=== PATIENT | female | born 1965 | race Caucasian/White ===

== ENCOUNTER 2018-05-03 16:49 | Outpatient (CLI) | payer MEDICAID, SELFPAY ==
--- NOTE | 2018-05-01 09:09 | DI.RAD_ITS ---
SYMPTOMS/DIAGNOSIS: RT 1ST AND 2ND TOE DEFORMITY, PREV SURGERY, LT FOOT PAIN/ DEFORMITY LEFT FOOT: Two views. Comparison is 02/14/18. There is again seen a valgus deformity of the third toe at the metatarsal phalangeal joint. It overlaps the left fourth toe. There is also hammer toe deformity of the third toe. There is a small erosion seen at the lateral aspect of the head of the second metatarsal. This may reflect an inflammatory arthritis. Small cysts are seen in the head of the third metatarsal. Small calcification is seen at the insertion site of the Achilles onto the calcaneus. There is a well corticated osseous density seen on the lateral view at the tarsal metatarsal joint. No radiopaque foreign bodies are seen in the soft tissues. IMPRESSION: Stable chronic changes involving the foot particularly the third toe. RIGHT FOOT: Two views. No priors. There are findings of a prior bunionectomy and resection of the head of the proximal phalanx of the right second toe. There does appear to be mild lateral subluxation of the PIP joint of the second toe. Mild periarticular spurring is seen at the first metatarsal phalangeal joint consistent with osteoarthritis. No acute fracture or dislocation is seen. There does appear to be a hammer toe deformity of the second toe. There are small calcifications seen at the insertion site of the Achilles onto the posterior calcaneus. IMPRESSION: Post surgical and degenerative changes of the right foot.
== END 2018-05-03 17:09 ==
PROVIDERS: PCP Nurse Practitioner Family; Visit Provider Physician Assistant
DX: M20.12 Hallux valgus (acquired), left foot (principal); M20.42 Other hammer toe(s) (acquired), left foot; M20.41 Other hammer toe(s) (acquired), right foot; Z98.890 Other specified postprocedural states; M19.071 Primary osteoarthritis, right ankle and foot; M19.072 Primary osteoarthritis, left ankle and foot
CPT/HCPCS: 73620

== ENCOUNTER 2018-05-22 12:09 | Outpatient (CLI) | payer MEDICAID, SELFPAY ==
--- NOTE | 2018-05-22 10:17 | DI.RAD_ITS ---
SYMPTOM/DIAGNOSIS: RT WRIST PAIN, S/P HYPEREXTENSION, M25.531 RIGHT WRIST: Three views. No definite acute fracture or dislocation is seen. If symptoms persist and there is continued concern, a follow up examination may be obtained. IMPRESSION: No acute abnormality.
== END 2018-05-22 12:29 ==
PROVIDERS: PCP Nurse Practitioner Family; Visit Provider Nurse Practitioner Family
DX: M25.531 Pain in right wrist (principal)
CPT/HCPCS: 73110

== ENCOUNTER 2018-06-01 11:53 | Outpatient (REF) | payer MEDICAID, SELFPAY ==
[2018-06-05 02:17] LABS: 6-monoacetylmorphine Not Detected ng/mL (Cutoff: 25); Amphetamines Negative ng/mL (Cutoff: 500); Barbiturates Negative ng/mL (Cutoff: 200); Benzodiazepines Negative ng/mL (Cutoff: 100); Buprenorphine Not Detected ng/mL (Cutoff: 5); Cocaine Negative ng/mL (Cutoff: 150); Codeine Not Detected ng/mL (Cutoff: 25); Comment Normal; Creatinine, U 154.1 mg/dL; Dihydrocodeine Not Detected ng/mL (Cutoff: 25); EDDP Not Detected ng/mL (Cutoff: 25); Fentanyl Not Detected ng/mL (Cutoff: 2); Hydrocodone Not Detected ng/mL (Cutoff: 25); Hydromorphone Not Detected ng/mL (Cutoff: 25); Hydromorphone-3-beta-glucuroni Not Detected ng/mL (Cutoff: 100); Meperidine Not Detected ng/mL (Cutoff: 25); Methadone Not Detected ng/mL (Cutoff: 25); Morphine Not Detected ng/mL (Cutoff: 25); N-desmethyltapentadol Not Detected ng/mL (Cutoff: 50); Naloxone Not Detected ng/mL (Cutoff: 25); Norbuprenorphine Not Detected ng/mL (Cutoff: 5); Norfentanyl Not Detected ng/mL (Cutoff: 2); Norhydrocodone Not Detected ng/mL (Cutoff: 25); Normeperidine Not Detected ng/mL (Cutoff: 25); Noroxycodone Not Detected ng/mL (Cutoff: 25); Noroxymorphone Not Detected ng/mL (Cutoff: 25); O-desmethyltramadol Not Detected ng/mL (Cutoff: 25); Phencyclidine Negative ng/mL (Cutoff: 25); Propoxyphene Not Detected ng/mL (Cutoff: 25); Tapentadol Not Detected ng/mL (Cutoff: 25); Tetrahydrocannabinol Presumptive Positive ng/mL (Cutoff: 50); Tramadol Not Detected ng/mL (Cutoff: 25); pH 5.9
== END 2018-06-01 12:13 ==
LOC: LBN 11:53
PROVIDERS: PCP Nurse Practitioner Family; Visit Provider Nurse Practitioner Family
DX: Z79.891 Long term (current) use of opiate analgesic (principal); G89.29 Other chronic pain
CPT/HCPCS: 80307; 80364

== ENCOUNTER 2018-06-13 07:08 | Day surgery (SDC) | payer MEDICAID, SELFPAY ==
[2018-06-13 07:15] VITALS: BP 111/72; PULSE 72; RESP 16; TEMP 36.3; O2SAT 97
[2018-06-13] MEDS: Lactated Ringers 1,000 ML 80 ML IV ×2 (07:57→12:50)
--- NOTE | 2018-06-13 10:14 | PDOC.DSDIS_ITS ---
Discharge Plan Disposition Patient Disposition: HOME Condition: Good Discharge Details Reason For Visit: Left Forefoot Deformity Attending Provider: Jairo Carpenter Primary Care Provider: Monika Ayers Home Meds and New Rx's Prescriptions: New ibuprofen 600 mg tablet 600 mg PO TID PRNQty: 90 RF: 3 acetaminophen 500 mg capsule 1,000 mg PO Q8H PRN (Reason: pain) Qty: 90 RF: 0 oxycodone 5 mg tablet 5 mg PO Q6H PRN PRNQty: 12 RF: 0 Continue lidocaine 5 % ointment 1 applic TP .qhs PRN (Reason: foot pain) 30 Days Qty: 30 RF: 11 omega-3 fatty acids [Fish Oil] 300 MG capsule 300 mg PO BID RF: 0 medical marijuana RF: 0 multivitamin [Daily Multi-Vitamin] 1 EACH tablet 1 ea PO DAILY RF: 0 cholecalciferol (vitamin D3) [Vitamin D3] 2,000 UNIT capsule 5,000 unit PO DAILY RF: 0 gabapentin 300 mg capsule 300 - 600 mg PO TID MDD 6 Qty: 360 RF: 2 tizanidine 2 mg capsule 2 mg PO HS RF: 0 omeprazole 20 mg Tablet,Disintegrat, Delay Rel 1 tab PO DAILY PRN PRNRF: 0 Discharge Instructions Additional Instructions: ACTIVITY: You should keep your foot/leg elevated as much as possible for the first days after your surgery. You may bear weight on your heel. You should use the post-op shoe for any mobilization. You may wiggle your toes but no formal exercise until your first follow-up visit. DRESSINGS: You should leave your initial dressings in place until your folllowup appointment. If they become saturated or feel too tight, please call Dr. Carpenter's office prior to changing. MEDICATIONS: You should take Tylenol and Ibuprofen around the clock for baseline pain control. You have been prescribed Oxycodone for breakthroughy pain. If you are not having good pain control or are running low, please contact Dr. Carpenter through the office or hospital. FOLLOW-UP: You will have a follow-up in 7-10 days. At that time your dressings will be changed and further instructions will be given for the post- operative rehabilitation. Equipment/Supplies: Partial Weight Bearing Crutches Activity:: Elevate Remove Dressings/Wound Care:: Do Not Remove Shower/Bathe:: Cover Diet:: As Tolerated Discharge Orders Discharge Orders: Discharge Order (Routine); Ordered 06/13/18 Ordered By: Jairo Carpenter DS: Diagnosis Discharge Diagnosis (1) Crossover toe deformity of left foot: Status: Acute (2) Acquired hammer toe deformity of lesser toe of left foot: Status: Acute
--- NOTE | 2018-06-13 10:30 | DI.RAD_ITS ---
SYMPTOMS/DIAGNOSIS: LT FOOT HAMMER TOES LEFT FOOT IN THE OR: Fluoroscopy Time: 10 sec, .0637mGy Fluoroscopy was utilized by Dr. Carpenter during the performance of a left hammer toe repair. Please refer to the procedure report for complete details.
[2018-06-13] MEDS: Bupivacaine LIPOSOME/PF 133 MG/10 ML VIAL IJ (10:45)
[2018-06-13 14:03] VITALS: BP 123/76; PULSE 54; RESP 17; TEMP 36.2; O2SAT 99
[2018-06-13] MEDS: oxyCODONE 5 MG TAB PO (14:29)
--- NOTE | 2018-06-14 09:50 | ROE_ITS ---
REPORT OF OPERATIVE PROCEDURE DATE OF SURGERY June 13, 2018 PREOPERATIVE DIAGNOSES Left forefoot deformity with second hammertoe and third crossover toe. POSTOPERATIVE DIAGNOSES Hammertoe of the second toe, collateral ligament and plantar plate tear of the medial aspect of the t hird MTP joint. SURGERY 1. DuVries osteotomy, arthroplasty of the second PIP joint, left foot. 2. Plantar plate repair with augmentation using Arthrex InternalBrace for third MTP joint, along wit h Clotilde osteotomy. SURGEON Jairo Carpenter M.D. [employer] Don Anderson PA-C ANESTHESIA MAC with ankle block ESTIMATED BLOOD LOSS 20 cc COMPLICATIONS None. DISPOSITION The patient awakened from anesthesia and taken back to the PACU in a stable condition. INDICATION FOR PROCEDURE Cee is a 53-year-old who has longstanding foot deformity of the left foot. She also has had issues with the right foot. She has had multiple surgeries to the right side. The large complaint is the ham mering of the second toe, as well as the crossing over of the third over the fourth toe. This has wor sened over time. This has worsened over time. She has tried multiple conservative options including d ifferent braces and devices to help hold the toe into position. These have all failed and she desires to pursue something more definitive. I reviewed treatment options with her. I discussed possible hilary gical options. I reviewed the risks of the procedures to include bleeding, infection, pain, stiffness , weakness, recurrence of deformity, devascularization of the toe, damage to nerves and vessels, toe shortening. Despite these risks, she elected to proceed. PROCEDURE DESCRIPTION Cee was greeted in the preoperative holding area. Her identify was confirmed and the correct side was identified and marked. The consent was reviewed with the patient and signed. The history and phys ical was updated. She was taken back to the Operating Room and placed in the supine position. An ankl e block was administered. Sedation was supplied. The left foot was prepped with ChloraPrep and draped in a standard fashion. Prophylactic antibiotics in the form of cefazolin were given. A time-out was performed for safe surg ganga. The Esmarch Tourniquet was then placed up onto the left foot and around the ankle where it stayed for approximately 90 minutes. I then started with the Third MTP joint. A longitudinal incision was made overlying the third toe and MTP joint and extending along the third metatarsal. This was taken down through the skin. Blunt diss ection was used to identify the extensor tendon. The EDL tendon was identified and Z-lengthening was performed. The tendon was removed out of the way with great exposure of the MTP joint. Capsule of th e MTP joint was incised. Circumferential dissection was taken out and around the base of the proximal phalanx. Limited dissection was carried around the metatarsal head. With this exposure now in place, I then performed a Clotilde osteotomy. This was done by using the oscillating saw through the dorsal mar gin of the articular surface in plane with the plantar aspect of the foot to create an oblique osteot mckay. Once this was performed, an osteotome was used to finish the osteotomy and a curved osteotome wa s used to dissect the plantar plate tissues off the plantar aspect of the metatarsal. Using the toe a s a pusher, the head of the metatarsal was then pushed proximally approximately 1 cm and then held in place with a K-wire. A second K-wire was then placed in the proximal phalanx. This allowed the joint distractor to be applied. With the joint distractor applied, the plantar plate was able to be evalua alvin. There was a notable complex tear over the medial border of the plantar plate. There appeared to be some scaring and some attenuation of the medial aspect of the plantar plate and the medial collate ral ligament of the MTP joint was hard to identify. Continuing with the releasing off the proximal ph alanx I released the plantar plate hole. This was released until the flexor tendon was identified at the base and the plantar plate was fully mobile. The tissue was quite good laterally and we did find some good tissue medially as well. I therefore proceeded with placing two horizontal mattress sutures in the most medial and lateral aspects of the plantar plate. These were done using a curved lasso de vice. Once these were placed, I then proceeded with an augmentation procedure using the Arthrex Inter nalBrace system. A proximal K-wire was placed proximal to the Clotilde osteotomy site and angled toward t he joint. This was then over-drilled with a 2.5-mm drill hole. A suture passer was then placed throug h the bone and through the plantar plate and a suture passer was retrieved below the plantar plate, b ut above the flexor tendon. Labral tape was then passed through. This was then held up by the metatar dalia and brought underneath the plantar plate. A 2.5-mm drill hole was then made across the proximal p halanx in a very plantar position from medial to lateral and bicortically. Once this was passed, the sutures from the plantar plate and the augmentation device were passed from medial to lateral and la teral to medial for each side respectively. Before tightening this up, the plantar surface of the pro ximal -proximal phalanx was then rasped. The sutures were tightened and the plantar plate was nicely reapproximated. Before fixating this completely, the Clotilde osteotomy was fixed with about 2 mm of shor tening. This was held with two snap screws from the Arthrex system. Once this was secured, the toe wa s reduced and the plantar plate repair and augmentation was tightened. A 3 x 8-mm interference screw was placed in the metatarsal bone to secure the labral tape. With tension being held more medial than lateral as well, the 3 x 8-mm interference screw was placed within the proximal phalanx. This had ex cellent purchase. The toe was now stable and well reduced. It did seem to have a valgus orientation, however parallel to the fourth and fifth toes. It no longer overlapped the fourth toe, but did diverg e slightly from the second toe more than I was expecting. However, there was no laxity with mean varu s and valgus stress of the MTP joint. Using a #0-Vicryl, I then imbricated some of the capsular tissu es over the medial aspect of the capsule. I closed the capsule primarily with a #2-0 Vicryl. The exte nsor tendon was elongated approximately 5 to 6 millimeters, and then secured with a #0-Vicryl. I then turned my attention to the second toe. A longitudinal incision was made overlying the PIP join t of the second toe and extending down towards the metatarsal head. The extensor tendon was identifie d and it was transected, exposing the PIP joint. The capsule was dissected off and the head of the pr oximal phalanx was identified. Using the oscillating saw, the head was removed, resecting approximate ly 4 millimeters of bone. With this resected, the toe now easily became fully straight and no longer hammered. The MTP joint still had some slight elevation so a Z-lengthening was performed more proxima lly of the extensor tendon. The extensor tendon was then reapproximated with a #0-Vicryl. A 0.0625 K- wire was then placed through the PIP joint in a retrograde fashion. This kept the PIP joint in about 20 degrees of flexion. This was covered with a Jurgan ball and cut short. The wound was then thorough ly irrigated. The skin was closed with a #4-0 Nylon. The skin of the other site was also closed with the same. The tourniquet was released. I had to use some bupivacaine with epinephrine prior to the case and there was some sluggish blood flow back to the second toe, however this started to pink up b y the applications of dressings. The wounds were dressed with Xeroform, 4x4s, Kerlix and an Ministerio wrap. She was placed in a postop shoe. She may heel weight bear. I will see her back in two weeks.
== END 2018-06-13 14:55 | disposition home or self-care (01) ==
PROVIDERS: PCP Nurse Practitioner Family; Visit Provider Student in an Organized Health Care Education/Training Program
PROC: (CPT 28285; principal; 2018-06-13 09:30)
DX: M20.42 Other hammer toe(s) (acquired), left foot (principal); M20.5X2 Other deformities of toe(s) (acquired), left foot
CPT/HCPCS: 28308; 28313; 76942; 73630; J0131; J0690; J1100; J1885; J2250; J2405; J3010

== ENCOUNTER 2018-07-05 08:55 | Outpatient (CLI) | payer MEDICAID, SELFPAY ==
--- NOTE | 2018-07-05 08:51 | DI.RAD_ITS ---
SYMPTOMS/DIAGNOSIS: LEFT FOOT FOLLOWUP S/P ERICH OSTEOTOMY AND PLANTAR LEFT FOOT: Three views were obtained. There are two fixation screws transfixing the head of the 3rd metatarsal fracture fragments. Alignment appears essentially unchanged in comparison with C-arm films of June 13.
== END 2018-07-05 09:15 ==
PROVIDERS: PCP Nurse Practitioner Family; Visit Provider Student in an Organized Health Care Education/Training Program
DX: M20.5X2 Other deformities of toe(s) (acquired), left foot (principal); M20.42 Other hammer toe(s) (acquired), left foot; Z98.890 Other specified postprocedural states; Z47.89 Encounter for other orthopedic aftercare
CPT/HCPCS: 73630

== ENCOUNTER 2018-08-02 08:54 | Outpatient (CLI) | payer MEDICAID, SELFPAY ==
--- NOTE | 2018-08-02 08:51 | DI.RAD_ITS ---
SYMPTOMS/DIAGNOSIS: RT/LT ULNAR HAND PAIN RIGHT WRIST: Three projections were provided. No bone or joint abnormality is seen save for very minimal degenerative changes at the navicular multangular and multangular and first metacarpal joints. LEFT WRIST: Three projections were provided. There is no evidence of a fracture or dislocation. Note is made of a cystic region in the distal pole of the navicular with a very faint thin sclerotic border. There is no evidence of bony expansion, destruction or calcifications within this region and the finding are presumably benign. Minimal degenerative changes are evident.
== END 2018-08-02 09:14 ==
PROVIDERS: PCP Nurse Practitioner Family; Visit Provider Student in an Organized Health Care Education/Training Program
DX: M25.531 Pain in right wrist (principal); M25.532 Pain in left wrist; M19.031 Primary osteoarthritis, right wrist; M19.032 Primary osteoarthritis, left wrist
CPT/HCPCS: 73100; 73110; 73130

== ENCOUNTER 2018-08-09 20:03 | Emergency (ER) | payer MEDICAID, SELFPAY ==
[2018-08-09 20:12] VITALS: BP 117/83; PULSE 94; RESP 20; TEMP 36.6; O2SAT 96
--- NOTE | 2018-08-09 20:23 | W.ED.GENAD ---
Discharge Plan Disposition Patient Disposition: HOME Condition: Fair Discharge Details Chief Complaint: RespSymp Clinical Impression: URI (upper respiratory infection) Primary Care Provider: Monika Ayers ED Provider: Chary Mills Home Meds and New Rx's Prescriptions: New benzonatate [Tessalon Perles] 100 mg capsule 100 mg PO QID PRN (Reason: cough) Qty: 10 RF: 0 oseltamivir [Tamiflu] 75 mg capsule 75 mg PO BID 5 Days Qty: 8 RF: 0 ondansetron 4 mg tablet,disintegrating 4 mg PO QID PRN (Reason: nausea and vomiting) Qty: 10 RF: 0 Continued lidocaine 5 % ointment 1 applic TP .qhs PRN (Reason: foot pain) 30 Days Qty: 30 RF: 11 Fish Oil 300 MG capsule 300 mg PO BID RF: 0 medical marijuana RF: 0 multivitamin [Daily Multi-Vitamin] 1 EACH tablet 1 ea PO DAILY RF: 0 cholecalciferol (vitamin D3) [Vitamin D3] 2,000 UNIT capsule 5,000 unit PO DAILY RF: 0 gabapentin 300 mg capsule 300 - 600 mg PO TID MDD 6 Qty: 360 RF: 2 cyclobenzaprine 10 mg tablet 10 mg PO TID PRN (Reason: muscle spasm) Qty: 90 RF: 4 omeprazole 20 mg capsule,delayed release(DR/EC) 20 mg PO DAILY Qty: 90 RF: 4 ibuprofen 600 mg tablet 600 mg PO TID PRNQty: 90 RF: 3 acetaminophen 500 mg capsule 1,000 mg PO Q8H PRN (Reason: pain) Qty: 90 RF: 0 Discharge Instructions Instructions: Influenza (ED), Upper Respiratory Infection (ED) Additional Instructions: Rapid influenza testing negative here. However, your symptoms are very concerning for influenza, further confirmation has been sent to the state lab. Given your job and young children, we will treat for influenza. Encourage hydration. Tylenol and/or Motrin as needed for discomfort. Zofran as prescribed for nausea. Tessalon perles as prescribed for cough. Take Tamiflu as prescribed. Follow up with primary care if not improving next week. If you develop chest pain, shortness of breath, develop worsening cough or other new/worsening symptoms please seek care urgently once again. Referrals: Monika Ayers, ELISA [Primary Care Provider] - Discharge Data Discharge Date/Time-TO BE ENTERED AT DEPARTURE: 08/09/18 21:33 Medical Decision Making Patient 53-year-old female, accompanied by mother, with chief complaint of URI and GI upset. She reports that symptoms began within the last 48 hours. Is endorsing a fever which is responded well to Tylenol or ibuprofen. She is currently afebrile. Is endorsing sore throat, cough, nausea and vomiting. Denies any diarrhea. Is not noted any blood in her emesis or bowel movements. No change in urinary habits. No vaginal discharge. Denies any abdominal pain. Denies any chest pain. Endorses some slight shortness of breath but associates this with coughing fits. None when not actively coughing. Reports she did receive her flu shot this year. Is endorsing body aches. On exam, patient appears acutely unwell. She does not appear toxic. She is coughing frequently. Afebrile. Noted to be slightly tachycardic at 94. She has been hydrating well and appears well-hydrated on exam. Primarily concern for influenza. Lungs are clear on exam. 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 Also reports that she has 2 infants at home. Given the possible exposures into a geriatric facility, and the high clinical suspicion for influenza, I would prefer to treat the patient at this time with Tamiflu. I requested state testing for the swab that has been sent had initially been noted to be negative. I encouraged hydration. She has been able to tolerate this well. Will prescribe Tessalon Perles as well as Zofran to help with symptomatic management. She reports she has had Tamiflu historically and has had difficulty tolerating this secondary to GI upset. I am hoping that with the Zofran she may find this more tolerable. She was given strict return precautions. Advise follow-up with primary care if not completely resolved next week. All of her questions and concerns were addressed and she is in agreement this plan. Given the time of the evening, pharmacies are closed and she will be discharged with medications as needed. HPI General Mode of arrival: ambulatory. Date/Time Provider Initiated Documentation: 08/09/18 20:22. Limitations to Documentation: no limitations. Information obtained by: patient and family. History of Present Illness 53 year old F presents to the emergency department with the chief complaint of URI and GI upset, described as moderate, with intensity rated at 6 (sore throat). Quality is described as aching, and is localized to the mouth. Patient reports no radiation. Patient started experiencing this day(s) (2) Related Data Home Medications Medication Instructions Recorded Confirmed Fish Oil 300 mg PO BID 11/09/16 08/09/18 Medical Marijuana 04/26/17 08/02/18 cholecalciferol (vitamin D3) 5,000 unit PO DAILY 07/08/17 08/09/18 [Vitamin D3] multivitamin [Daily Multi-Vitamin] 1 ea PO DAILY 07/08/17 08/09/18 gabapentin 300 mg capsule 300 - 600 mg PO TID #360 cap MDD 6 04/30/18 08/09/18 lidocaine 5 % topical ointment 1 applic TP .qhs PRN 30 Days #30 gm 06/01/18 08/09/18 acetaminophen 1,000 mg PO Q8H PRN #90 cap 06/13/18 08/09/18 ibuprofen 600 mg PO TID PRN #90 tab 06/13/18 08/09/18 cyclobenzaprine 10 mg tablet 10 mg PO TID PRN #90 tab 07/13/18 08/09/18 omeprazole 20 mg capsule,delayed 20 mg PO DAILY #90 cap 07/13/18 08/09/18 release benzonatate [Tessalon Perles] 100 mg PO QID PRN #10 cap 08/09/18 ondansetron 4 mg PO QID PRN #10 tab 08/09/18 oseltamivir [Tamiflu] 75 mg PO BID 5 Days #8 cap 08/09/18 Previous Rx's Medication Instructions Recorded gabapentin 300 mg capsule 300 - 600 mg PO TID #360 cap MDD 6 04/30/18 lidocaine 5 % topical ointment 1 applic TP .qhs PRN 30 Days #30 gm 06/01/18 acetaminophen 1,000 mg PO Q8H PRN #90 cap 06/13/18 ibuprofen 600 mg PO TID PRN #90 tab 06/13/18 cyclobenzaprine 10 mg tablet 10 mg PO TID PRN #90 tab 07/13/18 omeprazole 20 mg capsule,delayed 20 mg PO DAILY #90 cap 07/13/18 release benzonatate [Tessalon Perles] 100 mg PO QID PRN #10 cap 08/09/18 ondansetron 4 mg PO QID PRN #10 tab 08/09/18 oseltamivir [Tamiflu] 75 mg PO BID 5 Days #8 cap 08/09/18 Allergies Allergy/AdvReac Type Severity Reaction Status Date / Time No Known Allergies Allergy Unverified 07/28/18 07:52 General Stated Complaint: RespSymp [place]: 3 Review of Systems Constitutional Reports as per HPI and Denies headache(s) Eyes Reports as per HPI, Denies eye discharge and Denies irritation ENT Reports as per HPI, Denies change in voice, Denies ear discharge, Denies otalgia, Denies headache(s), Reports nasal congestion, Reports nasal discharge, Denies sinus pain, Reports sinus pressure, Reports sore throat, Denies throat swelling and Denies tongue swelling Cardiovascular Reports as per HPI, Denies chest pain and Denies dyspnea Respiratory Reports as per HPI, Reports cough, Denies pain on inspiration, Denies pain with cough and Denies dyspnea Gastrointestinal Reports as per HPI, Denies abdominal pain, Denies melena, Denies change in bowel habits, Reports nausea, Reports vomiting and Denies hematemesis Genitourinary Reports system reviewed and no additional complaints, except as docu (denies change in urinary habits) Musculoskeletal Reports as per HPI (body aches) Integumentary/Breasts Reports as per HPI and Denies rash Neurologic Denies headache(s) Allergic/Immunologic Denies throat swelling and Denies tongue swelling PFSH Medical History Tubular adenoma of colon (Inactive ~2016) Chronic pain (Chronic) Surgical History H/O laparoscopy (Chronic) Hx of appendectomy (Chronic ~1981) section (Inactive ~2012) Colonoscopy - MAC (Inactive 06/10/17) S/P LASIK surgery of both eyes (Inactive ~2009) S/P bunionectomy (Inactive ~04/18/15) S/P excision of Guadalupe's neuroma (Inactive ~04/18/15) Status post hammertoe correction (Inactive ~04/18/15) Status post left foot surgery (Inactive 06/13/18) Social History lives independently: Yes number of children: 2 current occupational status: employed 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 frequency: does not exercise Smoking/Tobacco Use Status: Former Tobacco Use quit date: 06/15/12 alcohol intake: current alcohol intake frequency: a few times a month Alcohol type: beer substance use type: marijuana jake/gnosticist: No preference special jake needs: No Exam Const General: cooperative, comfortable, no acute distress, well developed and well groomed Nutritional Appearance: average body habitus and well nourished Orientation: alert and awake [facility] Head: normal to inspection, normocephalic and atraumatic Ears: hearing grossly normal bilaterally, external ears normal and TM's normal bilaterally General nose exam: external nose normal and nares normal Face and sinus: normal facial exam, sinuses nontender and face symmetric Mouth: oral mucosae normal, lip normal, tongue normal, oropharynx normal and moist mucous membranes Teeth and gingiva: dentition normal Throat: posterior oropharynx abnormal (erythema), tonsils normal and uvula midline Eyes General: appearance normal, both eyes and all related structures Neck Neck: normal visual inspection, full ROM, no lymphadenopathy and no meningeal signs Resp Effort & Inspection: normal respiratory effort, able to speak in complete sentences, cough Quality of cough: actively coughing and no respiratory distress Auscultation: clear to auscultation bilaterally, no rales, no rhonchi and no wheezes Cardio Rate: regular rate Rhythm: regular rhythm Heart Sounds: S1 normal and S2 normal GI Inspection: normal to inspection Palpation: soft, no hepatosplenomegaly, not rigid and nontender Auscultation: normal bowel sounds Skin General skin exam: no rashes or lesions noted Neuro General: alert and awake Cognition: normal cognition Speech: speech normal Gait: normal gait Psych Appearance: grossly normal and well kempt Mental Status: mental status grossly normal Speech and Movement: speech and movement normal Course Vital Signs Temperature 36.6 C 08/09/18 20:12 Pulse 94 H 08/09/18 20:12 Respiratory Rate 20 08/09/18 20:12 Blood Pressure 117/83 08/09/18 20:12 Pulse Oximetry 96 08/09/18 20:12 Temperature 36.6 C 08/09/18 20:12 Temperature Source Skin 08/09/18 20:12 Pulse 94 H 08/09/18 20:12 Respiratory Rate 20 08/09/18 20:12 Respiratory Effort 08/09/18 20:15 Blood Pressure 117/83 08/09/18 20:12 Blood Pressure Position Sitting 08/09/18 20:12 Pulse Oximetry 96 08/09/18 20:12 Oxygen Delivery Method Room Air 08/09/18 20:12 Oxygen Flow Rate 0 08/09/18 20:12 Pain Level 6 08/09/18 20:12
[2018-08-09] MEDS: Benzonatate 100 MG CAP PO (20:44)
[2018-08-09] MEDS: Ondansetron O.D.T. 4 MG TABEF 12 MG PO (21:26)
[2018-08-09] MEDS: Oseltamivir 75 MG CAP 150 MG PO (21:26)
[2018-08-09] MEDS: Benzonatate 100 MG CAP 200 MG PO (21:27)
[2018-08-17 13:47] LABS: Flu PCR, State Lab See Comments
== END 2018-08-09 21:33 | disposition home or self-care (01) ==
PROVIDERS: Emergency Provider Physician Assistant; PCP Nurse Practitioner Family
DX: J11.1 Influenza due to unidentified influenza virus with other respiratory manifestations (principal)
CPT/HCPCS: 87449; 99283

== ENCOUNTER 2018-08-17 08:43 | Outpatient (CLI) | payer MEDICAID, SELFPAY ==
[2018-08-17 12:47] LABS: Anion Gap 10.3 mmol/L (3-11); BUN 14 mg/dL (7-18); CO2 27.7 mmol/L (21.0-32.0); CREATININE 0.92 mg/dL (0.55-1.02); Calcium 9.3 mg/dL (8.5-10.1); Chloride 104 mmol/L (98-107); Cholesterol 199 mg/dL (50-200); Glucose 95 mg/dL (70-100); HDL Cholesterol 55 mg/dL (40-60); LDL CHOLESTEROL 122 mg/dL (<100); Magnesium 2.1 mg/dL (1.8-2.4); Potassium 4.8 mmol/L (3.5-5.1); Sodium 142 mmol/L (136-145); Triglyceride 112 mg/dL (30-150)
[2018-08-17 13:22] LABS: FREE T4 1.17 ng/dL (0.76-1.46)
== END 2018-08-17 09:03 ==
PROVIDERS: PCP Nurse Practitioner Family; Visit Provider Nurse Practitioner Family
DX: Z13.220 Encounter for screening for lipoid disorders (principal); R25.2 Cramp and spasm; Z13.29 Encounter for screening for other suspected endocrine disorder
CPT/HCPCS: 36415; 80048; 80061; 83721; 83735; 84439; 84443

== ENCOUNTER 2018-09-06 07:35 | Day surgery (SDC) | payer MEDICAID, SELFPAY ==
--- NOTE | 2018-09-06 06:55 | ENDO_ITS ---
Date of service: 09/06/18 Time of Service: 08:41 Endoscopy Report DATE OF PROCEDURE: 09/06/18 PRE-OP DIAGNOSIS: Dysphagia POST-OP DIAGNOSIS: same (mild gastritis and mild esophagitis) PROCEDURE: EGD with biopsies SURGEON: Sadie Mejia ANESTHESIA: MAC (Jalen Mitchell, ARMATURE BALANCER/ ASA 2) ESTIMATED BLOOD LOSS: 2 PATHOLOGY: other (Antral bx and esophageal bx) COMPLICATIONS: None DISPOSITION: same day INDICATIONS: Mrs. Orozco is a pleasant 53 year old female who was seen in the office with a complaint of dysphagia. Risks, benefits and complications have been reviewed. Complications include but are not limited to bleeding, pain, perforation, sore throat, aspiration, and adverse reaction to the medications. Questions were entertained and answered to their satisfaction and they wished to proceed. No guarantees were given or implied. FINDINGS: Mild inflammation of the stomach and esophagus PROCEDURE DESCRIPTION: After informed consent was obtained the patient was take to the procedure room and placed in a supine position. Monitors were applied and a time out was done. The patients name, date of , procedure type, al lergies to medications and metal in their body was reviewed. A bite block was placed and the patient was sedated. Once sedated and comfortable the gastroscope was advanced through the oropharynx which was grossly normal into the esophagus. The proximal and mid-esophagus were normal. In the distal esophagus there was mild inflammation noted. The scope was advanced into the stomach and through the pylorus into the 3rd portion of the duodenum. The duodenum was noted to be normal. The scope was retracted back into the stomach and biopsies were done to rule out H. pylori. There was mild to moderate inflammation. There were no ulcers. The scope was retroflexed. The cardia and fundus were noted to be normal. There was no hiatal hernia noted. The scope was retracted back into the esophagus and biopsies were done of the GE junction to rule out Luna's. The Z line was irregular. The GE junction was at 40 cm. The scope was removed and the patient was woken up and taken back to [facility] in stable condition. Follow up: 2 weeks in the office
--- NOTE | 2018-09-06 06:55 | W.PM.DSUDISC ---
Discharge Plan Disposition Patient Disposition: HOME Condition: Good Discharge Details Reason For Visit: Dysphagia Attending Provider: Sadie Mejia Primary Care Provider: Monika Ayers Home Meds and New Rx's Prescriptions: Continued lidocaine 5 % ointment 1 applic TP .qhs PRN (Reason: foot pain) 30 Days Qty: 30 RF: 11 Fish Oil 300 MG capsule 300 mg PO BID RF: 0 medical marijuana RF: 0 multivitamin [Daily Multi-Vitamin] 1 EACH tablet 1 ea PO DAILY RF: 0 cholecalciferol (vitamin D3) [Vitamin D3] 2,000 UNIT capsule 5,000 unit PO DAILY RF: 0 gabapentin 300 mg capsule 300 - 600 mg PO TID MDD 6 Qty: 360 RF: 2 cyclobenzaprine 10 mg tablet 10 mg PO TID PRN (Reason: muscle spasm) Qty: 90 RF: 4 acetaminophen 500 mg capsule 1,000 mg PO Q8H PRN (Reason: pain) Qty: 90 RF: 0 ondansetron 4 mg tablet,disintegrating 4 mg PO QID PRN (Reason: nausea and vomiting) Qty: 10 RF: 0 Changed omeprazole 20 mg capsule,delayed release(DR/EC) 40 mg PO DAILY Qty: 90 RF: 4 Discontinued ibuprofen 600 mg tablet 600 mg PO TID PRNQty: 90 RF: 3 Discharge Instructions Instructions: Upper Endoscopy (DC), Gastritis (DC), Esophagitis (DC) Additional Instructions: Findings: mild inflammation in the stomach and esophagus Follow up:2 weeks medication: Increase Omeprazole to 40 mg daily Please call if you develop: fevers >101.5 Nausea or Vomiting Abdominal pain that is not transient DAY SURGERY UNIT POST COLONOSCOPY INSTRUCTIONS 1. Because there will be medication in your system for the next 24 hours, you may feel a little sleepy. Your coordination will be affected. Therefore: a. Do not drive or operate dangerous equipment for 24 hours. b. Do not drink alcohol beverages for 24 hours (not even beer). c. Plan to go home and rest for the day. 2. Generally there are no restrictions on your activity after a day or so has gone by, but you may feel a bit fatigued for a few days. 3 After you arrive home you may have a light meal and return to a normal diet as you can tolerate it without feeling sick to your stomach. 4. After surgery, you may feel pain or discomfort. This should be only transient, but if it persists please contact your doctor. 5. If there are any questions regarding the findings of your procedure, please feel free to contact your doctor. 6. If you are unable to contact your doctor with a problem, contact the hospital at [phone]. 7. Continue all your regular medications unless directed otherwise. I understand the above instructions and have no questions. Signature of Patient or Responsible Adult Escort Date/Time Name of Responsible Adult Escort Signature of Nurse Date/Time Activity:: Activity as Tolerated Diet:: As Tolerated Discharge Orders Discharge Orders: Discharge Order (Routine); Ordered 09/06/18 Ordered By: Sadie Mejia DS: Diagnosis Discharge Diagnosis (1) GERD (gastroesophageal reflux disease): Status: Chronic (2) Dysphagia: Status: Acute (3) H/O esophagogastroduodenoscopy: Status: Chronic
--- NOTE | 2018-09-06 06:56 | W.PM.HP.N ---
Date of service: 09/06/18 Assessment and Plan (1) Dysphagia: Current visit: No Status: Acute P\\ EGD under sedation Risks, benefits, complications were reviewed with the patient. Complications include but are not limited to bleeding, sore throat, injury to the uvula, perforation and adverse reaction to the medications. Questions were entertained and answered to their satisfaction and they wish to proceed. No guarantees were given or implied. Qualifiers: Dysphagia type: unspecified Qualified Code(s): R13.10 - Dysphagia, unspecified History of Present Illness Narrative: Cee is here today to discuss an EGD. The patient is having dysphagia and globus sensation. She has had intermittent refulx that she has treated intermittently with PPI. She was recently given a Rx for omerpazole 20 mg to take daily. She tells me that as a [age] something she had a lot more reflux. As she quit drinking and smoking things got better. She had a colonoscopy last year and was found to have a tubular adenoma. The patient denies any hematemesis, unintentional weight loss or changes in bowel habits. The patient denies any chest pain or shortness of breath with exertion. No changes in her health since she was last seen in the office. [facility] Medical History Hyperlipidemia (Chronic) Tubular adenoma of colon (Inactive ~2016) Chronic pain (Chronic) Surgical History H/O esophagogastroduodenoscopy (Chronic ~09/06/18) H/O laparoscopy (Chronic) Hx of appendectomy (Chronic ~1981) section (Inactive ~2012) Colonoscopy - MAC (Inactive 06/10/17) S/P LASIK surgery of both eyes (Inactive ~2009) S/P bunionectomy (Inactive ~04/18/15) S/P excision of Guadalupe's neuroma (Inactive ~04/18/15) Status post hammertoe correction (Inactive ~04/18/15) Status post left foot surgery (Inactive 06/13/18) Family History Mother No problems noted. Father Dementia Brother No problems noted. Daughter No problems noted. Daughter No problems noted. Maternal Grandfather COPD (chronic obstructive pulmonary disease) with emphysema Maternal Grandmother No problems noted. 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 frequency: does not exercise Smoking/Tobacco Use Status: Former Tobacco Use quit date: 06/15/12 alcohol intake: current alcohol intake frequency: a few times a month Alcohol type: beer substance use type: marijuana jake/methodist: No preference special jake needs: No Meds Home Medications Medication Instructions Recorded Confirmed Type Fish Oil 300 mg PO BID 11/09/16 09/06/18 History Medical Marijuana 04/26/17 08/24/18 History cholecalciferol (vitamin D3) 5,000 unit PO DAILY 07/08/17 09/06/18 History [Vitamin D3] multivitamin [Daily Multi-Vitamin] 1 ea PO DAILY 07/08/17 09/06/18 History gabapentin 300 mg capsule 300 - 600 mg PO TID #360 cap MDD 6 04/30/18 09/06/18 Rx lidocaine 5 % topical ointment 1 applic TP .qhs PRN 30 Days #30 gm 06/01/18 09/06/18 Rx acetaminophen 1,000 mg PO Q8H PRN #90 cap 06/13/18 09/04/18 Rx cyclobenzaprine 10 mg tablet 10 mg PO TID PRN #90 tab 07/13/18 09/06/18 Rx ondansetron 4 mg PO QID PRN #10 tab 08/09/18 09/04/18 Rx omeprazole 40 mg PO DAILY #90 cap 09/06/18 09/06/18 Rx Allergies Allergy/AdvReac Type Severity Reaction Status Date / Time No Known Allergies Allergy Unverified 09/06/18 07:52 Exam Resp Effort & Inspection: normal respiratory effort Auscultation: clear to auscultation bilaterally Cardio Rate: regular rate Rhythm: regular rhythm Heart Sounds: no gallops, no murmurs and no rubs
[2018-09-06 08:00] VITALS: BP 121/55; PULSE 83; RESP 16; TEMP 36.3; O2SAT 98
[2018-09-06] MEDS: Lactated Ringers 1,000 ML 80 ML IV (08:22)
[2018-09-06] MEDS: Lidocaine 2% Viscous 15 ML CUP (08:35)
--- NOTE | 2018-09-06 08:44 | STOM_PTH ---
PATIENT: Cee Orozco LOC: [facility] U#:[id number] AGE/SX: 53/F ROOM: RE09/06/[address]: Sadie Mejia MD : [id number] BED: DIS: 09/06/2018 SPEC #: [id number] RECD: 09/06/18 12:42 STATUS: DAVE REJosh #: [id number] ROSARIO: 09/06/18 08:[address]: Sadie Mejia DEPT: Surgical Specimen RECD BY: Kayli Stratton ENTERED: 09/06/18 12:43 SP TYPE: STOMACH OTHR DR: ROSA Machuca Tissues: 1 - STOMACH BIOPSY 2 - ESOPHAGUS BIOPSY Procedures: GROSS AND MICRO LEVEL 4 Comments: [id number]
[2018-09-06 09:30] VITALS: BP 93/45; PULSE 71; RESP 16; TEMP 36.6; O2SAT 99
== END 2018-09-06 10:00 | disposition home or self-care (01) ==
LOC: SUR 07:35
PROVIDERS: PCP Nurse Practitioner Family; Visit Provider Surgery
PROC: 0DJ68ZZ Inspection of Stomach, Via Natural or Artificial Opening Endoscopic (ICD-10-PCS; CPT 43235; principal; 2018-09-06 08:45)
DX: R13.10 Dysphagia, unspecified (principal); K22.10 Ulcer of esophagus without bleeding; K31.89 Other diseases of stomach and duodenum; K21.9 Gastro-esophageal reflux disease without esophagitis
CPT/HCPCS: 43239; 88305; NC

== ENCOUNTER 2018-09-15 08:35 | Outpatient (CLI) | payer MEDICAID, SELFPAY ==
--- NOTE | 2018-09-15 08:31 | DI.RAD_ITS ---
SYMPTOM/DIAGNOSIS: LEFT FOOT SURGERY LEFT FOOT: 09/15/18 Four views were obtained. Note is again made of deformity of the head of the 3rd metatarsal with fixation screws in place. Alignment appears essentially unchanged in comparison with the examination of Jul 05, 2018
== END 2018-09-15 08:55 ==
PROVIDERS: PCP Nurse Practitioner Family; Visit Provider Physician Assistant
DX: M20.42 Other hammer toe(s) (acquired), left foot (principal); M20.5X2 Other deformities of toe(s) (acquired), left foot; Z98.890 Other specified postprocedural states
CPT/HCPCS: 73630

== ENCOUNTER 2018-09-21 00:52 | Outpatient (CLI) | payer MEDICAID, SELFPAY ==
--- NOTE | 2018-09-21 08:45 | DI.CT_ITS ---
SYMPTOMS/DIAGNOSIS: EVALUATE PAIN AND SNAPPING AT 3RD MTP JOINT, M20.5X2, CROSSOVER TOE DEFORMITY, LEFT FOOT LEFT FOOT CT: CT examination of the foot was performed utilizing multislice acquisition and multiplanar reconstruction. Hindfoot structures appear intact. There is an apparent suture defect and two fixation screws in the head of the 3rd. Otherwise, the bone appears intact and the articular surface appears intact. The adjacent proximal articular surface of the 3rd toe is unremarkable. There is increased soft tissue radiodensity around the head of the 3rd metatarsal, particularly on its plantar aspect, and there is increased intermetatarsal head distance between 3rd and 4th metatarsals. No other specific bony abnormality seen.
== END 2018-09-21 01:12 ==
PROVIDERS: PCP Nurse Practitioner Family; Visit Provider Student in an Organized Health Care Education/Training Program
DX: M79.672 Pain in left foot (principal); M20.5X2 Other deformities of toe(s) (acquired), left foot; M24.875 Other specific joint derangements left foot, not elsewhere classified
CPT/HCPCS: 73700

== ENCOUNTER 2018-11-14 08:54 | Day surgery (SDC) | payer MEDICAID, SELFPAY ==
[2018-11-14] VITALS (7 sets, daily range): BP systolic 104–115; BP diastolic 56–76; PULSE 75–100; RESP 13–17; TEMP 36–36.6; O2SAT 95–99
[2018-11-14] MEDS: Lactated Ringers 1,000 ML 80 ML IV (09:37)
[2018-11-14] MEDS: ceFAZolin 2 GM/50 ML BAG IVPB (09:58)
--- NOTE | 2018-11-14 10:07 | PDOC.DSDIS_ITS ---
Discharge Plan Disposition Patient Disposition: HOME Condition: Good Discharge Details Reason For Visit: R CTS, Cubital Tunnel, Left Hammer Toe Attending Provider: Jairo Carpenter Primary Care Provider: Monika Ayers Home Meds and New Rx's Prescriptions: New hydrocodone-acetaminophen 5-325 mg tablet 1 tab PO Q4H PRN (Reason: pain) Qty: 14 RF: 0 ibuprofen 600 mg tablet 600 mg PO TID PRNQty: 90 RF: 3 Continued lidocaine 5 % ointment 1 applic TP .qhs PRN (Reason: foot pain) 30 Days Qty: 30 RF: 11 omeprazole 40 mg capsule,delayed release(DR/EC) 40 mg PO DAILY Qty: 30 RF: 2 medical marijuana RF: 0 multivitamin [Daily Multi-Vitamin] 1 EACH tablet 1 ea PO DAILY RF: 0 cholecalciferol (vitamin D3) [Vitamin D3] 2,000 UNIT capsule 5,000 unit PO DAILY RF: 0 gabapentin 300 mg capsule 300 - 600 mg PO TID MDD 6 Qty: 360 RF: 2 cyclobenzaprine 10 mg tablet 10 mg PO TID PRN (Reason: muscle spasm) Qty: 90 RF: 4 acetaminophen 500 mg capsule 1,000 mg PO Q8H PRN (Reason: pain) Qty: 90 RF: 0 Discharge Instructions Additional Instructions: Activity: You should stay in the sling for the first 10-14 days. You may come out of the sling for gentle motion and hygiene but should largely remain in the sling to allow the incision site to heal. Gentle motion of the elbow, hand, wrist, and fingers is okay and encouraged after the first few days, but no repetitive activites nor heavy lifting. You may apply ice. For the foot, you should walk in the post-op shoe. You may use crutches for support but not necessary. Be careful of the pin out of the 3rd toe. Medications: - You should take Tylenol and Ibuprofen around the clock. - You have been prescribed Hydrocodone for breakthrough pain. Dressings: - The initial surgical dressing should stay in place for 3 days. It may then be removed and kept clean and dry. You should cover with a light gauze dressing. - You may shower after 3 days and get the wound wet. 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
[2018-11-14] MEDS: fentaNYL 100 MCG/2 ML VIAL IVP (12:20)
[2018-11-14] MEDS: HYDROcodone 5/Acetaminophen 325 TAB PO (13:07)
--- NOTE | 2018-11-15 18:42 | ROE_ITS ---
DATE OF SURGERY: November 14, 2018 PREOPERATIVE DIAGNOSIS: Right carpal tunnel syndrome, right cubital tunnel syndrome, left third toe hammertoe with painful hardware. POSTOPERATIVE DIAGNOSIS: Same. SURGERY: #1. Right endoscopic carpal tunnel release. #2. Right ulnar nerve decompression with anterior subcutaneous transposition. #3. Removal of hardware from left third metatarsal with hammertoe correction using a DuVries osteotomy. SURGEON: Jairo Carpenter M.D. LEAD MASSAGE THERAPIST: Keya Villalpando PA-C ANESTHESIA: General. ESTIMATED BLOOD LOSS: 20 cc COMPLICATIONS: None. DISPOSITION: The patient was awakened from anesthesia and taken to the PACU in a stable condition. INDICATION FOR PROCEDURE: Cee is a 53-year-old who has had known bilateral carpal tunnel and cubital tunnel syndromes. Her right side is much worse is much worse than the left side. Given the failure of conservative treatment options, I did offer decompression. Furthermore, she is status post a tarsal plantar plate repair of the left third MTP joint, with hammertoe correction of the second toe. She continues to have issues with the hammering of the third toe. She also has pain over the extensor tendon at the level of the hardware. Therefore, I recommended hardware removal, scar tissue debridement, extensor tendon modification, and hammertoe correction using a DuVries arthroplasty. I reviewed the risks of the procedures to include bleeding, infection, pain, stiffness, damage to nerves and vessels, continued numbness, nerve instability, continued pain and extensor tendon issues with the foot, toe deformity, and need for repeat procedures. Despite these risks, she elected to proceed. PROCEDURE DESCRIPTION: Cee was greeted in the preoperative holding area. Her identity was confirmed and the correct side was identified and marked. The consent was reviewed with the patient and signed. The History and Physical was updated. She was taken back to the Operating Room and placed in a supine position. A general anesthetic was administered. A nonsterile tourniquet was placed high up on the right arm. The right arm was prepped with ChloraPrep and draped in a standard fashion. At the same time, I also prepped the left foot with ChloraPrep and then draped this in a standard fashion as well. Prophylactic antibiotics in the form of cefazolin were given. A time-out was performed for safe surgery. Starting with the right arm, I anesthetized the proposed surgical sites both at the level of the wrist and at the level of the medial elbow with 0.5% bupivacaine with epinephrine. The tourniquet was then inflated to 250 mmHg where it stayed for a total of 34 minutes. A standard 1-cm incision was made in the volar wrist creases and dissection was carried down bluntly through the skin and into the subcutaneous tissue to expose the volar fascia. This was incised bluntly and then elevated. Hamate finders were used to identify the carpal tunnel. This area was dilated. A synovial elevator was used to remove any synovial attachments to the undersurface of the transverse carpal ligament. The endoscope was then able to be inserted into the carpal tunnel. We had excellent visualization of the transverse running fibers of the transverse carpal ligament. The edge of the transverse carpal ligament was marked by my finger and by direct visualization. The blade was then elevated all the way and the ligament was able to be released. The fibers we were able to separate completely with excellent space. The camera was then removed. The volar forearm fascia was then released sharply, making sure to dissect it from the median nerve and also to stay ulnar to avoid any injury to the palmar cutaneous branch. Irrigation was performed with easy flow of the irrigant. The incision site was then closed with a #4-0 nylon. Attention was then turned to the ulnar nerve decompression. A curvilinear incision was made just posterior to the medial condyle. This was taken down sharply through the skin. Blunt dissection was used to carry this down to the medial fascia of the forearm. The ulnar nerve was identified by palpation. It was then carefully exposed. There were two small branches of the medial antebrachial cutaneous nerve which were protected during this time. Once the nerve was exposed, a freer was also used to protect the nerve from any harm. Scissors were used to release the points of compression along the nerve. This was noted to be particularly tight in the very distal aspect of the cubital tunnel and going into the fascia of the flexor carpi ulnaris. The nerve was released down into the fascia of the flexor carpi ulnaris and to the first branch of the ulnar nerve. It was also released well up into the arm. There was no significant medial intramuscular septum placing pressure on the ulnar nerve. Once this was released fully, the elbow was taken through range of motion. It was then noted that the ulnar seemed to want to sublux and, therefore, it was transposed. A small amount of fascia was elevated off of the medial flexor pronator mass. This was then sutured to the subcutaneous tissue at the level of medial epicondyle. The ulnar nerve was kept anterior to this. There was no tension on the ulnar nerve. The ulnar nerve was able to move freely within this space. The tourniquet was then deflated after 34 minutes. There was no significant bleeding. The deep tissue was closed with a #2-0 Vicryl. The skin was closed with a #4-0 nylon. This was also dressed with Xeroform, followed by 4x4s, Kerlix and an Ministerio wrap. I then moved on to the foot portion of the case. The previous incision of the third metatarsophalangeal joint area was then identified. This was marked on the skin and anesthetized with 0.5% bupivacaine with epinephrine. An Esmarch tourniquet was made for the left foot, tying just above the ankle. This stayed in place for approximately 40 minutes. An incision was made sharply through the skin. The extensor tendon was identified and there was noted to be some scarring at the point of the extensor tendon elongation. The lengthening seemed to have adhered to the medial aspect of the MTP joint. There was some disruption of the distal fibers and the extensor digitorum brevis was applying a laterally directed force to the distal aspect of the toe. The extensor tendon was fully debrided so that it was freely mobile. There was a significant amount of scar tissue seen and adherence seen of the extensor tendon to the underlying metatarsal and proximal phalanx. The bursal tissue that was developed on top of the metatarsal bone was then removed with a rongeur. This exposed the two screw heads for the Clotilde osteotomy. Using a needle jinrikisha driver, the two screws were removed. This was done without difficulty and there was no significant loosening of the metatarsal head. With the screws removed, I then focused on the extensor tendon. The extensor tendon insertions over the PIP joint were released and the joint was opened up. This exposed the distal aspect of the proximal phalanx. Using an oscillating saw, I then removed the proximal phalanx condyles. A rongeur and rasp were used to smooth the edges. This removed the hammertoe deformity. There still was significant pull from the extensor digitorum brevis on the distal aspect of the toe. Therefore, this was released. The stump of the extensor digitorum brevis, along with the stump of the remnant of the extensor digitorum longus was then reapproximated and sutured to the extensor digitorum longus tendon. This had a more direct pull of the toe. A K-wire was driven across the PIP joint to hold the toe in a fixed straight position. This will stay for three weeks before it is removed to allow for toe motion. The wound was then irrigated. The tourniquet was removed. There was no significant bleeding. The wound was closed with a #2-0 Vicryl, followed by a #4-0 nylon. At the end of the case all counts were correct. She was placed into a sling for the right arm and a postop shoe for the left foot. She was then taken back to the PACU. She was in a stable condition and suffered no complications.
== END 2018-11-14 13:58 | disposition home or self-care (01) ==
PROVIDERS: PCP Nurse Practitioner Family; Visit Provider Student in an Organized Health Care Education/Training Program
PROC: (CPT 28285; principal; 2018-11-14 13:30)
PROC: 01N54ZZ Release Median Nerve, Percutaneous Endoscopic Approach (ICD-10-PCS; CPT 29848; 2018-11-14 13:30)
PROC: (CPT 28285; 2018-11-14 13:30)
PROC: (CPT 28285; 2018-11-14 13:30)
DX: G56.21 Lesion of ulnar nerve, right upper limb (principal); G56.01 Carpal tunnel syndrome, right upper limb; M20.42 Other hammer toe(s) (acquired), left foot
CPT/HCPCS: 28285; 29848; 64719; 20680; J0690; J3010; L3650

== ENCOUNTER 2018-11-18 13:38 | Emergency (ER) | payer MEDICAID, SELFPAY ==
[2018-11-18 13:41] VITALS: BP 115/72; PULSE 84; RESP 18; TEMP 36.8; O2SAT 99
--- NOTE | 2018-11-18 13:52 | W.ED.GENAD ---
Discharge Plan Disposition Patient Disposition: HOME Condition: Stable Discharge Details Chief Complaint: Laceration Clinical Impression: Visit for wound check, S/P hammer toe correction Primary Care Provider: Monika Ayers ED Provider: Fabiana Zelaya Home Meds and New Rx's Prescriptions: Continued lidocaine 5 % ointment 1 applic TP .qhs PRN (Reason: foot pain) 30 Days Qty: 30 RF: 11 omeprazole 40 mg capsule,delayed release(DR/EC) 40 mg PO DAILY Qty: 30 RF: 2 medical marijuana RF: 0 multivitamin [Daily Multi-Vitamin] 1 EACH tablet 1 ea PO DAILY RF: 0 cholecalciferol (vitamin D3) [Vitamin D3] 2,000 UNIT capsule 5,000 unit PO DAILY RF: 0 gabapentin 300 mg capsule 300 - 600 mg PO TID MDD 6 Qty: 360 RF: 2 cyclobenzaprine 10 mg tablet 10 mg PO TID PRN (Reason: muscle spasm) Qty: 90 RF: 4 hydrocodone-acetaminophen 5-325 mg tablet 1 tab PO Q4H PRN (Reason: pain) Qty: 14 RF: 0 ibuprofen 600 mg tablet 600 mg PO TID PRNQty: 90 RF: 3 acetaminophen 500 mg capsule 1,000 mg PO Q8H PRN (Reason: pain) Qty: 90 RF: 0 Discharge Instructions Instructions: Acute Wound Care (ED) Additional Instructions: Apply topical antibiotic ointment to the area 1-[address] Carpenter's office on Tuesday morning to schedule a follow-up appointment for reevaluation. Return immediately to the emergency department with any worsening or new concerning symptoms. Discharge Data Discharge Date/Time-TO BE ENTERED AT DEPARTURE: 11/18/18 14:52 Discharge Physician: Fabiana Zelaya Medical Decision Making 53-year-old female who is 4 days status post a hammertoe correction of her left third toe who presents with concern for possible missing stitch and for infection in her toe. The left third toe appears to be healing well. There are 4 interrupted sutures, and one possible running continuous suture. It appears that she likely does not have a suture missing, but the skin had tented and is now healing. There is very minimal erythema noted on the medial aspect of the open area but otherwise the remainder of the wound appears to be healing well. There is no drainage or bleeding noted. Discussed with Dr. Carpenter and he recommends topical antibiotic ointment and will follow up with patient on Tuesday. Patient also had right carpal tunnel release and right ulnar nerve decompression and she has a sling on her right arm which she states is too small. It appears that the sling extends to her mid forearm. A large sling was placed and patient states this feels more comfortable. She is instructed to apply topical antibiotic ointment to the toe 1-2 times daily, and to call Dr. Carpenter's office on Tuesday morning to schedule a follow-up appointment for reevaluation. She is instructed to return here at any time with any concerns. HPI General Mode of arrival: ambulatory. Date/Time Provider Initiated Documentation: 11/18/18 13:47. Limitations to Documentation: no limitations. Information obtained by: patient. HPI Narrative: Patient is a 53-year-old female who presents for evaluation of her left third toe 4 days s/p hammertoe correction with Dr. Carpenter. She states today she was told that she could shower, and when she removed her dressing after the shower, she thought that a suture had possibly come out. She denies any worsening pain or fever. She states she did note some white drainage on her dressing. She states she came here due to concern for missing a suture as well as a possible infection. Related Data Home Medications Medication Instructions Recorded Confirmed Medical Marijuana 04/26/17 10/23/18 cholecalciferol (vitamin D3) 5,000 unit PO DAILY 07/08/17 11/18/18 [Vitamin D3] multivitamin [Daily Multi-Vitamin] 1 ea PO DAILY 07/08/17 11/18/18 gabapentin 300 mg capsule 300 - 600 mg PO TID #360 cap MDD 6 04/30/18 11/18/18 lidocaine 5 % topical ointment 1 applic TP .qhs PRN 30 Days #30 gm 06/01/18 11/18/18 cyclobenzaprine 10 mg tablet 10 mg PO TID PRN #90 tab 07/13/18 11/18/18 omeprazole 40 mg capsule,delayed 40 mg PO DAILY #30 cap 09/29/18 11/18/18 release acetaminophen 1,000 mg PO Q8H PRN #90 cap 11/14/18 11/18/18 hydrocodone-acetaminophen 1 tab PO Q4H PRN #14 tab 11/14/18 11/18/18 ibuprofen 600 mg PO TID PRN #90 tab 11/14/18 11/18/18 Previous Rx's Medication Instructions Recorded gabapentin 300 mg capsule 300 - 600 mg PO TID #360 cap MDD 6 04/30/18 lidocaine 5 % topical ointment 1 applic TP .qhs PRN 30 Days #30 gm 06/01/18 cyclobenzaprine 10 mg tablet 10 mg PO TID PRN #90 tab 07/13/18 omeprazole 40 mg capsule,delayed 40 mg PO DAILY #30 cap 09/29/18 release acetaminophen 1,000 mg PO Q8H PRN #90 cap 11/14/18 hydrocodone-acetaminophen 1 tab PO Q4H PRN #14 tab 11/14/18 ibuprofen 600 mg PO TID PRN #90 tab 11/14/18 Allergies Allergy/AdvReac Type Severity Reaction Status Date / Time No Known Allergies Allergy Unverified 11/18/18 13:46 General Stated Complaint: Laceration [place]: 4 Review of Systems Review of Systems All systems reviewed & are unremarkable except as noted in HPI and below PFSH Medical History Erosive esophagitis (Acute) Hyperlipidemia (Chronic) Tubular adenoma of colon (Inactive ~2016) Chronic pain (Chronic) Surgical History H/O esophagogastroduodenoscopy (Chronic ~09/06/18) H/O laparoscopy (Chronic) Hx of appendectomy (Chronic ~1981) section (Inactive ~2012) Colonoscopy - MAC (Inactive 06/10/17) S/P LASIK surgery of both eyes (Inactive ~2009) S/P bunionectomy (Inactive ~04/18/15) S/P excision of Guadalupe's neuroma (Inactive ~04/18/15) Status post hammertoe correction (Inactive ~04/18/15) Status post left foot surgery (Inactive 06/13/18) Family History Mother No problems noted. Father Dementia Brother No problems noted. Daughter No problems noted. Daughter No problems noted. Maternal Grandfather COPD (chronic obstructive pulmonary disease) with emphysema Maternal Grandmother No problems noted. 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 What is your relationship status?: Panel score (0-1 are the most socially isolated patients): 0 What type of physical activity do you participate in: additional Details: very active Frequency: does not exercise Julee/Orthodoxy: No preference Special julee needs: No Do you feel safe in your relationship?: Yes Exam Const General: cooperative, healthy appearing and no acute distress HENMT Head: normal to inspection Mouth: oral mucosae normal Eyes General: appearance normal, both eyes and all related structures Neck Neck: normal visual inspection Resp Effort & Inspection: normal respiratory effort and able to speak in complete sentences Cardio Rate: regular rate Skin General skin exam: no rashes or lesions noted Neuro General: alert, awake and oriented x3 Motor: muscle tone normal throughout Extrem Other: Left third toe noted to have [address]. There is an approximate 4-5 mm opening in the skin between the 2 most distal sutures and the skin appears to be healing. There is a mild erythema on the medial aspect of the distal toe. There is no drainage, bleeding and the remainder of the wound appears to be healing well. Psych Appearance: grossly normal Affect: normal affect Course Vital Signs Temperature 98.2 F 11/18/18 13:41 Pulse 84 11/18/18 13:41 Respiratory Rate 18 11/18/18 13:41 Blood Pressure 115/72 11/18/18 13:41 Pulse Oximetry 99 11/18/18 13:41 Temperature 98.2 F 11/18/18 13:41 Temperature Source Temporal Artery Scan 11/18/18 13:41 Pulse 84 11/18/18 13:41 Respiratory Rate 18 11/18/18 13:41 Respiratory Effort Non-Labored 11/18/18 13:46 Blood Pressure 115/72 11/18/18 13:41 Blood Pressure Position Sitting 11/18/18 13:41 Pulse Oximetry 99 11/18/18 13:41 Oxygen Delivery Method Room Air 11/18/18 13:41 Oxygen Flow Rate 0 11/18/18 13:41 Pain Level 7 11/18/18 13:47
== END 2018-11-18 14:52 | disposition home or self-care (01) ==
PROVIDERS: Emergency Provider Physician Assistant; PCP Nurse Practitioner Family
DX: M79.601 Pain in right arm (principal); Z98.890 Other specified postprocedural states
CPT/HCPCS: 99282; L3650

== ENCOUNTER 2018-11-28 16:33 | Outpatient (CLI) | payer MEDICAID, SELFPAY ==
--- NOTE | 2018-11-28 09:00 | DI.RAD_ITS ---
SYMPTOM/DIAGNOSIS: PAIN POST SURGERY TO 3RD TOE M20.5X2 LEFT FOOT: A pin is noted transfixing the phalanges of the left 3rd toe ending in the distal metaphysis of the 3rd metatarsal in connection with repair of a hammertoe. There is nothing to suggest a superimposed fracture or dislocation.
== END 2018-11-28 16:53 ==
PROVIDERS: PCP Nurse Practitioner Family; Visit Provider Family Medicine
DX: M79.675 Pain in left toe(s) (principal); M79.672 Pain in left foot; Z98.890 Other specified postprocedural states; M20.5X2 Other deformities of toe(s) (acquired), left foot
CPT/HCPCS: 73620

== ENCOUNTER 2019-04-29 11:14 | Emergency (ER) | payer MEDICAID, SELFPAY ==
[2019-04-29 11:25] VITALS: BP 121/84; PULSE 97; RESP 18; TEMP 36.7; O2SAT 97
--- NOTE | 2019-04-29 11:39 | ED.GENADUL_ITS ---
Discharge Plan Disposition Patient Disposition: HOME Condition: Improving Discharge Details Chief Complaint: FlankPain Clinical Impression: Lumbar strain, Sciatica Primary Care Provider: Monika Ayers ED Provider: Fabiana Zelaya Home Meds and New Rx's Prescriptions: New lidocaine [Lidoderm] 5 % adhesive patch,medicated 1 patch TP DAILY Qty: 15 RF: 0 prednisone 20 mg tablet See Rx Instructions .ROUTE .COMPLEX Qty: 12 RF: 0 methocarbamol [Robaxin-750] 750 mg tablet 750 mg PO TID Qty: 10 RF: 0 Continued cephalexin [Keflex] 500 mg capsule 500 mg PO QID Qty: 40 RF: 0 medical marijuana RF: 0 multivitamin [Daily Multi-Vitamin] 1 EACH tablet 1 ea PO DAILY RF: 0 cholecalciferol (vitamin D3) [Vitamin D3] 2,000 UNIT capsule 5,000 unit PO DAILY RF: 0 omeprazole 40 mg capsule,delayed release(DR/EC) 40 mg PO DAILY Qty: 90 RF: 4 ibuprofen 600 mg tablet 600 mg PO TID PRNQty: 90 RF: 3 acetaminophen 500 mg capsule 1,000 mg PO Q8H PRN (Reason: pain) Qty: 90 RF: 0 Discontinued cyclobenzaprine 10 mg tablet 10 mg PO TID PRN (Reason: muscle spasm) Qty: 90 RF: 4 Discharge Instructions Instructions: Sciatica (ED), Low Back Strain (ED) Additional Instructions: Alternate ice and heat to the affected area several times daily for 20 minutes at a time. Alternate Tylenol and Motrin as needed and directed for pain. Take the prednisone as directed until finished. Take the muscle relaxer as needed and directed. Use the Lidoderm patch as needed and directed. Follow-up with your primary care doctor this week for reevaluation. Return immediately to the emergency department if you develop any worsening or new concerning symptoms of difficulty with urination, bowel movements, leg weakness or numbness. Discharge Data Discharge Physician: Fabiana Zelaya Medical Decision Making 53yo F with a history of GERD, hyperlipidemia and appendectomy who presents with right lower back pain with radiation to her right lower abdomen since yesterday. Pain worse with movement. Denies any other symptoms. Patient has been laughing with her friend in room and appears in no acute distress. She has localized tenderness to palpation of her right thoracic and lumbar paraspinal region and right buttock. No focal deficits. Neurovascularly inta ct. She also has tenderness to palpation of her right lower quadrant and suprapubic region. Patient had screening labs done on arrival in addition to IV fluids. She took Motrin Tylenol just prior to arrival. Differential diagnosis includes muscle strain due to frequent activity, sciatica, kidney stone, UTI, or acute abdominal abnormality. We will add a dose of prednisone, Valium, and CT renal colic. 1330 --labs and imaging reviewed and unremarkable. Normal white blood cell count, electrolytes, urinalysis appears contaminated. CT negative for any acute findings. Patient is laughing and appears comfortable. She denies any significant change in her symptoms but appears more comfortable with movement. Lidoderm patch placed. Patient is requesting to go home. Will give a prescription for Lidoderm patch, prednisone, Robaxin. She is advised to limit heavy lifting. She is advised to follow-up with her primary care doctor for evaluation and to return here anytime if worse. Medical Records Medical records reviewed: Yes I reviewed the patient's medical records. Imaging Data Radiologic Study: Radiologist's impression: CT Abdomen and Pelvis Without Contrast EXAM DATE/TIME: 04/29/2019 12:27 PM CLINICAL HISTORY: 53 years old, female; Other: R flank pain; Prior surgery; Surgery type: C section TECHNIQUE: Imaging protocol: Computed tomography of the abdomen and pelvis without contrast. COMPARISON: No relevant prior studies available. FINDINGS: Incomplete visualization of the entire liver and spleen. No renal or ureteral stones. No other evidence of obstructive uropathy. No focal inflammatory process. No significant free fluid. Diverticulosis without evidence of diverticulitis. No evidence of bowel obstruction. No free fluid. IMPRESSION: No specific etiology identified for the patient's symptoms. Lab Data Lab results reviewed: Yes I reviewed the patient's lab results. HPI General Mode of arrival: ambulatory . Date/Time Provider Initiated Documentation: 04/29/19 11:30 . Limitations to Documentation: no limitations . Information obtained by: patient . HPI Narrative: Patient is a 53-year-old female with a history of GERD, hyperlipidemia who presents with right lower back pain since last night. Patient states she does a lot of heavy lifting at work but denies any known injury. She states the pain is worse with movement and radiates around to her right lower quadrant. She has a history of an appendectomy. She describes the pain as constant ache with intermittent sharp p ain that is worse with movement. She has taken Tylenol and Motrin for pain 2 hours ago without relief. She states the pain is currently 6/10. She denies any fever, chest pain, shortness of breath, urinary symptoms, urinary or fecal incontinence, leg pain, weakness or numbness, saddle anesthesia, vomiting, diarrhea. Related Data Home Medications Medication Instructions Recorded Confirmed Medical Marijuana 04/26/17 04/19/19 cholecalciferol (vitamin D3) 5,000 unit PO DAILY 07/08/17 04/29/19 [Vitamin D3] multivitamin [Daily Multi-Vitamin] 1 ea PO DAILY 07/08/17 04/29/19 acetaminophen 1,000 mg PO Q8H PRN #90 cap 11/14/18 04/29/19 ibuprofen 600 mg PO TID PRN #90 tab 11/14/18 04/29/19 omeprazole 40 mg capsule,delayed 40 mg PO DAILY #90 cap 11/27/18 04/29/19 release cephalexin 500 mg capsule 500 mg PO QID #40 cap 04/19/19 04/29/19 lidocaine [Lidoderm] 1 patch TP DAILY #15 each 04/29/19 methocarbamol [Robaxin-750] 750 mg PO TID #10 tab 04/29/19 prednisone See Rx Instructions .ROUTE 04/29/19 .COMPLEX #12 tab Previous Rx's Medication Instructions Recorded acetaminophen 1,000 mg PO Q8H PRN #90 cap 11/14/18 ibuprofen 600 mg PO TID PRN #90 tab 11/14/18 omeprazole 40 mg capsule,delayed 40 mg PO DAILY #90 cap 11/27/18 release cephalexin 500 mg capsule 500 mg PO QID #40 cap 04/19/19 lidocaine [Lidoderm] 1 patch TP DAILY #15 each 04/29/19 methocarbamol [Robaxin-750] 750 mg PO TID #10 tab 04/29/19 prednisone See Rx Instructions .ROUTE 04/29/19 .COMPLEX #12 tab Allergies Allergy/AdvReac Type Severity Reaction Status Date / Time No Known Allergies Allergy Unverified 04/19/19 16:28 General Stated Complaint: FlankPain [place]: 3 Review of Systems Review of Systems ROS Unobtainable: All systems reviewed & are unremarkable except as noted in HPI and below Constitutional Constitutional: Reports as per HPI, Denies chills and Denies fever(s) Eyes Eyes: Denies blurry vision ENT Ears, Nose, Mouth, and Throat: Denies dizziness, Denies sore throat and Denies throat swelling Cardiovascular Cardiovascular: Denies chest pain and Denies dyspnea Respiratory Respiratory: Denies cough and Denies dyspnea Gastrointestinal Gastrointestinal: Reports abdominal pain, Denies diarrhea and Denies vomiting Genitourinary Genitourinary: Denies hematuria and Denies dysuria Musculoskeletal Musculoskeletal: Reports back pain and Denies numbness Integumentary/Breasts Skin/Breast: Denies lesions and Denies rash Neurologic Neurologic: Denies dizziness, Denies focal weakness and Denies numbness Allergic/Immunologic Allergic/Immunologic: Denies throat swelling [facility] Medical History (Updated 04/12/19 @ 09:23 by Monika Ayers NP) GERD with esophagitis (Chronic) EGD 09/06/18 with erosive reflux esophagitis Hyperlipidemia (Chronic) Tubular adenoma of colon (Inactive ~2016) Surgical History (Updated 04/12/19 @ 09:23 by Monika Ayers NP) H/O section (Chronic ~02/2013) 02/2013 and 11/2014 H/O laparoscopy (Chronic) Ovarian cyst drainage at 17 or 18yrs old History of esophagogastroduodenoscopy (EGD) (Chronic 09/06/18) Hx of appendectomy (Chronic ~1981) S/P bunionectomy (Inactive 04/18/15) Right hallux S/P colonoscopy (Acute 06/10/17) S/P cubital tunnel release (Acute 11/14/18) Ulnar nerve decompression with anterior subcutaneous transposition S/P endoscopic carpal tunnel release (Acute 11/14/18) Right wrist S/P excision of Guadalupe's neuroma (Inactive 04/18/15) Right 3rd intermetatarsal space. Repeated on 12/12/2015 S/P LASIK surgery of both eyes (Inactive ~2009) Right in 2009 Left in 2010 Status post hammertoe correction (Inactive 04/18/15) 04/18/15--Of right 2nd toe 06/13/18--DuVries osteotomy, arthroplasty of the second PIP joint, left foot. 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 What is your relationship status?: Panel score (0-1 are the most socially isolated patients): 0 What type of physical activity do you participate in: additional Details: very active Frequency: does not exercise Julee/Sabianism: No preference Special julee needs: No Do you feel safe at home: Yes Do you feel safe in your relationship?: Yes Exam Const General: cooperative, healthy appearing and no acute distress HENMT Head: normal to inspection Face and sinus: normal facial exam Eyes General: appearance normal, both eyes and all related structures EOM: EOM intact bilaterally Neck Neck: normal visual inspection and No submandibular swelling Lymphatic: no lymphadenopathy noted Chest Chest: normal inspection of the chest and no tenderness Resp Effort & Inspection: normal respiratory effort and able to speak in complete sentences Auscultation: clear to auscultation bilaterally Cardio Rate: regular rate Rhythm: regular rhythm GI Inspection: normal to inspection Palpation: soft, not firm, not rigid and nontender Auscultation: normal bowel sounds Back/Spine/Pelvis Back: no CVA tenderness Thoracic/Lumbar Spine: thoracic and lumbar spine normal to inspection and paraspinal tenderness (R lower thoracic/lumbar/buttock) Pelvis: buttock tenderness on the right (upper) Skin General skin exam: no rashes or lesions noted Neuro General: alert, awake and oriented x3 Cognition: normal cognition Speech: speech normal Motor: muscle tone normal throughout and strength 5/5 throughout Sensory Exam: no sensory deficits noted Extrem General: normal to inspection, full ROM, normal capillary refill, no calf te nderness bilaterally and no edema Psych Appearance: grossly normal Mental Status: mental status grossly normal Speech and Movement: speech and movement normal Affect: normal affect Course Vital Signs Vital signs: Vital Signs Temperature 98.1 F 04/29/19 11:25 Pulse 97 H 04/29/19 11:25 Respiratory Rate 18 04/29/19 11:25 Blood Pressure 121/84 04/29/19 11:25 Pulse Oximetry 97 04/29/19 11:25 Temperature 98.1 F 04/29/19 11:25 Temperature Source Skin 04/29/19 11:25 Pulse 97 H 04/29/19 11:25 Respiratory Rate 18 04/29/19 11:25 Blood Pressure 121/84 04/29/19 11:25 Blood Pressure Position Sitting 04/29/19 11:25 Pulse Oximetry 97 04/29/19 11:25 Oxygen Delivery Method Room Air 04/29/19 11:25 Oxygen Flow Rate 0 04/29/19 11:25 Pain Level 7 04/29/19 11:25
[2019-04-29] MEDS: Normal Saline 1,000 ML 1000 ML IV (11:45)
[2019-04-29 12:01] LABS: Abs Immature Grans 0.01 k/cumm (0.0-0.09); Absolute Basophil Count 0.04 k/cumm (0.0-0.2); Absolute Lymphocyte Count 1.36 k/cumm (1.2-3.4); Absolute Monocyte Count 0.69 k/cumm (0.11-0.7); Absolute Neutrophil Count 4.82 k/cumm (1.2-6.7); Basophils % 0.6; Eosinophils % 1.4; HCT 39.1 % (36.0-46.0); HGB 13.1 g/dL (12.0-15.5); Immature Grans % 0.1; Lymphocytes % 19.4; Mean Corp. HGB Concentration 33.5 g/dL (32.0-36.0); Mean Corpuscular Hemoglobin 30.1 pg (27.0-33.0); Mean Corpuscular Volume 89.9 fL (80-95); Mean Platelet Volume 10.2 fL (8.0-11.0); Monocytes % 9.8; Neutrophils % 68.7; Platelet Count 371 x1000/uL (130-400); RBC 4.35 m/cumm (4.00-5.20); RBC Distribution Width 13.5 % (11.7-14.6); White Blood Cell Count 7.02 k/cumm (4.4-10.8)
[2019-04-29 12:09] LABS: ALT 20 U/L (14-59); AST 17 U/L (15-37); Alkaline Phosphatase 121 U/L (46-116); Anion Gap 12.3 mmol/L (3-11); BUN 16 mg/dL (7-18); Bilirubin, Total 0.7 mg/dL (0.2-1.0); CO2 23.7 mmol/L (21.0-32.0); CREATININE 0.88 mg/dL (0.55-1.02); Calcium 8.8 mg/dL (8.5-10.1); Chloride 104 mmol/L (98-107); Glucose 122 mg/dL (70-100); Potassium 4.3 mmol/L (3.5-5.1); Sodium 140 mmol/L (136-145); Total Protein 7.6 g/dL (6.4-8.2)
[2019-04-29 12:22] LABS: Bilirubin Negative (Negative); Blood Negative (Negative); Clarity Sl Cloudy (Clear); Glucose Negative (Negative); Ketones Negative (Negative); Leukocyte Esterase Small (Negative); Nitrite Negative (Negative); Specific Gravity 1.025 (1.005-1.025); Urobilinogen 0.2 EU/dL (Up TO 0.2); pH 5.5 (5-8)
--- NOTE | 2019-04-29 12:25 | DI.CT_ITS ---
SYMPTOM/DIAGNOSIS: RT LOW BACK AND RLQ ABD PAIN RENAL COLIC CT: The study was carried out according to the usual protocol without contrast enhancement. There is incomplete visualization of the entire liver and spleen. There is no evidence of ureterolithiasis. There is no evidence of obstruction. No focal inflammatory process is identified. There is no evidence of free fluid. There is note made of diverticulosis without evidence of diverticulitis. There is no evidence of bowel obstruction. There is no evidence of free fluid. SUMMARY: No acute abnormality is demonstrated in the abdomen or pelvis, specifically no tract pathology is apparent.
[2019-04-29 12:34] LABS: Epithelial Cells Many HPF (Negative)
[2019-04-29 12:35] LABS: C & S Indicated? No/Sq. Contamination
[2019-04-29] MEDS: predniSONE 20 MG TAB 60 MG PO (12:37)
[2019-04-29] MEDS: diazePAM 5 MG TAB PO (12:50)
--- NOTE | 2019-04-29 12:58 | DI.VRAD_ITS ---
EXAM: CT Abdomen and Pelvis Without Contrast EXAM DATE/TIME: 04/29/2019 12:27 PM CLINICAL HISTORY: 53 years old, female; Other: R flank pain; Prior surgery; Surgery type: C section TECHNIQUE: Imaging protocol: Computed tomography of the abdomen and pelvis without contrast. COMPARISON: No relevant prior studies available. FINDINGS: Incomplete visualization of the entire liver and spleen. No renal or ureteral stones. No other evidence of obstructive uropathy. No focal inflammatory process. No significant free fluid. Diverticulosis without evidence of diverticulitis. No evidence of bowel obstruction. No free fluid. IMPRESSION: No specific etiology identified for the patient's symptoms. Dictated and Authenticated by: Stanton Nance MD. Ordering:DAIN Jung MD
[2019-04-29] MEDS: Lidocaine 5% Patch 1 PATCH TP (13:45)
[2019-04-29] MEDS: Normal Saline Flush 10 ML SYR IVP (13:46)
[2019-04-29 13:50] VITALS: BP 121/84; PULSE 97; RESP 18; TEMP 36.7; O2SAT 97
== END 2019-04-29 13:49 | disposition home or self-care (01) ==
PROVIDERS: Emergency Provider Physician Assistant; PCP Nurse Practitioner Family
DX: S39.012A Strain of muscle, fascia and tendon of lower back, initial encounter (principal); M54.41 Lumbago with sciatica, right side; X50.3XXA Overexertion from repetitive movements, initial encounter
CPT/HCPCS: 36415; 80053; 81025; 96360; 96361; 99284; 74176; 81003; 81015; 85025; J7512

== ENCOUNTER 2019-05-30 08:58 | Day surgery (SDC) | payer MEDICAID, SELFPAY ==
[2019-05-30 09:14] VITALS: BP 117/81; PULSE 90; RESP 18; TEMP 36; O2SAT 100
[2019-05-30] MEDS: Lactated Ringers 1,000 ML 80 ML IV ×2 (10:11→12:15)
--- NOTE | 2019-05-30 10:20 | PDOC.DSDIS_ITS ---
Discharge Plan Disposition Patient Disposition: HOME Condition: Good Discharge Details Reason For Visit: Right 3rd toe hammertoe Attending Provider: Jairo Carpenter Primary Care Provider: Monika Ayers Home Meds and New Rx's Prescriptions: New hydrocodone-acetaminophen 5-325 mg tablet 1 tab PO Q6H PRN (Reason: severe pain) Qty: 12 RF: 0 acetaminophen 500 mg tablet 500 mg PO Q6H PRN (Reason: pain) Qty: 60 RF: 2 ibuprofen 600 mg tablet 600 mg PO TID PRN (Reason: pain) Qty: 60 RF: 2 Continued cephalexin [Keflex] 500 mg capsule 500 mg PO QID Qty: 40 RF: 0 medical marijuana RF: 0 multivitamin [Daily Multi-Vitamin] 1 EACH tablet 1 ea PO DAILY RF: 0 cholecalciferol (vitamin D3) [Vitamin D3] 2,000 UNIT capsule 5,000 unit PO DAILY RF: 0 omeprazole 40 mg capsule,delayed release(DR/EC) 40 mg PO DAILY Qty: 90 RF: 4 ibuprofen 600 mg tablet 600 mg PO TID PRNQty: 90 RF: 3 acetaminophen 500 mg capsule 1,000 mg PO Q8H PRN (Reason: pain) Qty: 90 RF: 0 lidocaine [Lidoderm] 5 % adhesive patch,medicated 1 patch TP DAILY Qty: 15 RF: 0 prednisone 20 mg tablet See Rx Instructions .ROUTE .COMPLEX Qty: 12 RF: 0 methocarbamol [Robaxin-750] 750 mg tablet 750 mg PO TID Qty: 10 RF: 0 Discharge Instructions Additional Instructions: Foot Instructions you should walk in the post-op shoe. You may use crutches for support but not necessary. You may change the dressing after 3 days but please keep a light dressing in place. Keep dressing clean and dry. Referrals: Jairo Carpenter MD [ [facility] STAFF PHYSICIAN] - Equipment/Supplies: Partial Weight Bearing Crutches Activity:: Elevate Remove Dressings/Wound Care:: 72 hours Shower/Bathe:: 72 hours Diet:: As Tolerated Discharge Orders Discharge Orders: Discharge Order (Routine); Ordered 05/30/19 Ordered By: Keya Villalpando DS: Diagnosis Discharge Diagnosis (1) Acquired hammertoe of right foot: Status: Acute
[2019-05-30] MEDS: ceFAZolin 2 GM/50 ML BAG IVPB (11:17)
[2019-05-30 12:58] VITALS: BP 124/78; PULSE 69; RESP 17; TEMP 36.7; O2SAT 100
[2019-05-30] MEDS: HYDROcodone 5/Acetaminophen 325 TAB PO (13:21)
--- NOTE | 2019-05-31 10:11 | ROE_ITS ---
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 SURGERY PIP arthrodesis of the second and third toes. SURGEON Jairo Carpenter M.D. ESL TUTOR Keya Villalpando PA-C ANESTHESIA General with digital blocks. IMPLANTS HammerLock 2 Nitinol metal implants, #2. ESTIMATED BLOOD LOSS Minimal. COMPLICATIONS None. DISPOSITION The patient was awakened from Anesthesia and taken to the PACU in stable condition. INDICATION FOR PROCEDURE Cee is a 54 year old, who I have seen for multiple foot ailments. She has had previous surgery on h er right foot. However, she had notable deformity of the second and third toes. The second toe had a chronically dislocated PIP joint and the third toe had a fixed hammertoe deformity. Given these defo rmities, and the ailments that they cause her, I offered surgical fixation. I discussed the surgical options. She has had previous pins placed for correction of the hammertoe on the left side, and had m ultiple issues with managing the pins given her busy lifestyle with young kids and half-way. There fore, I offered a PIP arthrodesis. I discussed the risks of this procedure to include bleeding, infec tion, pain, stiffness, failure to unite, malunion, need for repeat procedures. Despite these risks, s he elected to proceed. PROCEDURE DESCRIPTION Cee was greeted in the preoperative holding area. Her identity was confirmed and the correct side w as identified and marked. The consent was reviewed with the patient and signed. The history and physi rasheed was updated. The patient was taken back to the Operating Room. She was placed in the supine position where all bon y prominences were well padded. Prophylactic antibiotics in the form of cefazolin were given. The rig ht foot and leg was then prepped with ChloraPrep. A timeout was performed for safe surgery. A digital block was then administered using 1% lidocaine with epinephrine. A lower extremity tourniqu et was made with an Esmarch. A longitudinal incision was made overlying the second and third PIP join ts. The second toe already had a previous incision, which was used. This incision was taken down deep ly through the skin and then longitudinally onto the extensor tendon. The extensor tendon was split a nd the capsule of the second PIP joint was incised. Release of the collateral ligament surrounding th e PIP joint was performed so we were able to hyperflex the toe and deliver the proximal phalanx. Ther e was already notable deformity of the proximal phalanx given previous surgery. Using an oscillating saw, I then smoothed the surface down taking a very small amount of bone given that the toe was alrea dy shortened. The bone was quite friable in this area and easily it was cut through. Our attention wa s then turned to the third toe. This longitudinal incision was again made through the skin and in thr ough the extensor tendon. Collateral release was made around the PIP joint. The proximal phalanx was then resected just underneath the flare of the head of the proximal phalanx. This was done with an os cillating saw. The cartilage surfaces of the base of the middle phalanx were then resected with a tereza geur. Attention was then turned to doing the HammerLock device. The third toe was done first. The preparati on was performed in a standard technique and a size medium HammerLock 2 device was selected. This was inserted and the toes were able to be reduced without any difficulty. This showed adequate fixation of the PIP joint and a good alignment, and a good position. The second toe was performed next. The proximal preparation was without concern. However, the distal preparation was very challenging. Given the previous position of the toe, the lateral aspect of the m iddle phalanx was quite sporadic and the medial aspect was very soft. Unfortunately, this directed th e HammerLock device to be more medial than I desired. However, the bone was quite soft and I was conc erned about repositioning this too many times, so therefore, it was accepted in a slightly more media l position. The alignment was still much improved and it was not subluxed and appeared digitally to b e in line. The HammerLock 2 device was then implanted, and the toes were positioned against each othe r and compressed. The second toe seemed to have slightly more extension at the MP joint than I had ap preciated. However, with pressure placed on the plantar aspect of the foot, the toe reduced to a plan tigrade position and therefore it was not further released. The extensor mechanisms were then closed with a #2-0 Vicryl on both toes. The skin was closed with #4-0 Nylon. The Esmarch tourniquet was rel eased. All toes had good blood flow. The wounds were dressed with Xeroform, 4x4s, Kerlix. She was miguelito jude into a postop shoe. At the end of the case, all counts were correct. She was transferred back to the [facility] Day Surgery in stable condition.
== END 2019-05-30 13:30 | disposition home or self-care (01) ==
PROVIDERS: PCP Nurse Practitioner Family; Visit Provider Student in an Organized Health Care Education/Training Program
PROC: (CPT 28285; principal; 2019-05-30 10:45)
DX: M20.41 Other hammer toe(s) (acquired), right foot (principal); M24.477 Recurrent dislocation, right toe(s)
CPT/HCPCS: 28285; J0690; J1885; J2405

== ENCOUNTER 2019-06-11 14:58 | Outpatient (CLI) | payer MEDICAID, SELFPAY ==
--- NOTE | 2019-06-11 14:47 | DI.RAD_ITS ---
EXAM: XR FOOT RT COMPLETE INDICATION: f/u R hammertoe correction. COMPARISON: XR foot RT limited from 05/01/2018 TECHNIQUE: 2D digital imaging was performed. FINDINGS: There are postsurgical changes of a hammertoe correction and bunionectomy. Callus formation appears to have developed around the distal orthopedic hardware at the 2nd proximal interphalangeal joint. N o acute fracture or dislocation is present. The soft tissues are unremarkable. There are mild degen erative changes seen at the 1st metatarsal phalangeal joint. IMPRESSION: Stable postsurgical changes of the right foot.
== END 2019-06-11 15:18 ==
PROVIDERS: PCP Nurse Practitioner Family; Visit Provider Student in an Organized Health Care Education/Training Program
DX: M20.41 Other hammer toe(s) (acquired), right foot (principal); Z98.890 Other specified postprocedural states; M19.072 Primary osteoarthritis, left ankle and foot
CPT/HCPCS: 73630

== ENCOUNTER 2019-12-03 15:03 | Outpatient (CLI) | payer MEDICAID, SELFPAY ==
--- NOTE | 2019-12-03 14:30 | DI.RAD_ITS ---
EXAM: XR FOOT LT COMPLETE CLINICAL HISTORY: pain in 3rd toe TECHNIQUE: 2D digital imaging was performed. COMPARISON: XR foot LT complete from 09/15/2018 XR foot LT limited from 11/28/2018 FINDINGS: Previously noted pin through the 3rd toe has been removed. There is some lateral deviation of the proximal phalanx of the 3rd toe which appears new when compared with the previous exam. The head of the proximal phalanx of the 3rd toe has been surgically resected. There is mild deformity of the 3rd metatarsal head. A mild chronic deformity is also seen at the distal aspect of the proximal phalanx of the 2nd toe. IMPRESSION: Postsurgical changes andsubluxation at the proximal interphalangeal joint of the 3rd toe.
== END 2019-12-03 15:23 ==
PROVIDERS: PCP Nurse Practitioner Family; Visit Provider Student in an Organized Health Care Education/Training Program
DX: M79.675 Pain in left toe(s) (principal); S93.134A Subluxation of interphalangeal joint of right lesser toe(s), initial encounter
CPT/HCPCS: 73630

== ENCOUNTER 2020-01-25 08:38 | Outpatient (CLI) | payer MEDICAID, SELFPAY ==
[2020-01-26 00:44] LABS: COVID-19 RT-PCR UVMMC Result Negative (Negative)
== END 2020-01-25 08:58 ==
PROVIDERS: PCP Nurse Practitioner Family; Visit Provider Student in an Organized Health Care Education/Training Program
DX: Z11.59 Encounter for screening for other viral diseases (principal); Z01.818 Encounter for other preprocedural examination
CPT/HCPCS: U0003

== ENCOUNTER 2020-01-29 08:05 | Day surgery (SDC) | payer MEDICAID, SELFPAY ==
[2020-01-29 08:10] VITALS: BP 129/77; PULSE 72; RESP 16; TEMP 35.8; O2SAT 98
[2020-01-29] MEDS: Lactated Ringers 1,000 ML 80 ML IV (09:10)
--- NOTE | 2020-01-29 09:20 | W.PM.DSUDISC ---
Discharge Plan Disposition Patient Disposition: HOME Condition: Good Discharge Details Reason For Visit: L carpal tunnel syndrome, L 3rd toe deformity Attending Provider: Jairo Carpenter Primary Care Provider: Monika Ayers Home Meds and New Rx's Prescriptions: New hydrocodone-acetaminophen 5-325 mg tablet 1 tab PO Q4H PRN (Reason: pain) Qty: 10 RF: 0 cyclobenzaprine 5 mg tablet 5 mg PO TID PRNQty: 10 RF: 0 ibuprofen 600 mg tablet 600 mg PO TID PRNQty: 90 RF: 3 Continued multivitamin [Daily Multi-Vitamin] 1 EACH tablet 1 ea PO DAILY RF: 0 cholecalciferol (vitamin D3) [Vitamin D3] 2,000 UNIT capsule 5,000 unit PO DAILY RF: 0 methocarbamol [Robaxin-750] 750 mg tablet 750 mg PO TID PRN (Reason: muscle spasm) Qty: 90 RF: 2 omeprazole 40 mg capsule,delayed release(DR/EC) 40 mg PO DAILY Qty: 90 RF: 4 Discharge Instructions Additional Instructions: Activity: You may weight bear as tolerated. You should wear the post-op shoe for all mobilzation. You should keep the foot elevated as much as possible. Dressings: You should keep the initial dressing on for at least 3 days. After 3 days, you may remove it and get it wet in the shower. You should keep it covered with a light gauze dressing until follow-up. Fold a gauze to put in the space of the 3rd toe and then tape or wrap. Medications: - You should take Tylenol and Ibuprofen around the clock for baseline pain. - You have been prescribed a stronger narcotic, Hydrocodone, for breakthrough pain. - You also have Cyclobenzaprine for muscle spasms. Follow-up: 2 weeks Stand Alone Forms: Pauline Castañeda. Tunnel Release Referrals: Jairo Carpenter MD [ [facility] STAFF PHYSICIAN] - Activity:: Elevate Remove Dressings/Wound Care:: 72 hours Diet:: As Tolerated Discharge Orders Discharge Orders: Discharge Order (Routine); Ordered 01/29/20 Ordered By: Jairo Carpenter DS: Diagnosis Discharge Diagnosis (1) Carpal tunnel syndrome of left wrist: Status: Acute (2) Acquired deformity of left toe: Status: Acute
[2020-01-29] MEDS: ceFAZolin 2 GM/50 ML BAG IVPB (09:22)
[2020-01-29] MEDS: Lidocaine 1% Multi-Dose 50 ML VIAL (09:58)
[2020-01-29] MEDS: Bupivacaine 0.5% Pres-Free 30 ML VIAL (09:58)
--- NOTE | 2020-01-29 10:41 | W.PM.OP ---
Date of service: 01/29/20 Time of Service: 10:41 Operative Note Operative Note DATE OF PROCEDURE: 01/29/20 PRE-OP DIAGNOSIS: Left Carpal Tunnel Syndrome, Left 3rd Toe Deformity POST-OP DIAGNOSIS: same PROCEDURE: Left Endoscopic Carpal Tunnel Release, Left 3rd Toe MCP Disarticulation SURGEON: Jairo Carpenter WELL REACTIVATOR OPERATOR: Marjorie Manriquez ANESTHESIA: GETA ESTIMATED BLOOD LOSS: 0 PATHOLOGY: none sent TOURNIQUET TIME: 6 COMPLICATIONS: None Patient was transported to: same day Patient's condition: stable Indications: I have seen Cee in clinic for symptoms of carpal tunnel syndrome. The numbness, tingling, and pain limited function. Clinical exam findings with nerve conduction tests confirmed the diagnosis of carpal tunnel syndrome. Nonoperative measures such as bracing, time, activity modifications had been tried but disability and pain persisted. I discussed carpal tunnel release with the patient. She had good results with the carpal tunnel release on the right side. Additionally, she has recurrent deformity and pain of the 3rd toe. This toe has had chronic issues and multiple surgeries, most recently a plantar plate reconstruction. Given the failure of all of these treatments, I offered an amputation. I reviewed the risks of the procedure to include, but not limited to, bleeding, infection, pain, stiffness, incomplete release, damage to nerves or vessels, persistent numbness, recurrence, delayed toe deformity. Despite these risks, the patient elected to proceed. Findings: There was tightened carpal tunnel. This was dilated and released successfully with the endoscopic with increased space within the tunnel. The antebrachial fascia was released proximally freeing the median nerve at the wrist. The third toe was amputated through the MCP joint without issue. The nerves were cut proximally. Procedure Description: Cee was greeted in the preoperative holding area where the correct side was identified and marked. The consent was reviewed with the patient and signed. The history and physical was updated. All questions were answered. She was taken back to the operating room. The patient was placed into the supine position on the operating room table with the left arm on an arm board. A nonsterile tourniquet was placed high onto the arm. All bony prominences were well padded. Prophylactic antibiotics in the form of Cefazolin were administered. The left arm was then prepped with Chloraprep and draped in a standard fashion with stockinette and extremity drape. The left foot was likewise prepped with ChloraPrep and draped in a standard fashion. A timeout to confirm correct identity, side and site, procedure, allergies, anesthesia, and medical concerns was performed. The surgical site was marked in the volar wrist creases in line with the radial border of the fourth ray. This area was anesthetized with approximately 6cc of 1% Lidocaine. Prior to proceeding with the carpal tunnel I also performed a digital block of the third toe with 1% lidocaine with epinephrine buffered with sodium bicarbonate. The left arm was then exsanguinated with an Esmarch. The skin was incised with a 15 blade, approximately 1cm. The skin only was cut and the deeper tissue was dissected bluntly with a tenotomy scissor, avoiding passing nerve and venous structures. The fascia was penetrated and opened bluntly. A two-prong skin hook was placed under this proximal fascial edge. A series of hamate finders were used to identify and dilate the carpal tunnel. Synovial elevator was used to free synovial attachments to the underside of the transverse carpal ligament. My thumb was kept in the palm to ta the distal extent of the carpal tunnel and correctly position the hand. The [employer] endoscope was inserted without difficulty and without resistance. Excellent visualization showed horizontally running fibers of the transverse carpal ligament (TCL). The distal extent of the TCL was visualized and the end of the scope palpated with the thumb. The blade was elevated and withdrawn from distal to proximal. The TCL was split into two flaps. The endoscope was reinserted to confirm complete release and any remnant ligament was incised. The scope was withdrawn and the proximal aspect of the carpal tunnel was grossly inspected and appeared release with the median nerve visible. The antebrachial fascia at the level of the wrist was then freed from the overlying skin and then the underlying median nerve with blunt dissection. This was transected longitudinally for about 3cm proximal to the wrist incision. The wound was then irrigated with easy flow of irrigant distally and proximally. The incision was closed with a single 4-0 Nylon suture. The wound was dressed with Xeroform, Gauze, Kerlix. The tourniquet was deflated with the initial dressing and held with some pressure. Blood flow returned easily to all digits with capillary refill less than 2 seconds. Attention was then turned to the third toe. A racquet style incision was then made on the third toe and extending in line with the third ray and wrapping around the base of the toe. This dissection was carried sharply through the soft tissue. The extensor tendon was transected and plantarly the flexor tendon was transected. The artery was cauterized. The nerves were then placed on traction and cut sharply with a knife. Dissection was continued around the base of the proximal phalanx to free up attachments. Remnant suture from the plantar plate repair was also removed. The third MCP joint was then disarticulated. There is no significant difficulties in doing this step. No tourniquet was used and any remnant bleeding was cauterized. The deep tissue was then reapproximated with a 3-0 Vicryl. There was some overlap of the skin edges so the skin incision was modified to allow a simple suture line between the second and fourth toes. The skin was closed with a 4-0 nylon. The wound site was further anesthetized with 0.5% bupivacaine. The wound was dressed with Xeroform followed by 4 x 4's, Kerlix and an Ministerio wrap. She was placed in a postop shoe. An Ministerio wrap was applied on the left hand wound as well. The patient tolerated the procedure well and was returned to the Same Day Surgery area in a stable condition suffering no known complication.
[2020-01-29 10:50] VITALS: BP 131/76; PULSE 71; RESP 18; TEMP 36; O2SAT 100
== END 2020-01-29 11:35 | disposition home or self-care (01) ==
PROVIDERS: PCP Nurse Practitioner Family; Visit Provider Student in an Organized Health Care Education/Training Program
PROC: 01N54ZZ Release Median Nerve, Percutaneous Endoscopic Approach (ICD-10-PCS; CPT 29848; principal; 2020-01-29 10:15)
PROC: (CPT 28820; 2020-01-29 10:15)
DX: G56.02 Carpal tunnel syndrome, left upper limb (principal); M20.62 Acquired deformities of toe(s), unspecified, left foot
CPT/HCPCS: 28820; 29848; J0690; J1885; J2704; L3650

== ENCOUNTER 2020-02-11 01:39 | Outpatient (CLI) | payer MEDICAID, SELFPAY ==
--- NOTE | 2020-02-11 08:15 | DI.MAMMO_ITS ---
EXAM: MG MAMMO SCREENING CLINICAL HISTORY: screening, Z12.39 TECHNIQUE: Bilateral full field digital CC and MLO mammographic images were obtained with 3D tomosyn thesis and utilizing computer aided detection (CAD). COMPARISON: Available for comparison. FINDINGS: Masses/Architectural Distortion: None seen. Microcalcifications: No suspicious pleomorphic-type are seen. Skin Thickening/Nipple Retraction: None. IMPRESSION: 1. No significant interval change with no specific features of malignancy noted. 2. Unless there is more urgent need, screening mammography is recommended, as per [employer] guidelines. BI-RADS Category 1 - Negative Breast Density - Category B - Scattered areas of fibroglandular density A negative radiographic report should not delay biopsy if a dominant or clinically suspicious mass is present. Up to ten percent of cancers are not identified on mammography. A negative report may reinforce clinical impression. Adenosis and dense breasts may obscure an underlying neoplasm. False positive reports average 6 to 10%. Patient will receive a letter notifying them of these results.
== END 2020-02-11 01:59 ==
PROVIDERS: PCP Nurse Practitioner Family; Visit Provider Nurse Practitioner
DX: Z12.31 Encounter for screening mammogram for malignant neoplasm of breast (principal)
CPT/HCPCS: 77063; 77067

== ENCOUNTER 2020-03-03 15:40 | Outpatient (CLI) | payer MEDICAID, SELFPAY ==
--- NOTE | 2020-03-03 15:00 | DI.RAD_ITS ---
EXAM: XR FOOT RT COMPLETE CLINICAL HISTORY: pain. TECHNIQUE: 2D digital imaging was performed. COMPARISON: No exams were available for comparison FINDINGS: BONES: There is a nondisplaced fracture involving the distal diaphysis of the 2nd metatarsal. No bon y destructive lesion is seen. JOINTS: The patient is status post bunionectomy. There is an arthrodesis of the PIP joints of the 2n d and 3rd toes. SOFT TISSUE: Soft tissue swelling of the foot is noted. IMPRESSION: Nondisplaced fracture the distal diaphysis of the 2nd metatarsal. DATA REPOSITORY: RADIATION DOSE DELIVERED:
== END 2020-03-03 16:00 ==
PROVIDERS: PCP Nurse Practitioner Family; Visit Provider Student in an Organized Health Care Education/Training Program
DX: S92.324A Nondisplaced fracture of second metatarsal bone, right foot, initial encounter for closed fracture (principal); X58.XXXA Exposure to other specified factors, initial encounter; Z98.1 Arthrodesis status
CPT/HCPCS: 73630

== ENCOUNTER 2020-03-24 13:08 | Outpatient (CLI) | payer MEDICAID, SELFPAY ==
--- NOTE | 2020-03-24 12:45 | DI.RAD_ITS ---
EXAM: XR FOOT RT COMPLETE CLINICAL HISTORY: f/u fracture. TECHNIQUE: 2D digital imaging was performed. COMPARISON: CR XR FOOT RT COMPLETE from 03/03/2020 FINDINGS: BONES: There is again seen a fracture the right 2nd metatarsal. Since the prior examination there is slight lateral angulation of the fracture. Callus formation has developed about the fracture. No n ew fractures identified. Postsurgical changes are stable. JOINTS: No dislocation present. SOFT TISSUE: Mild soft tissue swelling of the forefoot. IMPRESSION: Healing 2nd metatarsal fracture. DATA REPOSITORY: RADIATION DOSE DELIVERED:
== END 2020-03-24 13:28 ==
PROVIDERS: PCP Nurse Practitioner Family; Referring Provider Nurse Practitioner Family; Visit Provider Student in an Organized Health Care Education/Training Program
DX: S92.321A Displaced fracture of second metatarsal bone, right foot, initial encounter for closed fracture (principal)
CPT/HCPCS: 73630

== ENCOUNTER 2020-05-14 04:42 | Outpatient (CLI) | payer MEDICAID, SELFPAY ==
[2020-05-14 13:39] LABS: HCT 34.5 % (36.0-46.0); HGB 11.5 g/dL (11.2-15.7); MCH 31.9 pg (27.0-33.0); MCHC 33.3 % (32.0-36.0); MCV 95.8 fL (80-95); MPV 9.9 fL (8.0-11.0); Platelet Count 349 10^3/uL (130-400); RDW 12.5 % (11.7-14.6); RDW-SD 44.4 fL
== END 2020-05-14 05:02 ==
PROVIDERS: PCP Nurse Practitioner Family; Visit Provider Nurse Practitioner
DX: D64.9 Anemia, unspecified (principal)
CPT/HCPCS: 36415; 85027

== ENCOUNTER 2020-06-28 10:29 | Emergency (ER) | payer MEDICAID, SELFPAY ==
[2020-06-28 10:48] VITALS: BP 134/84; PULSE 94; RESP 16; TEMP 36.4; O2SAT 99
--- NOTE | 2020-06-28 11:00 | DI.CT_ITS ---
EXAM: CT ABDOMEN PELVIS W INDICATION: ruq pain and epigastric pain, 1 week. COMPARISON: CT CT renal colic wo from 04/29/2019 TECHNIQUE: FINDINGS: CT examination of the abdomen and pelvis was performed with a bolus infusion of 100 cc of Omnipaque 3 50. Images obtained through the lung bases are unremarkable. The liver is unremarkable in appearance except for a posterior right lobe hepatic calcification.. Gallbladder and bile ducts are CT normal. Pancreas appears normal. Spleen is unremarkable in appearance except for a small calcification.. Adrenals appear normal. The kidneys are unremarkable with no evidence of hydronephrosis, nephrolithiasis, or renal mass excep t for tiny incidental bilateral renal cysts... Urinary bladder unremarkable. Abdominal aorta is of normal diameter and no major vascular abnormality is seen. No abdominal wall hernia. No abdominal or pelvic adenopathy. VENEER LAYER structures appear intact. The appendix is not identified with certainty. There is question inflammatory fat edema in the right lower quadrant, possibility of inflammation involving appendix or terminal ileum would have to be ra ised. If clinically appropriate, repeat CT with IV and oral contrast material suggested for further elucida tion of the anatomy in this region. No evidence of diverticulitis or bowel obstruction. IMPRESSION: Findings raising the possibility of inflammatory process in right lower quadrant, appendix not identi fied with certainty, appendiceal or terminal ileal inflammation could be present.. Repeat CT with or al and IV contrast suggested. RADIATION DOSE DELIVERED: 929.3mGy.cm Total DLP 929.3mGy.cm Total DLP
[2020-06-28] MEDS: Normal Saline 1,000 ML 1000 ML IV (11:47)
[2020-06-28] MEDS: Ketorolac 30 MG/ML VIAL IVP (11:48)
[2020-06-28 12:03] LABS: Abs Immature Grans 0.02 10^3/uL (0.0-0.06); Absolute Basophil Count 0.05 10^3/uL (0.0-0.2); Absolute Eosinophil Count 0.21 10^3/uL (0.0-0.7); Absolute Lymphocyte Count 1.65 10^3/uL (1.2-3.4); Absolute Monocyte Count 0.43 10^3/uL (0.1-0.8); Absolute Neutrophil Count 3.42 10^3/uL (1.2-6.7); Basophils % 0.9; Eosinophils % 3.6; HCT 30.4 % (36.0-46.0); HGB 10.2 g/dL (11.2-15.7); Immature Grans % 0.3; Lymphocytes % 28.5; MCH 31.6 pg (27.0-33.0); MCHC 33.6 % (32.0-36.0); MCV 94.1 fL (80-95); Monocytes % 7.4; Neutrophils % 59.3; Nucleated RBC 0 %; Platelet Count 275 10^3/uL (130-400); RBC 3.23 10^6/uL (3.93-5.22); RDW 12.6 % (11.7-14.6); RDW-SD 43.5 fL; WBC 5.78 10^3/uL (4.4-10.8)
[2020-06-28 12:20] LABS: ALT 22 U/L (14-59); AST 25 U/L (15-37); Albumin 3.8 g/dL (3.4-5.0); Alkaline Phosphatase 64 U/L (46-116); Anion Gap 9.8 mmol/L (3-11); BUN 16 mg/dL (7-18); Bilirubin, Total 0.9 mg/dL (0.2-1.0); CO2 24.2 mmol/L (21.0-32.0); CREATININE 0.79 mg/dL (0.55-1.02); Calcium 8.7 mg/dL (8.5-10.1); Chloride 107 mmol/L (98-107); Glucose 92 mg/dL (74-106); Lipase 58 U/L (73-393); Potassium 3.9 mmol/L (3.5-5.1); Sodium 141 mmol/L (136-145); Total Protein 6.6 g/dL (6.4-8.2)
--- NOTE | 2020-06-28 12:24 | ED.GENADUL_ITS ---
Discharge Plan Disposition Patient Disposition: HOME Condition: Good Discharge Details Clinical Impression: Colicky right upper quadrant pain Primary Care Provider: Mavis Malik ED Provider: Jose Dawson Home Meds and New Rx's Prescriptions: New sucralfate [Carafate] 1 gram tablet 1 g PO BID Qty: 60 RF: 0 Continued Estroven Cmplt Menopause Rlf 4 mg tablet 4 mg PO DAILY RF: 0 ibuprofen 600 mg tablet 600 mg PO TID PRN (Reason: pain) Qty: 90 RF: 3 multivitamin [Daily Multi-Vitamin] 1 EACH tablet 1 ea PO DAILY RF: 0 cholecalciferol (vitamin D3) [Vitamin D3] 2,000 UNIT capsule 5,000 unit PO DAILY RF: 0 omeprazole 40 mg capsule,delayed release(DR/EC) 40 mg PO DAILY Qty: 90 RF: 4 methocarbamol [Robaxin-750] 750 mg tablet 750 mg PO TID PRN (Reason: muscle spasm) Qty: 90 RF: 2 Medical Marijuana RF: 0 Discharge Instructions Instructions: Abdominal Pain (ED) Additional Instructions: At this time your imaging and laboratory work-up are notably reassuring. I suspect a component of your symptoms is from what is called biliary colic which is irritation in your gallbladder. Please avoid any salty greasy or fatty foods. Please avoid any dairy. Additionally I suspect that you have a component of gastritis which is irritation of your stomach. Please avoid any spicy foods, continue to take your omeprazole daily and avoid any ibuprofen or Tylenol. Please also take the Carafate as directed to help settle your stomach. We will be moving your ultrasound to an earlier time, hopefully this week. Please follow-up closely with your primary care provider and also Dr. Nur of surgery. If you notice any worsening of your symptoms, or any new symptoms such as vomiting, diarrhea, fever, chills, shortness of breath, chest pain, numbness, weakness, or fainting , please return immediately to the emergency department for reevaluation. Please follow up with your primary care provider as soon as possible for reassessment and reevaluation. As always, it was a pleasure participating in your medical care today. Referrals: Mavis Malik, ELISA [Primary Care Provider] - Keya Nur DO [OSTEOPATHIC DOCTOR] - Discharge Data Discharge Date/Time-TO BE ENTERED AT DEPARTURE: 06/28/20 14:48 Medical Decision Making 55-year-old female with a past medical history of appendectomy, GERD, hyperlipidemia, dyshidrotic eczema, presents today for evaluation of right upper quadrant and epigastric pain. Patient states that for the last month that she has had this pain. It seems to come and go, does not seem to be aggravated by anything in particular aside from moving certain direction. There does not seem to be a food related component. Last night it got particularly worse the family encouraged her to come in and get checked out today. She denies any vomiting or diarrhea, in fact she has not eaten anything in particular over the last day and a half. She admits to the pain traveling down to her right flank, but she denies any urinary complaint. She denies any vaginal discharge. She denies any chest pain or shortness of breath. She denies any improvement of symptoms with medications. She has not taken any NSAIDs today though. She was scheduled for an outpatient ultrasound but has not yet gotten that. No other complaints at this time. No other modifying factors. Past surgical history is positive for appendectomy, . Physical exam demonstrates mild right upper and epigastric tenderness, no signs of an acute surgical abdomen though. No pain at McBurney's point, and a negative Solano sign. Differential is broad but does include biliary colic, pancreatic cyst or mass, chronic pancreatitis. We will get labs, CT scan, gently rehydrate and treat her pain. Symptoms at this time appearing consistent with cardiac or pulmonary etiology. Denies PE risk factors such as recent long car rides, immobilization, recent surgery, prior history of DVT or PE, family history of PE or DVT, morbid obesity, exogenous estrogen and smoking, hemoptysis, history of cancer. CT results have returned, per read there is evidence of inflammatory changes in the right lower quadrant, however the patient has had an appendectomy. May represent ileitis. Laboratory work-up is notably unremarkable though, with no white count bandemia or left shift. Hemoglobin is 10.2 which is slightly lower compared to normal for the patient. She does have a history of chronic gastritis. I did contact Dr. Nur and the case with her, she reviewed the images herself, is concerned that the patient may have chronic gastritis which may be the causative etiology of the low hemoglobin. She certainly does recommend outpatient follow-up as well as more prompt ultrasound of the right upper extremity to further evaluate the gallbladder. With the patient's pain being in the right upper quadrant, and with a normal lipase I do feel that gallbladder etiology is the most likely cause of her symptomatology. At this time with a notably nonsurgical abdomen, CT scan showing no signs of an acute surgical process, do feel that the patient is stable for discharge but does require close surgical follow-up and outpatient ultrasound. We will attempt to prioritize the ultrasound and move it to this coming Tuesday, with surgical follow-up on an outpatient basis. Discussed appropriate dietary decisions going forward, avoiding fatty or greasy foods. Discussed red flags which return. I have extensively reviewed the treatment plan and discharge instructions with the patient. I have addressed all patient concerns at this time. The patient was made aware of what symptoms to monitor for that would warrant a return to the emergency department. Discussed the plan with the patient, they demonstrate verbal understanding and agreement with our assessment and plan at this time. FINDINGS: Lungs: Bibasilar atelectasis Liver: Normal. No mass. Gallbladder and bile ducts: Normal. No calcified stones. No ductal dilation. Pancreas: Normal. No ductal dilation. Spleen: Normal. No splenomegaly. Adrenal glands: Normal. No mass. Kidneys and ureters: 10 mm nodule lateral left kidney . 28 Hounsfield units Stomach and bowel: No obstruction Appendix: Inflammatory changes in the right lower quadrant. But it is difficult to isolate the appendix. This may represent ileitis versus acute appendicitis. Recommend repeat CT pelvis with oral contrast after oral contrast reaches the rectum. Intraperitoneal space: Unremarkable. No free air. No significant fluid collection. Vasculature: Portal vein is patent. Splenic vein is patent No dissection or aneurysm of the aorta Lymph nodes: Unremarkable. No enlarged lymph nodes. Urinary bladder: Unremarkable as visualized. Reproductive: Unremarkable as visualized. Bones/joints: Unremarkable. No acute fracture. Soft tissues: Unremarkable. IMPRESSION: Inflammatory changes in the right lower quadrant. But it is difficult to isolate the appendix. This may represent ileitis versus acute appendicitis. Recommend repeat CT pelvis with oral contrast after oral contrast reaches the rectum. Thank you for allowing us to participate in the care of your patient. Dictated and Authenticated by: Leonidas Cardona MD 06/28/2020 12:57 PM Eastern Time ([place] & [place]) HPI General Date/Time Provider Initiated Documentation: 06/28/20 10:37 . HPI Narrative: 55-year-old female with a past medical history of GERD, hyperlipidemia, dyshidrotic eczema, presents today for evaluation of right upper quadrant and epigastric pain. Patient states that for the last month that she has had this pain. It seems to come and go, does not seem to be aggravated by anything in particular aside from moving certain direction. There does not seem to be a food related component. Last night it got particularly worse the family encouraged her to come in and get checked out today. She denies any vomiting or diarrhea, in fact she has not eaten anything in particular over the last day and a half. She admits to the pain traveling down to her right flank, but she denies any urinary complaint. She denies any vaginal discharge. She denies any chest pain or shortness of breath. She denies any improvement of symptoms with medications. She has not taken any NSAIDs today though. She was scheduled for an outpatient ultrasound but has not yet gotten that. No other complaints at this time. No other modifying factors. Past surgical history is positive for appendectomy, . Related Data Home Medications Medication Instructions Recorded Confirmed cholecalciferol (vitamin D3) 5,000 unit PO DAILY 07/08/17 06/28/20 [Vitamin D3] multivitamin [Daily Multi-Vitamin] 1 ea PO DAILY 07/08/17 06/28/20 omeprazole 40 mg capsule,delayed 40 mg PO DAILY #90 cap 12/27/19 06/28/20 release ibuprofen 600 mg tablet 600 mg PO TID PRN #90 tab 03/03/20 06/28/20 methocarbamol 750 mg tablet 750 mg PO TID PRN #90 tab 05/06/20 06/28/20 rhubarb root extract 4 mg tablet 4 mg PO DAILY tab 06/24/20 06/28/20 Medical Marijuana 06/28/20 sucralfate [Carafate] 1 g PO BID #60 tab 06/28/20 Previous Rx's Medication Instructions Recorded omeprazole 40 mg capsule,delayed 40 mg PO DAILY #90 cap 12/27/19 release ibuprofen 600 mg tablet 600 mg PO TID PRN #90 tab 03/03/20 methocarbamol 750 mg tablet 750 mg PO TID PRN #90 tab 05/06/20 sucralfate [Carafate] 1 g PO BID #60 tab 06/28/20 Allergies Allergy/AdvReac Type Severity Reaction Status Date / Time No Known Allergies Allergy Unverified 06/28/20 14:10 General Stated Complaint: Abd Prob [place]: 3 Review of Systems All systems reviewed & are unremarkable except as noted in HPI and below PFSH Medical History (Updated 06/28/20 @ 14:31 by Jose Dawson DO) Acquired deformity of left toe s/p left third toe amputation 01/29/20 Lateral deviation of the third toe PIP joint 06/13/18 - Plantar plate repair with augmentation using Arthrex InternalBrace for third MTP joint, along with Clotilde osteotomy 11/14/18--Removal of hardware from left third metatarsal with hammertoe correction using a DuVries osteotomy Amputation of toe of left foot (01/29/20) Left third toe Carpal tunnel syndrome of left wrist s/p ECTR Dyshidrotic eczema GERD with esophagitis EGD 09/06/18 with erosive reflux esophagitis Hyperlipidemia Metatarsal fracture (~03/01/20) Right second metatarsal Tubular adenoma of colon (~2016) Surgical History H/O section (~02/2013) 02/2013 and 11/2014 H/O laparoscopy Ovarian cyst drainage at 17 or 18yrs old H/O toe surgery History of carpal tunnel release (01/29/20) Left History of esophagogastroduodenoscopy (EGD) (09/06/18) Hx of appendectomy (~1981) S/P bunionectomy (04/18/15) Right hallux S/P colonoscopy (06/10/17) S/P cubital tunnel release (11/14/18) Ulnar nerve decompression with anterior subcutaneous transposition S/P endoscopic carpal tunnel release (01/29/20) Right wrist 11/14/18 Left Wrist 01/29/20 S/P excision of Guadalupe's neuroma (04/18/15) Right 3rd intermetatarsal space. Repeated on 12/12/2015 S/P hammer toe correction 04/18/15--Of right 2nd toe 06/13/18--DuVries osteotomy, arthroplasty of the second PIP joint, left foot. Plantar plate repair with augmentation using Arthrex InternalBrace for third MTP joint, along with Clotilde osteotomy 11/14/18--Removal of hardware from left third metatarsal with hammertoe correction using a DuVries osteotomy 11/14/2018 S/P hammertoe fixation - right second and third toes - 05/30/19 S/P LASIK surgery of both eyes (~2009) Right in 2009 Left in 2010 Family History Mother No problems noted. Father Dementia Brother No problems noted. Daughter No problems noted. Daughter No problems noted. Maternal Grandfather , at 74 of emphysema COPD (chronic obstructive pulmonary disease) with emphysema Maternal Grandmother , at 96 No problems noted. 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 3.ENT: Atraumatic external nose and ears. Moist MM. Neck: Symmetric, trachea midline, No thyromegaly. 4.CVS: +S1/S2, No murmurs or gallops. Peripheral pulses 2+ and equal in all extremities. Brisk capillary refill in all extremities. 5.RESP: Unlabored respiratory effort. Clear to auscultation bilaterally. No wheezes rales or rhonchi 6.GI: Soft, nondistended, no guarding or rebound. Mild tenderness in the right upper and mid epigastric region. No pain at McBurney's point, negative Solano sign. Mild right CVA tenderness. 7.MSK: Normocephalic/Atraumatic, Extremities w/o deformity or ttp No cyanosis or clubbing, Normal movement of all extremities 8.Skin: Warm, Dry. No rashes or lesions. 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 Sensation grossly intact, no focal neurologic deficits. 10.Psych: (AAO) x3. Appropriate mood and affect Course Vital Signs Vital signs: Vital Signs Temperature 36.4 C L 06/28/20 10:48 Pulse 94 H 06/28/20 10:48 Respiratory Rate 16 06/28/20 10:48 Blood Pressure 134/84 06/28/20 10:48 Pulse Oximetry 99 06/28/20 10:48 Temperature 36.4 C L 06/28/20 10:48 Temperature Source Skin 06/28/20 10:48 Pulse 94 H 06/28/20 10:48 Respiratory Rate 16 06/28/20 10:48 Respiratory Effort 06/28/20 12:16 Blood Pressure 134/84 06/28/20 10:48 Blood Pressure Position Sitting 06/28/20 10:48 Pulse Oximetry 99 06/28/20 10:48 Oxygen Delivery Method Room Air 06/28/20 10:48 Oxygen Flow Rate 0 06/28/20 10:48 Pain Level 4 06/28/20 10:48 Lab/Test Results Lab/Test Results: Laboratory Tests Range/Units 06/28/20 06/28/20 11:56 11:56 WBC (4.4-10.8) 10^3/uL 5.78 RBC (3.93-5.22) 10^6/uL 3.23 L Hgb (11.2-15.7) g/dL 10.2 L Hct (36.0-46.0) % 30.4 L MCV (80-95) fL 94.1 MCH (27.0-33.0) pg 31.6 MCHC (32.0-36.0) % 33.6 RDW (11.7-14.6) % 12.6 Plt Count (130-400) 10^3/uL 275 MPV (8.0-11.0) fL 10.0 Immature Gran % 0.3 Neutrophils % 59.3 Lymphocytes % 28.5 Monocytes % 7.4 Eosinophils % 3.6 Basophils % 0.9 Nucleated RBC % % 0 Absolute Neutrophils (1.2-6.7) 10^3/uL 3.42 Absolute Lymphocytes (1.2-3.4) 10^3/uL 1.65 Absolute Monocytes (0.1-0.8) 10^3/uL 0.43 Absolute Eosinophils (0.0-0.7) 10^3/uL 0.21 Absolute Basophils (0.0-0.2) 10^3/uL 0.05 Sodium (136-145) mmol/L 141 Potassium (3.5-5.1) mmol/L 3.9 Chloride (98-107) mmol/L 107 Carbon Dioxide (21.0-32.0) mmol/L 24.2 Anion Gap (3-11) mmol/L 9.8 BUN (7-18) mg/dL 16 Creatinine (0.55-1.02) mg/dL 0.79 Estimated GFR/1.73 m2 (mL/min/1.73m2) >= 60.00 Glucose (74-106) mg/dL 92 Calcium (8.5-10.1) mg/dL 8.7 Total Bilirubin (0.2-1.0) mg/dL 0.9 AST (15-37) U/L 25 ALT (14-59) U/L 22 Alkaline Phosphatase (46-116) U/L 64 Total Protein (6.4-8.2) g/dL 6.6 Albumin (3.4-5.0) g/dL 3.8 Lipase (73-393) U/L 58 POC- Test(urine) Negative
[2020-06-28] MEDS: Omnipaque 350 MG/ML 100 ML BTL IJ (12:34)
[2020-06-28] MEDS: Normal Saline Flush 10 ML SYR IVP (12:34)
[2020-06-28] MEDS: Normal Saline - Diluent 50 ML VIAL IV (12:35)
--- NOTE | 2020-06-28 12:57 | DI.VRAD_ITS ---
PROCEDURE INFORMATION: Exam: CT Abdomen And Pelvis With Contrast Exam date and time: 06/28/2020 11:10 AM Age: 55 years old Clinical indication: Abdominal pain; Epigastric TECHNIQUE: Imaging protocol: Computed tomography of the abdomen and pelvis with intravenous contrast. Contrast material: OMNIPAQUE 350; Contrast volume: 100 ml; Contrast route: IV; COMPARISON: CT renal colic wo 04/29/2019 12:45 PM FINDINGS: Lungs: Bibasilar atelectasis Liver: Normal. No mass. Gallbladder and bile ducts: Normal. No calcified stones. No ductal dilation. Pancreas: Normal. No ductal dilation. Spleen: Normal. No splenomegaly. Adrenal glands: Normal. No mass. Kidneys and ureters: 10 mm nodule lateral left kidney . 28 Hounsfield units Stomach and bowel: No obstruction Appendix: Inflammatory changes in the right lower quadrant. But it is difficult to isolate the appendix. This may represent ileitis versus acute appendicitis. Recommend repeat CT pelvis with oral contrast after oral contrast reaches the rectum. Intraperitoneal space: Unremarkable. No free air. No significant fluid collection. Vasculature: Portal vein is patent. Splenic vein is patent No dissection or aneurysm of the aorta Lymph nodes: Unremarkable. No enlarged lymph nodes. Urinary bladder: Unremarkable as visualized. Reproductive: Unremarkable as visualized. Bones/joints: Unremarkable. No acute fracture. Soft tissues: Unremarkable. IMPRESSION: Inflammatory changes in the right lower quadrant. But it is difficult to isolate the appendix. This may represent ileitis versus acute appendicitis. Recommend repeat CT pelvis with oral contrast after oral contrast reaches the rectum. Dictated and Authenticated by: Leonidas Cardona MD. Ordering:EDWIGE Garcia MD
[2020-06-28 13:03] VITALS: BP 111/74; PULSE 74; RESP 16; TEMP 36.3; O2SAT 98
[2020-06-28 13:30] LABS: Bilirubin Negative (Negative); Blood Negative (Negative); Clarity Clear (Clear); Glucose Negative (Negative); Ketones 15 mg/dL (Negative); Leukocyte Esterase Negative (Negative); Nitrite Negative (Negative); Urobilinogen 0.2 EU/dL (Up TO 0.2); pH 5.5 (5-8)
--- NOTE | 2020-06-28 14:39 | NUR.NOTE ---
Nursing Note: Outpatient order to [facility] faxed to move the US ordered by PCP to Jun 30. Referral [facility] to [facility] for followup. Consulted with Dr. Nur. Cee Blood Referral faxed to PCP to notify them of the US change for follow up. Cee Blood
[2020-06-28 14:53] VITALS: BP 111/74; PULSE 74; RESP 16; TEMP 36.3; O2SAT 98
== END 2020-06-28 14:48 | disposition home or self-care (01) ==
PROVIDERS: Emergency Provider Student in an Organized Health Care Education/Training Program; PCP Nurse Practitioner
DX: R10.11 Right upper quadrant pain (principal); R10.13 Epigastric pain; K29.50 Unspecified chronic gastritis without bleeding
CPT/HCPCS: 36415; 80053; 81025; 83690; 96361; 96374; 99285; 74177; 81003; 85025; 99284; J1885; J3490

== ENCOUNTER 2020-06-30 17:05 | Outpatient (CLI) | payer MEDICAID, SELFPAY ==
--- NOTE | 2020-06-30 | DI.US_ITS ---
EXAM: US ABDOMEN CLINICAL HISTORY: RUQ ABD PAIN,R10.22 TECHNIQUE: Ultrasound abdomen performed using standard protocol. COMPARISON: CT CT ABDOMEN PELVIS W from 06/28/2020 FINDINGS: ABDOMINAL AORTA AND IVC: Visualized portions normal caliber. PANCREAS: Normal where visualized. LIVER: Normal. Hepatopedal flow in the Portal Vein. The liver measures 15 cm in length. GALLBLADDER: No evidence of cholelithiasis. No evidence of wall thickening. No pericholecystic fluid identified. BILIARY SYSTEM: Common bile duct measures < 7 mm. No intrahepatic biliary ductal dilation. MEEKS'S SIGN: Negative. KIDNEYS: Kidneys are symmetric in size. There is a 5 mm echogenic focus in the left kidney which may represent a nonobstructing stone. No evidence of hydronephrosis. No renal mass or cyst identified. SPLEEN: Not enlarged. ASCITES: None seen. IMPRESSION: No evidence of cholelithiasis or biliary ductal dilatation. DATA REPOSITORY:
== END 2020-06-30 17:25 ==
PROVIDERS: PCP Nurse Practitioner; Visit Provider Student in an Organized Health Care Education/Training Program
DX: R10.11 Right upper quadrant pain (principal)
CPT/HCPCS: 76700

== ENCOUNTER 2020-07-04 13:07 | Outpatient (CLI) | payer MEDICAID, SELFPAY ==
[2020-07-06 21:06] LABS: SARS-CoV-2 RNA Source Nasal/Nares
[2020-07-07 12:15] LABS: SARS-CoV-2 RNA Not Detected (NotDetected)
== END 2020-07-04 13:27 ==
PROVIDERS: PCP Nurse Practitioner; Visit Provider Surgery
DX: Z01.818 Encounter for other preprocedural examination (principal)
CPT/HCPCS: U0003

== ENCOUNTER 2020-07-07 07:37 | Day surgery (SDC) | payer MEDICAID, SELFPAY ==
[2020-07-07 07:55] VITALS: BP 129/71; PULSE 85; RESP 18; TEMP 36.8; O2SAT 99
[2020-07-07] MEDS: Lactated Ringers 1,000 ML 80 ML IV (08:37)
--- NOTE | 2020-07-07 10:00 | BOWEL_PTH ---
PATIENT: Cee Orozco LOC: [facility] U#:[id number] AGE/SX: 55/F ROOM: RE07/07/[address]: Keya Nur : 1965 BED: DIS: 07/07/2020 SPEC #: [id number] RECD: 07/07/20 12:52 STATUS: DAVE REJosh #: [id number] ROSARIO: 07/07/20 10:[address]: Keya Nur DEPT: Surgical Specimen RECD BY: Kayli Stratton ENTERED: 07/07/20 12:53 SP TYPE: Bowel OTHR DR: Mavis Malik, PhD SOFTWARE TOOLS ENGINEER Tissues: 1 - BIOPSY BOWEL 2 - STOMACH BIOPSY 3 - STOMACH BIOPSY 4 - ESOPHAGUS BIOPSY 5 - ESOPHAGUS BIOPSY Procedures: GROSS AND MICRO LEVEL 4 Comments: [id number]
--- NOTE | 2020-07-07 10:16 | PDOC.DSDIS_ITS ---
Discharge Plan Disposition Patient Disposition: HOME Condition: Good Discharge Details Reason For Visit: GERD Attending Provider: Keya Nur Primary Care Provider: Mavis Malik Home Meds and New Rx's Prescriptions: New pantoprazole [Protonix] 40 mg tablet,delayed release (DR/EC) 40 mg PO DAILY Qty: 30 RF: 12 sucralfate [Carafate] 1 gram tablet 1 g PO QACHS Qty: 120 RF: 12 Continued Estroven Cmplt Menopause Rlf 4 mg tablet 4 mg PO DAILY RF: 0 ferrous sulfate [FeroSul] 325 mg (65 mg iron) tablet 325 mg PO DAILY RF: 0 multivitamin [Daily Multi-Vitamin] 1 EACH tablet 1 ea PO DAILY RF: 0 cholecalciferol (vitamin D3) [Vitamin D3] 2,000 UNIT capsule 5,000 unit PO DAILY RF: 0 methocarbamol [Robaxin-750] 750 mg tablet 750 mg PO TID PRN (Reason: muscle spasm) Qty: 90 RF: 2 Medical Marijuana RF: 0 sucralfate [Carafate] 1 gram tablet 1 g PO BID Qty: 60 RF: 0 Discontinued ibuprofen 600 mg tablet 600 mg PO TID PRN (Reason: pain) Qty: 90 RF: 3 omeprazole 40 mg capsule,delayed release(DR/EC) 40 mg PO DAILY Qty: 90 RF: 4 Discharge Instructions Additional Instructions: Findings:moderate gastritis Follow up:2 wks For 2wks- avoid alcohol/soda/ibuprofen. try to limit caffeine use. Do no drink coffee on an empty stomach. after 2 wks: Take a carafate at bedtime and q6hrs as needed for reflux s/s. Continue with lifestyle modifications: no alcohol, tobacco products, Aspirin or NSAID's (ibuprofen, Motrin, Naprosyn, aleve, etc). Try to limit soda pop/any carbonated beverages, caffeine (including tea & chocolate), and acidic foods, (t omatoes, citrus, onions, peppermints) spicy foods. Do not lie down for 30 minutes after eating, and do not eat 2 hours prior to bedtime. Avoid wearing tight fitting clothing/ belts. Please call if you develop: fevers >101.5 Nausea or Vomiting Abdominal pain that is not transient DAY SURGERY UNIT POST COLONOSCOPY INSTRUCTIONS 1. Because there will be medication in your system for the next 24 hours, you may feel a little sleepy. Your coordination will be affected. Therefore: a. Do not drive or operate dangerous equipment for 24 hours. b. Do not drink alcohol beverages for 24 hours (not even beer). c. Plan to go home and rest for the day. 2. Generally there are no restrictions on your activity after a day or so has gone by, but you may feel a bit fatigued for a few days. 3 After you arrive home you may have a light meal and return to a normal diet as you can tolerate it without feeling sick to your stomach. 4. After surgery, you may feel pain or discomfort. This should be only transient, but if it persists please contact your doctor. 5. If there are any questions regarding the findings of your procedure, please feel free to contact your doctor. 6. If you are unable to contact your doctor with a problem, contact the hospital at [phone]. 7. Continue all your regular medications unless directed otherwise. I understand the above instructions and have no questions. Signature of Patient or Responsible Adult Escort Date/Time Name of Responsible Adult Escort Signature of Nurse Date/Time Activity:: no lifting over 20#'s or strenuous activity Diet:: small light meals x 24 hrs Discharge Orders Discharge Orders: Discharge Order (Routine); Ordered 07/07/20 Ordered By: Keya Nur DS: Diagnosis Discharge Diagnosis (1) History of in vitro fertilization: Status: Acute (2) Pelvic pain: Status: Acute (3) Colicky right upper quadrant pain: Status: Acute (4) Anemia: Status: Chronic (5) RUQ abdominal pain: Status: Acute (6) Amputation of toe of left foot: Status: Acute (7) Acute gastritis: Status: Acute
--- NOTE | 2020-07-07 10:24 | ENDO_ITS ---
Date of service: 07/07/20 Time of Service: 10:24 Endoscopy Report DATE OF PROCEDURE: 07/07/20 PRE-OP DIAGNOSIS: epiastric abdominal pain. HX of egrd POST-OP DIAGNOSIS: other (acute gastritis ) PROCEDURE: EGD w/ bx SURGEON: Keya Nur ANESTHESIA: GETA ESTIMATED BLOOD LOSS: 1 PATHOLOGY: other COMPLICATIONS: None DISPOSITION: same day PROCEDURE DESCRIPTION: After informed consent was obtained the patient was take to the procedure room and placed in a supine position. Monitors were applied and a time out was done. The patients name, date of , procedure type, allergies to medications and metal in their body was reviewed. A bite block was placed and the patient was sedated. Once sedated and comfortable the gastroscope was advanced through the oropharynx which was grossly normal into the esophagus. The proximal and mid-esophagus were nl. In the distal esophagus there was noted: no esophageal/erosions/varicies/diverticula/strictures. The scope was advanced into the stomach and through the pylorus into the 3rd portion of the duodenum. The duodenum was noted to be nl. Biopsies were done. all specimen retrieved adn no bleeding noted. The scope was retracted back into the stomach and biopsies were done to rule out H. pylori. There were no ulcers or bleeding. There was moderate gastritis. The scope was retroflexed. The cardia and fundus were noted to be normal. There no hiatal hernia noted. The scope was retracted back into the esophagus and biopsies were done of the GE junction to rule out Luna's. The Z line was regular. The GE junction was at 38 cm. The scope was removed and the patient was woken up and taken back to [facility] in stable condition. Follow up: 2 wks
[2020-07-07 10:56] VITALS: BP 124/79; PULSE 68; RESP 18; TEMP 36.7; O2SAT 98
== END 2020-07-07 11:30 | disposition home or self-care (01) ==
PROVIDERS: PCP Nurse Practitioner; Visit Provider Surgery
PROC: 0DJ68ZZ Inspection of Stomach, Via Natural or Artificial Opening Endoscopic (ICD-10-PCS; CPT 43235; principal; 2020-07-07 09:15)
DX: K29.00 Acute gastritis without bleeding (principal); D64.9 Anemia, unspecified
CPT/HCPCS: 43239; 88305; J2001; J2704

== ENCOUNTER 2020-07-14 03:28 | Outpatient (CLI) | payer MEDICAID, SELFPAY ==
[2020-07-14 12:24] LABS: HCT 35.9 % (36.0-46.0); HGB 11.8 g/dL (11.2-15.7); MCH 31.7 pg (27.0-33.0); MCHC 32.9 % (32.0-36.0); MCV 96.5 fL (80-95); MPV 10.1 fL (8.0-11.0); Platelet Count 356 10^3/uL (130-400); RBC 3.72 10^6/uL (3.93-5.22); RDW 12.6 % (11.7-14.6); RDW-SD 44.8 fL; WBC 5.13 10^3/uL (4.4-10.8)
[2020-07-14 13:47] LABS: ALT 19 U/L (14-59); AST 18 U/L (15-37); Albumin 4.1 g/dL (3.4-5.0); Alkaline Phosphatase 87 U/L (46-116); Anion Gap 6.1 mmol/L (3-11); BUN 15 mg/dL (7-18); Bilirubin, Total 0.5 mg/dL (0.2-1.0); CO2 28.9 mmol/L (21.0-32.0); CREATININE 0.89 mg/dL (0.55-1.02); Calcium 8.8 mg/dL (8.5-10.1); Chloride 105 mmol/L (98-107); Glucose 90 mg/dL (74-106); Potassium 4.7 mmol/L (3.5-5.1); Sodium 140 mmol/L (136-145)
== END 2020-07-14 03:48 ==
PROVIDERS: PCP Nurse Practitioner; Visit Provider Nurse Practitioner
DX: R10.11 Right upper quadrant pain (principal); D64.9 Anemia, unspecified
CPT/HCPCS: 36415; 80053; 85027

== ENCOUNTER 2020-08-04 01:22 | Outpatient (CLI) | payer MEDICAID, SELFPAY ==
--- NOTE | 2020-08-04 07:45 | DI.US_ITS ---
EXAM: US PELVIS TRANSVAGINAL CLINICAL HISTORY: hx IVF/vague abdominal pain and bloating,r10.2,z98.890. TECHNIQUE: Transabdominal and transvaginal pelvic ultrasound was performed using standard protocol. COMPARISON: No exams were available for comparison FINDINGS: KIDNEYS: Kidneys are symmetric in size. No evidence of renal calculi. No evidence of hydronephrosis. No renal mass or cyst identified. UTERUS: Position: Anteverted. Size: 4.7 long by 2.3 AP by 3.8 transverse cm Endometrium: 0.2 cm. Normal for patient's menstrual status. Myometrium: Calcifications are seen within the myometrium in the fundus of the uterus which may repre sent a calcified uterine fibroid. Cervix: Unremarkable. OVARIES: Right: 1.6 x 0.9 x 1.0 cm Cyst or mass: None. Left: 0.9 x 0.5 x 0.6 cm Cyst or mass: None. DOPPLER: Color: Symmetric and uniform flow to both ovaries. No hyperemia. Duplex: Normal ovarian arterial waveforms visualized. CUL-DE-SAC: Free fluid: None. Other: None. IMPRESSION: 1. Normal sonographic appearance of the kidneys. 2. Normal-appearing uterus with endometrial stripe within normal limits. 3. Unremarkable bilateral ovaries. DATA REPOSITORY:
== END 2020-08-04 01:42 ==
PROVIDERS: PCP Nurse Practitioner; Visit Provider Surgery
DX: R10.2 Pelvic and perineal pain (principal); Z98.890 Other specified postprocedural states
CPT/HCPCS: 76830; 76856

== ENCOUNTER 2020-08-13 01:42 | Outpatient (CLI) | payer MEDICAID, SELFPAY ==
--- NOTE | 2020-08-13 06:45 | DI.MRI_ITS ---
EXAM: MR LUMBAR SPINE WO INDICATION: low back pain worsening,WITH SCIATICA,M54.40,G89.29. COMPARISON: No exams were available for comparison TECHNIQUE: MR examination of the lumbosacral spine was performed according to the usual protocol. FINDINGS: No significant bony signal abnormality is seen. Intervertebral discs show mild loss of signal throug hout. Signal. No significant facet arthropathy identified. The conus medullaris appears intact. There is no evidence of a bony central canal spinal stenosis, or neural foraminal stenosis, in the wilfredo mbar region. There are no significant findings involving the intervertebral discs from T10-T11 through the L1-2 le vels. At L2-3, there is a broad-based disc herniation which occupies approximately 50 percent of the cross- sectional area of the spinal canal and marked narrowing of the lateral recesses.. Posterior displace ment of multiple nerve roots noted. Intact neural foramina bilaterally. At L3-4, there is a tiny left paracentral disc herniation. No other significant findings. At L4-5, there is a mild broad-based disc herniation most prominent centrally. No definite neural im pingement. Mild narrowing of lateral recesses noted. At L5-S1, there are no significant findings involving the intervertebral disc. IMPRESSION: Large broad-based disc herniation at L2-3. Mild broad-based disc herniation at L4-5. Please see abo ve discussion.
== END 2020-08-13 02:02 ==
PROVIDERS: PCP Nurse Practitioner; Visit Provider Nurse Practitioner
DX: G89.29 Other chronic pain (principal); M51.16 Intervertebral disc disorders with radiculopathy, lumbar region
CPT/HCPCS: 72148

== ENCOUNTER 2020-09-05 10:35 | Outpatient (CLI) | payer MEDICAID, SELFPAY ==
--- NOTE | 2020-09-05 09:00 | DI.RAD_ITS ---
EXAM: XR FOOT RT COMPLETE CLINICAL HISTORY: RIGHT FOOT PAIN. TECHNIQUE: 2D digital imaging was performed. COMPARISON: CR XR FOOT RT COMPLETE from 03/24/2020 FINDINGS: BONES: There are stable post operative changes present. There is a healed 2nd metatarsal fracture. There does appear to be subtle periosteal reaction seen around the distal diaphysis of the right 3rd metatarsal suspicious for subacute healing fracture. JOINTS: The joint spaces are well maintained. No joint effusion is present. SOFT TISSUE: There is soft tissue swelling of the forefoot. No radiopaque foreign bodies. IMPRESSION: 1. Stable postoperative changes. 2. Subtle periosteal reaction around the distal diaphysis of the right 3rd metatarsal suspicious for subacute healing fracture. Please correlate clinically. 3. Mild generalized soft tissue swelling of the forefoot. DATA REPOSITORY: RADIATION DOSE DELIVERED:
== END 2020-09-05 10:55 ==
PROVIDERS: PCP Nurse Practitioner; Referring Provider Nurse Practitioner; Visit Provider Physician Assistant
DX: M79.671 Pain in right foot (principal); M79.89 Other specified soft tissue disorders
CPT/HCPCS: 73630

== ENCOUNTER 2020-09-17 02:42 | Outpatient (CLI) | payer MEDICAID, SELFPAY ==
--- NOTE | 2020-09-17 06:30 | DI.MRI_ITS ---
EXAM: MR LOWER EXTREMITY RT WO CLINICAL HISTORY: FOOT PAIN, STRESS FX METATARSAL BONE, M84.376A TECHNIQUE: Multiplanar multisequence MRI was performed without intravenous contrast. COMPARISON: MR MRI - R LOWER EXT WO/W from 02/14/2017 CR XR FOOT RT COMPLETE from 09/05/2020 FINDINGS: At the articulation between the 1st metatarsal head and the sesamoid there are hypertrophic changes p resent. There is also subchondral edema and cysts present. Findings are consistent with degenerativ e changes. There is a fracture deformity involving the 2nd metatarsal. There is stable angulation of the fractu re noted. Callus formation has developed about the fracture. There is persistent mild mass hyperint ense signal within the marrow. No significant soft tissue edema is seen around the fracture site. There is a linear hypointense signal seen in the distal 3rd of the diaphysis of the 3rd metatarsal co nsistent with a fracture. There is hyperintense signal involving the 2nd metatarsal with sparing of the head and base. There is periosteal reaction around the fracture site. There is prominent edema in the soft tissues around the fracture. There is a cyst seen in the medial cuneiform. No suspicious soft tissue mass is appreciated. No focal fluid collection is seen to suggest an absce ss. IMPRESSION: 1. Findings consistent with an healing fracture of the distal diaphysis of the 3rd metatarsal. This may represent a stress fracture. 2. Old fracture deformity of the 2nd metatarsal. Mild residual hyperintense signal still seen within the marrow. No significant surrounding edema is noted. 3. Degenerative changes seen at the articulation between the medial cuneiform and the head of the 1st metatarsal. DATA REPOSITORY:
== END 2020-09-17 02:43 | disposition home or self-care (01) ==
LOC: DI 02:42
PROVIDERS: PCP Nurse Practitioner; Visit Provider Student in an Organized Health Care Education/Training Program
DX: M79.671 Pain in right foot (principal); M19.071 Primary osteoarthritis, right ankle and foot; M79.89 Other specified soft tissue disorders; M84.374A Stress fracture, right foot, initial encounter for fracture
CPT/HCPCS: 73718

== ENCOUNTER 2020-11-11 02:50 | Outpatient (CLI) | payer MEDICAID, SELFPAY ==
--- NOTE | 2020-11-11 08:00 | DI.DEXA_ITS ---
EXAM: XR DEXA BONE DENSITY W/WO CHANDA CLINICAL HISTORY: multiple stress fractures,M84.376A TECHNIQUE: Routine DEXA evaluation of the lumbar spine, hip, or forearm. COMPARISON: No exams were available for comparison FINDINGS: Performed on a Hologic unit. Lateral image: No compression fracture evident. Lumbar Spine total T-score: 0.2 Hip total T-score:-1.2 Independent reading at the femoral neck yields a T-score of -1.3 Forearm total T-score: -1.0 IMPRESSION: Bone mineral density measures in the osteopenia range. Fracture risk is moderate. Note: Any spine fracture indicates 5x risk for subsequent spine fracture and 2x risk for subsequent h ip fracture. World Health Organization criteria for BMD interpretation classify patients: Normal...... T- Score at or above -1.0 Osteopenic... T- Score between -1.0 and -2.5 Osteoporosis... T-Score at or below -2.5
== END 2020-11-11 03:10 ==
PROVIDERS: PCP Nurse Practitioner; Visit Provider Student in an Organized Health Care Education/Training Program
DX: M85.88 Other specified disorders of bone density and structure, other site (principal); M84.374D Stress fracture, right foot, subsequent encounter for fracture with routine healing
CPT/HCPCS: 77080

== ENCOUNTER 2020-11-25 08:31 | Outpatient (CLI) | payer MEDICAID, SELFPAY ==
[2020-11-25 08:43] VITALS: BP 115/68; PULSE 78; RESP 16; TEMP 37.2; O2SAT 97
--- NOTE | 2020-11-25 08:46 | PDOC.PAIN ---
Pain Clinic Procedure Note Procedure Note Procedure Note: Lumbar/Sacral Medial Branch Blocks ROSY BARAHONA has been referred to the [facility] for lumbar/sacral medial branch blocks. COMMENTS: patient has been evaluated by Ms Silvia Varela APRN in clinic for axial back pain, leg pain and feet pain. For the purpose of today's procedure, we will focus on axial back pain. Patient was interviewed and the medical record reviewed. There were no medical, pharmacologic, radiographic or other structural contraindications to attempting fluoroscopically guided local anesthetic lumbar/sacral medial branch blocks. Risks and expected side effects as well as potential benefit of the procedure were reviewed and voiced concerns addressed. The printed consent form was signed and witnessed. Standard time-out procedure was performed. Patient was placed in the prone position on the fluoroscopy table and automated blood pressure cuff and pulse oximeter applied. The skin entry points for approaching the anatomic target points of the segmental medial branches of bilateral L3, L4, L5-DR MBB were identified with anfluoroscopy and marked. Following thorough Chlorhexadine preparation of the skin and draping and 1% lidocaine infiltration of the skin entry points and subcutaneous tissues, a 22 gauge spinal needle was placed under fluoroscopic guidance down on to the target point for each respective segmental medial branch.Position was confirmed in A/P, oblique and lateral views with 0.25ml of omnipaque 240. Coult be this method .5ml 0.5% Bupivacaine was injected. Vital signs were stable throughout the procedure and were as recorded in the docflowsheet by the nursing staff. Follow up plans and appointments were discussed and was instructed to keep careful note of how the usual pain was modified by these injections. Specifically was asked to keep a pain diary for the next 24 hours using a numeric pain scale of 0-10 and report these results at the follow-up visit. Post procedure instruction was given as documented in the nursing documentation and having met discharge criteria. Patient was discharged from the [facility]. Based on the medial branches blocked today, if the patient has adequate relief and we are able to proceed to radiofrequency ablation, the treatment should result in the denervation of the bilateral L4/5 and L5/S1 facets. We would expect to denervate a total of 4 facets during the radiofrequency ablation. COMMENTS: patient reported pre-procedure pain level 5 out of 10 with Ag's test and 0 out of 10 post procedure with Ag's test. She is instructed to keep track of her back pain score for the next four hours. Urbano Denny MD Pain Management CC: Mavis Malik, PhD [employer]
--- NOTE | 2020-11-25 09:25 | DI.RAD_ITS ---
EXAM: XR PAIN CLINIC LUMBAR SP 2V CLINICAL HISTORY: Dx: Lumbar Spondylosis TECHNIQUE: 2D and realtime digital imaging was performed. CONTRAST MATERIAL: Refer to procedure report. COMPARISON: No exams were available for comparison FINDINGS: Fluoroscopy was provided for Dr. Denny during the performance of a medial branch block. Please refer t o the procedure report for complete details. Fluoro time: 39.9 seconds IMPRESSION:
[2020-11-25 09:32] VITALS: BP 130/73; PULSE 65; RESP 15; O2SAT 100
[2020-11-25] MEDS: Omnipaque 240 MG/ML 50 ML BTL IJ (09:34)
[2020-11-25] MEDS: Bupivacaine 0.5% Pres-Free 10 ML VIAL IJ (09:39)
== END 2020-11-25 08:32 | disposition home or self-care (01) ==
LOC: PC 08:31
PROVIDERS: PCP Nurse Practitioner; Visit Provider Internal Medicine
DX: M47.816 Spondylosis without myelopathy or radiculopathy, lumbar region (principal)
CPT/HCPCS: 64493; 64494; 72100; Q9967

== ENCOUNTER 2021-01-27 11:35 | Emergency (ER) | payer MEDICAID, SELFPAY ==
[2021-01-27] VITALS (32 sets, daily range): BP systolic 107–137; BP diastolic 61–98; PULSE 52–68; RESP 18–20; TEMP 36.2–36.5; O2SAT 95–100
--- NOTE | 2021-01-27 11:42 | W.ED.GENAD ---
Discharge Plan Disposition Patient Disposition: HOME Condition: Stable Discharge Details Clinical Impression: Back pain Primary Care Provider: Mavis Malik ED Provider: Chary Mills Home Meds and New Rx's Prescriptions: New oxycodone 5 mg tablet 5 mg PO Q8H PRN (Reason: pain) Qty: 7 RF: 0 Continued Estroven Cmplt Menopause Rlf 4 mg tablet 4 mg PO DAILY RF: 0 gabapentin 300 mg capsule 300 mg PO QID 30 Days Qty: 120 RF: 0 ferrous sulfate [FeroSul] 325 mg (65 mg iron) tablet 325 mg PO DAILY RF: 0 sucralfate [Carafate] 1 gram tablet 1 g PO .ghs Qty: 30 RF: 12 Move Free Joint Health 750 mg-100 mg- 1.65 mg-108 mg tablet PO RF: 0 Estroven 155 mg capsule PO RF: 0 turmeric root extract 500 mg capsule 1,000 mg PO DAILY RF: 0 multivitamin [Daily Multi-Vitamin] 1 EACH tablet 1 ea PO DAILY RF: 0 cholecalciferol (vitamin D3) [Vitamin D3] 2,000 UNIT capsule 5,000 unit PO DAILY RF: 0 methocarbamol [Robaxin-750] 750 mg tablet 750 mg PO TID PRN (Reason: muscle spasm) Qty: 90 RF: 2 Medical Marijuana RF: 0 pantoprazole [Protonix] 40 mg tablet,delayed release (DR/EC) 40 mg PO DAILY Qty: 30 RF: 12 Discharge Instructions Instructions: Oxycodone, Rapid Release (By mouth), Back Pain (ED) Additional Instructions: Encourage hydration. Please continue with your previously planned pain regiment. If this is unsuccessful at alleviating her discomfort, you may augment this with the oxycodone as prescribed (only if this is prescribed do not drive will take this medication. Please encourage gentle stretching and ambulation but avoid any heavy lifting. Please call both your primary care and pain management to reschedule your appointment for your supposed to have today. Please also be seen in the next few days for reevaluation of your severe pain. If you develop weakness, sensation changes, change in bowel or bladder habits, have inability to control your pain or other new/worsening symptom please seek care urgently once again. Referrals: Mavis Malik, [employer] [Primary Care Provider] - Discharge Data Discharge Date/Time-TO BE ENTERED AT DEPARTURE: 01/27/21 19:55 Medical Decision Making <BARBY Avila - Last Filed: 01/28/21 10:08> 55-year-old female with a history of chronic back pain with sciatica we will set up for an appointment today with pain management for a nerve block. 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 She states the pain is a 10 out of 10 but different than her chronic pain. She went to her pain management appointment because she had new pain recommended coming to the ER for evaluation. I will obtain IV access, give Toradol, p.o. Robaxin, obtain routine laboratory values including urinalysis. Clinically she appears well, nontoxic, is afebrile, neurologically intact, denies IV drug use. There has been no significant trauma. Will obtain x-ray of her pelvis and lumbar spine Patient reports no improvement of her pain with IV Toradol and p.o. Robaxin. Laboratory values do not reveal any obvious emergent process. Urinalysis unremarkable for infection or hematuria which certainly lowers my suspicion for UTI, pyelonephritis, renal stone, etc. X-ray of pelvis read by radiology is unremarkable. X-ray of L-spine read as mild degenerative changes by radiology. Discussed x-ray findings and laboratory findings with patient. At this time she states her pain is still severe. She was ambulatory to the restroom slowly but steadily. Discussed options, will give 4 mg IV morphine and reassess. Patient was medicated and initially stated her pain was slightly better. We will continue to observe. In the meantime she will have lunch, ate a turkey sandwich without difficulty. Vital signs remained hemodynamically stable. Soon after receiving the IV morphine she reports that all of her fingers on both hands became slightly tingly. Denies chest pain, shortness of breath. She is now telling me that her pain in her back is unchanged with the morphine. We once again discussed her options. She is questioning what a muscle spasm may feel like. I described a muscle spasm the best of my Abilities and this certainly does not sound to be a muscle spasm. Clinically she appears to be neurologically intact, no neurologic deficit, but does have difficulty standing completely straight. Clinically this appears to be musculoskeletal in nature. We discussed options, given she states this pain is different than her typical pain, will obtain CT imaging of her abdomen pelvis with IV contrast as well as a recon of her lumbar spine. In the meantime we will give 5 mg IV Valium and reassess. No evidence of cauda equina. At time of signout to my colleague BARBY Mills, awaiting evaluation administration as well as CT imaging. Medical Records Medical records reviewed: Yes I reviewed the patient's medical records. Imaging Data Radiologic Study: Attestation: I personally reviewed and interpreted this imaging study as follows: Imaging: X-Ray Radiologist's impression: Pelvis negative Radiologic Study #2: Attestation: I personally reviewed and interpreted this imaging study as follows: Imaging: X-Ray Radiologist's impression: Lumbar spine generative changes Lab Data Lab results reviewed: Yes I reviewed the patient's lab results. Labs: Laboratory Tests Range/Units 01/27/21 01/27/21 01/27/21 11:58 12:10 12:35 WBC Cancelled RBC Cancelled Hgb Cancelled Hct Cancelled MCV Cancelled MCH Cancelled MCHC Cancelled RDW Cancelled Plt Count Cancelled MPV Cancelled Immature Gran % Cancelled Neutrophils % Cancelled Band Neutrophils % Cancelled Lymphocytes % Cancelled Atypical Lymphs % Cancelled Monocytes % Cancelled Eosinophils % Cancelled Basophils % Cancelled Metamyelocytes % Cancelled Myelocytes % Cancelled Promyelocytes % Cancelled Other Cells % Cancelled Nucleated RBC % Cancelled Absolute Neutrophils Cancelled Absolute Lymphocytes Cancelled Absolute Monocytes Cancelled Absolute Eosinophils Cancelled Absolute Basophils Cancelled RBC Morphology Cancelled Polychromasia Cancelled Hypochromasia Cancelled Poikilocytosis Cancelled Basophilic Stippling Cancelled Anisocytosis Cancelled Microcytosis Cancelled Macrocytosis Cancelled Spherocytes Cancelled Tear Drop Cells Cancelled Ovalocytes Cancelled Stomatocytes Cancelled [place] Bodies Cancelled [place] Cells/Echinocytes Cancelled Acanthocytes (Spur) Cancelled Schistocytes Cancelled Sodium Cancelled Potassium Cancelled Chloride Cancelled Carbon Dioxide Cancelled Anion Gap Cancelled BUN Cancelled Creatinine Cancelled Estimated GFR/1.73 m2 Cancelled Glucose Cancelled Calcium Cancelled Total Bilirubin Cancelled AST Cancelled ALT Cancelled Alkaline Phosphatase Cancelled Total Protein Cancelled Albumin Cancelled Lipase Cancelled Urine Color (Yellow) Yellow Urine Clarity (Clear) Clear Urine pH (5-8) 6.0 Ur Specific Fowler (1.005-1.025) 1.025 Urine Protein (Negative) mg/dL Negative Urine Ketones (Negative) mg/dL Negative Urine Blood (Negative) Negative Urine Nitrite (Negative) Negative Urine Bilirubin (Negative) Negative Urine Urobilinogen (Up TO 0.2) EU/dL 0.2 Ur Leukocyte Esterase (Negative) Negative Urine Glucose (Negative) mg/dL Negative Range/Units 01/27/21 01/27/21 12:55 12:55 WBC 6.42 RBC 3.89 L Hgb 12.0 Hct 37.1 MCV 95.4 H MCH 30.8 MCHC 32.3 RDW 12.7 Plt Count 274 MPV 10.4 Immature Gran % 0.3 Neutrophils % 61.0 Band Neutrophils % Lymphocytes % 28.8 Atypical Lymphs % Monocytes % 6.5 Eosinophils % 2.2 Basophils % 1.2 Metamyelocytes % Myelocytes % Promyelocytes % Other Cells % Nucleated RBC % 0 Absolute Neutrophils 3.91 Absolute Lymphocytes 1.85 Absolute Monocytes 0.42 Absolute Eosinophils 0.14 Absolute Basophils 0.08 RBC Morphology Polychromasia Hypochromasia Poikilocytosis Basophilic Stippling Anisocytosis Microcytosis Macrocytosis Spherocytes Tear Drop Cells Ovalocytes Stomatocytes [place] Bodies [place] Cells/Echinocytes Acanthocytes (Spur) Schistocytes Sodium 142 Potassium 4.3 Chloride 106 Carbon Dioxide 28.1 Anion Gap 7.9 BUN 15 Creatinine 1.0 Estimated GFR/1.73 m2 58.00 Glucose 95 Calcium 8.7 Total Bilirubin 0.4 AST 15 ALT 18 Alkaline Phosphatase 94 Total Protein 7.5 Albumin 4.0 Lipase 80 Urine Color (Yellow) Urine Clarity (Clear) Urine pH (5-8) Ur Specific Fowler (1.005-1.025) Urine Protein (Negative) mg/dL Urine Ketones (Negative) mg/dL Urine Blood (Negative) Urine Nitrite (Negative) Urine Bilirubin (Negative) Urine Urobilinogen (Up TO 0.2) EU/dL Ur Leukocyte Esterase (Negative) Urine Glucose (Negative) mg/dL <BARBY Lares - Last Filed: 01/27/21 20:41> Care transition to myself from Shmuel Richmond PA-C. Please see her note for more than history, presentation. In brief, this is a pleasant 55-year-old female with chronic back pain. While doing dishes this morning had a worsening pain in her lumbar spine that radiated around to the right side. This radiation of pain is typical for quality of pain was different. Patient did receive her typical medications but did not have relief from this. Valium was added today as there is question if this is associated with muscle spasm. At the time I assume care, reevaluation from the Valium as well as imaging was pending. Reevaluated the patient. She reports no improvement with the Robaxin, Toradol, morphine or Valium. We will augment this with Dilaudid. Patient is tearful and appears frustrated. CT reviewed by radiologist: FINDINGS: Vertebrae: No fracture or malalignment. Discs/Spinal canal/Neural foramina: L1-L2: Mild disc space narrowing and small posterior disc bulge/disc osteophyte. No suspicious stenosis. L2-L3: Narrowed disc interval. Poorly viewed disc protrusion measuring up to about 3 mm AP and causing mild central canal narrowing. L3-L4: Disc space narrowing and small posterior central disc protrusion measuring up to about 2 mm AP. There is disc bulging extending to the left lateral recess and left neural foramen where there is mild to moderate stenosis. L4-L5: Disc space narrowing and central posterior disc protrusion superimposed upon more diffuse posterior disc bulging. Disc protrusion measures up to about 4 mm AP and causes [id number] central narrowing. Ligamentum flavum thickening and more broad-based disc bulging causing at least mild bilateral lateral recess and bilateral neural foramen narrowing. L5-S1: No disc protrusion or suspicious stenosis. Epidural space: Normal. Soft tissues: Unremarkable. Vasculature: Mild scattered atherosclerosis. Incidentally noted retroaortic left renal vein. IMPRESSION: 1. No acute fracture or malalignment. 2. Lumbar spondylosis, mostly degenerative disc disease and with multiple levels of disc protrusion as above, all similar to MRI findings from June 2020 but much better viewed with MRI. On balance, there does not appear to be significant interval change. FINDINGS: Limitations: None. Liver: Normal. Gallbladder and bile ducts: Normal. Pancreas: Normal. Spleen: Normal. Adrenal glands: Normal. Kidneys and ureters: Unchanged uniformly low-density lesion in left lower renal cortex measures 0.8 cm. Enhanced attenuation values indicate a benign entity. Otherwise, unchanged normal appearing kidneys and ureters. Stomach and bowel: Mild colonic diverticulosis. Unremarkable small bowel and stomach. Appendix: No evidence of appendicitis. Intraperitoneal space: No ascites, pneumoperitoneum or peritoneal lesion. Vasculature: Mild scattered atherosclerosis. All vessels are patent and have normal caliber. Incidentally noted retroaortic left renal vein. Lymph nodes: None enlarged or otherwise suspicious. Urinary bladder: Normal. Reproductive: Unremarkable. Bones/joints: No acute fracture or suspicious osseous lesion. Mild chronic degenerative disease in the lumbar spine, greatest at L4-L5 where there is disc degradation. More prominent degenerative disc disease throughout the lower thoracic spine. Soft tissues: Increased, though still small fat containing umbilical hernia. IMPRESSION: 1. No acute disease or significant interval change. 2. Thoracolumbar discogenic degenerative disease but no evidence stenosis or acute abnormality. 3. Mild scattered atherosclerosis. 4. Chronic unchanged low-density kidney lesion, also viewed as a high T2 signal abnormality with respect to the MRI of the lumbar spine. The finding is thus considered benign and no further imaging follow-up is recommended. Discussed these findings iwth the patient. She states pain is improving slightly. Road tested patient, she is able to ambulate unassisted. She continues to have no saddle paresthesias, is urinating well. She and I discussed disposition. She would like to go home. 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 She has help arranged for this evening. She will be sent home with Oxycodone. Usage instructions/safety discussed. She will not drive while taking this medication. She will encourage ambulation and gentle stretching. She missed appointmentw with PCP and pain specialist today. She will call in the morning to schedule close follow-up. Hoping they will be able to see her in the next few days for reevaluation to help treatment with her back pain. Strict return precautions were discussed including neurologic as well as inability to control her pain. All of her questions and concerns were addressed and she is in agreement this plan. HPI <BARBY Avila - Last Filed: 01/28/21 10:08> General Mode of arrival: ambulatory. Date/Time Provider Initiated Documentation: 01/27/21 11:36. Limitations to Documentation: no limitations. Information obtained by: patient. HPI Narrative: This is a 55-year-old female, past medical history of gastritis, amputation of toe on the left foot, hyperlipidemia, spondylosis, chronic low back pain with sciatica, presenting to the ER for increasing back pain that wraps around her hip. 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 She states the pain she is currently feeling feels different than her chronic pain, is severe, 10 out of 10, worse with movement. She was scheduled for a nerve block at the pain clinic but they did not pursue her nerve block because of her increased pain and sent her to the ER for evaluation. She denies recent illness, fever, chest pain, shortness of breath, abdominal pain, nausea, vomiting, dysuria, hematuria, diarrhea or constipation. The pain does not travel down her legs. Patient states that her chronic pain is typically across her entire back, does occasionally travel down her legs, and often wraps around her hip. She states that she typically uses marijuana for her chronic pain as well as Robaxin usually only at night however with a flareup she will use Motrin and Robaxin during the day. Related Data Home Medications Medication Instructions Recorded Confirmed cholecalciferol (vitamin D3) 5,000 unit PO DAILY 07/08/17 01/27/21 [Vitamin D3] multivitamin [Daily Multi-Vitamin] 1 ea PO DAILY 07/08/17 01/27/21 rhubarb root extract 4 mg tablet 4 mg PO DAILY tab 06/24/20 01/27/21 Medical Marijuana 06/28/20 07/23/20 ferrous sulfate 325 mg (65 mg 325 mg PO DAILY 07/04/20 01/27/21 iron) tablet pantoprazole [Protonix] 40 mg PO DAILY #30 tab 07/07/20 01/27/21 sucralfate 1 gram tablet 1 g PO .ghs #30 tab 07/23/20 01/27/21 glucosam 750 mg-chondroi 100 tab PO 11/10/20 mg-hyalur 1.65 mg-CF borate 108 mg tablet soy isoflavone-black cohosh cap PO 11/10/20 root-magnolia bark 155 mg capsule turmeric root extract 500 mg 1,000 mg PO DAILY cap 11/10/20 01/27/21 capsule methocarbamol 750 mg tablet 750 mg PO TID PRN #90 tab 11/17/20 01/27/21 gabapentin 300 mg capsule 300 mg PO QID 30 Days #120 cap 12/30/20 01/27/21 oxycodone 5 mg PO Q8H PRN #7 tab 01/27/21 Previous Rx's Medication Instructions Recorded pantoprazole [Protonix] 40 mg PO DAILY #30 tab 07/07/20 sucralfate 1 gram tablet 1 g PO .ghs #30 tab 07/23/20 methocarbamol 750 mg tablet 750 mg PO TID PRN #90 tab 11/17/20 gabapentin 300 mg capsule 300 mg PO QID 30 Days #120 cap 12/30/20 oxycodone 5 mg PO Q8H PRN #7 tab 01/27/21 Allergies Allergy/AdvReac Type Severity Reaction Status Date / Time No Known Allergies Allergy Unverified 01/27/21 11:44 General [place]: 3 Review of Systems <BARBY Avila - Last Filed: 01/28/21 10:08> Constitutional Constitutional: Denies fatigue, Denies fever(s), Denies headache(s) and Denies weakness ENT Ears, Nose, Mouth, and Throat: Denies headache(s) and Denies neck pain Cardiovascular Cardiovascular: Denies chest pain and Denies dyspnea Respiratory Respiratory: Denies cough and Denies dyspnea Gastrointestinal Gastrointestinal: Reports abdominal pain (Right flank-groin), Denies constipation, Denies diarrhea, Denies nausea and Denies vomiting Genitourinary Genitourinary: Denies urinary urgency Musculoskeletal Musculoskeletal: Reports back pain, Denies neck pain and Denies tingling Integumentary/Breasts Skin/Breast: Denies rash Neurologic Neurologic: Denies headache(s), Denies tingling and Denies weakness Endocrine Endocrine: Denies fatigue PFSH <BARBY Avila - Last Filed: 01/28/21 10:08> Medical History Acute gastritis Amputation of toe of left foot (01/29/20) Left third toe Carpal tunnel syndrome of left wrist s/p ECTR Dyshidrotic eczema GERD with esophagitis EGD 09/06/18 with erosive reflux esophagitis History of in vitro fertilization Hyperlipidemia Patient Denies Metatarsal fracture (~03/01/20) Right second metatarsal Pelvic pain Tubular adenoma of colon (~2016) Surgical History Acquired deformity of left toe s/p left third toe amputation 01/29/20 Lateral deviation of the third toe PIP joint 06/13/18 - Plantar plate repair with augmentation using Arthrex InternalBrace for third MTP joint, along with Clotilde osteotomy 11/14/18--Removal of hardware from left third metatarsal with hammertoe correction using a DuVries osteotomy H/O section (~02/2013) 02/2013 and 11/2014 H/O laparoscopy Ovarian cyst drainage at 17 or 18yrs old H/O toe surgery History of carpal tunnel release (01/29/20) Left History of esophagogastroduodenoscopy (EGD) (09/06/18) 09/06/18 07/07/20- Stoiber Hx of appendectomy (~1981) S/P bunionectomy (04/18/15) Right hallux S/P colonoscopy (06/10/17) S/P cubital tunnel release (11/14/18) Ulnar nerve decompression with anterior subcutaneous transposition S/P endoscopic carpal tunnel release (01/29/20) Right wrist 11/14/18 Left Wrist 01/29/20 S/P excision of Guadalupe's neuroma (04/18/15) Right 3rd intermetatarsal space. Repeated on 12/12/2015 S/P hammer toe correction 04/18/15--Of right 2nd toe 06/13/18--DuVries osteotomy, arthroplasty of the second PIP joint, left foot. Plantar plate repair with augmentation using Arthrex InternalBrace for third MTP joint, along with Clotilde osteotomy 11/14/18--Removal of hardware from left third metatarsal with hammertoe correction using a DuVries osteotomy 11/14/2018 S/P hammertoe fixation - right second and third toes - 05/30/19 S/P LASIK surgery of both eyes (~2009) Right in 2009 Left in 2010 Family History Mother No problems noted. Father Dementia Brother No problems noted. Daughter No problems noted. Daughter No problems noted. Maternal Grandfather , at 74 of emphysema COPD (chronic obstructive pulmonary disease) with emphysema Maternal Grandmother , at 96 No problems noted. 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 Current gender identity: male What is your relationship status?: Panel score (0-1 are the most socially isolated patients): 0 What type of physical activity do you participate in: additional Details: very active Frequency: does not exercise Julee/Orthodox: No preference Special julee needs: No Seatbelt use: always Do you feel safe at home: Yes Do you feel safe in your relationship?: Yes Exam <BARBY Avila - Last Filed: 01/28/21 10:08> Const General: cooperative and healthy appearing Orientation: alert, awake and oriented x3 HENMT Head: normal to inspection, normocephalic and atraumatic Eyes General: appearance normal, both eyes and all related structures Conjunctivae: conjunctivae normal Neck Neck: normal visual inspection, full ROM, no meningeal signs, trachea midline, supple and nontender Resp Effort & Inspection: normal respiratory effort and able to speak in complete sentences Auscultation: clear to auscultation bilaterally Cardio Rate: regular rate Rhythm: regular rhythm GI Inspection: normal to inspection Palpation: soft, not firm, no guarding, no pulsatile masses and nontender Auscultation: normal bowel sounds Back/Spine/Pelvis Back: no CVA tenderness and back tenderness (Diffuse mild right lumbar) Pelvis: no pain with anterior-posterior compression and no pain with lateral compression Skin General skin exam: no rashes or lesions noted Neuro General: patient alert, patient awake, moves all extremities and no focal motor deficits Cognition: normal cognition Speech: speech normal Gait: antalgic Motor: muscle tone normal throughout and strength 5/5 throughout Sensory Exam: no sensory deficits noted Extrem General: normal to inspection, full ROM, capillary refill normal, no pedal edema and no calf tenderness Psych Appearance: grossly normal Mental Status: mental status grossly normal Sign Out <BARBY Avila - Last Filed: 01/28/21 10:08> Sign Out Data: Sign Out Comment: Acute on chronic back pain 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 Work-up thus far unremarkable for obvious emergent process. She is afebrile, denies history of IV drug use, neurologically intact. No change in symptoms with IV Toradol, p.o. Robaxin, IV morphine. Plan is to administer IV Valium and obtain CT imaging of the abdomen and pelvis with contrast with recons of her lumbar spine Last updated by Bryce Richmond PA at 01/27/21 16:02
--- NOTE | 2021-01-27 11:45 | DI.RAD_ITS ---
Exam(s) XR PELVIS W OBLIQUES 3V EXAM: XR PELVIS W OBLIQUES 3V CLINICAL HISTORY: R sided groin pain, injury. TECHNIQUE: 2D digital imaging was performed. COMPARISON: No exams were available for comparison FINDINGS: BONES: No acute fracture is present. No bony destructive lesion is seen. JOINTS: No dislocation present. No joint space narrowing is present. SOFT TISSUE: Normal. IMPRESSION: Unremarkable radiographs of the pelvis. DATA REPOSITORY: RADIATION DOSE DELIVERED:
--- NOTE | 2021-01-27 11:45 | DI.RAD_ITS ---
Exam(s) XR LUMBAR SPINE COMPLETE EXAM: XR LUMBAR SPINE COMPLETE CLINICAL HISTORY: chronic pain, new injury lifting. TECHNIQUE: 2D digital imaging was performed. COMPARISON: No exams were available for comparison FINDINGS: There are 5 lumbar type vertebral bodies. No acute fracture or subluxation. No spondylolysis or spo ndylolisthesis. There is disc space narrowing at L4-L5. Small endplate osteophytes are seen at a fe w levels of the lumbar spine. The bones are normally mineralized. The soft tissues are unremarkable . IMPRESSION: Mild degenerative changes in the lumbar spine. DATA REPOSITORY: RADIATION DOSE DELIVERED:
[2021-01-27] MEDS: Ketorolac 30 MG/ML VIAL IVP (12:26)
[2021-01-27] MEDS: Methocarbamol 750 MG TAB PO (12:26)
[2021-01-27 12:41] LABS: Bilirubin Negative (Negative); Blood Negative (Negative); Clarity Clear (Clear); Glucose Negative (Negative); Ketones Negative (Negative); Leukocyte Esterase Negative (Negative); Nitrite Negative (Negative); Specific Gravity 1.025 (1.005-1.025); Urobilinogen 0.2 EU/dL (Up TO 0.2)
[2021-01-27 13:13] LABS: Abs Immature Grans 0.02 10^3/uL (0.0-0.06); Absolute Basophil Count 0.08 10^3/uL (0.0-0.2); Absolute Eosinophil Count 0.14 10^3/uL (0.0-0.7); Absolute Lymphocyte Count 1.85 10^3/uL (1.2-3.4); Absolute Monocyte Count 0.42 10^3/uL (0.1-0.8); Absolute Neutrophil Count 3.91 10^3/uL (1.2-6.7); Basophils % 1.2; Eosinophils % 2.2; HCT 37.1 % (36.0-46.0); Immature Grans % 0.3; Lymphocytes % 28.8; MCH 30.8 pg (27.0-33.0); MCHC 32.3 % (32.0-36.0); MCV 95.4 fL (80-95); MPV 10.4 fL (8.0-11.0); Monocytes % 6.5; Nucleated RBC 0 %; Platelet Count 274 10^3/uL (130-400); RBC 3.89 10^6/uL (3.93-5.22); RDW 12.7 % (11.7-14.6); RDW-SD 44.1 fL; WBC 6.42 10^3/uL (4.4-10.8)
[2021-01-27 13:25] LABS: ALT 18 U/L (14-59); AST 15 U/L (15-37); Alkaline Phosphatase 94 U/L (46-116); Anion Gap 7.9 mmol/L (3-11); BUN 15 mg/dL (7-18); Bilirubin, Total 0.4 mg/dL (0.2-1.0); CO2 28.1 mmol/L (21.0-32.0); Calcium 8.7 mg/dL (8.5-10.1); Chloride 106 mmol/L (98-107); Glucose 95 mg/dL (74-106); Lipase 80 U/L (73-393); Potassium 4.3 mmol/L (3.5-5.1); Sodium 142 mmol/L (136-145); Total Protein 7.5 g/dL (6.4-8.2)
--- NOTE | 2021-01-27 15:30 | DI.CT_ITS ---
Exam(s) CT ABDOMEN PELVIS W EXAM: CT ABDOMEN PELVIS W CLINICAL HISTORY: Acute on chronic pain. TECHNIQUE: Imaging Protocol: Axial computed tomography images with coronal and sagittal reformatted images were created and reviewed CONTRAST MATERIAL: Intravenous: Omnipaque 100cc Oral: None COMPARISON: CT CT ABDOMEN PELVIS W from 06/28/[address] ABDOMEN PELVIS W from 06/28/2020 FINDINGS: VISUALIZED LUNG BASES: Mild increased markings in both lung bases. Also in the inferior lingular seg ment left lung. No pleural effusions.. ABDOMEN: There is no ascites. LIVER: There are no focal hepatic lesions evident . GALLBLADDER/BILIARY: No obvious gallbladder pathology. CBD is not dilated. PANCREAS: There is a small 3x3x5 millimeter hypodensity in the anterior aspect the pancreatic body no alvin which may represent a pancreatic cyst or cystic neoplasm. Requires appropriate follow-up. SPLEEN: Spleen size is normal. There is a calcified granuloma in the spleen noted. Splenic and port al veins are patent. ADRENALS: There are no significant adrenal masses. KIDNEYS:There is a small cyst in the lateral cortex of the left kidney which is unchanged, measuring 6 x 5 millimeters. No solid renal masses. No calculi nor hydronephrosis. No hydroureter. No obvio us abnormality in the nondistended urinary bladder. Retroaortic left renal vein incidentally noted.. ABDOMINAL AORTA: Abdominal aorta is not enlarged. LYMPH NODES:There is no retroperitineal nor paraaortic adenopathy. ABDOMINAL WALL: No evidence of significant anterior abdominal wall hernia. GI: There is no evidence of bowel obstruction, free air, nor abscess. PELVIS: GI: No evidence of appendicitis.Sigmoid diverticulosis. No obvious acute diverticulitis. LYMPH NODES: There is no intrapelvic nor inguinal adenopathy. REPRODUCTIVE: Age-appropriate URINARY BLADDER: No calculi nor obvious masses evident OSSEOUS: No significant osseous lesions. IMPRESSION: 1. Sigmoid diverticulosis. No obvious acute diverticulitis. Appendix is difficult to visualize on t his study. 2. There is a 3 x 3 x 6 millimeter cyst or small cystic neoplasm in the anterior aspect of the pancre atic body. Recommend follow-up including MRI. 3. Small benign 6 millimeter cyst in the left kidney. No other significant renal findings. 4. Mild lung base findings as described above. No pleural effusions. Study 1st read by [facility]. My final report called to the ER physician 01/28/2021 at 8:50 a.m. RADIATION DOSE DELIVERED: Total DLP DATA REPOSITORY: All CT scans at this facility are submitted to the National Radiology Data Registry (NRDR) Dose Index Registry (DIR) with the [employer] ([employer]). RADIATION OPTIMIZATION: All CT scans at this facility use at least one of these dose optimization te chniques: automated exposure control; mA and/or kV adjustment per patient size (includes targeted exa ms where dose is matched to clinical indication); or iterative reconstruction.
--- NOTE | 2021-01-27 15:38 | DI.CT_ITS ---
Exam(s) CT LUMBAR SPINE RECONS EXAM: CT LUMBAR SPINE RECONS CLINICAL HISTORY: Acute on chronic pain. TECHNIQUE: Imaging Protocol: Axial computed tomography images with coronal and sagittal reformatted images were created and reviewed COMPARISON: CT CT ABDOMEN PELVIS W from 06/28/2020 FINDINGS: Bones: There are no fractures, listhesis, nor pars defects. There are no lytic osseous lesions evide nt. Multilevel disc bulging with multilevel spinal canal stenosis. This could be better studied on MRI o f clinically indicated. IMPRESSION: 1. No acute fracture nor malalignment. 2. Multilevel degenerative disc disease and degenerative changes. Multilevel spinal canal stenosis. If clinically indicated follow-up MRI can be performed. RADIATION DOSE DELIVERED: Total DLP DATA REPOSITORY: All CT scans at this facility are submitted to the National Radiology Data Registry (NRDR) Dose Index Registry (DIR) with the [employer] (ACR). RADIATION OPTIMIZATION: All CT scans at this facility use at least one of these dose optimization te chniques: automated exposure control; mA and/or kV adjustment per patient size (includes targeted exa ms where dose is matched to clinical indication); or iterative reconstruction.
[2021-01-27] MEDS: diazePAM 10 MG/2 ML SYR 5 MG IVP (15:52)
--- NOTE | 2021-01-27 17:59 | DI.VRAD_ITS ---
PROCEDURE INFORMATION: Exam: CT Abdomen And Pelvis With Contrast Exam date and time: 01/27/2021 3:39 PM Age: 55 years old Clinical indication: Abdominal pain; Patient HX: Acute/ chronic low back pain TECHNIQUE: Imaging protocol: Computed tomography of the abdomen and pelvis with contrast. Radiation optimization: All CT scans at this facility use at least one of these dose optimization techniques: automated exposure control; mA and/or kV adjustment per patient size (includes targeted exams where dose is matched to clinical indication); or iterative reconstruction. Contrast material: OMNIPAQUE; Contrast volume: 100 ml; Contrast route: INTRAVENOUS (IV); COMPARISON: CT ABDOMEN PELVIS W 06/28/2020 12:26 PM MRI lumbar spine 08/13/2020 FINDINGS: Limitations: None. Liver: Normal. Gallbladder and bile ducts: Normal. Pancreas: Normal. Spleen: Normal. Adrenal glands: Normal. Kidneys and ureters: Unchanged uniformly low-density lesion in left lower renal cortex measures 0.8 cm. Enhanced attenuation values indicate a benign entity. Otherwise, unchanged normal appearing kidneys and ureters. Stomach and bowel: Mild colonic diverticulosis. Unremarkable small bowel and stomach. Appendix: No evidence of appendicitis. Intraperitoneal space: No ascites, pneumoperitoneum or peritoneal lesion. Vasculature: Mild scattered atherosclerosis. All vessels are patent and have normal caliber. Incidentally noted retroaortic left renal vein. Lymph nodes: None enlarged or otherwise suspicious. Urinary bladder: Normal. Reproductive: Unremarkable. Bones/joints: No acute fracture or suspicious osseous lesion. Mild chronic degenerative disease in the lumbar spine, greatest at L4-L5 where there is disc degradation. More prominent degenerative disc disease throughout the lower thoracic spine. Soft tissues: Increased, though still small fat containing umbilical hernia. IMPRESSION: 1. No acute disease or significant interval change. 2. Thoracolumbar discogenic degenerative disease but no evidence stenosis or acute abnormality. 3. Mild scattered atherosclerosis. 4. Chronic unchanged low-density kidney lesion, also viewed as a high T2 signal abnormality with respect to the MRI of the lumbar spine. The finding is thus considered benign and no further imaging follow-up is recommended. Dictated and Authenticated by: Pelon Cullen MD. Ordering:HUI Wu MD
--- NOTE | 2021-01-27 18:06 | DI.VRAD_ITS ---
PROCEDURE INFORMATION: Exam: CT Lumbar Spine Without Contrast Exam date and time: 01/27/2021 3:43 PM Age: 55 years old Clinical indication: Low back pain; Additional info: Acute on chronic pain. Lumbar spine reconstructions TECHNIQUE: Imaging protocol: Computed tomography images of the lumbar spine without contrast. Radiation optimization: All CT scans at this facility use at least one of these dose optimization techniques: automated exposure control; mA and/or kV adjustment per patient size (includes targeted exams where dose is matched to clinical indication); or iterative reconstruction. COMPARISON: MR LUMBAR SPINE WO 08/13/2020 9:10 AM FINDINGS: Vertebrae: No fracture or malalignment. Discs/Spinal canal/Neural foramina: L1-L2: Mild disc space narrowing and small posterior disc bulge/disc osteophyte. No suspicious stenosis. L2-L3: Narrowed disc interval. Poorly viewed disc protrusion measuring up to about 3 mm AP and causing mild central canal narrowing. L3-L4: Disc space narrowing and small posterior central disc protrusion measuring up to about 2 mm AP. There is disc bulging extending to the left lateral recess and left neural foramen where there is mild to moderate stenosis. L4-L5: Disc space narrowing and central posterior disc protrusion superimposed upon more diffuse posterior disc bulging. Disc protrusion measures up to about 4 mm AP and causes [id number] central narrowing. Ligamentum flavum thickening and more broad-based disc bulging causing at least mild bilateral lateral recess and bilateral neural foramen narrowing. L5-S1: No disc protrusion or suspicious stenosis. Epidural space: Normal. Soft tissues: Unremarkable. Vasculature: Mild scattered atherosclerosis. Incidentally noted retroaortic left renal vein. IMPRESSION: 1. No acute fracture or malalignment. 2. Lumbar spondylosis, mostly degenerative disc disease and with multiple levels of disc protrusion as above, all similar to MRI findings from June 2020 but much better viewed with MRI. On balance, there does not appear to be significant interval change. Dictated and Authenticated by: Pelon Cullen MD. Ordering:HUI Wu MD
[2021-01-27] MEDS: HYDROmorphone 2 MG/ML VIAL 1 MG IVP (18:26)
[2021-01-27] MEDS: Normal Saline 50 ML 200 ML (18:27)
[2021-01-27] MEDS: Omnipaque 350 MG/ML 100 ML BTL IV (19:01)
[2021-01-27] MEDS: Normal Saline - Diluent 50 ML VIAL IV (19:01)
--- NOTE | 2021-01-28 08:59 | W.ED.FU ---
Follow Up Plan: January 28: Discussed with Ms. Orozco the findings of small 5 to 6 mm pancreatic mass per Dr. Johns's reading of the CAT scan this morning. We will ask care management to arrange follow-up with GI for probable endoscopic ultrasound, as well as with PMD.
--- NOTE | 2021-01-28 09:04 | NUR.NOTE ---
Nursing Note: Referral given to Care Management for pancreatic mass seen on CT 01/27/[address] [facility] within couple weeks. Referral faxed to [facility] for same reason within 1 week. Cee Blood
--- NOTE | 2021-01-29 09:37 | CMPROGNOTE_ITS ---
- If Service Date Differs Date of service: 01/29/21 Time of Service: 09:37 Care Management Progress Note Cee is seen in the ED for back pain. A CT scan reveals a small pancreatic mass. At the request of ED provider, CM coordinates a referral to [facility] to assist Cee in obtaining a follow up appointment.
== END 2021-01-27 19:55 | disposition home or self-care (01) ==
PROVIDERS: Physician Assistant; Emergency Provider Physician Assistant; PCP Nurse Practitioner
DX: M54.5 Low back pain (principal)
CPT/HCPCS: 80053; 83690; 96374; 96375; 99285; 72110; 72190; 74177; 81003; 85025; 99284; J1885; J3360; J3490

== ENCOUNTER 2021-02-11 01:54 | Outpatient (CLI) | payer MEDICAID, SELFPAY ==
--- NOTE | 2021-02-11 07:45 | DI.MRI_ITS ---
Exam(s) MR ABDOMEN WO/W EXAM: MR ABDOMEN WO/W CLINICAL HISTORY: pancreas mass seen on CT, K86.89 TECHNIQUE: Multiplanar multisequence MRI was performed with both pre and post contrast infused seque nces. Contrast injected sequences were performed following IV injection of 18 cc of Dotarem. Also performed MRCP COMPARISON: CT CT ABDOMEN PELVIS W from 01/27/2021 FINDINGS: VISUALIZED LUNG BASES: No pleural effusions evident. There is no ascites evident. LIVER: Liver size is normal. There are no significant focal abnormalities in the liver BILIARY: There is no obvious gallbladder pathology. The CBD is not dilated.Intrahepatic ducts are no t dilated. PANCREAS: No evidence of solid pancreatic mass nor dilatation pancreatic duct.In the area described o n the CT scan in the anterior body of the pancreas there is a tiny focus of signal variation which do es not have typical appearance of a cyst nor cystic neoplasm. This measures approximately 3 x 2 mill imeters. SPLEEN: Spleen is not enlarged and there are no intrasplenic lesions.Splenic and portal veins are pat ent ADRENALS: There are no significant adrenal masses. KIDNEYS: No solid renal masses. No hydronephrosis.There is a small cyst in the lateral cortex of the left kidney. Retroaortic left renal vein noted ABDOMINAL AORTA: Not enlarged and there is no significant para-aortic adenopathy. ANTERIOR ABDOMINAL WALL/GI: There is no evidence of significant anterior abdominal wall hernia in the field of view of this study.Is no evidence of obvious bowel obstruction. OSSEOUS: There are no lytic osseous lesions in the field of view of this study. IMPRESSION: 1. Tiny 3 x 2 millimeter benign-appearing finding in the pancreas body as described above, this corre sponding to what is seen on the recent CT scan. I feel this is a benign finding. Recommend follow-u p MRI scan in 6 months to ensure stability. 2. There is no regional adenopathy. No hepatic masses. 3. No other significant findings in the upper abdomen. No hydronephrosis. 4. Retroaortic left renal vein incidentally noted. DATA REPOSITORY:
[2021-02-11] MEDS: Gadoterate meglumine 20 ML VIAL 18 ML IVP (10:55)
== END 2021-02-11 02:14 ==
PROVIDERS: PCP Nurse Practitioner; Visit Provider Nurse Practitioner
DX: K86.89 Other specified diseases of pancreas (principal)
CPT/HCPCS: 74183

== ENCOUNTER 2021-02-20 02:28 | Outpatient (CLI) | payer MEDICAID, SELFPAY ==
--- NOTE | 2021-02-20 08:30 | DI.MAMMO_ITS ---
Exam(s) MAMMO SCREENING EXAM: MAMMO SCREENING CLINICAL HISTORY: screening,Z12.39 TECHNIQUE: Mammograms were interpreted according to the usual protocol including computer analysis w MD [employer]ider CAD system, tomosynthesis and C-view imaging. COMPARISON: 2817 and 2019 FINDINGS: The breasts are composed of scattered fibroglandular densities, Breast Density category B. No suspicious masses or suspicious microcalcifications are seen. No skin thickening or abnormal axillary lymph nodes are seen. There has been no significant change from prior exams. IMPRESSION: BI-RADS Category 1, Negative mammogram Yearly screening mammography is recommended. Breast Density - Category B, scattered fibroglandular densities. A negative radiographic report should not delay biopsy if a dominant or clinically suspicious mass is present. Up to ten percent of cancers are not identified on mammography. A negative report may reinforce clinical impression. Adenosis and dense breasts may obscure an underlying neoplasm. False positive reports average 6 to 10%. Patient will receive a letter notifying them of these results.
== END 2021-02-20 02:48 ==
PROVIDERS: PCP Nurse Practitioner; Visit Provider Nurse Practitioner
DX: Z12.31 Encounter for screening mammogram for malignant neoplasm of breast (principal); R92.8 Other abnormal and inconclusive findings on diagnostic imaging of breast
CPT/HCPCS: 77063; 77067

== ENCOUNTER 2021-03-03 09:28 | Outpatient (CLI) | payer MEDICAID, SELFPAY ==
--- NOTE | 2021-03-03 06:00 | DI.RAD_ITS ---
Exam(s) XR PAIN CLINIC LUMBAR SP 2V EXAM: XR PAIN CLINIC LUMBAR SP 2V CLINICAL HISTORY: Dx: Lumbar Spondylosis. TECHNIQUE: Fluoroscopy was provided for the referring physician for guidance with performing injecti on procedure. COMPARISON: No exams were available for comparison FINDINGS: Please see procedure note for details. Fluoro time 44.0 seconds RADIATION DOSE DELIVERED: lucero Bartlett=9.12 mGy
[2021-03-03 09:55] VITALS: BP 126/60; PULSE 84; RESP 20; TEMP 36.5; O2SAT 99
[2021-03-03 10:30] VITALS: BP 126/86; PULSE 67; RESP 12; O2SAT 100
[2021-03-03] MEDS: Omnipaque 240 MG/ML 50 ML BTL IJ (10:44)
[2021-03-03] MEDS: Lidocaine 2% Pres-Free 5 ML VIAL IJ (10:45)
--- NOTE | 2021-03-03 10:49 | PDOC.PAIN_ITS ---
Pain Clinic Procedure Note Procedure Note Procedure Note: Lumbar/Sacral Medial Branch Blocks Cee Orozco has been referred to the [facility] for lumbar/sacral medial branch blocks. Pre-operative diagnosis: lumbar spondylosis Post-operative diagnosis: same as above COMMENTS: patient presents for confirmatory lumbar medial branch nerve block - she reports baseline 4 out of 10 pain at complete rest but pain increases to 6 out of 10 with standing/twisting and bending of her back. Of note, at her last scheduled appointment, she developed new pattern pain which was evaluated at ED with CT scan, her pain improved with rest and oral medication. Patient was interviewed and the medical record reviewed. There were no medical, pharmacologic, radiographic or other structural contraindications to attempting fluoroscopically guided local anesthetic lumbar/sacral medial branch blocks. Risks and expected side effects as well as potential benefit of the procedure were reviewed and voiced concerns addressed. The printed consent form was signed and witnessed. Standard time-out procedure was performed. Patient was placed in the prone position on the fluoroscopy table and automated blood pressure cuff and pulse oximeter applied. The skin entry points for approaching the anatomic target points of the segmental medial branches of bilateral L3, L4, L5-DR were identified with anfluoroscopy and marked. Following thorough Chlorhexadine preparation of the skin and draping and 1% lidocaine infiltration of the skin entry points and subcutaneous tissues, a 22 gauge spinal needle was placed under fluoroscopic guidance down on to the target point for each respective segmental medial branch.Position was confirmed in A/P, oblique and lateral views with 0.25ml of omnipaque 240. Coult be this method 0.5ml was injected or 2% Lidocaine. Vital signs were stable throughout the procedure and were as recorded in the docflowsheet by the nursing staff. Follow up plans and appointments were discussed and was instructed to keep careful note of how the usual pain was modified by these injections. Specifically was asked to keep a pain diary for the next 24 hours using a numeric pain scale of 0-10 and report these results at the follow-up visit. Post procedure instruction was given as documented in the nursing documentation and having met discharge criteria. Patient was discharged from the [facility] Management [facility]. Based on the medial branches blocked today, if the patient has adequate relief and we are able to proceed to radiofrequency ablation, the treatment should result in the denervation of the bilateral L4/5 and L5/S1 facets. We would expect to denervate a total of 4 facets during the radiofrequency ablation. COMMENTS: patient reports post-procedure VAS score 1 out of 10. Urbano Denny MD Pain Management CC: Mavis Malik, PhD [employer]
== END 2021-03-03 09:29 | disposition home or self-care (01) ==
LOC: PC 09:30
PROVIDERS: PCP Nurse Practitioner; Visit Provider Internal Medicine
DX: M47.816 Spondylosis without myelopathy or radiculopathy, lumbar region (principal)
CPT/HCPCS: 64493; 64494; 72100; Q9967

== ENCOUNTER 2021-04-28 09:49 | Outpatient (CLI) | payer MEDICAID, SELFPAY ==
[2021-04-28 10:01] VITALS: BP 95/66; PULSE 83; RESP 18; TEMP 36.7; O2SAT 97
[2021-04-28] MEDS: Lactated Ringers 1,000 ML 80 ML IV (10:48)
[2021-04-28] MEDS: fentaNYL 100 MCG/2 ML VIAL IVP ×4 (10:54→11:26)
[2021-04-28] MEDS: Midazolam 2 MG/2 ML VIAL IVP ×2 (10:54→11:05)
[2021-04-28] MEDS: methylPREDNISolone ACETATE 40 MG/ML VIAL IJ (11:41)
[2021-04-28] MEDS: Lidocaine 1% Pres-Free 30 ML VIAL IJ (11:41)
[2021-04-28] MEDS: Bupivacaine 0.5% Pres-Free 10 ML VIAL IJ (11:41)
[2021-04-28] MEDS: Lidocaine 2% Pres-Free 5 ML VIAL IJ (11:42)
[2021-04-28 11:43] VITALS: BP 124/82; PULSE 69; RESP 14; O2SAT 100
--- NOTE | 2021-04-28 11:47 | DI.RAD_ITS ---
Exam(s) XR PAIN CLINIC LUMBAR SP 2V EXAM: XR PAIN CLINIC LUMBAR SP 2V CLINICAL HISTORY: Dx: Lumbar Spondylosis. TECHNIQUE: Fluoroscopy was provided for the referring physician for guidance with performing injecti on procedure. COMPARISON: No exams were available for comparison FINDINGS: Please see procedure note for details. Fluoro time 54.9 seconds RADIATION DOSE DELIVERED: lucero Bartlett=15.2 mGy
--- NOTE | 2021-04-28 11:53 | PDOC.PAIN ---
Pain Clinic Procedure Note Procedure Note Procedure Note: Bilateral Lumbar Radiofrequency with Coolief Machine PROCEDURE NOTE Date of Service: April 28, 2021 Patient: ErnestoEmmanuelCee B Provider: Urbano Denny MD Pre Operative Diagnosis: Lumbosacral Spondylosis without Myelopathy Post Operative Diagnosis: Same Post procedure pain; VAS= 8/10 PROCEDURE: Radiofrequency Ablation of medial branches - Bilateral L3, L4, L5-DR. Cee Garza Ernesto was brought into the fluoroscopy suite and positioned into the prone position on the fluoroscopy table and allowed to adjust to a position of comfort. A grounding pad was placed on the left thigh. The lumbar region was widely prepped with a chloraprep solution, allowed to air dry and draped in standard sterile surgical fashion. Local anesthesia was provided by ~20mL of 1% Lidocaine delivered with a 25g needle. A 17g 100mm radiofrequency introducer needle was placed to the planned anatomic targets guided with intermittent fluoroscopy with a perpendicular approach to terminally place at the junction of the superior articular process and the transverse process of the bilateral L3, L4, L5, the base of the sacral ala bilaterally for the L5 medial branch nerve. The stylets were removed and radiofrequency probes with a 4mm active tip were then inserted. Needle tip position of the probes was verified in the AP, oblique, and lateral views. At each site, the medial branch nerve was stimulated at 2 Hz to a maximum 1-2 volts determined to finalize safe needle and electrode placement. The patient was awake and responsive during this portion of the procedure. Each target was anesthetized with 1.5 mL of 2% lidocaine for anesthesia for lesioning and then each target was lesioned at 80 degrees Celsius for 2 minutes and 30 seconds. Tissue impedences were noted to be between 250 and 500 Ohms. Electrodes and needles were then removed and bandages placed over the needle placement sites, the patient then returned to the supine position on a stretcher and transported to the recovery room without hemodynamic, neurologic, or allergic reactions. Fluoroscopic images were printed for hard copy recording and digitally archived. POST PROCEDURE EVALUATION: IMPRESSION: 1. Patient required 100mcg of IV Fentanyl and 1.5mg of IV versed 2. The patient will be contacted in 1-3 weeks 3. Estimated Blood Loss: <5 mls 4. Fluoroscopy time: Documented in the EMR. 5. Patient has a tendency to tense her back throughout the procedure despite local anesthetic and IV sedation, recommend for future repeat procedure, either 1. proceed with unilateral RFA or book with extra 30 minutes if proceed with bilateral RFA. 6. Post-procedure pain level reported as 0/10, pt able to bend down and tie her shoes without feeling any pain Follow up plans and appointments were discussed with the Cee . Post procedure instruction was given as documented in nursing documentation and having met discharge criteria, Cee was discharged from the Pain Management Center. COMMENTS: No apparent complications. Post-procedure pain: VAS= 0/10. F/U with our office as needed. I personally performed this entire procedure. Urbano Denny MD Attending Physician Pain Management
== END 2021-04-28 09:50 | disposition home or self-care (01) ==
LOC: PC 09:49
PROVIDERS: PCP Nurse Practitioner; Visit Provider Internal Medicine
DX: M47.817 Spondylosis without myelopathy or radiculopathy, lumbosacral region (principal)
CPT/HCPCS: 64635; 64636; 72100; J1030; J2250; J3010

== ENCOUNTER 2021-08-13 02:37 | Outpatient (CLI) | payer MEDICAID, SELFPAY ==
--- NOTE | 2021-08-13 07:48 | DI.MRI_ITS ---
Exam(s) MR ABDOMEN WO/W EXAM: MR ABDOMEN WO/W CLINICAL HISTORY: 6 mo follow up,mass of pancreas,k86.89 TECHNIQUE: Multiplanar multisequence MRI was performed with both pre and post contrast infused seque nces. Contrast injected sequences were performed following IV injection of 17 cc of Dotarem. COMPARISON: MR MR ABDOMEN WO/W from 02/11/2021 CT scan of 01/27/2021 was also reviewed. FINDINGS: VISUALIZED LUNG BASES: No pleural effusions evident. There is no ascites evident. LIVER: No new focal hepatic lesions BILIARY: There is no obvious gallbladder pathology. The CBD is not dilated. PANCREAS: The previously described small cystic finding in the pancreas body is less easily identifie d on the present study. This may have decreased in size. Pancreatic duct is not dilated. SPLEEN: Spleen is not enlarged and there are no intrasplenic lesions. ADRENALS: There are no significant adrenal masses. KIDNEYS: No solid renal masses. No hydronephrosis.Small cyst in the lateral cortex of the left kidne y is again noted. Retroaortic left renal vein is again noted. ABDOMINAL AORTA: Not enlarged and there is no significant para-aortic adenopathy. ANTERIOR ABDOMINAL WALL/GI: There is no evidence of significant anterior abdominal wall hernia in the field of view of this study.Is no evidence of obvious bowel obstruction. OSSEOUS: There are no lytic osseous lesions in the field of view of this study. IMPRESSION: 1. Compared to the prior CT and MRI scans of January 2021 the previously described area of signal abnorm ality pancreas is less evident on the present study, further evidence that it was benign. There is n o ominous pancreatic mass evident on the present study and there is no dilatation pancreatic. 2. Significant new a [place] findings 3. There is a small benign cyst in the lateral cortex of the left kidney again noted, unchanged. DATA REPOSITORY:
[2021-08-13 12:31] LABS: CREATININE 0.8 mg/dL (0.55-1.02)
[2021-08-13] MEDS: Gadoterate meglumine 20 ML VIAL 16 ML IVP (13:14)
[2021-08-18 12:40] LABS: 1,25-Dihydroxyvitamin D 36 pg/mL (18-78)
== END 2021-08-13 02:57 ==
PROVIDERS: PCP Nurse Practitioner; Visit Provider Nurse Practitioner
DX: K86.89 Other specified diseases of pancreas; N28.1 Cyst of kidney, acquired
CPT/HCPCS: 74183; 82565; 82652

== ENCOUNTER 2021-10-21 10:56 | Emergency (ER) | payer MEDICAID, SELFPAY ==
[2021-10-21 10:59] VITALS: BP 111/55; PULSE 95; RESP 16; TEMP 37; O2SAT 98
--- NOTE | 2021-10-21 11:15 | RT.EKG_ITS ---
APPROVED REPORT Exam: Resting ECG Reason for Exam: chest pain Patient Location: E HR:78 bpm ECG Measurements Heart Rate 78 AXIS MO 150 P 57 QRSd 90 QRS -3 QT 378 T 44 QTc 430 Conclusion Sinus rhythm...normal P axis, V-rate 60- 99 no STEMI, non-diagnostic EKG I have reviewed and interpreted ECG and agree with software generated interpretation.
[2021-10-21] MEDS: Ketorolac 15 MG/ML VIAL IVP (11:54)
[2021-10-21] MEDS: Orphenadrine 60 MG/2 ML VIAL IVP (11:54)
[2021-10-21 12:05] LABS: Abs Immature Grans 0.03 10^3/uL (0.0-0.06); Absolute Basophil Count 0.05 10^3/uL (0.0-0.2); Absolute Eosinophil Count 0.12 10^3/uL (0.0-0.7); Absolute Lymphocyte Count 1.81 10^3/uL (1.2-3.4); Absolute Monocyte Count 0.55 10^3/uL (0.1-0.8); Absolute Neutrophil Count 4.87 10^3/uL (1.2-6.7); Basophils % 0.7; Eosinophils % 1.6; HGB 11.4 g/dL (11.2-15.7); Immature Grans % 0.4; Lymphocytes % 24.4; MCH 29.1 pg (27.0-33.0); MCHC 31.7 % (32.0-36.0); MCV 91.8 fL (80-95); Monocytes % 7.4; Neutrophils % 65.5; Nucleated RBC 0 %; Platelet Count 320 10^3/uL (130-400); RBC 3.92 10^6/uL (3.93-5.22); RDW 12.8 % (11.7-14.6); RDW-SD 42.5 fL; WBC 7.43 10^3/uL (4.4-10.8)
[2021-10-21 12:21] LABS: ALT 17 U/L (14-59); AST 13 U/L (15-37); Alkaline Phosphatase 94 U/L (46-116); BUN 17 mg/dL (7-18); Bilirubin, Total 0.4 mg/dL (0.2-1.0); Calcium 8.5 mg/dL (8.5-10.1); Chloride 105 mmol/L (98-107); Estimated GFR 57.78 (mL/min/1.73m2); Glucose 93 mg/dL (74-106); Lipase 99 U/L (73-393); Potassium 4.4 mmol/L (3.5-5.1); Sodium 141 mmol/L (136-145); Total Protein 6.9 g/dL (6.4-8.2); Troponin I < 50 ng/L (<or=60)
--- NOTE | 2021-10-21 12:25 | DI.RAD_ITS ---
Exam(s) XR CHEST 2V PA LATERAL EXAM: XR CHEST 2V PA LATERAL CLINICAL HISTORY: chest pain TECHNIQUE: 2D digital imaging was performed. COMPARISON: No exams were available for comparison FINDINGS: The heart is not enlarged. The lungs are clear and well expanded. No pleural effusion seen. Mediastin al contours appear intact. IMPRESSION: Normal chest. RADIATION DOSE DELIVERED: Total DLP
--- NOTE | 2021-10-21 12:36 | ED.GENADUL_ITS ---
Discharge Plan Disposition Patient Disposition: HOME Condition: Stable Discharge Details Clinical Impression: Radiculopathy of thoracic region Primary Care Provider: Mavis Malik ED Provider: Kayli Chavez Home Meds and New Rx's Prescriptions: New prednisone 10 mg tablet 10 mg PO DAILY Qty: 30 0RF Rx Instructions: 40 mg x4 days, 30 mg x3 days, 20 mg x2 days, 10 mg x1 day and dc gabapentin [Neurontin] 100 mg capsule 100 mg PO TID Qty: 42 0RF Rx Instructions: you may increase to 200 mg at night if you tolerate the 100 mg well Continued Estroven Cmplt Menopause Rlf 4 mg tablet 4 mg PO DAILY 0RF calcium carbonate 500 mg calcium (1,250 mg) tablet,chewable 2,500 mg PO DAILY 0RF ferrous sulfate [FeroSul] 325 mg (65 mg iron) tablet 325 mg PO DAILY 0RF Move [facility] 750 mg-100 mg- 1.65 mg-108 mg tablet 3 tab PO DAILY 0RF Label Comments: one tablet in the AM and two at night as stated by Pt 11/10/20 TR Estroven 155 mg capsule 1 cap PO DAILY 0RF Label Comments: 1 tablet every night as reported by Pt. 11/10/20 TR cyclobenzaprine 10 mg tablet 10 mg PO HS PRN (Reason: muscle spasm) Qty: 10 0RF multivitamin [Daily Multi-Vitamin] 1 EACH tablet 1 ea PO DAILY 0RF cholecalciferol (vitamin D3) [Vitamin D3] 2,000 UNIT capsule 5,000 unit PO DAILY 0RF pantoprazole [Protonix] 40 mg tablet,delayed release (DR/EC) 40 mg PO DAILY Qty: 90 4RF methocarbamol 750 mg tablet 750 mg PO BID PRN (Reason: muscle spasm) Qty: 60 6RF sucralfate [Carafate] 1 gram tablet 1 g PO .ghs Qty: 30 12RF Medical Marijuana 0RF Discharge Instructions Additional Instructions: Please follow-up with physical therapy and your primary care physician in the next week Take prednisone as prescribed Refrain from lifting more than 10 pounds Return earlier should you have changes in bowel or bladder or any new or worsening complaint Do not operate your vehicle after taking Neurontin Your Protonix will likely take 2 weeks to start becoming effective, recommend taking Pepcid daily for the next 2 weeks Referrals: Mavis Malik, [employer] SUPERVISOR [Primary Care Provider] - Medical Decision Making Patient appears well Chest x-ray does not show acute abnormality Troponin and D-dimer negative LFTs within normal limits, , Lipase within normal limits Suspect thoracic radiculopathy, will place on prednisone, Neurontin as needed Close outpatient follow-up Physical therapy referral, patient will follow up Weight lifting restrictions discussed Return precautions discussed patient expressed understanding My suspicion for cardiac etiology of symptoms given clinical exam findings and diagnostic evaluation in the emergency department and very low risk from a c ardiac standpoint Recheck PCP within the next week recommended Medical Records Medical records reviewed: Yes I reviewed the patient's medical records. HPI General Date/Time Provider Initiated Documentation: 10/21/21 11:11 . HPI Narrative: This 66-year-old female presents for but right chest wall and upper quadrant pain. Denies any fever or chills. Denies any chest pain or shortness of breath at this time. States the pain radiates into her epigastrium. Has been present for the past month. She states that her pain initially started after lifting a patient of approximately 175 pounds a month ago. Denies any changes in bowel or bladder. Denies any strength or sensation change to her extremities. Denies any additional complaints at this time. Denies any exacerbating or alleviating factors. Related Data Home Medications Medication Instructions Recorded Confirmed cholecalciferol (vitamin D3) 50 5,000 unit PO DAILY 07/08/17 10/21/21 mcg (2,000 unit) capsule (Vitamin D3) multivitamin (Daily Multi-Vitamin) 1 ea PO DAILY 07/08/17 10/21/21 rhubarb root extract 4 mg tablet 4 mg PO DAILY tab 06/24/20 10/21/21 (Estroven Complete Menopause Relief) Medical Marijuana 06/28/20 07/15/21 ferrous sulfate 325 mg (65 mg 325 mg PO DAILY 07/04/20 10/21/21 iron) tablet (FeroSul) glucosam 750 mg-chondroi 100 3 tab PO DAILY 11/10/20 10/21/21 mg-hyalur 1.65 mg-CF borate 108 mg tablet (Move [facility]) soy isoflavone-black cohosh 1 cap PO DAILY 11/10/20 10/21/21 root-magnolia bark 155 mg capsule (Estroven) calcium carbonate 500 mg calcium 2,500 mg PO DAILY 04/16/21 10/21/21 (1,250 mg) chewable tablet cyclobenzaprine 10 mg tablet 10 mg PO HS PRN #10 tab 10/12/21 10/21/21 pantoprazole 40 mg tablet,delayed 40 mg PO DAILY #90 tab 10/15/21 10/21/21 release (Protonix) methocarbamol 750 mg tablet 750 mg PO BID PRN #60 tab 10/16/21 10/21/21 sucralfate 1 gram tablet (Carafate) 1 g PO .ghs #30 tab 10/16/21 10/21/21 gabapentin 100 mg capsule 100 mg PO TID #42 cap 10/21/21 (Neurontin) prednisone 10 mg tablet 10 mg PO DAILY #30 tab 10/21/21 Previous Rx's Medication Instructions Recorded cyclobenzaprine 10 mg tablet 10 mg PO HS PRN #10 tab 10/12/21 pantoprazole 40 mg tablet,delayed 40 mg PO DAILY #90 tab 10/15/21 release (Protonix) methocarbamol 750 mg tablet 750 mg PO BID PRN #60 tab 10/16/21 sucralfate 1 gram tablet (Carafate) 1 g PO .ghs #30 tab 10/16/21 gabapentin 100 mg capsule 100 mg PO TID #42 cap 10/21/21 (Neurontin) prednisone 10 mg tablet 10 mg PO DAILY #30 tab 10/21/21 Allergies Allergy/AdvReac Type Severity Reaction Status Date / Time No Known Allergies Allergy Verified 10/21/21 11:05 General Stated Complaint: Nk/Back Pain [place]: 4 Review of Systems All systems reviewed & are unremarkable except as noted in HPI and below PFSH All Active Problems (Updated 10/21/21 @ 13:48 by BARBY Valencia) Radiculopathy of thoracic region (Acute) Lumbar strain (Acute) Cubital tunnel syndrome on left (Acute) Hammer toe of second toe of right foot (Acute) Carpal tunnel syndrome of left wrist (Acute) s/p ECTR Left hand pain (Acute) Vitamin D deficiency (Acute) Mass of pancreas (Acute) Back pain (Acute) Spondylosis (Acute) at almost every level by MRI 07/2020 [facility] recommended laminectomy for lumbar stenosis L2-3 & L4-5 Stress fracture of metatarsal bone (Acute) 3rd metatarsal right foot. Chronic low back pain with sciatica (Acute) 07/2020- Large broad-based disc herniation at L2-3. Mild broad-based disc herniation at L4-5. referred to [facility] neurosurgery Anemia (Chronic) Metatarsal fracture (Acute ~03/01/20) Right second metatarsal Amputation of toe of left foot (Acute 01/29/20) Left third toe GERD with esophagitis (Chronic) EGD 09/06/18 with erosive reflux esophagitis Medical History Acute gastritis Dyshidrotic eczema History of in vitro fertilization Hyperlipidemia Patient Denies Pelvic pain Surgical History Acquired deformity of left toe s/p left third toe amputation 01/29/20 Lateral deviation of the third toe PIP joint 06/13/18 - Plantar plate repair with augmentation using Arthrex InternalBrace for third MTP joint, along with Clotilde osteotomy 11/14/18--Removal of hardware from left third metatarsal with hammertoe correction using a DuVries osteotomy H/O section (~02/2013) 02/2013 and 11/2014 H/O laparoscopy Ovarian cyst drainage at 17 or 18yrs old H/O toe surgery History of carpal tunnel release (01/29/20) Left History of esophagogastroduodenoscopy (EGD) (09/06/18) 09/06/18 07/07/20- Stoiber Hx of appendectomy (~1981) S/P bunionectomy (04/18/15) Right hallux S/P colonoscopy (06/10/17) S/P cubital tunnel release (11/14/18) Ulnar nerve decompression with anterior subcutaneous transposition S/P endoscopic carpal tunnel release (01/29/20) Right wrist 11/14/18 Left Wrist 01/29/20 S/P excision of Guadalupe's neuroma (04/18/15) Right 3rd intermetatarsal space. Repeated on 12/12/2015 S/P hammer toe correction 04/18/15--Of right 2nd toe 06/13/18--DuVries osteotomy, arthroplasty of the second PIP joint, left foot. Plantar plate repair with augmentation using Arthrex InternalBrace for third MTP joint, along with Clotilde osteotomy 11/14/18--Removal of hardware from left third metatarsal with hammertoe correction using a DuVries osteotomy 11/14/2018 S/P hammertoe fixation - right second and third toes - 05/30/19 S/P LASIK surgery of both eyes (~2009) Right in 2009 Left in 2010 Family History Mother No problems noted. Father Dementia Brother No problems noted. Daughter No problems noted. Daughter No problems noted. Maternal Grandfather , at 74 of emphysema COPD (chronic obstructive pulmonary disease) with emphysema Maternal Grandmother , at 96 No problems noted. Paternal Grandfather , at 74 of [place] Myocardial infarction Heart disease Paternal Grandmother , at 94 of dementia Dementia Social History Smoking/Tobacco Use Status: Current-Occasional Tobacco Type: cigarettes Second Hand Exposure: Yes Smoking risk assessment performed?: Yes Alcohol Intake: current Alcohol Intake frequency: holidays/special occasions only Alcohol type: beer Drug use: Daily Substance use type: marijuana Caregiver/Support person: No Household members: family, children and other Housing: house Number of Children: 2 Communication Needs: None Do you need help understanding health information?: Never 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 Pets and animals: Yes Pets and animals: dog(s) Do you think of yourself as: lesbian/edward/homosexual Current gender identity: female What is your relationship status?: refused to answer How often do you talk on the phone with friends or family?: decline to answer How often do you get together with friends or relatives?: decline to answer How often do you attend restorationism or oriental orthodox services?: decline to answer Do you belong to any clubs or organized social groups?: decline to answer Panel score (0-1 are the most socially isolated patients): 0 Julee/Roman Catholic: Other Seatbelt use: always Helmet use: Yes Helmet use: always Drive intox or ride w/intox corporate driver: No Do you feel safe at home: Yes Do you feel safe in your relationship?: Yes Exam Const General: cooperative, comfortable and no acute distress Orientation: alert and oriented x3 Eyes Sclera: sclerae normal Resp Effort & Inspection: normal respiratory effort Auscultation: clear to auscultation bilaterally Cardio Rate: regular rate GI Inspection: normal to inspection Other: No abdominal bruit or pulsatile mass Back/Spine/Pelvis Back: no CVA tenderness and CVA tenderness Other: Mild thoracic paraspinal spinal tenderness Skin General skin exam: no rashes or lesions noted Lesions: no lesions Rashes: no rashes Neuro General: patient alert and patient oriented x3 Other: Strength and sensation intact distally to all 4 extremities, DTRs intact bilateral upper and lower extremities Extrem General: normal to inspection Other: Distal pulses intact, no calf swelling or tenderness Course Vital Signs Vital signs: Vital Signs Temperature 37 C 10/21/21 10:59 Pulse 95 H 10/21/21 10:59 Respiratory Rate 16 10/21/21 10:59 Blood Pressure 111/55 L 10/21/21 10:59 Pulse Oximetry 98 10/21/21 10:59 Temperature 37 C 10/21/21 10:59 Temperature Source Skin 10/21/21 10:59 Pulse 95 H 10/21/21 10:59 Respiratory Rate 16 10/21/21 10:59 Respiratory Effort 10/21/21 11:04 Blood Pressure 111/55 L 10/21/21 10:59 Blood Pressure Position Sitting 10/21/21 10:59 Pulse Oximetry 98 10/21/21 10:59 Oxygen Delivery Method Room Air 10/21/21 10:59 Oxygen Flow Rate 0 10/21/21 10:59 Pain Level 5 10/21/21 10:59 Lab/Test Results Lab/Test Results: Laboratory Tests Range/Units 10/21/21 10/21/21 11:50 11:50 WBC (4.4-10.8) 10^3/uL 7.43 RBC (3.93-5.22) 10^6/uL 3.92 L Hgb (11.2-15.7) g/dL 11.4 Hct (36.0-46.0) % 36.0 MCV (80-95) fL 91.8 MCH (27.0-33.0) pg 29.1 MCHC (32.0-36.0) % 31.7 L RDW (11.7-14.6) % 12.8 Plt Count (130-400) 10^3/uL 320 MPV (8.0-11.0) fL 10.0 Immature Gran % 0.4 Neutrophils % 65.5 Lymphocytes % 24.4 Monocytes % 7.4 Eosinophils % 1.6 Basophils % 0.7 Nucleated RBC % % 0 Absolute Neutrophils (1.2-6.7) 10^3/uL 4.87 Absolute Lymphocytes (1.2-3.4) 10^3/uL 1.81 Absolute Monocytes (0.1-0.8) 10^3/uL 0.55 Absolute Eosinophils (0.0-0.7) 10^3/uL 0.12 Absolute Basophils (0.0-0.2) 10^3/uL 0.05 Sodium (136-145) mmol/L 141 Potassium (3.5-5.1) mmol/L 4.4 Chloride (98-107) mmol/L 105 Carbon Dioxide (21.0-32.0) mmol/L 28.0 Anion Gap (3-11) mmol/L 8.0 BUN (7-18) mg/dL 17 Creatinine (0.55-1.02) mg/dL 1.0 Estimated GFR/1.73 m2 (mL/min/1.73m2) 57.78 Glucose (74-106) mg/dL 93 Calcium (8.5-10.1) mg/dL 8.5 Total Bilirubin (0.2-1.0) mg/dL 0.4 AST (15-37) U/L 13 L ALT (14-59) U/L 17 Alkaline Phosphatase (46-116) U/L 94 Troponin I (<or=60) ng/L < 50 Total Protein (6.4-8.2) g/dL 6.9 Albumin (3.4-5.0) g/dL 4.0 Lipase (73-393) U/L 99
[2021-10-21 12:37] LABS: D-Dimer 429 ng/mlFEU (<500)
[2021-10-21] MEDS: Mylanta Suspension 30 ML CUP PO (13:15)
[2021-10-21] MEDS: FAMOTIDINE 20 MG in Normal Saline 100 ML 400 MG IVPB (13:15)
== END 2021-10-21 14:04 | disposition home or self-care (01) ==
PROVIDERS: Emergency Provider Physician Assistant; PCP Nurse Practitioner
DX: M54.14 Radiculopathy, thoracic region (principal); R07.9 Chest pain, unspecified
CPT/HCPCS: 36415; 80053; 83690; 93005; 96365; 96375; 99284; J2360; 71046; 84484; 85025; 85379; 93010; J1885

== ENCOUNTER 2021-10-26 01:16 | Outpatient (CLI) | payer MEDICAID, SELFPAY ==
[2021-10-26 12:39] LABS: Source Nasal/Nares
[2021-10-26 18:44] LABS: COVID-19 PCR Negative (Negative)
== END 2021-10-26 01:17 | disposition home or self-care (01) ==
LOC: LBO 01:16
PROVIDERS: PCP Nurse Practitioner; Visit Provider Student in an Organized Health Care Education/Training Program
DX: Z20.822 Contact with and (suspected) exposure to COVID-19 (principal); Z01.818 Encounter for other preprocedural examination
CPT/HCPCS: 87635

== ENCOUNTER 2021-10-27 10:54 | Day surgery (SDC) | payer MEDICAID, SELFPAY ==
[2021-10-27] VITALS (9 sets, daily range): BP systolic 102–126; BP diastolic 60–78; PULSE 54–82; RESP 14–18; TEMP 36.1–36.6; O2SAT 98–100; BMI 27.3
[2021-10-27] MEDS: Lactated Ringers 1,000 ML 80 ML IV (11:37)
--- NOTE | 2021-10-27 11:43 | ANES.PREOP_ITS ---
General Info Date of Service Date Performed: 10/27/21 Height: 5 ft 9 in Weight: 84 kg Body Mass Index (BMI): 27.3 Surgical Procedure: Operation Date: 10/27/21 14:55 Proposed Procedure Side Surgeon p Cubital Tunnel Release Left Jairo Carpenter MD Meds Allergies and Home Medications Allergies Allergy/AdvReac Type Severity Reaction Status Date / Time No Known Allergies Allergy Verified 10/27/21 11:21 Home Medication Medication Instructions Recorded cholecalciferol (vitamin D3) 50 5,000 unit PO DAILY 07/08/17 mcg (2,000 unit) capsule (Vitamin D3) multivitamin (Daily Multi-Vitamin) 1 ea PO DAILY 07/08/17 rhubarb root extract 4 mg tablet 4 mg PO DAILY tab 06/24/20 (Estroven Complete Menopause Relief) Medical Marijuana 06/28/20 ferrous sulfate 325 mg (65 mg 325 mg PO DAILY 07/04/20 iron) tablet (FeroSul) glucosam 750 mg-chondroi 100 3 tab PO DAILY 11/10/20 mg-hyalur 1.65 mg-CF borate 108 mg tablet (Move [facility]) soy isoflavone-black cohosh 1 cap PO DAILY 11/10/20 root-magnolia bark 155 mg capsule (Estroven) calcium carbonate 500 mg calcium 2,500 mg PO DAILY 04/16/21 (1,250 mg) chewable tablet cyclobenzaprine 10 mg tablet 10 mg PO HS PRN #10 tab 10/12/21 pantoprazole 40 mg tablet,delayed 40 mg PO DAILY #90 tab 10/15/21 release (Protonix) methocarbamol 750 mg tablet 750 mg PO BID PRN #60 tab 10/16/21 sucralfate 1 gram tablet (Carafate) 1 g PO .ghs #30 tab 10/16/21 gabapentin 100 mg capsule 100 mg PO TID #42 cap 10/21/21 (Neurontin) prednisone 10 mg tablet 10 mg PO DAILY #30 tab 10/21/21 Current Visit Medications: Current Medications Generic Name Dose Route Start Last Admin Trade Name Freq PRN Reason Stop Dose Admin Ringer's Solution 1,000 mls @ 80 mls/hr 10/27/21 06:00 10/27/21 11:37 IV 11/25/21 23:59 80 mls/hr INFUSION KIRSTEN Administration Cefazolin Sodium/Dextrose 2 gm in 50 mls @ 100 mls/hr 10/27/21 06:00 Ancef Duplex IVPB 10/27/21 16:00 PREOP KIRSTEN IV Miscellaneous Supplies 1 each 10/27/21 06:00 Iv Access IV 11/25/21 23:59 DIRECTED KIRSTEN Sodium Chloride 0 ml 10/27/21 06:00 Normal Saline Flush 10 Ml Syr IV 11/25/21 23:59 PRN PRN Sodium Chloride 0 ml 10/27/21 06:00 Normal Saline 10 Ml Vial IJ 11/25/21 23:59 DIRECTED PRN Sterile Water 0 ml 10/27/21 06:00 Water,Injection,Sterile 10 Ml Vial IJ 11/25/21 23:59 DIRECTED PRN PFSH Active Problems Active Problems: Problem Status Onset Code Radiculopathy of thoracic region M54.14 Lumbar strain S39.012A Cubital tunnel syndrome on left G56.22 Hammer toe of second toe of right foot M20.41 Carpal tunnel syndrome of left wrist G56.02 Left hand pain M79.642 Vitamin D deficiency E55.9 Mass of pancreas K86.89 Back pain M54.9 Spondylosis M47.9 Stress fracture of metatarsal bone M84.376A Chronic low back pain with sciatica M54.40, G89.29 Anemia D64.9 Metatarsal fracture ~03/01/20 S92.309A Amputation of toe of left foot 01/29/20 S98.132A GERD with esophagitis K21.0 Medical History Medical History Acute gastritis Dyshidrotic eczema History of in vitro fertilization Hyperlipidemia Patient Denies Pelvic pain Surgical History Surgical History Acquired deformity of left toe s/p left third toe amputation 01/29/20 Lateral deviation of the third toe PIP joint 06/13/18 - Plantar plate repair with augmentation using Arthrex InternalBrace for third MTP joint, along with Clotilde osteotomy 11/14/18--Removal of hardware from left third metatarsal with hammertoe correction using a DuVries osteotomy H/O section (~02/2013) 02/2013 and 11/2014 H/O laparoscopy Ovarian cyst drainage at 17 or 18yrs old H/O toe surgery History of carpal tunnel release (01/29/20) Left History of esophagogastroduodenoscopy (EGD) (09/06/18) 09/06/18 07/07/20- Stoiber Hx of appendectomy (~1981) S/P bunionectomy (04/18/15) Right hallux S/P colonoscopy (06/10/17) S/P cubital tunnel release (11/14/18) Ulnar nerve decompression with anterior subcutaneous transposition S/P endoscopic carpal tunnel release (01/29/20) Right wrist 11/14/18 Left Wrist 01/29/20 S/P excision of Guadalupe's neuroma (04/18/15) Right 3rd intermetatarsal space. Repeated on 12/12/2015 S/P hammer toe correction 04/18/15--Of right 2nd toe 06/13/18--DuVries osteotomy, arthroplasty of the second PIP joint, left foot. Plantar plate repair with augmentation using Arthrex InternalBrace for third MTP joint, along with Clotilde osteotomy 11/14/18--Removal of hardware from left third metatarsal with hammertoe correction using a DuVries osteotomy 11/14/2018 S/P hammertoe fixation - right second and third toes - 05/30/19 S/P LASIK surgery of both eyes (~2009) Right in 2009 Left in 2010 Tobacco Smoking/Tobacco Use Status: Current-Occasional Tobacco Type: cigarettes Passive smoking exposure: Yes Second hand exposure: Yes Alcohol Alcohol Intake: current Alcohol intake frequency: holidays/special occasions only Alcohol type: beer Substance Use Substance use: Daily Substance use type: marijuana Vital Signs and Lab Results Vital Signs Most Recent Vital Signs in EMR: Most Recent Vital Signs Temp Pulse Resp BP Pulse Ox 36.5 C 82 16 122/71 98 10/27/21 11:15 10/27/21 11:15 10/27/21 11:15 10/27/21 11:15 10/27/21 11:15 Lab Results Blood Type / Crossmatch: No Data to Display Complete Blood Count: White Blood Count 7.43 10^3/uL (4.4-10.8) 10/21/21 11:50 10/21/21 Red Blood Count 3.92 10^6/uL (3.93-5.22) L 10/21/21 11:50 10/21/21 Hemoglobin 11.4 g/dL (11.2-15.7) 10/21/21 11:50 10/21/21 Hematocrit 36.0 % (36.0-46.0) 10/21/21 11:50 10/21/21 Platelet Count 320 10^3/uL (130-400) 10/21/21 11:50 10/21/21 Complete Metabolic Panel: Sodium Level 141 mmol/L (136-145) 10/21/21 11:50 10/21/21 Potassium Level 4.4 mmol/L (3.5-5.1) 10/21/21 11:50 10/21/21 Chloride Level 105 mmol/L (98-107) 10/21/21 11:50 10/21/21 Carbon Dioxide Level 28.0 mmol/L (21.0-32.0) 10/21/21 11:50 10/21/21 Blood Urea Nitrogen 17 mg/dL (7-18) 10/21/21 11:50 10/21/21 Creatinine 1.0 mg/dL (0.55-1.02) 10/21/21 11:50 10/21/21 Estimated GFR/1.73 m2 57.78 (mL/min/1.73m2) 10/21/21 11:50 10/21/21 Calcium Level 8.5 mg/dL (8.5-10.1) 10/21/21 11:50 10/21/21 Albumin 4.0 g/dL (3.4-5.0) 10/21/21 11:50 10/21/21 Glucose Level 93 mg/dL (74-106) 10/21/21 11:50 10/21/21 Liver Function Panel: Alanine Aminotransferase (ALT/SGPT) 17 U/L (14-59) 10/21/21 11:50 10/21/21 Aspartate Amino Transf (AST/SGOT) 13 U/L (15-37) L 10/21/21 11:50 10/21/21 Coagulation Panel: D-Dimer 429 ng/mlFEU (<500) 10/21/21 11:50 10/21/21 Cardiac Panel: Troponin I < 50 ng/L (<or=60) 10/21/21 Arterial Blood Gas: No Data to Display Venous Blood Gas: No Data to Display Pancreas Panel: Lipase 99 U/L (73-393) 10/21/21 11:50 10/21/21 Thyroid Panel: No Data to Display Infectious Disease: Coronavirus (COVID-19)(PCR) Negative (Negative) 10/26/21 12:37 10/26/21 Coronavirus 2019 Source Nasal/Nares 10/26/21 12:37 10/26/21 Blood Cultures: No Data to Display Toxicology Panel: No Data to Display Panel: No Data to Display Anesthesia Assessment and Plan Anesthesia History Personal History: No History of Anesthesia Complications Family History: No Family History of Anesthesia Complications Exercise Tolerance Exercise Tolerance: Metabolic Equivalents>4 Pertinent Negatives Pertinent Negatives: No Major Cardiovascular Symptoms or Complaints and No Major Pulmonary Symptoms or Complaints Cardiac & Pulmonary Exam Cardiac Exam: Normal S1/S2 Heart Sounds Pulmonary Exam: Clear Bilateral Breath Sounds Implantable Cardiac Device Does patient have a Pacemaker or an ICD?: No Airway Exam Known Difficult Airway: No Mallampati Class: 1 Mouth Opening: Normal (> 3cm) Thyromental Distance: Greater than 3 cm Neck Range of Motion: Full ROM Neck Circumference: Normal Teeth Condition: Normal Dentition ASA Classification ASA Score: ASA 2 Emergency Case?: No NPO Status NPO Status: NPO Clears >2 hours, Solids >8 hours Status Status: Not Relevant due to Medical History Anesthesia Plan Resuscitation Status: Full Code Anesthesia Technique: General Anesthesia Airway Planned: LMA Monitors Used: Standard Monitors
--- NOTE | 2021-10-27 13:04 | HPE_ITS ---
Assessment and Plan Assessment and plan (1) Cubital tunnel syndrome on left: Status: Acute Assessment and plan: Cee is a 56-year-old with cubital tunnel syndrome of the left side. She ready for cubital tunnel release. I have previously discussed this with her. I discussed once again the technical details of the surgery. Reviewed the risk of bleeding, infection, pain, stiffness, damage to nerves and vessels, damage to muscle, tendon, continued symptoms, tingling on the medial elbow, numbness of the medial elbow. Despite these risk, she elects to proceed. History of Present Illness Narrative: Cee is a 36-year-old who has known cubital tunnel syndrome of the time. She did symptom and today for cubital tunnel decompression on the left side. She has no change or medical history. She continues have numbness and tingling about the left hand, small finger and ring finger. She has failed nonoperative treatments. PFSH All Active Problems Radiculopathy of thoracic region (Acute) Lumbar strain (Acute) Cubital tunnel syndrome on left (Acute) Hammer toe of second toe of right foot (Acute) Carpal tunnel syndrome of left wrist (Acute) s/p ECTR Left hand pain (Acute) Vitamin D deficiency (Acute) Mass of pancreas (Acute) Back pain (Acute) Spondylosis (Acute) at almost every level by MRI 07/2020 [facility] recommended laminectomy for lumbar stenosis L2-3 & L4-5 Stress fracture of metatarsal bone (Acute) 3rd metatarsal right foot. Chronic low back pain with sciatica (Acute) 07/2020- Large broad-based disc herniation at L2-3. Mild broad-based disc herniation at L4-5. referred to [facility] neurosurgery Anemia (Chronic) Metatarsal fracture (Acute ~03/01/20) Right second metatarsal Amputation of toe of left foot (Acute 01/29/20) Left third toe GERD with esophagitis (Chronic) EGD 09/06/18 with erosive reflux esophagitis Medical History Acute gastritis Dyshidrotic eczema History of in vitro fertilization Hyperlipidemia Patient Denies Pelvic pain Surgical History Acquired deformity of left toe s/p left third toe amputation 01/29/20 Lateral deviation of the third toe PIP joint 06/13/18 - Plantar plate repair with augmentation using Arthrex InternalBrace for third MTP joint, along with Clotilde osteotomy 11/14/18--Removal of hardware from left third metatarsal with hammertoe correction using a DuVries osteotomy H/O section (~02/2013) 02/2013 and 11/2014 H/O laparoscopy Ovarian cyst drainage at 17 or 18yrs old H/O toe surgery History of carpal tunnel release (01/29/20) Left History of esophagogastroduodenoscopy (EGD) (09/06/18) 09/06/18 07/07/20- Stoiber Hx of appendectomy (~1981) S/P bunionectomy (04/18/15) Right hallux S/P colonoscopy (06/10/17) S/P cubital tunnel release (11/14/18) Ulnar nerve decompression with anterior subcutaneous transposition S/P endoscopic carpal tunnel release (01/29/20) Right wrist 11/14/18 Left Wrist 01/29/20 S/P excision of Guadalupe's neuroma (04/18/15) Right 3rd intermetatarsal space. Repeated on 12/12/2015 S/P hammer toe correction 04/18/15--Of right 2nd toe 06/13/18--DuVries osteotomy, arthroplasty of the second PIP joint, left foot. Plantar plate repair with augmentation using Arthrex InternalBrace for third MTP joint, along with Clotilde osteotomy 11/14/18--Removal of hardware from left third metatarsal with hammertoe correction using a DuVries osteotomy 11/14/2018 S/P hammertoe fixation - right second and third toes - 05/30/19 S/P LASIK surgery of both eyes (~2009) Right in 2009 Left in 2010 Family History Mother No problems noted. Father Dementia Brother No problems noted. Daughter No problems noted. Daughter No problems noted. Maternal Grandfather , at 74 of emphysema COPD (chronic obstructive pulmonary disease) with emphysema Maternal Grandmother , at 96 No problems noted. Paternal Grandfather , at 74 of [place] Myocardial infarction Heart disease Paternal Grandmother , at 94 of dementia Dementia Social History Smoking/Tobacco Use Status: Current-Occasional Tobacco Type: cigarettes Second Hand Exposure: Yes Smoking risk assessment performed?: Yes Alcohol Intake: current Alcohol Intake frequency: holidays/special occasions only Alcohol type: beer Drug use: Daily Substance use type: marijuana Caregiver/Support person: No Household members: family, children and other Housing: house Number of Children: 2 Communication Needs: None Do you need help understanding health information?: Never 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 Pets and animals: Yes Pets and animals: dog(s) Do you think of yourself as: lesbian/edward/homosexual Current gender identity: female What is your relationship status?: refused to answer How often do you talk on the phone with friends or family?: decline to answer How often do you get together with friends or relatives?: decline to answer How often do you attend moravian or yazidism services?: decline to answer Do you belong to any clubs or organized social groups?: decline to answer Panel score (0-1 are the most socially isolated patients): 0 Julee/Anabaptist: Other Seatbelt use: always Helmet use: Yes Helmet use: always Drive intox or ride w/intox meals on wheels driver: No Do you feel safe at home: Yes Do you feel safe in your relationship?: Yes Meds Allergies and Home Medications Allergies Allergy/AdvReac Type Severity Reaction Status Date / Time No Known Allergies Allergy Verified 10/27/21 11:21 Home Medications Medication Instructions Recorded Confirmed Type cholecalciferol (vitamin D3) 50 5,000 unit PO DAILY 07/08/17 10/27/21 History mcg (2,000 unit) capsule (Vitamin D3) multivitamin (Daily Multi-Vitamin) 1 ea PO DAILY 07/08/17 10/27/21 History rhubarb root extract 4 mg tablet 4 mg PO DAILY tab 06/24/20 10/27/21 History (Estroven Complete Menopause Relief) Medical Marijuana 06/28/20 07/15/21 History ferrous sulfate 325 mg (65 mg 325 mg PO DAILY 07/04/20 10/27/21 History iron) tablet (FeroSul) glucosam 750 mg-chondroi 100 3 tab PO DAILY 11/10/20 10/27/21 History mg-hyalur 1.65 mg-CF borate 108 mg tablet (Move Free Firework) soy isoflavone-black cohosh 1 cap PO DAILY 11/10/20 10/27/21 History root-magnolia bark 155 mg capsule (Estroven) calcium carbonate 500 mg calcium 2,500 mg PO DAILY 04/16/21 10/27/21 History (1,250 mg) chewable tablet cyclobenzaprine 10 mg tablet 10 mg PO HS PRN #10 tab 10/12/21 10/27/21 Rx pantoprazole 40 mg tablet,delayed 40 mg PO DAILY #90 tab 10/15/21 10/27/21 Rx release (Protonix) methocarbamol 750 mg tablet 750 mg PO BID PRN #60 tab 10/16/21 10/27/21 Rx sucralfate 1 gram tablet (Carafate) 1 g PO .ghs #30 tab 10/16/21 10/27/21 Rx gabapentin 100 mg capsule 100 mg PO TID #42 cap 10/21/21 10/27/21 Rx (Neurontin) prednisone 10 mg tablet 10 mg PO DAILY #30 tab 10/21/21 10/27/21 Rx Exam Resp Auscultation: clear to auscultation bilaterally Cardio Rate: regular rate Rhythm: regular rhythm Results Last Vital Signs Temp 36.5 C 10/27/21 11:15 Pulse 82 10/27/21 11:15 Resp 16 10/27/21 11:15 BP 122/71 10/27/21 11:15 Pulse Ox 98 10/27/21 11:15
[2021-10-27] MEDS: ceFAZolin 2 GM/50 ML BAG IVPB (13:10)
--- NOTE | 2021-10-27 13:15 | W.PM.DSUDISC ---
Discharge Plan Disposition Patient Disposition: HOME Condition: Good Discharge Details Reason For Visit: Left cubital tunnel release Attending Provider: Jairo Carpenter Primary Care Provider: Mavis Malik Home Meds and New Rx's Prescriptions: New ibuprofen 600 mg tablet 600 mg PO TID Qty: 30 0RF acetaminophen 500 mg capsule 1,000 mg PO Q8H PRN PRNQty: 30 0RF oxycodone 5 mg tablet 5 mg PO Q4H PRNQty: 5 0RF Continued Estroven Cmplt Menopause Rlf 4 mg tablet 4 mg PO DAILY 0RF calcium carbonate 500 mg calcium (1,250 mg) tablet,chewable 2,500 mg PO DAILY 0RF ferrous sulfate [FeroSul] 325 mg (65 mg iron) tablet 325 mg PO DAILY 0RF Move Free Joint Health 750 mg-100 mg- 1.65 mg-108 mg tablet 3 tab PO DAILY 0RF Label Comments: one tablet in the AM and two at night as stated by Pt 11/10/20 TR Estroven 155 mg capsule 1 cap PO DAILY 0RF Label Comments: 1 tablet every night as reported by Pt. 11/10/20 TR cyclobenzaprine 10 mg tablet 10 mg PO HS PRN (Reason: muscle spasm) Qty: 10 0RF multivitamin [Daily Multi-Vitamin] 1 EACH tablet 1 ea PO DAILY 0RF cholecalciferol (vitamin D3) [Vitamin D3] 2,000 UNIT capsule 5,000 unit PO DAILY 0RF pantoprazole [Protonix] 40 mg tablet,delayed release (DR/EC) 40 mg PO DAILY Qty: 90 4RF methocarbamol 750 mg tablet 750 mg PO BID PRN (Reason: muscle spasm) Qty: 60 6RF sucralfate [Carafate] 1 gram tablet 1 g PO .ghs Qty: 30 12RF Medical Marijuana 0RF prednisone 10 mg tablet 10 mg PO DAILY Qty: 30 0RF Rx Instructions: 40 mg x4 days, 30 mg x3 days, 20 mg x2 days, 10 mg x1 day and dc gabapentin [Neurontin] 100 mg capsule 100 mg PO TID Qty: 42 0RF Rx Instructions: you may increase to 200 mg at night if you tolerate the 100 mg well Discharge Instructions Additional Instructions: Cubital Tunnel Decompression Discharge Instructions Activity: You should stay in the sling for the first 2 weeks. You may come out of the sling for gentle motion and hygiene but should largely remain in the sling to allow the incision site to heal. Gentle motion of the elbow, hand, wrist, and fingers is okay and encouraged after the first few days, but no repetitive activites nor heavy lifting. You may apply ice. Medications: - You should take Tylenol and Ibuprofen around the clock. - You have been prescribed oxycodone for breakthrough pain. Dressings: - The initial surgical dressing should stay in place for 3 days. It may then be removed and kept clean and dry. You should cover with a light gauze dressing. - You may shower after 3 days and get the wound wet. Follow-up: 10 days Referrals: Jairo Carpenter MD [ [facility] STAFF PHYSICIAN] - Equipment/Supplies: Sling Activity:: Activity as Tolerated Remove Dressings/Wound Care:: 72 hours Shower/Bathe:: 72 hours Diet:: As Tolerated Discharge Orders Discharge Orders: Discharge Order (Routine); Ordered 10/27/21 Ordered By: Marjorie Manriquez DS: Diagnosis Discharge Diagnosis (1) Cubital tunnel syndrome on left: Status: Acute
[2021-10-27] MEDS: Bupivacaine 0.25% Pres-Free 30 ML VIAL (13:43)
[2021-10-27] MEDS: fentaNYL 100 MCG/2 ML VIAL IVP ×2 (14:13→14:23)
[2021-10-27] MEDS: HYDROmorphone 2 MG/ML VIAL IVP ×2 (14:14→14:23)
[2021-10-27] MEDS: oxyCODONE 5 MG TAB PO (14:56)
[2021-10-27] MEDS: Acetaminophen 325 MG TAB 650 MG PO (14:56)
--- NOTE | 2021-10-27 15:08 | W.ANESPOSTOP ---
Postoperative Evaluation Date, Time and Location Date Performed: 10/27/21 Time Performed: 15:08 Patient Location: Day Surgery Unit Vital Signs Most Recent Imported Vital Signs: Most Recent Vital Signs Temp Pulse Resp BP Pulse Ox 36.6 C 59 L 18 126/78 99 10/27/21 14:33 10/27/21 14:33 10/27/21 14:33 10/27/21 14:33 10/27/21 14:33 Pain Score Most Recent Pain Score: Most Recent Pain Score Pain Level 4 10/27/21 14:33 Assessment Mental Status: Awake (Alert & Oriented to Patient Baseline) Airway and Respiratory Function: Patent airway with normal (patient baseline) respiratory exam Cardiovascular Function: Hemodynamically Stable Hydration Status: Adequately Hydrated Nausea & Vomiting: No Nausea or Vomiting Pain: Pt. Denies Any Pain Peripheral Nerve Block: Patient did not receive a nerve block
--- NOTE | 2021-10-28 06:56 | ROE_ITS ---
Date of service: 10/27/21 Time of Service: 13:30 Operative Note Operative Note DATE OF PROCEDURE: 10/27/21 PRE-OP DIAGNOSIS: Left Cubital Tunnel Syndrome POST-OP DIAGNOSIS: same PROCEDURE: Left Cubital Tunnel Decompression SURGEON: Jairo Carpenter Refer to Anesthesia Record ESTIMATED BLOOD LOSS: 0 PATHOLOGY: none sent TOURNIQUET TIME: 9 COMPLICATIONS: None Patient was transported to: PACU Patient's condition: stable Indications: Cee is a 56 year old female who has had symptoms of cubital tunnel syndrome. Nonoperative treatment options had been trialed. Nerve conduction studies identified the cubital tunnel as the point of compression. Given failure of nonoperative treatments and persistent symptoms, I offered operative interventio n. I reviewed the technical details of a cubital tunnel decompression with possible anterior subcutaneous transposition. I reviewed the risk of the procedure to include bleeding, infection, pain, stiffness, tendon instability, damage to the superficial radial nerve, and complete release. Despite these risks, the patient elected to proceed. Findings: There was a tightened cubital tunnel. This was mostly vetween the FCU and within the muscle belly The ulnar nerve was release from the first motor branch distally through the [facility] [place] proximally. Procedure Description: Cee was greeted in the preoperative holding area. Name and surgical site were confirmed. The history and physical was completed. The consent was reviewed the patient and signed. Name was taken back to the operating room. The patient was placed in the supine positioned and a general anesthetic was administered. The left was then prepped with ChloraPrep and draped in a standard fashion after a nonsterile tourniquet was placed high up into the axilla of the arm. Prophylactic antibiotics in the form of cefazolin were administered. A timeout was performed for safe surgery. The surgical site was drawn on the skin as was the medial epicondyle borders. The planned surgical field was anesthetized with 1% lidocaine with epinephrine. The limb was exsanguinated and the tourniquet was inflated where it stayed for 9 minutes. A 6 cm incision was made curvilinearly around the medial elbow. The skin was incised only. The deep tissue and subcutaneous fat was dissected with a tenotomy scissors trying to protect any branches of the medial antebrachial cutaneous nerve. Any branches that were identified were retracted out of the way. The ulnar nerve was palpated and identified. A small window into the cubital tunnel, sheath overlying the nerve, was created and the nerve was able to be palpated with the Coleman. A Metzenbaum scissor was then used to open up the sheath starting with Bailey's ligament. I then worked distal over the ulnar nerve releasing any constraints against the nerve all the way to the fascia of the FCU muscle belly. This muscle belly was bluntly all the way down to the first motor branch of the ulnar nerve and the overlying fascia was incised. Likewise starting there at the lateral epicondyle, I proceeded to work proximally to release any constraints over the ulnar nerve. This was taken all the way to the arcade of Valerio. The medial intermuscular septum was also palpated and any sharp edges against the ulnar nerve were resected and released. After fully releasing the nerve it was inspected visually. I was also able to palpate the nerve fully and reach one finger up into the proximal and distal aspects to make sure there were no constraints against the nerve. A freer elevator was also used to slide easily against the ulnar nerve without any points of constriction. The arm was then taken through range of motion. The ulnar nerve did not sublux/dislocate out of its groove behind the medial epicondyle. Therefore, no transposition was performed. The tourniquet was then deflated. Any areas of bleeding were cauterized with bipolar electrocautery. The wound was thoroughly irrigated. The deep tissue was closed with a 3-0 Vicryl. The skin was closed with a 4-0 nylon. The wound was dressed with Xeroform, 4 x 4's, ABD, Kerlix and an Ministerio wrap. Cee was placed into a sling. [Patient Name] was transferred back to the PACU in a stable condition.
== END 2021-10-27 10:55 | disposition home or self-care (01) ==
PROVIDERS: PCP Nurse Practitioner; Visit Provider Student in an Organized Health Care Education/Training Program
PROC: (CPT 64718; principal; 2021-10-27 14:45)
DX: G56.22 Lesion of ulnar nerve, left upper limb (principal); D64.9 Anemia, unspecified; K21.00 Gastro-esophageal reflux disease with esophagitis, without bleeding; E55.9 Vitamin D deficiency, unspecified
CPT/HCPCS: 64718; J0690; J3010

== ENCOUNTER → 2021-12-28 02:46 | Outpatient (CLI) | payer MEDICAID, SELFPAY ==
--- NOTE | 2021-12-28 08:00 | DI.US_ITS ---
Exam(s) US ABDOMEN EXAM: US ABDOMEN CLINICAL HISTORY: ruq abd pain,R10.11 TECHNIQUE: Ultrasound abdomen performed using standard protocol. COMPARISON: US US ABDOMEN from 06/30/2020 FINDINGS: ABDOMINAL AORTA AND IVC: Visualized portions normal caliber. PANCREAS: Normal where visualized. LIVER: Normal. Hepatopedal flow in the Portal Vein. GALLBLADDER:No evidence of cholelithiasis. No evidence of wall thickening. No pericholecystic fluid i dentified. BILIARY SYSTEM: Common bile duct measures < 7 mm. No intrahepatic biliary ductal dilation. MEEKS'S SIGN: Negative. KIDNEYS: Kidneys are symmetric in size. No evidence of renal calculi. No evidence of hydronephrosis. No renal mass or cyst identified. SPLEEN: Not enlarged. ASCITES: None seen. IMPRESSION: Normal sonographic appearance of the upper abdomen. DATA REPOSITORY:
== END ==
PROVIDERS: PCP Nurse Practitioner; Visit Provider Nurse Practitioner
DX: R10.11 Right upper quadrant pain (principal)
CPT/HCPCS: 76700

== ENCOUNTER → 2022-04-15 15:15 | Outpatient (CLI) | payer MEDICAID, SELFPAY ==
--- NOTE | 2022-04-15 | DI.CT_ITS ---
Exam(s) CT HEAD CERVICAL SPINE WO EXAM: CT HEAD CERVICAL SPINE WO CLINICAL HISTORY: NECK AND BACK PAIN, M54.2, NEW DAILY PERSISTENT JACINTO, G44.52. TECHNIQUE: Imaging Protocol: Axial computed tomography images with coronal and sagittal reformatted images were created and reviewed COMPARISON: No exams were available for comparison FINDINGS: BRAIN: There are no skull fractures nor fluid in the visualized paranasal sinuses. There is no evidence of intracranial hemorrhage, mass effect, or shift of midline structures. There are no extra-axial fluid collections. The ventricles are not enlarged or shifted and there is no blo od within the ventricular system nor within the basal cisterns. CERVICAL SPINE: There is reversal of the normal curvature of the cervical spine which appears to have epicenter at C5 -6 level where there is advanced disc space narrowing. There is no evidence of fracture nor listhesis. No significant prevertebral soft tissue swelling. There is advanced disc space narrowing at C5-6 level and bilateral Luschka joint osteophytes at this level noted. There is also moderate disc space narrowing at this C6-7 level, also with smaller bilat eral Luschka joint osteophytes at this level. The other levels exhibit normal disc height. There is some facet arthropathy, most prominent on the right side at the C 3-4 level. There is no fa cet joint malalignment. There is no significant facet joint malalignment. No significant osseous lesions evident. IMPRESSION: No acute intracranial findings on this noninfused CT scan of the brain. Degenerative changes as described above but no evidence of acute cervical spine fracture, malalignmen t, nor acute compromise of the cervical spinal canal. RADIATION DOSE DELIVERED: 1,219.25mGy.cm Total DLP DATA REPOSITORY: All CT scans at this facility are submitted to the National Radiology Data Registry (NRDR) Dose Index Registry (DIR) with the [employer] (ACR). RADIATION OPTIMIZATION: All CT scans at this facility use at least one of these dose optimization te chniques: automated exposure control; mA and/or kV adjustment per patient size (includes targeted exa ms where dose is matched to clinical indication); or iterative reconstruction.
== END ==
PROVIDERS: PCP Nurse Practitioner; Visit Provider Nurse Practitioner Family
DX: M54.2 Cervicalgia (principal); G44.52 New daily persistent headache (NDPH); M50.322 Other cervical disc degeneration at C5-C6 level; M50.323 Other cervical disc degeneration at C6-C7 level
CPT/HCPCS: 70450; 72125

== ENCOUNTER → 2022-04-16 00:44 | Outpatient (CLI) | payer MEDICAID, SELFPAY ==
--- NOTE | 2022-04-16 07:45 | DI.RAD_ITS ---
Exam(s) XR FOOT RT COMPLETE EXAM: XR FOOT RT COMPLETE CLINICAL HISTORY: Increased pain, HAMMER TOE 2ND TOE RT FOOT, M20.41 TECHNIQUE: COMPARISON: CR XR FOOT RT COMPLETE from 09/05/2020 FINDINGS: Three views were obtained. There are arthrodesisof the PIP joints of the 2nd and 3rd toes and prior apparent osteotomy of the head of the 1st metatarsal. Alignment appears essentially unchanged in [facility] with previous examination of August 2020. IMPRESSION: RADIATION DOSE DELIVERED: Total DLP
== END ==
PROVIDERS: PCP Nurse Practitioner; Visit Provider Nurse Practitioner Family
DX: M79.674 Pain in right toe(s); M20.41 Other hammer toe(s) (acquired), right foot; Z98.890 Other specified postprocedural states
CPT/HCPCS: 73630

== ENCOUNTER → 2022-05-05 01:50 | Outpatient (CLI) | payer MEDICAID, SELFPAY ==
--- NOTE | 2022-05-05 15:22 | DI.MAMMO_ITS ---
Exam(s) MAMMO SCREENING EXAM: MAMMO SCREENING CLINICAL HISTORY: screening,Z12.39. TECHNIQUE: Bilateral full field digital CC and MLO mammographic images were obtained with 3D tomosyn thesis and utilizing computer aided detection (CAD). COMPARISON: Prior mammograms were reviewed, the most recent being February 2021. FINDINGS: There has been no significant change in the appearance and distribution of the fibroglandular tissue. There are no CAD designations. There are no new spiculated masses nor malignant appearing microcalcification groups. There is no significant architectural distortion nor skin thickening-retraction. IMPRESSION: No radiographic evidence of malignancy. BI-RADS Category 1 - Negative Breast Density - Category B - Scattered areas of fibroglandular density Breast density Category C or D implies that the patient has dense breast tissue. Dense breast tissue can make it harder to find cancer on a mammogram. Dense breast tissue is also associated with an incr eased risk of breast cancer. This information about the result of the mammogram report was provided to the patient to raise their awareness. Use this report when you speak with the patient about their risks for breast cancer, which includes their family history. At that time, you may recommend additional screening tests (Ultrasoun d or MRI) as these tests may add significant information. A negative radiographic report should not delay biopsy if a dominant or clinically suspicious mass is present. Up to ten percent of cancers are not identified on mammography. A negative report may reinforce clinical impression. Adenosis and dense breasts may obscure an underlying neoplasm. False positive reports average 6 to 10%. Patient will receive a letter notifying them of these results.
== END ==
PROVIDERS: PCP Nurse Practitioner; Visit Provider Nurse Practitioner Family
DX: Z12.31 Encounter for screening mammogram for malignant neoplasm of breast (principal)
CPT/HCPCS: 77063; 77067

== ENCOUNTER 2022-07-01 09:29 | Emergency (ER) | payer MEDICAID, SELFPAY ==
[2022-07-01] VITALS (19 sets, daily range): BP systolic 126–151; BP diastolic 69–95; PULSE 60–90; RESP 12–24; TEMP 36.7–37; O2SAT 95–100
--- NOTE | 2022-07-01 09:30 | RT.EKG_ITS ---
APPROVED REPORT Exam: Resting ECG Reason for Exam: chest pressure Patient Location: E HR:79 bpm ECG Measurements Heart Rate 79 AXIS KS 148 P 37 QRSd 89 QRS -9 QT 367 T 41 QTc 421 Conclusion Sinus rhythm...normal P axis, V-rate 60- [address] depression lateral V-6
--- NOTE | 2022-07-01 10:00 | DI.CT_ITS ---
Exam(s) CT CHEST PE CTA EXAM: CT CHEST PE CTA CLINICAL HISTORY: chest pain left, cough and episodes of diaphoresis. TECHNIQUE: Imaging Protocol: Axial CT angiography was performed with multi-slice acquisition and mu lti-planar and/or 3D reconstructions. CONTRAST MATERIAL: Intravenous: Omnipaque 350 Contrast volume:structured data in ml COMPARISON: CT CT LUMBAR SPINE RECONS from 01/27/2021 FINDINGS: CT angiography of the chest was performed with intravenous infusion of 100 cc of Omnipaque 350. The lungs are clear. There is mild mosaic attenuation which is presumably indicative of some air tra pping. No pleural effusion. Tracheobronchial tree appears intact. No evidence of pulmonary embolic disease. Thoracic aorta is mildly ectatic at 42 millimeters, no thor acic aortic aneurysm or dissection, major branch vessels appear intact. No mediastinal or hilar adenopathy. Images obtained through the upper abdomen show unremarkable appearance of the visualized portions of the liver, spleen, pancreas, adrenals, and kidneys. IMPRESSION: Negative CT angiogram of the chest. No evidence of pulmonary embolic disease. RADIATION DOSE DELIVERED: Total DLP Total DLP DATA REPOSITORY: All CT scans at this facility are submitted to the National Radiology Data Registry (NRDR) Dose Index Registry (DIR) with the [employer] (ACR). RADIATION OPTIMIZATION: All CT scans at this facility use at least one of these dose optimization te chniques: automated exposure control; mA and/or kV adjustment per patient size (includes targeted exa ms where dose is matched to clinical indication); or iterative reconstruction.
[2022-07-01 10:18] LABS: Abs Immature Grans 0.03 10^3/uL (0.0-0.06); Absolute Basophil Count 0.07 10^3/uL (0.0-0.2); Absolute Eosinophil Count 0.21 10^3/uL (0.0-0.7); Absolute Lymphocyte Count 1.58 10^3/uL (1.2-3.4); Absolute Monocyte Count 0.38 10^3/uL (0.1-0.8); Absolute Neutrophil Count 3.61 10^3/uL (1.2-6.7); Basophils % 1.2; Eosinophils % 3.6; HCT 34.5 % (36.0-46.0); HGB 11.5 g/dL (11.2-15.7); Immature Grans % 0.5; Lymphocytes % 26.9; MCH 30.7 pg (27.0-33.0); MCHC 33.3 % (32.0-36.0); MCV 92 fL (80-95); MPV 9.7 fL (8.0-11.0); Monocytes % 6.5; Neutrophils % 61.3; Platelet Count 320 10^3/uL (130-400); RBC 3.75 10^6/uL (3.93-5.22); RDW 13.6 % (11.7-14.6); RDW-SD 46.8 fL; WBC 5.88 10^3/uL (4.4-10.8)
[2022-07-01 10:40] LABS: ALT 14 U/L (14-59); AST 16 U/L (15-37); Albumin 4.1 g/dL (3.4-5.0); Alkaline Phosphatase 87 U/L (46-116); Anion Gap 8.8 mmol/L (3-11); BUN 14 mg/dL (7-18); Bilirubin, Total 0.4 mg/dL (0.2-1.0); CO2 27.2 mmol/L (21.0-32.0); CREATININE 0.9 mg/dL (0.55-1.02); Calcium 8.8 mg/dL (8.5-10.1); Chloride 106 mmol/L (98-107); Glucose 99 mg/dL (74-106); Magnesium 2.2 mg/dL (1.8-2.4); Potassium 4.2 mmol/L (3.5-5.1); Sodium 142 mmol/L (136-145); Total Protein 7.3 g/dL (6.4-8.2); Troponin I < 50 ng/L (<or=60)
--- NOTE | 2022-07-01 11:12 | ED.GENADUL_ITS ---
Discharge Plan Disposition Patient Disposition: Home Condition: Stable Discharge Details Clinical Impression: Cough, Chest discomfort, Chronic GERD Primary Care Provider: Kiran Lewis ED Provider: Med Robertson Home Meds and New Rx's Prescriptions: Continued Estroven Cmplt Menopause Rlf 4 mg tablet 4 mg PO DAILY triamcinolone acetonide 0.05 % ointment 1 applic topical BID Qty: 110 0RF ferrous sulfate [FeroSul] 325 mg (65 mg iron) tablet 325 mg PO DAILY [facility] 750 mg-100 mg- 1.65 mg-108 mg tablet 3 tab PO DAILY Label Comments: one tablet in the AM and two at night as stated by Pt 11/10/20 TR sucralfate [Carafate] 1 gram tablet 1 g PO BID Qty: 30 12RF methocarbamol 750 mg tablet 750 mg PO Q8H PRN (Reason: muscle spasm) Qty: 60 6RF multivitamin [Daily Multi-Vitamin] 1 EACH tablet 1 ea PO DAILY cholecalciferol (vitamin D3) [Vitamin D3] 2,000 UNIT capsule 5,000 unit PO DAILY pantoprazole [Protonix] 40 mg tablet,delayed release (DR/EC) 40 mg PO DAILY Qty: 90 4RF acetaminophen 500 mg capsule 1,000 mg PO Q8H PRN PRNQty: 30 0RF Medical Marijuana Discharge Instructions Instructions: Chest Pain (ED), GERD (Gastroesophageal Reflux Disease) (ED) Additional Instructions: Please rest over the next few days. No external activities. No heavy lifting. Please follow-up with your primary care physician. Call today to arrange timely follow-up for reassessment early next week. Please follow-up with general surgery for upper endoscopy. Please contact your primary care physician to arrange follow-up. Return to the ER immediately for any worsening or new concerning symptoms. Referrals: [facility] [Provider Group] Kiran Lewis, INDUSTRIAL PAINTER [Primary Care Provider] - Medical Decision Making 11:00?67-year-old female with history GERD, former smoker, high cholesterol, here with intermittent episodes of chest discomfort described as a pulling sensation that occur with heavy lifting over the past several weeks as well as episodes of cough productive of clear sputum with associated diaphoresis. Consider ACS. EKG was reviewed and interpreted by me: Please report, sinus rhythm 79 bpm, very subtle ST depression noted V4 to V6. I will check troponin. CT of the chest was interpreted by radiology: Am concerned that this pulling sensation and episodes of diaphoresis that patient may have significant lung disease including consideration for acute aortic dissection and pulmonary embolism versus chronic infectious process. Plan to obtain CT of the chest. -- Initial trop negative. -- CT of the chest interpreted by radiology: FINDINGS: CT angiography of the chest was performed with intravenous infusion of 100 cc of Omnipaque 350. The lungs are clear.? There is mild mosaic attenuation which is presumably indicative of some air trapping.? No pleural effusion. Tracheobronchial tree appears intact. No evidence of pulmonary embolic disease. Thoracic aorta is mildly ectatic at 42 millimeters, no thoracic aortic aneurysm or dissection, major branch vessels appear intact. No mediastinal or hilar adenopathy. Images obtained through the upper abdomen show unremarkable appearance of the visualized portions of the liver, spleen, pancreas, adrenals, and kidneys. IMPRESSION: Negative CT angiogram of the chest. No evidence of pulmonary embolic disease. 12:18 -- Given symptoms I will send TB testing. Delta troponin and repeat EKG pending. 13:18 --delta troponin negative. Repeat EKG was reviewed interpreted by me and no change. Plan for discharge with close outpatient follow-up with PCP. TB testing pending at discharge. I am concerned that her symptoms may be related to chronic GERD. Patient is taking Carafate and a PPI. I will refer her to general surgery for endoscopy. Patient understands importance of timely follow-up with PCP. I encouraged her to call today to schedule follow-up for reassessment early next week. Sign Out No HPI General Mode of arrival: ambulatory . Date/Time Provider Initiated Documentation: 07/01/22 09:37 . Limitations to Documentation: no limitations . Information obtained by: patient . HPI Narrative: 57yo female with history of GERD, former smoker, presents with chief complaint of chest discomfort. Patient notes she has been moving heavy boxes and has experienced a pulling discomfort in her left chest that occurs with heavy lifting. This has been intermittent over the past several weeks. She also notes episodes of cough productive of clear sputum associated diaphoresis over the past 6 weeks. These episodes are frequent and occur daily. She has no pain at this time. She does have some associated difficulty swallowing and feels that she needs to clear her throat which does help. She has no associated leg swelling or calf pain. No recent unintentional weight loss. Related Data Home Medications Medication Instructions Recorded Confirmed cholecalciferol (vitamin D3) 50 5,000 unit PO DAILY 07/08/17 07/01/22 mcg (2,000 unit) capsule (Vitamin D3) multivitamin (Daily Multi-Vitamin 1 ea PO DAILY 07/08/17 07/01/22 tablet) rhubarb root extract 4 mg tablet 4 mg PO DAILY 06/24/20 07/01/22 (Estroven Complete Menopause Relief) Medical Marijuana 06/28/20 04/08/22 ferrous sulfate 325 mg (65 mg 325 mg PO DAILY 07/04/20 07/01/22 iron) tablet (FeroSul) glucosam 750 mg-chondroi 100 3 tab PO DAILY 11/10/20 07/01/22 mg-hyalur 1.65 mg-CF borate 108 mg tablet ([facility] [employer]) pantoprazole 40 mg tablet,delayed 40 mg PO DAILY #90 tabs 10/15/21 07/01/22 release (Protonix) acetaminophen 500 mg capsule 1,000 mg PO Q8H PRN PRN #30 caps 10/27/21 07/01/22 triamcinolone acetonide 0.05 % 1 applic topical BID #110 grams 02/09/22 07/01/22 topical ointment methocarbamol 750 mg tablet 750 mg PO Q8H PRN muscle spasm #60 04/07/22 07/01/22 tabs sucralfate 1 gram tablet (Carafate) 1 g PO BID #30 tabs 04/07/22 07/01/22 Previous Rx's Medication Instructions Recorded pantoprazole 40 mg tablet,delayed 40 mg PO DAILY #90 tabs 10/15/21 release (Protonix) acetaminophen 500 mg capsule 1,000 mg PO Q8H PRN PRN #30 caps 10/27/21 triamcinolone acetonide 0.05 % 1 applic topical BID #110 grams 02/09/22 topical ointment methocarbamol 750 mg tablet 750 mg PO Q8H PRN muscle spasm #60 04/07/22 tabs sucralfate 1 gram tablet (Carafate) 1 g PO BID #30 tabs 04/07/22 Allergies Allergy/AdvReac Type Severity Reaction Status Date / Time No Known Allergies Allergy Verified 07/01/22 09:47 General Stated Complaint: Chest Pain [place]: 3 Review of Systems All systems reviewed & are unremarkable except as noted in HPI and below Constitutional Constitutional: Denies fever(s) Cardiovascular Cardiovascular: Reports as per HPI Respiratory Respiratory: Reports cough PFSH All Active Problems (Updated 07/01/22 @ 13:25 by Med Robertson MD) Cough (Acute) Chest discomfort (Acute) Chronic GERD (Acute) Screening for colon cancer (Acute) RUQ abdominal pain (Acute) Lumbar strain (Acute) Cubital tunnel syndrome on left (Acute 10/27/21) s/p release 10/27/2021 Hammer toe of second toe of right foot (Acute) Carpal tunnel syndrome of left wrist (Acute) s/p ECTR Left hand pain (Acute) Vitamin D deficiency (Acute) Mass of pancreas (Acute) Back pain (Acute) Spondylosis (Acute) at almost every level by MRI 07/2020 [facility] recommended laminectomy for lumbar stenosis L2-3 & L4-5 Stress fracture of metatarsal bone (Acute) 3rd metatarsal right foot. Chronic low back pain with sciatica (Acute) 07/2020- Large broad-based disc herniation at L2-3. Mild broad-based disc herniation at L4-5. referred to [facility] neurosurgery Anemia (Chronic) Metatarsal fracture (Acute ~03/01/20) Right second metatarsal Amputation of toe of left foot (Acute 01/29/20) Left third toe GERD with esophagitis (Chronic) EGD 09/06/18 with erosive reflux esophagitis Medical History Acute gastritis Dyshidrotic eczema History of in vitro fertilization Hyperlipidemia Patient Denies Pelvic pain Surgical History Acquired deformity of left toe s/p left third toe amputation 01/29/20 Lateral deviation of the third toe PIP joint 06/13/18 - Plantar plate repair with augmentation using Arthrex InternalBrace for third MTP joint, along with Clotilde osteotomy 11/14/18--Removal of hardware from left third metatarsal with hammertoe correction using a DuVries osteotomy H/O section (~02/2013) 02/2013 and 11/2014 H/O laparoscopy Ovarian cyst drainage at 17 or 18yrs old H/O toe surgery History of carpal tunnel release (01/29/20) Left History of esophagogastroduodenoscopy (EGD) (09/06/18) 09/06/18 07/07/20- Stoiber Hx of appendectomy (~1981) S/P bunionectomy (04/18/15) Right hallux S/P colonoscopy (06/10/17) S/P cubital tunnel release (11/14/18) Ulnar nerve decompression with anterior subcutaneous transposition S/P endoscopic carpal tunnel release (01/29/20) Right wrist 11/14/18 Left Wrist 01/29/20 S/P excision of Guadalupe's neuroma (04/18/15) Right 3rd intermetatarsal space. Repeated on 12/12/2015 S/P hammer toe correction 04/18/15--Of right 2nd toe 06/13/18--DuVries osteotomy, arthroplasty of the second PIP joint, left foot. Plantar plate repair with augmentation using Arthrex InternalBrace for third MTP joint, along with Clotilde osteotomy 11/14/18--Removal of hardware from left third metatarsal with hammertoe correction using a DuVries osteotomy 11/14/2018 S/P hammertoe fixation - right second and third toes - 05/30/19 S/P LASIK surgery of both eyes (~2009) Right in 2009 Left in 2010 Family History Mother No problems noted. Father Dementia Brother No problems noted. Daughter No problems noted. Daughter No problems noted. Maternal Grandfather , at 74 of emphysema COPD (chronic obstructive pulmonary disease) with emphysema Maternal Grandmother , at 96 No problems noted. 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 Pets and animals: Yes Pets and animals: dog(s) Do you think of yourself as: lesbian/edward/homosexual Current gender identity: female What is your relationship status?: refused to answer How often do you talk on the phone with friends or family?: decline to answer How often do you get together with friends or relatives?: decline to answer How often do you attend catholic or latter day services?: decline to answer Do you belong to any clubs or organized social groups?: decline to answer Panel score (0-1 are the most socially isolated patients): 0 Julee/Alevism: Other Seatbelt use: always Helmet use: Yes Helmet use: always Drive intox or ride w/intox hearse driver: No Do you feel safe at home: Yes Do you feel safe in your relationship?: Yes Exam Const General: cooperative and no acute distress HENMT Mouth: moist mucous membranes Eyes Conjunctivae: normal conjunctivae Sclera: normal sclerae Neck Neck: trachea midline Resp Auscultation: clear to auscultation bilaterally, no rales, no rhonchi and no wheezes Cardio Rate: regular rate and not tachycardic Rhythm: regular rhythm Heart Sounds: no murmurs GI Palpation: soft, not firm, no guarding, no masses, not rigid and nontender Skin General skin exam: no rashes or lesions noted Neuro General: patient alert, patient awake and tone normal Extrem General: no calf tenderness and no edema Psych Appearance: grossly normal Mental Status: mental status grossly normal Course Vital Signs Vital signs: Vital Signs Pulse 86 07/01/22 09:36 Blood Pressure 151/94 H 07/01/22 09:36 Temperature 37.0 C 07/01/22 09:43 Temperature Source Temporal Artery Scan 07/01/22 09:43 Pulse 79 07/01/22 09:46 Pulse 82 07/01/22 09:46 Respiratory Rate 16 07/01/22 09:53 Respiratory Effort 07/01/22 09:53 Respiratory Depth Normal 07/01/22 09:53 Respiratory Pattern Normal 07/01/22 09:53 Blood Pressure 145/79 H 07/01/22 09:46 Blood Pressure Mean 96 07/01/22 09:46 Blood Pressure Position Sitting 07/01/22 09:43 Pulse Oximetry 96 07/01/22 09:50 Oxygen Delivery Method Room Air 07/01/22 09:43 Oxygen Flow Rate 0 07/01/22 09:43 Lab/Test Results Lab/Test Results: Laboratory Tests Range/Units 07/01/22 07/01/22 10:08 10:08 WBC (4.4-10.8) 10^3/uL 5.88 RBC (3.93-5.22) 10^6/uL 3.75 L Hgb (11.2-15.7) g/dL 11.5 Hct (36.0-46.0) % 34.5 L MCV (80-95) fL 92 MCH (27.0-33.0) pg 30.7 MCHC (32.0-36.0) % 33.3 RDW (11.7-14.6) % 13.6 Plt Count (130-400) 10^3/uL 320 MPV (8.0-11.0) fL 9.7 Immature Gran % 0.5 Neutrophils % 61.3 Lymphocytes % 26.9 Monocytes % 6.5 Eosinophils % 3.6 Basophils % 1.2 Nucleated RBC % (0.0-0.3) % 0.0 Absolute Neutrophils (1.2-6.7) 10^3/uL 3.61 Absolute Lymphocytes (1.2-3.4) 10^3/uL 1.58 Absolute Monocytes (0.1-0.8) 10^3/uL 0.38 Absolute Eosinophils (0.0-0.7) 10^3/uL 0.21 Absolute Basophils (0.0-0.2) 10^3/uL 0.07 Sodium (136-145) mmol/L 142 Potassium (3.5-5.1) mmol/L 4.2 Chloride (98-107) mmol/L 106 Carbon Dioxide (21.0-32.0) mmol/L 27.2 Anion Gap (3-11) mmol/L 8.8 BUN (7-18) mg/dL 14 Creatinine (0.55-1.02) mg/dL 0.9 Est GFR (CKD-EPI 2020) (mL/min/1.73m2) 75.50 Glucose (74-106) mg/dL 99 Calcium (8.5-10.1) mg/dL 8.8 Magnesium (1.8-2.4) mg/dL 2.2 Total Bilirubin (0.2-1.0) mg/dL 0.4 AST (15-37) U/L 16 ALT (14-59) U/L 14 Alkaline Phosphatase (46-116) U/L 87 Troponin I (<or=60) ng/L < 50 Total Protein (6.4-8.2) g/dL 7.3 Albumin (3.4-5.0) g/dL 4.1
[2022-07-01] MEDS: Normal Saline Flush 10 ML SYR IVP (11:18)
[2022-07-01] MEDS: Normal Saline - Diluent 50 ML VIAL IJ (11:19)
[2022-07-01] MEDS: Omnipaque 350 MG/ML 500 ML BTL-Imaging package IJ (11:20)
--- NOTE | 2022-07-01 12:15 | RT.EKG_ITS ---
APPROVED REPORT Exam: Resting ECG Reason for Exam: chest pain Patient Location: E HR:59 bpm ECG Measurements Heart Rate 59 AXIS MS 163 P 59 QRSd 89 QRS -9 QT 423 T 36 QTc 421 Conclusion Sinus bradycardia...rate< 60
[2022-07-01 12:56] LABS: Troponin I < 50 ng/L (<or=60)
--- NOTE | 2022-07-01 14:15 | NUR.NOTE ---
Nursing Note: Referral faxed to [facility] for needs upper endoscopy, chest pain, bad GERD; in the next couple weeks.
[2022-07-05 13:47] LABS: TB Interpretation Negative (Negative); TB1 Ag minus Nil 0.01 IU/ml; TB2 Ag minus Nil 0.01 IU/mL
== END 2022-07-01 13:42 | disposition home or self-care (01) ==
PROVIDERS: Emergency Provider Student in an Organized Health Care Education/Training Program; PCP Nurse Practitioner Family
DX: G89.11 Acute pain due to trauma (principal); R07.89 Other chest pain; R05.9 Cough, unspecified; K21.9 Gastro-esophageal reflux disease without esophagitis; E78.00 Pure hypercholesterolemia, unspecified; Z87.891 Personal history of nicotine dependence; X50.0XXA Overexertion from strenuous movement or load, initial encounter
CPT/HCPCS: 36415; 71275; 80053; 93005; 99285; 83735; 84484; 85025; 86480; 93010

== ENCOUNTER 2023-02-02 11:19 | Emergency (ER) | payer MEDICAID, SELFPAY ==
[2023-02-02 11:40] VITALS: BP 122/74; PULSE 77; RESP 18; TEMP 36.9; O2SAT 100
--- NOTE | 2023-02-02 12:00 | DI.CT_ITS ---
Exam(s) CT RENAL COLIC WO EXAM: CT RENAL COLIC WO CLINICAL HISTORY: flank pain. TECHNIQUE: Imaging Protocol: Axial computed tomography images with coronal and sagittal reformatted images were created and reviewed. COMPARISON: CT CT ABDOMEN PELVIS W from 01/27/[address] CHEST PE CTA from 07/01/2022 FINDINGS: ABDOMEN: Lung Bases: Normal where visualized. Liver: Normal density. No measurable mass. Calcified granuloma are present. Gallbladder and biliary tract: No radiodense calculus or biliary ductal dilation. Pancreas: Normal density, no abnormal calcifications or inflammatory process. Spleen: Normal. Calcified granuloma are present. Kidneys: Normal size, contour and axis.No radiodense stones or obstructive uropathy. No masses seen. Adrenal glands: No mass is seen. There is a circum aortic left renal vein. Lymph nodes: Within normal limits. Abdominal Aorta: Abdominal portion non-dilated. Atherosclerosis. PELVIS: Bladder:Incompletely distended but grossly unremarkable. Bowel: There are some a few diverticula in the colon but no evidence of acute diverticulitis. No alfonso dence of bowel obstruction or bowel wall thickening. No evidence of appendicitis. Peritoneal cavity: No ascites, collection or mesenteric inflammatory response. No free air. Reproductive organs: Unremarkable as visualized. Bones: Within normal limits. Soft Tissues: There is a small fat containing umbilical hernia. IMPRESSION: 1. No evidence of nephrolithiasis or hydronephrosis. 2. No acute abdominal or pelvic process. 3. Findings were discussed with the emergency department at 12:49 p.m. on 02/02/2023. RADIATION DOSE DELIVERED: 975.69mGy.cm Total DLP DATA REPOSITORY: All CT scans at this facility are submitted to the National Radiology Data Registry (NRDR) Dose Index Registry (DIR) with the [employer] (ACR). RADIATION OPTIMIZATION: All CT scans at this facility use at least one of these dose optimization te chniques: automated exposure control; mA and/or kV adjustment per patient size (includes targeted exa ms where dose is matched to clinical indication); or iterative reconstruction.
[2023-02-02 12:16] LABS: Bilirubin Negative (Negative); Blood Negative (Negative); Clarity Clear (Clear); Glucose Negative (Negative); Ketones Negative (Negative); Leukocyte Esterase Negative (Negative); Nitrite Negative (Negative); Specific Gravity 1.025 (1.005-1.025); Urobilinogen 0.2 mg/dL (Up to 0.2)
--- NOTE | 2023-02-02 12:37 | W.ED.GENAD ---
Discharge Plan Disposition Patient Disposition: Home Discharge Details Clinical Impression: Lumbar strain, Chronic low back pain Primary Care Provider: Kiran Lewis ED Provider: Celena Zavala Home Meds and New Rx's Prescriptions: No Action Estroven Cmplt Menopause Rlf 4 mg tablet 4 mg PO DAILY triamcinolone acetonide 0.05 % ointment 1 applic topical BID Qty: 110 0RF methocarbamol 750 mg tablet 750 mg PO Q8H PRN (Reason: muscle spasm) Qty: 90 3RF ferrous sulfate [FeroSul] 325 mg (65 mg iron) tablet 325 mg PO DAILY [facility] 750 mg-100 mg- 1.65 mg-108 mg tablet 3 tab PO DAILY Patient Comments: one tablet in the AM and two at night as stated by Pt 11/10/20 TR methylprednisolone [Medrol (Smooth)] 4 mg tablets,dose pack See Rx Instructions PO PER PKG DIR Qty: 21 0RF Rx Instructions: PO PER PKG DIR multivitamin [Daily Multi-Vitamin] 1 EACH tablet 1 ea PO DAILY cholecalciferol (vitamin D3) [Vitamin D3] 2,000 UNIT capsule 5,000 unit PO DAILY sucralfate 1 gram tablet See Rx Instructions .ROUTE .COMPLEX Qty: 60 1RF Dose Instruction: TAKE 1 TABLET BEFORE MEALS AND AT BEDTIME, TAKE ON AN EMPTY STOMACH 1 HOUR PRIOR TO MEALS Rx Instructions: TAKE 1 TABLET BEFORE MEALS AND AT BEDTIME, TAKE ON AN EMPTY STOMACH 1 HOUR PRIOR TO MEALS pantoprazole [Protonix] 40 mg tablet,delayed release (DR/EC) 40 mg PO DAILY Qty: 90 4RF acetaminophen 500 mg capsule 1,000 mg PO Q8H PRN PRNQty: 30 0RF Medical Marijuana Discharge Instructions Instructions: Low Back Strain (ED) Additional Instructions: Continue taking Tylenol, Motrin, muscle relaxant as needed. Keep follow-up for MRI. Referrals: Kiran Lewis, NIB ADJUSTER [Primary Care Provider] - 3 days Discharge Data Discharge Physician: Celena Zavala Medical Decision Making 57-year-old female presents for evaluation of left flank pain. She does have a history of recent flare of low sciatica. UA unremarkable. CBC and CMP unremarkable. CT of abdomen pelvis was obtained to evaluate for signs of kidney stone or intra-abdominal infection. This was also unremarkable. Patient's pain is likely secondary to chronic back issues. Patient has no saddle anesthesia, no loss of bowel or bladder control. Patient's history and physical exam are consistent with musculoskeletal back pain. There are no red flags for cauda equina syndrome or infection. She w ill continue to use her muscle relaxants. Patient is to follow up closely with primary care or return to the ED for any worsening symptoms. HPI General Date/Time Provider Initiated Documentation: 02/02/23 11:54. HPI Narrative: 57-year-old female with history of chronic back pain presents for evaluation of left flank pain. Patient does have a history of recent flare of left-sided lower back pain. She states that she completed a burst of steroid for a flare of back pain several days ago. She was feeling better however over the last 2 days she began having some pain in her left flank. She did take 2 doses of muscle relaxant this morning and a dose of ibuprofen this morning. She states that she does use marijuana to help with the discomfort. Over the last day or 2 she has found that if she lays down. The pain can improve. Today she was concerned that she may have a kidney infection. She does have a history of prior kidney infection in the past. She denies any increased urinary frequency, dysuria, gross hematuria. She states that she did have a small bowel movement today but it was very small pellets of stool. Last colonoscopy was over 5 years ago. No known history of diverticulitis or diverticulosis. No fevers or chills. No nausea or vomiting. She denies any falls or direct trauma. No loss of control of her bowel or bladder. No numbness or tingling. No saddle anesthesia. Related Data Home Medications Medication Instructions Recorded Confirmed cholecalciferol (vitamin D3) 50 5,000 unit PO DAILY 07/08/17 01/19/23 mcg (2,000 unit) capsule (Vitamin D3) multivitamin (Daily Multi-Vitamin 1 ea PO DAILY 07/08/17 01/19/23 tablet) rhubarb root extract 4 mg tablet 4 mg PO DAILY 06/24/20 01/19/23 (Estroven Complete Menopause Relief) Medical Marijuana 06/28/20 01/19/23 ferrous sulfate 325 mg (65 mg 325 mg PO DAILY 07/04/20 01/19/23 iron) tablet (FeroSul) glucosam 750 mg-chondroi 100 3 tab PO DAILY 11/10/20 01/19/23 mg-hyalur 1.65 mg-CF borate 108 mg tablet ([facility]) acetaminophen 500 mg capsule 1,000 mg PO Q8H PRN PRN #30 caps 10/27/21 01/19/23 triamcinolone acetonide 0.05 % 1 applic topical BID #110 grams 02/09/22 01/19/23 topical ointment methocarbamol 750 mg tablet 750 mg PO Q8H PRN muscle spasm #90 09/22/22 01/19/23 tabs sucralfate 1 gram tablet See Rx Instructions .Route 10/11/22 01/19/23 .COMPLEX #60 tabs pantoprazole 40 mg tablet,delayed 40 mg PO DAILY #90 tabs 11/08/22 01/19/23 release (Protonix) methylprednisolone 4 mg tablets in See Rx Instructions PO PER PKG DIR 01/17/23 01/17/23 a dose pack (Medrol (Smooth)) #21 dose pk Previous Rx's Medication Instructions Recorded acetaminophen 500 mg capsule 1,000 mg PO Q8H PRN PRN #30 caps 10/27/21 triamcinolone acetonide 0.05 % 1 applic topical BID #110 grams 02/09/22 topical ointment methocarbamol 750 mg tablet 750 mg PO Q8H PRN muscle spasm #90 09/22/22 tabs sucralfate 1 gram tablet See Rx Instructions .Route 10/11/22 .COMPLEX #60 tabs pantoprazole 40 mg tablet,delayed 40 mg PO DAILY #90 tabs 11/08/22 release (Protonix) methylprednisolone 4 mg tablets in See Rx Instructions PO PER PKG DIR 01/17/23 a dose pack (Medrol (Smooth)) #21 dose pk Allergies Allergy/AdvReac Type Severity Reaction Status Date / Time No Known Allergies Allergy Verified 01/17/23 09:30 General Stated Complaint: FlankPain [place]: 3 Review of Systems Narrative: Remainder of review of systems otherwise negative except for as noted in the HPI x10. PFSH All Active Problems (Updated 02/02/23 @ 13:22 by Celena Zavala MD) Chronic low back pain (Chronic) Screening for colon cancer (Acute) RUQ abdominal pain (Acute) Lumbar strain (Acute) Cubital tunnel syndrome on left (Acute 10/27/21) s/p release 10/27/2021 Hammer toe of second toe of right foot (Acute) Carpal tunnel syndrome of left wrist (Acute) s/p ECTR Left hand pain (Acute) Vitamin D deficiency (Acute) Mass of pancreas (Acute) Back pain (Acute) Spondylosis (Acute) at almost every level by MRI 07/2020 [facility] recommended laminectomy for lumbar stenosis L2-3 & L4-5 Stress fracture of metatarsal bone (Acute) 3rd metatarsal right foot. Chronic low back pain with sciatica (Acute) 07/2020- Large broad-based disc herniation at L2-3. Mild broad-based disc herniation at L4-5. referred to [facility] neurosurgery Anemia (Chronic) Metatarsal fracture (Acute ~03/01/20) Right second metatarsal Amputation of toe of left foot (Acute 01/29/20) Left third toe GERD with esophagitis (Chronic) EGD 09/06/18 with erosive reflux esophagitis Medical History Acute gastritis Dyshidrotic eczema History of in vitro fertilization Hyperlipidemia Patient Denies Pelvic pain Surgical History Acquired deformity of left toe s/p left third toe amputation 01/29/20 Lateral deviation of the third toe PIP joint 06/13/18 - Plantar plate repair with augmentation using Arthrex InternalBrace for third MTP joint, along with Clotilde osteotomy 11/14/18--Removal of hardware from left third metatarsal with hammertoe correction using a DuVries osteotomy H/O section (~02/2013) 02/2013 and 11/2014 H/O laparoscopy Ovarian cyst drainage at 17 or 18yrs old H/O toe surgery History of carpal tunnel release (01/29/20) Left History of esophagogastroduodenoscopy (EGD) (09/06/18) 09/06/18 07/07/20- Stoiber Hx of appendectomy (~1981) S/P bunionectomy (04/18/15) Right hallux S/P colonoscopy (06/10/17) S/P cubital tunnel release (11/14/18) Ulnar nerve decompression with anterior subcutaneous transposition S/P endoscopic carpal tunnel release (01/29/20) Right wrist 11/14/18 Left Wrist 01/29/20 S/P excision of Guadalupe's neuroma (04/18/15) Right 3rd intermetatarsal space. Repeated on 12/12/2015 S/P hammer toe correction 04/18/15--Of right 2nd toe 06/13/18--DuVries osteotomy, arthroplasty of the second PIP joint, left foot. Plantar plate repair with augmentation using Arthrex InternalBrace for third MTP joint, along with Clotilde osteotomy 11/14/18--Removal of hardware from left third metatarsal with hammertoe correction using a DuVries osteotomy 11/14/2018 S/P hammertoe fixation - right second and third toes - 05/30/19 S/P LASIK surgery of both eyes (~2009) Right in 2009 Left in 2010 Family History Mother No problems noted. Father Dementia Brother No problems noted. Daughter No problems noted. Daughter No problems noted. Maternal Grandfather , at 74 of emphysema COPD (chronic obstructive pulmonary disease) with emphysema Maternal Grandmother , at 96 No problems noted. 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 Pets and animals: Yes Pets and animals: dog(s) Do you think of yourself as: lesbian/edward/homosexual Current gender identity: female What is your relationship status?: refused to answer How often do you talk on the phone with friends or family?: decline to answer How often do you get together with friends or relatives?: decline to answer How often do you attend mu-ism or buddhism services?: decline to answer Do you belong to any clubs or organized social groups?: decline to answer Panel score (0-1 are the most socially isolated patients): 0 Julee/Denominational: Other Seatbelt use: always Helmet use: Yes Helmet use: always 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 no wheezes, rales, rhonchi, or retractions Abd: soft, non-tender, non-distended, normal bowel sounds, no rebound or guarding, no peritoneal signs, no CVAT Musculoskeletal: full range of motion of arms and legs, no tenderness to palpation. no clubbing, cyanosis, or edema Back exam: + Left lumbosacral paraspinal tenderness, no mid-line tenderness, normal strength & sensation, negative SLR's, DTR's 2+ bilaterally Neurologic: appropriate for age, strength normal Psych: alert and oriented Skin: no petechiae, no lesions, warm and dry Course Vital Signs Vital signs: Vital Signs Temperature 36.9 C 02/02/23 11:40 Pulse 77 02/02/23 11:40 Respiratory Rate 18 02/02/23 11:40 Blood Pressure 122/74 02/02/23 11:40 Pulse Oximetry 100 02/02/23 11:40 Temperature 36.9 C 02/02/23 11:40 Temperature Source Oral 02/02/23 11:40 Pulse 77 02/02/23 11:40 Respiratory Rate 18 02/02/23 11:40 Respiratory Effort Normal, Non-Labored 02/02/23 11:44 Blood Pressure 122/74 02/02/23 11:40 Blood Pressure Position Sitting 02/02/23 11:40 Pulse Oximetry 100 02/02/23 11:40 Oxygen Delivery Method Room Air 02/02/23 11:40 Oxygen Flow Rate 0 02/02/23 11:40 Lab/Test Results Lab/Test Results: Laboratory Tests Range/Units 02/02/23 12:09 Urine Color (Yellow) Yellow Urine Clarity (Clear) Clear Urine pH (5-8) 5.0 Ur Specific [place] (1.005-1.025) 1.025 Urine Protein (Negative) mg/dL Negative Urine Ketones (Negative) mg/dL Negative Urine Blood (Negative) Negative Urine Nitrite (Negative) Negative Urine Bilirubin (Negative) Negative Urine Urobilinogen (Up to 0.2) mg/dL 0.2 Ur Leukocyte Esterase (Negative) Negative Urine Glucose (Negative) mg/dL Negative
[2023-02-02 12:50] LABS: Abs Immature Grans 0.02 10^3/uL (0.0-0.06); Absolute Basophil Count 0.05 10^3/uL (0.0-0.2); Absolute Eosinophil Count 0.11 10^3/uL (0.0-0.7); Absolute Monocyte Count 0.48 10^3/uL (0.1-0.8); Absolute Neutrophil Count 2.85 10^3/uL (1.2-6.7); Basophils % 0.9; HCT 35.9 % (36.0-46.0); Immature Grans % 0.4; Lymphocytes % 35.1; MCHC 33.4 % (32.0-36.0); MCV 93 fL (80-95); MPV 9.6 fL (8.0-11.0); Monocytes % 8.9; Neutrophils % 52.7; Platelet Count 276 10^3/uL (130-400); RBC 3.87 10^6/uL (3.93-5.22); WBC 5.41 10^3/uL (4.4-10.8)
[2023-02-02] MEDS: Ketorolac 30 MG/ML VIAL IVP (12:52)
[2023-02-02 12:58] VITALS: BP 113/82; PULSE 88; RESP 18; O2SAT 99
[2023-02-02 13:05] LABS: ALT 25 U/L (14-59); AST 19 U/L (15-37); Albumin 4.1 g/dL (3.4-5.0); Alkaline Phosphatase 96 U/L (46-116); BUN 25 mg/dL (7-18); Bilirubin, Total 0.9 mg/dL (0.2-1.0); Calcium 8.7 mg/dL (8.5-10.1); Chloride 105 mmol/L (98-107); Estimated GFR 66.53 (mL/min/1.73m2); Glucose 97 mg/dL (74-106); Potassium 4.4 mmol/L (3.5-5.1); Sodium 141 mmol/L (136-145); Total Protein 7.4 g/dL (6.4-8.2)
[2023-02-02 13:47] VITALS: BP 127/81; PULSE 88; RESP 18; O2SAT 97
== END 2023-02-02 13:48 | disposition home or self-care (01) ==
PROVIDERS: Emergency Provider Emergency Medicine Emergency Medical Services; PCP Nurse Practitioner Family
DX: M54.59 Other low back pain (principal); S39.012A Strain of muscle, fascia and tendon of lower back, initial encounter; X58.XXXA Exposure to other specified factors, initial encounter
CPT/HCPCS: 36415; 80053; 96374; 99284; 74176; 81003; 85025; J1885

== ENCOUNTER 2023-02-04 09:58 | Emergency (ER) | payer MEDICAID, SELFPAY ==
[2023-02-04 10:08] VITALS: BP 120/85; PULSE 73; RESP 18; TEMP 36.8; O2SAT 99
--- NOTE | 2023-02-04 10:33 | DI.MRI_ITS ---
Exam(s) MR LUMBAR SPINE WO EXAM: MR LUMBAR SPINE WO CLINICAL HISTORY: severe back pain. TECHNIQUE: Multiplanar multisequence MRI of the Lumbar spine was performed. COMPARISON: MR MR LUMBAR SPINE WO from 08/13/[address] RENAL COLIC WO from 02/02/2023 FINDINGS: Bones: The last intervertebral disc space is designated the L5/S1 level for the numbering purpose of this examination. The vertebral body heights are well maintained. Alignment is satisfactory. The si gnal characteristics are unremarkable. Cord: The conus tip ends at the L1 level. It is of normal size and signal intensity. T12-L1: No disc herniations or bulges are present. No central spinal canal or neural foraminal stenos is. L1-2: No disc herniations or bulges are present. No central spinal canal or neural foraminal stenosis . L2-3: There is a mild diffuse disc bulge causing mild narrowing of the central spinal canal. No sign ificant neural foraminal stenosis. L3-4: There is a diffuse disc bulge. There is a left sided disc herniation which extends into the ne ural foramen. There does appear to be compression of the left exiting nerve root. There is mild-to- moderate left neural foraminal stenosis. No significant right neural foraminal stenosis. There is m ild narrowing of the central spinal canal. L4-5: There is a diffuse disc bulge. Mild degenerative changes of the facets. There is mild narrowi ng of the central spinal canal. There is mild bilateral neural foraminal narrowing. L5-S1: No disc herniations or bulges are present. No central spinal canal or neural foraminal stenosi s. Soft tissues: The visualized SI joints and sacrum are well maintained. The paraspinal soft tissues ar e unremarkable. IMPRESSION: 1. Left-sided L3-4 disc herniation extending into the neural foramina cause compression of the left e xiting nerve root. 2. Multilevel degenerative changes in the lumbar spine causing central spinal canal and neural forami nal stenosis as described above. 3. Findings were discussed with Rommel Rendon at 12:29 p.m. on 02/04/2023. DATA REPOSITORY:
--- NOTE | 2023-02-04 10:41 | ED.GENADUL_ITS ---
Discharge Plan Disposition Patient Disposition: Home Discharge Details Clinical Impression: Bulging lumbar disc Primary Care Provider: Kiran Lewis ED Provider: Rommel Rendon Home Meds and New Rx's Prescriptions: New prednisone 50 mg tablet 50 mg PO DAILY 5 Days Qty: 5 0RF Continued Estroven Cmplt Menopause Rlf 4 mg tablet 4 mg PO DAILY triamcinolone acetonide 0.05 % ointment 1 applic topical BID Qty: 110 0RF Patient Comments: not taking ferrous sulfate [FeroSul] 325 mg (65 mg iron) tablet 325 mg PO DAILY Move Free [employer] 750 mg-100 mg- 1.65 mg-108 mg tablet 3 tab PO DAILY methylprednisolone [Medrol (Smooth)] 4 mg tablets,dose pack See Rx Instructions PO PER PKG DIR Qty: 21 0RF Patient Comments: not taking Rx Instructions: PO PER PKG DIR multivitamin [Daily Multi-Vitamin] 1 EACH tablet 1 ea PO DAILY cholecalciferol (vitamin D3) [Vitamin D3] 2,000 UNIT capsule 5,000 unit PO DAILY sucralfate 1 gram tablet See Rx Instructions .ROUTE .COMPLEX Qty: 60 1RF Dose Instruction: TAKE 1 TABLET BEFORE MEALS AND AT BEDTIME, TAKE ON AN EMPTY STOMACH 1 HOUR PRIOR TO MEALS Patient Comments: not taking Rx Instructions: TAKE 1 TABLET BEFORE MEALS AND AT BEDTIME, TAKE ON AN EMPTY STOMACH 1 HOUR PRIOR TO MEALS pantoprazole [Protonix] 40 mg tablet,delayed release (DR/EC) 40 mg PO DAILY Qty: 90 4RF acetaminophen 500 mg capsule 1,000 mg PO Q8H PRN PRNQty: 30 0RF Medical Marijuana No Action methocarbamol 750 mg tablet 750 mg PO Q8H PRN (Reason: muscle spasm) Qty: 90 3RF Discharge Instructions Instructions: Back Pain (ED), Lower Back Exercises (ED), Core Strengthening Exercises (ED) Additional Instructions: We have placed referrals to the pain clinic along with to spine specialty clinic in [place]. Please take medication as prescribed and if you have any new or significant worsening of symptoms feel free to return the emergency department for reassessment. It is very important that you avoid heavy lifting, bending or twisting type motions until you are back has improved. Referrals: Kiran Lewis, COMPACTOR DRIVER [Primary Care Provider] - Discharge Data Discharge Date/Time-TO BE ENTERED AT DEPARTURE: 02/04/23 14:22 Medical Decision Making Patient presenting to the emergency department for chief complaint of back pain. Patient has significant history of chronic back pain and has been seen by neurosurgery in the past for bulging disc and spondylosis. Patient reports 3 weeks to a month ago she started having some back pain, was seen by primary care and put on steroids which did initially help for a small amount of time but then back pain has returned and is significantly worsening. Patient was seen in the emergency department a couple days ago and had evaluation with CT imaging labs and urinalysis which all came out nondiagnostic and suspicion of lumbar back strain acute on chronic. Patient reports that she has not slept in 3 days, pain is worsening, reports sensation of weakness of the abdominal wall muscles and shooting pain down her left leg with thigh spasming. Denies any numbness tingling but states that she cannot fully straighten up and is having a difficult time walking due to the pain and discomfort. Physical exam is limited due to patient having severe pain, is very tearful and cannot straighten fully. Patient has diffuse lumbar tenderness to the midline spine along with left paraspinal tenderness and left sciatic notch tenderness. Patient has decreased reflexes on the left compared to the right but sensation is intact. Patient does state that she attempted to contact her primary care provider and they had scheduled her for an MRI but this is not for another 3 weeks. I do agree that emergent MRI imaging would be beneficial given that patient has significant previous back problems with acute and severe worsening. Given the patient already had labs and urinalysis done a couple days ago I do not feel these need to be repeated but will aggressively treat patient's pain. Patient required additional doses of hydromorphone to even get her to MRI. Reviewed MRI with radiologist whom states multiple bulging disc but specifically just protrusion of L3-L4 pushing on the nerve in that region. This does correlate with patient's symptoms. No emergent findings of cauda equina or other worrisome findings were noted. Patient did improve after some pain medication but still had significant amount of pain. Did attempt to contact pain clinic which patient stated she had seen in the past. Unfortunately no one was available to speak with for consultation so patient placed on referral list to follow-up with pain clinic along with neurosurgery due to significant pain. Did discuss with patient emergent findings of back pain that would necessitate return. After discussion of diagnosis and plan of care patient has no further needs, questions, or concerns and states clear understanding to return to the emergency department for any worsening symptoms. This documentation was generated using Tr[employer] dictation system, please disregard any oddities of phrase or misspellings. Imaging Data Radiologic Study: Imaging: MRI Radiologist's impression: Exam(s) MR LUMBAR SPINE WO EXAM: MR LUMBAR SPINE WO CLINICAL HISTORY: severe back pain. TECHNIQUE: Multiplanar multisequence MRI of the Lumbar spine was performed. COMPARISON: MR MR LUMBAR SPINE WO from 08/13/[address] RENAL COLIC WO from 02/02/2023 FINDINGS: Bones: The last intervertebral disc space is designated the L5/S1 level for the numbering purpose of this examination. The vertebral body heights are well maintained. Alignment is satisfactory. The signal characteristics are unremarkable. Cord: The conus tip ends at the L1 level. It is of normal size and signal intensity. T12-L1: No disc herniations or bulges are present. No central spinal canal or neural foraminal stenosis. L1-2: No disc herniations or bulges are present. No central spinal canal or neural foraminal stenosis. L2-3: There is a mild diffuse disc bulge causing mild narrowing of the central spinal canal. No significant neural foraminal stenosis. L3-4: There is a diffuse disc bulge. There is a left sided disc herniation which extends into the neural foramen. There does appear to be compression of the left exiting nerve root. There is [id number] left neural foraminal stenosis. No significant right neural foraminal stenosis. There is mild narrowing of the central spinal canal. L4-5: There is a diffuse disc bulge. Mild degenerative changes of the facets. There is mild narrowing of the central spinal canal. There is mild bilateral neural foraminal narrowing. L5-S1: No disc herniations or bulges are present. No central spinal canal or neural foraminal stenosis. Soft tissues: The visualized SI joints and sacrum are well maintained. The paraspinal soft tissues are unremarkable. IMPRESSION: 1. Left-sided L3-4 disc herniation extending into the neural foramina cause compression of the left exiting nerve root. 2. Multilevel degenerative changes in the lumbar spine causing central spinal canal and neural foraminal stenosis as described above. HPI General Mode of arrival: wheelchair . Date/Time Provider Initiated Documentation: 02/04/23 10:03 . Limitations to Documentation: no limitations . Information obtained by: patient, RN notes reviewed and old records reviewed . History of Present Illness 57 year old F presents to the emergency department with the chief complaint of Severe back pain, described as severe and similar to prior episodes, with intensity rated at >10. and is localized to the back. Patient extremity. Patient started experiencing this week(s) (3) and it has been constant. No relieving factors improve symptom(s), No exacerbating factors reported . Patient notes weakness. Patient did receive the following treatments prior to arrival, none Related Data Home Medications Medication Instructions Recorded Confirmed cholecalciferol (vitamin D3) 50 5,000 unit PO DAILY 07/08/17 02/04/23 mcg (2,000 unit) capsule (Vitamin D3) multivitamin (Daily Multi-Vitamin 1 ea PO DAILY 07/08/17 02/04/23 tablet) rhubarb root extract 4 mg tablet 4 mg PO DAILY 06/24/20 02/04/23 (Estroven Complete Menopause Relief) Medical Marijuana 06/28/20 01/19/23 ferrous sulfate 325 mg (65 mg 325 mg PO DAILY 07/04/20 02/04/23 iron) tablet (FeroSul) glucosam 750 mg-chondroi 100 3 tab PO DAILY 11/10/20 02/04/23 mg-hyalur 1.65 mg-CF borate 108 mg tablet (Move Free [employer]) acetaminophen 500 mg capsule 1,000 mg PO Q8H PRN PRN #30 caps 10/27/21 02/04/23 triamcinolone acetonide 0.05 % 1 applic topical BID #110 grams 02/09/22 01/19/23 topical ointment sucralfate 1 gram tablet See Rx Instructions .Route 10/11/22 01/19/23 .COMPLEX #60 tabs pantoprazole 40 mg tablet,delayed 40 mg PO DAILY #90 tabs 11/08/22 02/04/23 release (Protonix) methylprednisolone 4 mg tablets in See Rx Instructions PO PER PKG DIR 01/17/23 01/17/23 a dose pack (Medrol (Smooth)) #21 dose pk methocarbamol 750 mg tablet 750 mg PO Q8H PRN muscle spasm #90 02/04/23 tabs prednisone 50 mg tablet 50 mg PO DAILY 5 days #5 tabs 02/04/23 Previous Rx's Medication Instructions Recorded acetaminophen 500 mg capsule 1,000 mg PO Q8H PRN PRN #30 caps 10/27/21 triamcinolone acetonide 0.05 % 1 applic topical BID #110 grams 02/09/22 topical ointment sucralfate 1 gram tablet See Rx Instructions .Route 10/11/22 .COMPLEX #60 tabs pantoprazole 40 mg tablet,delayed 40 mg PO DAILY #90 tabs 11/08/22 release (Protonix) methylprednisolone 4 mg tablets in See Rx Instructions PO PER PKG DIR 01/17/23 a dose pack (Medrol (Smooth)) #21 dose pk methocarbamol 750 mg tablet 750 mg PO Q8H PRN muscle spasm #90 02/04/23 tabs prednisone 50 mg tablet 50 mg PO DAILY 5 days #5 tabs 02/04/23 Allergies Allergy/AdvReac Type Severity Reaction Status Date / Time No Known Allergies Allergy Verified 01/17/23 09:30 General Stated Complaint: Nk/Back Pain [place]: 4 Review of Systems Constitutional Constitutional: Denies chills and Denies fever(s) Cardiovascular Cardiovascular: Denies chest pain and Denies dyspnea on exertion Respiratory Respiratory: Denies cough and Denies dyspnea on exertion Gastrointestinal Gastrointestinal: Denies abdominal pain, Denies change in bowel habits, Denies diarrhea, Denies nausea and Denies vomiting Genitourinary Genitourinary: Denies urinary incontinence Musculoskeletal Musculoskeletal: Reports as per HPI, Reports back pain, Reports muscle cramps (Left thigh), Reports muscle weakness (Abdominal wall), Denies numbness, Reports stiffness and Denies tingling Neurologic Neurologic: Denies numbness, Denies sensory deficit and Denies tingling PFSH All Active Problems (Updated 02/04/23 @ 14:02 by Rommel Rendon NP) Chronic low back pain (Chronic) Bulging lumbar disc (Acute) Screening for colon cancer (Acute) RUQ abdominal pain (Acute) Lumbar strain (Acute) Cubital tunnel syndrome on left (Acute 10/27/21) s/p release 10/27/2021 Hammer toe of second toe of right foot (Acute) Carpal tunnel syndrome of left wrist (Acute) s/p ECTR Left hand pain (Acute) Vitamin D deficiency (Acute) Mass of pancreas (Acute) Back pain (Acute) Spondylosis (Acute) at almost every level by MRI 07/2020 [facility] recommended laminectomy for lumbar stenosis L2-3 & L4-5 Stress fracture of metatarsal bone (Acute) 3rd metatarsal right foot. Chronic low back pain with sciatica (Acute) 07/2020- Large broad-based disc herniation at L2-3. Mild broad-based disc herniation at L4-5. referred to [facility] neurosurgery Anemia (Chronic) Metatarsal fracture (Acute ~03/01/20) Right second metatarsal Amputation of toe of left foot (Acute 01/29/20) Left third toe GERD with esophagitis (Chronic) EGD 09/06/18 with erosive reflux esophagitis Medical History Acute gastritis Dyshidrotic eczema History of in vitro fertilization Hyperlipidemia Patient Denies Pelvic pain Surgical History Acquired deformity of left toe s/p left third toe amputation 01/29/20 Lateral deviation of the third toe PIP joint 06/13/18 - Plantar plate repair with augmentation using Arthrex InternalBrace for third MTP joint, along with Clotilde osteotomy 11/14/18--Removal of hardware from left third metatarsal with hammertoe correction using a DuVries osteotomy H/O section (~02/2013) 02/2013 and 11/2014 H/O laparoscopy Ovarian cyst drainage at 17 or 18yrs old H/O toe surgery History of carpal tunnel release (01/29/20) Left History of esophagogastroduodenoscopy (EGD) (09/06/18) 09/06/18 07/07/20- Stoiber Hx of appendectomy (~1981) S/P bunionectomy (04/18/15) Right hallux S/P colonoscopy (06/10/17) S/P cubital tunnel release (11/14/18) Ulnar nerve decompression with anterior subcutaneous transposition S/P endoscopic carpal tunnel release (01/29/20) Right wrist 11/14/18 Left Wrist 01/29/20 S/P excision of Guadalupe's neuroma (04/18/15) Right 3rd intermetatarsal space. Repeated on 12/12/2015 S/P hammer toe correction 04/18/15--Of right 2nd toe 06/13/18--DuVries osteotomy, arthroplasty of the second PIP joint, left foot. Plantar plate repair with augmentation using Arthrex InternalBrace for third MTP joint, along with Clotilde osteotomy 11/14/18--Removal of hardware from left third metatarsal with hammertoe correction using a DuVries osteotomy 11/14/2018 S/P hammertoe fixation - right second and third toes - 05/30/19 S/P LASIK surgery of both eyes (~2009) Right in 2009 Left in 2010 Family History Mother No problems noted. Father Dementia Brother No problems noted. Daughter No problems noted. Daughter No problems noted. Maternal Grandfather , at 74 of emphysema COPD (chronic obstructive pulmonary disease) with emphysema Maternal Grandmother , at 96 No problems noted. 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 Pets and animals: Yes Pets and animals: dog(s) Do you think of yourself as: lesbian/edward/homosexual Current gender identity: female What is your relationship status?: refused to answer How often do you talk on the phone with friends or family?: decline to answer How often do you get together with friends or relatives?: decline to answer How often do you attend spiritism or mosque services?: decline to answer Do you belong to any clubs or organized social groups?: decline to answer Panel score (0-1 are the most socially isolated patients): 0 Julee/Latter-Day: Other Seatbelt use: always Helmet use: Yes Helmet use: always Drive intox or ride w/intox special needs bus driver: No Do you feel safe at home: Yes Do you feel safe in your relationship?: Yes Exam Const General: cooperative Orientation: alert, awake and oriented x3 Neck Neck: normal visual inspection, full ROM and no meningeal signs Resp Effort & Inspection: normal respiratory effort Auscultation: clear to auscultation bilaterally Cardio Rate: regular rate Rhythm: regular rhythm Heart Sounds: S1 normal and S2 normal Back/Spine/Pelvis Thoracic/Lumbar Spine: pain with thoraco-lumbar ROM, paraspinal tenderness, thoraco-lumbar ROM limited and lumbar spinal tenderness Pelvis: no pain with lateral compression, buttock tenderness on the left and sciatic notch tenderness on the left Neuro General: patient alert, patient awake and patient oriented x3 DTR's: Rt Patellar: 2+, Lt Patellar: 1+, Rt Ankle: 2+ and Lt Ankle: 1+ Course Vital Signs Vital signs: Vital Signs Temperature 36.8 C 02/04/23 10:08 Pulse 73 02/04/23 10:08 Respiratory Rate 18 02/04/23 10:08 Blood Pressure 120/85 02/04/23 10:08 Pulse Oximetry 99 02/04/23 10:08 Temperature 36.8 C 02/04/23 10:08 Temperature Source Oral 02/04/23 10:08 Pulse 73 02/04/23 10:08 Respiratory Rate 18 02/04/23 10:08 Respiratory Effort Normal 02/04/23 10:12 Blood Pressure 120/85 02/04/23 10:08 Blood Pressure Position Sitting 02/04/23 10:08 Pulse Oximetry 99 02/04/23 10:08 Oxygen Delivery Method Room Air 02/04/23 10:08 Oxygen Flow Rate 0 02/04/23 10:08 Pain Level 7 02/04/23 10:40
[2023-02-04] MEDS: fentaNYL 100 MCG/2 ML VIAL 50 MCG IVP (11:05)
[2023-02-04] MEDS: ACETAMINOPHEN 1,000 MG/100 ML BTL 400 MG IVPB (11:06)
[2023-02-04] MEDS: Dexamethasone 10 MG/ML VIAL IVP (11:06)
[2023-02-04] MEDS: HYDROmorphone 2 MG/ML SYR 1 MG IVP ×2 (11:50)
[2023-02-04] MEDS: Ketorolac 15 MG/ML VIAL IVP (13:56)
[2023-02-04] MEDS: HYDROmorphone 2 MG TAB PO (13:56)
[2023-02-04 13:59] VITALS: BP 120/72; PULSE 60; RESP 18; O2SAT 98
--- NOTE | 2023-02-04 14:13 | NUR.NOTE ---
Nursing Note: PT in need of follow up MIKE with [facility] for bulging lumbar discs. Floridalma, ED
--- NOTE | 2023-02-07 14:45 | PDOC.CMACT ---
Date of service: 02/07/23 Time of Service: 14:45 Care Management Activity Note Activity Note Text Activity Note Text: Cee is seen in the ED for back pain. At the request of ED provider, CM coordinates a referral to [facility] to assist patient in obtaining an appointment for further evaluation and treatment of a bulging lumbar disc. She has [place] Medicaid for insurance.
== END 2023-02-04 14:22 | disposition home or self-care (01) ==
PROVIDERS: Emergency Provider Nurse Practitioner Family; PCP Nurse Practitioner Family
DX: M51.26 Other intervertebral disc displacement, lumbar region (principal)
CPT/HCPCS: 96365; 96375; 99284; 72148; J0131; J1100; J1170; J1885; J3010

== ENCOUNTER 2023-02-14 01:48 | Outpatient (CLI) | payer MEDICAID, SELFPAY ==
--- NOTE | 2023-02-14 08:30 | DI.MRI_ITS ---
Exam(s) MR THORACIC SPINE WO EXAM: MR THORACIC SPINE WO CLINICAL HISTORY: continued pain despite PT, RADICULOPATHY THORACIC REGION, M54.14. TECHNIQUE: Multiplanar multisequence MRI of the Thoracic spine was performed. CONTRAST MATERIAL: IV Contrast: mL of Dotarem contrast administered. COMPARISON: CT CT RENAL COLIC WO from 02/02/2023 FINDINGS: Bones: The vertebral body heights are well maintained. Alignment is satisfactory. The signal characte ristics are unremarkable. Endplate osteophytes which project anteriorly in the lower thoracic level s. Cord: The thoracic cord is normal size and signal intensity. No intrinsic cord lesion is present. Discs: Minimal disc bulging levels. No focal disc herniation. Soft tissues: Normal. There is no evidence of suspicious enhancement. IMPRESSION: Rlsn-[id number]-[id number] degenerative disc changes, greater in the lower thoracic levels. No disc herniation , central canal stenosis or neural foraminal narrowing. DATA REPOSITORY:
--- NOTE | 2023-02-14 08:30 | DI.MRI_ITS ---
Exam(s) MR CERVICAL SPINE WO EXAM: MR CERVICAL SPINE WO CLINICAL HISTORY: increased pain despite PT, SPONDYLOSIS, M47.9 TECHNIQUE: Multiplanar multisequence MRI of the cervical spine was performed without intravenous con trast. COMPARISON: No exams were available for comparison FINDINGS: BONES: Vertebral body heights are maintained. Alignment is normal. Bone marrow signal intensity is wi thin normal limits. CERVICAL CORD: Craniovertebral junction is unremarkable. The cervical cord is normal size and signal intensity. SOFT TISSUES: Unremarkable. C2-3: No disc herniation or bulge is identified. No evidence of neural foraminal narrowing. No signi ficant central canal stenosis C3-4: Mild loss of disc height. Small endplate osteophytes and mild disc bulging. Mild left and sev ere right neural foraminal narrowing. No significant central canal stenosis C4-5: No disc herniation or bulge is identified. No evidence of neural foraminal narrowing. No signif icant central canal stenosis C5-6: Loss of disc height. Circumferential endplate osteophytes. Mild disc bulging. No disc hernia tion.Severe bilateral neural foraminal narrowing. No significant central canal stenosis C6-7: Loss of disc height. Broad-based disc osteophytes.. Severe bilateral neural foraminal narrowi ng. No significant central canal stenosis C7-T1: No disc herniation or bulge is identified. No evidence of neural foraminal narrowing. No signi ficant central canal stenosis IMPRESSION: Degenerative disc changes causing severe bilateral neural foraminal narrowing at C5-6 and C6-7. DATA REPOSITORY:
== END 2023-02-14 02:08 ==
LOC: DI 01:48
PROVIDERS: PCP Nurse Practitioner Family; Visit Provider Nurse Practitioner Family
DX: M47.14 Other spondylosis with myelopathy, thoracic region
CPT/HCPCS: 72141; 72146

== ENCOUNTER 2023-03-03 07:00 | Day surgery (SDC) | payer MEDICAID, SELFPAY ==
--- NOTE | 2023-03-02 18:43 | PDOC.DSDIS_ITS ---
Date of service: 03/03/23 Time of Service: 08:54 Discharge Plan Disposition Patient Disposition: Home Condition: Good Discharge Details Reason For Visit: Colonoscopy Attending Provider: Burt Robertson Primary Care Provider: Kiran Lewis Home Meds and New Rx's Prescriptions: Continued Estroven Cmplt Menopause Rlf 4 mg tablet 4 mg PO DAILY triamcinolone acetonide 0.05 % ointment 1 applic topical BID Qty: 110 0RF Patient Comments: not taking ferrous sulfate [FeroSul] 325 mg (65 mg iron) tablet 325 mg PO DAILY [employer] 750 mg-100 mg- 1.65 mg-108 mg tablet 3 tab PO DAILY multivitamin [Daily Multi-Vitamin] 1 EACH tablet 1 ea PO DAILY cholecalciferol (vitamin D3) [Vitamin D3] 2,000 UNIT capsule 5,000 unit PO DAILY sucralfate 1 gram tablet See Rx Instructions .ROUTE .COMPLEX Qty: 60 1RF Dose Instruction: TAKE 1 TABLET BEFORE MEALS AND AT BEDTIME, TAKE ON AN EMPTY STOMACH 1 HOUR PRIOR TO MEALS Patient Comments: not taking Rx Instructions: TAKE 1 TABLET BEFORE MEALS AND AT BEDTIME, TAKE ON AN EMPTY STOMACH 1 HOUR NH IOR TO MEALS pantoprazole [Protonix] 40 mg tablet,delayed release (DR/EC) 40 mg PO DAILY Qty: 90 4RF methocarbamol 750 mg tablet 750 mg PO Q8H PRN (Reason: muscle spasm) Qty: 90 3RF acetaminophen 500 mg capsule 1,000 mg PO Q8H PRN PRNQty: 30 0RF Medical Marijuana Discontinued bisacodyl [Dulcolax (bisacodyl)] 5 mg tablet,delayed release (DR/EC) 5 mg PO ONCE Qty: 4 0RF Rx Instructions: Take per colonoscopy instructions provided by ordering providers office polyethylene glycol 3350 17 gram/dose powder 17 g PO ONCE Qty: 238 0RF Rx Instructions: Take per colonoscopy instructions provided by ordering providers office Discharge Instructions Instructions: Colorectal Polyps (GEN) Additional Instructions: Cee, we were able to complete your colonoscopy today without any problems. The quality of your preparation was excellent. I did find 1 polyp. It was quite small. I removed this completely, and I will be in touch when I have the final pathology report describing the nature of the polyp. Incidentally, I see the abnormality that you described on the external exam. It appears consistent to me with an old external hemorrhoid. Essentially, this is a skin tag. It can be surgically removed, but like we talked about, it will be painful. In that regards, I recommend having it done under an anesthesia spinal block. The skin tag is not dangerous, and this is more surgery for convenience, comfort, and lifestyle. If you are interested, I be more than happy to discuss it in more detail. 1. If tolerated, consume a soft, low fiber diet for 1-2 days. 2[address] Do not drive, drink alcohol, operate machinery, make critical decisions, or do activities that require coordination or balance for 24 hours. 3. Because air was put into your colon during the procedure, expelling air from your rectum (passing gas or farting) is normal. 4. You may not have a bowel movement for 1-3 days because of the colonoscopy prep. This is normal. 5. Go directly to the emergency room if you notice any of the following: Develop chills (warm to touch), or if you have a thermometer and your temperature is above 101 Difficulty breathing or difficultly swallowing Persistent vomiting Severe abdominal pain, other than gas cramps Severe chest pain Black, tarry stools Any bleeding ? exceeding one tablespoon 6. Call your physician if the site where your intravenous was started becomes red, swollen, painful, and warm to touch. 7. Your physician has reviewed your pre-procedure medications. Please continue to take those medications as previously ordered. You will be given specific information/education regarding any changes to your medications before leaving. Activity:: Activity as Tolerated Diet:: As Tolerated Discharge Orders Discharge Orders: Discharge Order (Routine); Ordered 03/02/23 Ordered By: Burt Robertson DS: Diagnosis Discharge Diagnosis (1) Colon polyp: Status: Acute Asessment and Plan: I will follow-up on polypectomy results
--- NOTE | 2023-03-02 18:44 | W.COLOREPORT ---
Date of service: 03/03/23 Time of Service: 08:57 Colonoscopy Report Date of procedure: 03/03/23 Pre-op diagnosis general: Screening colonoscopy Post-op diagnosis procedure note: other (Colon polyp) Procedure: Colonoscopy with polypectomy Surgeon: Burt Robertson Anesthesia Type: General:No Airway Estimated blood loss (mL): 5 Pathology: other (Colon polyp at 20 cm) Complications: None Disposition: same day Indications: Cee is a 57 year old woman with a history of tubular adenoma who needs her next screening colonoscopy Prep: Miralax/Dulcolax Procedure Start Time: 08:25 Procedure End Time: 08:46 Retraction Time: 15 Findings: External fibrosed hemorrhoids. Colon polyp at 20 cm Procedure Description: After the induction of monitored anesthetic care, and with the patient in left lateral decubitus position, I began by performing an external anorectal exam.? Perineum and skin were normal, as was the anal verge.? There are external fibrosed hemorrhoids.? Next, I performed a digital rectal exam.? I did not appreciate any abnormal findings.? Next, I advanced a colonoscope into the rectal vault.? I performed retroflexion.? This was normal, and there were no signs of internal hemorrhoids.? Using insufflation, I then advanced the colonoscope beyond the rectal folds and into the sigmoid colon before advancing towards the cecum.? The quality of the prep was excellent.? The scope was noted to be in the cecum by identification of the ileocecal valve and appendiceal orifice.? I then began withdrawing the colonoscope using repeated irrigation as necessary for full evaluation of the colonic mucosa. Around 20 cm from the anal verge I identified a 0.25 cm polyp. ?It appeared sessile in character. ?I was able to remove this with a cold forceps polypectomy. ?I examined the site, and there was minimal bleeding. ?Once this was completed, I continued to withdraw the scope and examine the remainder of the colonic mucosa.?Once the scope was withdrawn to the level of the rectum, great care was taken to examine portions of the rectal folds.? Finally, the scope was withdrawn and the patient was brought to the same-day surgery recovery unit as the anesthetic wore off. ?The findings and instructions were shared with the patient prior to discharge.
[2023-03-03 07:20] VITALS: BP 114/82; PULSE 71; RESP 16; TEMP 36.6; O2SAT 99
--- NOTE | 2023-03-03 07:56 | W.ANESPRE ---
General Info Date of Service Date Performed: 03/03/23 Height: 5 ft 9 in Weight: 86.001 kg Body Mass Index (BMI): 28.0 Surgical Procedure: Operation Date: 03/03/23 08:20 Proposed Procedure Side Surgeon lay Robertson MD Meds Allergies and Home Medications Allergies Allergy/AdvReac Type Severity Reaction Status Date / Time No Known Allergies Allergy Verified 03/03/23 07:16 Home Medication Medication Instructions Recorded cholecalciferol (vitamin D3) 50 5,000 unit PO DAILY 07/08/17 mcg (2,000 unit) capsule (Vitamin D3) multivitamin (Daily Multi-Vitamin 1 ea PO DAILY 07/08/17 tablet) rhubarb root extract 4 mg tablet 4 mg PO DAILY 06/24/20 (Estroven Complete Menopause Relief) Medical Marijuana 06/28/20 ferrous sulfate 325 mg (65 mg 325 mg PO DAILY 07/04/20 iron) tablet (FeroSul) glucosam 750 mg-chondroi 100 3 tab PO DAILY 11/10/20 mg-hyalur 1.65 mg-CF borate 108 mg tablet ([employer]) acetaminophen 500 mg capsule 1,000 mg PO Q8H PRN PRN #30 caps 10/27/21 triamcinolone acetonide 0.05 % 1 applic topical BID #110 grams 02/09/22 topical ointment sucralfate 1 gram tablet See Rx Instructions .Route 10/11/22 .COMPLEX #60 tabs pantoprazole 40 mg tablet,delayed 40 mg PO DAILY #90 tabs 11/08/22 release (Protonix) methocarbamol 750 mg tablet 750 mg PO Q8H PRN muscle spasm #90 02/04/23 tabs Current Visit Medications: Current Medications Generic Name Dose Route Start Last Admin Trade Name Freq PRN Reason Stop Dose Admin Hyoscyamine Sulfate 0.125 mg 03/02/23 18:46 Hyoscyamine 0.125 Mg Sl/Oral/Chew SL 04/01/23 18:45 DIRECTED PRN Ringer's Solution 1,000 mls @ 80 mls/hr 03/03/23 06:00 IV 04/01/23 23:59 INFUSION [facility] IV Miscellaneous Supplies 1 each 03/03/23 06:00 Iv Access IV 04/01/23 23:59 DIRECTED [facility] Ondansetron HCl 4 mg 03/02/23 18:46 Ondansetron 4 Mg/2 Ml Vial IVP 04/01/23 18:45 Q4H PRN PRN Nausea / Vomiting Sodium Chloride 0 ml 03/03/23 06:00 Normal Saline Flush 10 Ml Syr IV 04/01/23 23:59 PRN PRN Sodium Chloride 0 ml 03/03/23 06:00 Normal Saline 10 Ml Vial IJ 04/01/23 23:59 DIRECTED PRN Sterile Water 0 ml 03/03/23 06:00 Water,Injection,Sterile 10 Ml Vial IJ 04/01/23 23:59 DIRECTED PRN PFSH Active Problems Active Problems: Problem Status Onset Code Lumbosacral spondylosis without myelopathy M47.817 Carpal tunnel syndrome of left wrist G56.02 Cubital tunnel syndrome on left 10/27/21 G56.22 GERD with esophagitis K21.0 Amputation of toe of left foot 01/29/20 S98.132A Metatarsal fracture ~03/01/20 S92.309A Anemia D64.9 Chronic low back pain with sciatica M54.40, G89.29 Stress fracture of metatarsal bone M84.376A Spondylosis M47.9 Back pain M54.9 Mass of pancreas K86.89 Vitamin D deficiency E55.9 Left hand pain M79.642 Hammer toe of second toe of right foot M20.41 Lumbar strain S39.012A RUQ abdominal pain R10.11 Screening for colon cancer Z12.11 Chronic low back pain M54.50, G89.29 Bulging lumbar disc M51.36 Neural foraminal stenosis of cervical spine M48.02 Medical History Medical History Acute gastritis Dyshidrotic eczema History of in vitro fertilization Hyperlipidemia Patient Denies Pelvic pain Surgical History Surgical History Acquired deformity of left toe s/p left third toe amputation 01/29/20 Lateral deviation of the third toe PIP joint 06/13/18 - Plantar plate repair with augmentation using Arthrex InternalBrace for third MTP joint, along with Clotilde osteotomy 11/14/18--Removal of hardware from left third metatarsal with hammertoe correction using a DuVries osteotomy H/O section (~02/2013) 02/2013 and 11/2014 H/O laparoscopy Ovarian cyst drainage at 17 or 18yrs old H/O toe surgery History of carpal tunnel release (01/29/20) Left History of esophagogastroduodenoscopy (EGD) (09/06/18) 09/06/18 07/07/20- Stoiber Hx of appendectomy (~1981) S/P bunionectomy (04/18/15) Right hallux S/P colonoscopy (06/10/17) S/P cubital tunnel release (11/14/18) Ulnar nerve decompression with anterior subcutaneous transposition S/P endoscopic carpal tunnel release (01/29/20) Right wrist 11/14/18 Left Wrist 01/29/20 S/P excision of Guadalupe's neuroma (04/18/15) Right 3rd intermetatarsal space. Repeated on 12/12/2015 S/P hammer toe correction 04/18/15--Of right 2nd toe 06/13/18--DuVries osteotomy, arthroplasty of the second PIP joint, left foot. Plantar plate repair with augmentation using Arthrex InternalBrace for third MTP joint, along with Clotilde osteotomy 11/14/18--Removal of hardware from left third metatarsal with hammertoe correction using a DuVries osteotomy 11/14/2018 S/P hammertoe fixation - right second and third toes - 05/30/19 S/P LASIK surgery of both eyes (~2009) Right in 2009 Left in 2010 Tobacco Smoking/Tobacco Use Status: Former Tobacco Use Passive smoking exposure: Yes Second hand exposure: Yes Alcohol Alcohol Intake: current Alcohol intake frequency: holidays/special occasions only Alcohol type: beer and hard liquor Substance Use Substance use: Daily Substance use type: marijuana Details: Vapes Vital Signs and Lab Results Vital Signs Most Recent Vital Signs in EMR: Most Recent Vital Signs Temp Pulse Resp BP Pulse Ox 36.6 C 71 16 114/82 99 03/03/23 07:20 03/03/23 07:20 03/03/23 07:20 03/03/23 07:20 03/03/23 07:20 Lab Results Blood Type / Crossmatch: No Data to Display Complete Blood Count: White Blood Count 5.41 10^3/uL (4.4-10.8) 02/02/23 12:45 Red Blood Count 3.87 10^6/uL (3.93-5.22) L 02/02/23 12:45 Hemoglobin 12.0 g/dL (11.2-15.7) 02/02/23 12:45 Hematocrit 35.9 % (36.0-46.0) L 02/02/23 12:45 Platelet Count 276 10^3/uL (130-400) 02/02/23 12:45 Complete Metabolic Panel: Sodium 141 mmol/L (136-145) 02/02/23 12:45 Potassium 4.4 mmol/L (3.5-5.1) 02/02/23 12:45 Chloride 105 mmol/L (98-107) 02/02/23 12:45 Carbon Dioxide 28.0 mmol/L (21.0-32.0) 02/02/23 12:45 BUN 25 mg/dL (7-18) H 02/02/23 12:45 Creatinine 1.0 mg/dL (0.55-1.02) 02/02/23 12:45 Est GFR (CKD-EPI 2020) 66.53 (mL/min/1.73m2) 02/02/23 12:45 Calcium 8.7 mg/dL (8.5-10.1) 02/02/23 12:45 Albumin 4.1 g/dL (3.4-5.0) 02/02/23 12:45 Glucose 97 mg/dL (74-106) 02/02/23 12:45 Liver Function Panel: Alanine Aminotransferase (ALT/SGPT) 25 U/L (14-59) 02/02/23 12:45 Aspartate Amino Transf (AST/SGOT) 19 U/L (15-37) 02/02/23 12:45 Coagulation Panel: No Data to Display Cardiac Panel: No Data to Display Arterial Blood Gas: No Data to Display Venous Blood Gas: No Data to Display Pancreas Panel: No Data to Display Thyroid Panel: No Data to Display Infectious Disease: No Data to Display Blood Cultures: No Data to Display Toxicology Panel: No Data to Display Anesthesia Assessment and Plan Anesthesia History Personal History: No History of Anesthesia Complications Family History: No Family History of Anesthesia Complications Exercise Tolerance Exercise Tolerance: Metabolic Equivalents>4 Pertinent Negatives Pertinent Negatives: No Symptoms of GERD, No Major Cardiovascular Symptoms or Complaints and No Major Pulmonary Symptoms or Complaints Cardiac & Pulmonary Exam Cardiac Exam: Normal S1/S2 Heart Sounds Pulmonary Exam: Clear Bilateral Breath Sounds Implantable Cardiac Device Does patient have a Pacemaker or an ICD?: No Airway Exam Known Difficult Airway: No Mallampati Class: 1 Mouth Opening: Normal (> 3cm) Thyromental Distance: Greater than 3 cm Neck Range of Motion: Full ROM Neck Circumference: Normal Teeth Condition: Normal Dentition ASA Classification ASA Score: ASA 2 Emergency Case?: No NPO Status NPO Status: NPO Clears >2 hours, Solids >8 hours Anesthesia Plan Resuscitation Status: Full Code Anesthesia Technique: General Anesthesia Airway Planned: Natural Airway Monitors Used: Standard Monitors
[2023-03-03 07:59] VITALS: BMI 28.0
--- NOTE | 2023-03-03 08:43 | BOWEL_PTH ---
PATIENT: Cee Orozco LOC: [facility] U#:[id number] AGE/SX: 57/F ROOM: RE03/03/[address]: Burt Robertson MD : 1965 BED: DIS: 03/03/2023 SPEC #: [id number] RECD: 03/03/23 12:04 STATUS: DAVE RE #: [id number] ROSARIO: 03/03/23 08:[address]: Burt Robertson DEPT: Surgical Specimen RECD BY: Kayli Stratton ENTERED: 03/03/23 12:05 SP TYPE: Bowel OTHR DR: Kiran Drake DNP Tissues: 1 - BIOPSY BOWEL Procedures: GROSS AND MICRO LEVEL 4 Comments: [id number]
[2023-03-03 08:50] VITALS: BP 118/65; PULSE 65; RESP 16; TEMP 36.6; O2SAT 100
[2023-03-03] MEDS: Lactated Ringers 1,000 ML 80 ML IV (08:54)
[2023-03-03] MEDS: Hyoscyamine 0.125 MG SL/ORAL/CHEW SL (09:09)
[2023-03-03 09:25] VITALS: BP 116/86; PULSE 69; RESP 16; TEMP 36.6; O2SAT 98
--- NOTE | 2023-03-03 09:44 | W.ANESPOSTOP ---
Postoperative Evaluation Date, Time and Location Date Performed: 03/03/23 Time Performed: :20 Patient Location: Day Surgery Unit Vital Signs Most Recent Imported Vital Signs: Most Recent Vital Signs Temp Pulse Resp BP Pulse Ox 36.6 C 69 16 116/86 98 03/03/23 09:25 03/03/23 09:25 03/03/23 09:25 03/03/23 09:25 03/03/23 09:25 Pain Score Most Recent Pain Score: Most Recent Pain Score Pain Level 4 03/03/23 09:25 Assessment Mental Status: Awake (Alert & Oriented to Patient Baseline) Airway and Respiratory Function: Patent airway with normal (patient baseline) respiratory exam Cardiovascular Function: Hemodynamically Stable Hydration Status: Adequately Hydrated Nausea & Vomiting: No Nausea or Vomiting Pain: Pt. Denies Any Pain Peripheral Nerve Block: Patient did not receive a nerve block
== END 2023-03-03 09:40 | disposition home or self-care (01) ==
PROVIDERS: PCP Nurse Practitioner Family; Visit Provider Surgery
PROC: 0DJD8ZZ Inspection of Lower Intestinal Tract, Via Natural or Artificial Opening Endoscopic (ICD-10-PCS; CPT 45378; principal; 2023-03-03 08:15)
DX: Z12.11 Encounter for screening for malignant neoplasm of colon (principal); Z86.010 Personal history of colon polyps; K63.5 Polyp of colon
CPT/HCPCS: 45380; 88305; J3490

== ENCOUNTER 2023-07-12 11:13 | Outpatient (CLI) | payer MEDICAID, SELFPAY ==
--- NOTE | 2023-07-12 11:00 | RT.EKG_ITS ---
APPROVED REPORT Exam: Resting ECG Reason for Exam: palpations Patient Location: O HR:60 bpm ECG Measurements Heart Rate 60 AXIS NV 157 P 60 QRSd 107 QRS -11 QT 450 T 29 QTc 450 Conclusion Sinus rhythm...normal P axis, V-rate 50- 99 Normal Electrocardiogram
== END 2023-07-12 11:14 | disposition home or self-care (01) ==
LOC: DI.CM 11:14
PROVIDERS: PCP Nurse Practitioner Family; Visit Provider Nurse Practitioner Family
DX: R00.2 Palpitations (principal)
CPT/HCPCS: 93010

== ENCOUNTER 2023-07-12 11:50 | Outpatient (REF) | payer MEDICAID, SELFPAY ==
--- NOTE | 2023-07-12 10:55 | PAPFT_PTH ---
PATIENT: Cee Orozco LOC: [facility] U#:[id number] AGE/SX: 58/F ROOM: RE07/12/[address]: Kiran Drake DNP : 1965 BED: DIS: 07/12/2023 SPEC #: [id number] RECD: 07/12/23 12:36 STATUS: DAVE REJosh #: [id number] ROSARIO: 07/12/23 10:[address]: Kiran Lewis DEPT: [facility] Cytology RECD BY: Kayli Stratton Tissues: 1 - CX/ENDOCX FOR PAP SMEARS Procedures: PAP THIN PREP/[facility] Screening Comments: [id number]
== END 2023-07-12 11:51 | disposition home or self-care (01) ==
LOC: LBN 11:50
PROVIDERS: PCP Nurse Practitioner Family; Visit Provider Nurse Practitioner Family
DX: Z12.4 Encounter for screening for malignant neoplasm of cervix (principal)
CPT/HCPCS: 88142

== ENCOUNTER → 2023-07-19 00:24 | Outpatient (CLI) | payer MEDICAID, SELFPAY ==
--- NOTE | 2023-07-19 06:45 | ETT_ITS ---
APPROVED REPORT Exam: Exercise Treadmill Patient Location: Out-Patient Room/Bed: Stress Nurse: Alvina Ruiz RN Ordering Provider:TOREY GONZALES, Contact Number: [phone] BMI: 28.05 Baseline Rhythm: Sinus Rhythm Indications: Pounding heart in morning with SOB, Palpitations. Medical History Medical History: GERD, HLD, gastritis Cardiac Medications: Vitamin D3, methocarbamol, sucralfate, pantoprazole Allergies: NKA Cardiac Risk Factors: Family hx, former smoker, HLD Previous Cardiac Procedures: None Pretest Chest Pain Characteristics: None Exercise History: Physically active Physical Disabilities: None Lung Sounds: Clear to auscultation Heart Sounds: Regular Stress Test Details Test: Exercise stress testing was performed using a Angus protocol. Rest Stress HR Resting HR Supine: 71 bpm Max Heart Rate (APMHR): 164 bpm Resting HR Standin bpm Target HR (85% APMHR): 139 bpm Max HR Achieved: 158 bpm % of APMHR: 96 Recovery HR: 80 bpm HR response to stress: Normal HR response to stress BP Resting BP Supine: 160/92 mmHg Resting BP Standin/90 mmHg Max BP: 194/88 mmHg Recovery BP: 148/88 mmHg BP response to stress: Normal blood pressure response to stress. ECG Resting ECG: Sinus Rhythm Ectopy: Occasional PAC, rare PVC Stress ECG: Sinus Tachycardia ST Change: No significant ST segment changes noted Arrhythmia: Occasional PAC's, occasional multifocal PVC's, couplets, bigeminy Recovery ECG: Sinus Rhythm Recovery ST Change: No significant ST segment changes noted Recovery Arrhythmia: Occasional PAC's, occasional PVC's Clinical Reason for Termination: Target HR Achieved, Fatigue Stress Symptoms: General Fatigue Exercise duration: 06 min14 sec Highest Stage Reached: Stage 3: 3.4 mph at 14% grade. Exercise capacity: 7 METs Angina Score: None Tompkins Treadmill Score: 5.4 Rate Pressure Product: 62771 Stress ECG Conclusion 1. Resting electrocardiogram was within normal limits 2. Patient exercised on the Angus protocol and completed a workload of 7 METS limited by fatigue 3. Normal heart rate and blood pressure response to exercise. The patient achieved 96% of predicted heart rate for age 4. There was no electrocardiographic evidence of myocardial ischemia 5. There were no significant dysrhythmias Tompkins Treadmill Score is 5.4 which is Low risk. Stress Test Summary STAGE Time (mins) Speed (mph) Grade (%) HR BP SpO2 SYMPTOMS METS Supine 71 160/92 96 Standing 68 150/90 1 3 1.7 10 115 164/90 4.5 2 6 2.5 12 146 192/98 7 3 9 3.4 14 150 10 1 min recovery 124 194/88 3 min recovery 98 164/80 6 min recovery 80 148/88
== END ==
PROVIDERS: PCP Nurse Practitioner Family; Visit Provider Nurse Practitioner Family
DX: R00.2 Palpitations (principal)
CPT/HCPCS: 93017

== ENCOUNTER → 2023-07-26 02:30 | Outpatient (CLI) | payer MEDICAID, SELFPAY ==
--- NOTE | 2023-07-26 08:00 | DI.US_ITS ---
Exam(s) US SOFT TISS ABD WALL/LOW BACK EXAM: US SOFT TISS ABD WALL/LOW BACK CLINICAL HISTORY: right sided posterior chest wall mass,r22.2. TECHNIQUE: Ultrasound was performed using standard protocol. COMPARISON: CT CT CHEST PE CTA from 07/01/2022 FINDINGS: Sonographic assessment utilizing grayscale and color Doppler imaging was performed and targeted to th e area of clinical concern. There is a 1.2 x 3.5 x 4.4 cm mass in the subcutaneous tissues which is isoechoic to the subcutaneous fat and is consistent with a lipoma. This corresponds to the palpable abnormality. 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 This can be seen on the CT scan of the ches t from 07/01/2022 (series 9 images 110 through 170). DATA REPOSITORY:
--- NOTE | 2023-07-26 08:00 | DI.US_ITS ---
Exam(s) US BREAST RT LIMITED MG MAMMO DIAGNOSTIC BI EXAM: MG MAMMO DIAGNOSTIC BI and U/S breast RT limited CLINICAL HISTORY: right breast tenderness,pain,n64.4. TECHNIQUE: Craniocaudal and mediolateral oblique Full Field Digital Mammography views with Computer Aided Diagnosis followed by Tomosynthesis and right breast ultrasound. COMPARISON: Comparison is made with prior examinations. FINDINGS: Mammography/Tomosynthesis: Masses/Architectural Distortion: None seen. Microcalcifictions: No suspicious pleomorphic-type are seen. Skin Thickening/Nipple Retraction: None. Limited right breast US: Echotexture: Normal appearance of the glandular tissue. Shadowing: No suspicious foci. Cyst: None. Solid lesions: None seen. Ductal dilation: None. IMPRESSION: 1. No evidence of malignancy is noted. 2. Unless there is more urgent need, follow-up screening mammography is recommended, as per [place] [employer] guidelines. 3. The findings were discussed with the patient on the date of the examination. BI-RADS Category 1 - Negative Breast Density - Category B - Scattered areas of fibroglandular density Breast density Category C or D implies that the patient has dense breast tissue. Dense breast tissue can make it harder to find cancer on a mammogram. Dense breast tissue is also associated with an incr eased risk of breast cancer. This information about the result of the mammogram report was provided to the patient to raise their awareness. Use this report when you speak with the patient about their risks for breast cancer, which includes their family history. At that time, you may recommend additional screening tests (Ultrasoun d or MRI) as these tests may add significant information. A negative radiographic report should not delay biopsy if a dominant or clinically suspicious mass is present. Up to ten percent of cancers are not identified on mammography. A negative report may reinforce clinical impression. Adenosis and dense breasts may obscure an underlying neoplasm. False positive reports average 6 to 10%. Patient will receive a letter notifying them of these results.
== END ==
PROVIDERS: PCP Nurse Practitioner Family; Visit Provider Nurse Practitioner Family
DX: N64.4 Mastodynia (principal); Z12.31 Encounter for screening mammogram for malignant neoplasm of breast; R22.2 Localized swelling, mass and lump, trunk
CPT/HCPCS: 76642; 77062; 77066; 76705; G0279

== ENCOUNTER 2024-02-04 14:55 | Emergency (ER) | payer MEDICAID, SELFPAY ==
[2024-02-04 14:58] VITALS: BP 152/114; PULSE 98; RESP 16; TEMP 35.9; O2SAT 99
--- NOTE | 2024-02-04 15:22 | W.ED.GENAD ---
Discharge Plan Disposition Patient Disposition: Home Condition: Good Discharge Details Clinical Impression: Lumbago Primary Care Provider: Kiran Lewis ED Provider: Jose Dawson Home Meds and New Rx's Prescriptions: New prednisone 20 mg tablet 20 mg PO DAILY Qty: 42 0RF Rx Instructions: Take 3 tablets daily for 7 days, followed by 2 tablets daily for 7 days, followed by 1 tablet daily for 7 days. lidocaine [Lidoderm] 5 % adhesive patch,medicated 1 patch Topical Q24H Qty: 15 0RF No Action triamcinolone acetonide 0.05 % ointment 1 applic topical BID Qty: 110 0RF Patient Comments: not taking ferrous sulfate [FeroSul] 325 mg (65 mg iron) tablet 325 mg PO DAILY [facility] 750 mg-100 mg- 1.65 mg-108 mg tablet 3 tab PO DAILY sucralfate 1 gram tablet See Rx Instructions .ROUTE .COMPLEX Qty: 60 1RF Dose Instruction: TAKE 1 TABLET BEFORE MEALS AND AT BEDTIME, TAKE ON AN EMPTY STOMACH 1 HOUR PRIOR TO MEALS Patient Comments: not taking Rx Instructions: TAKE 1 TABLET BEFORE MEALS AND AT BEDTIME, TAKE ON AN EMPTY STOMACH 1 HOUR PRIOR TO MEALS multivitamin [Daily Multi-Vitamin] 1 EACH tablet 1 ea PO DAILY cholecalciferol (vitamin D3) [Vitamin D3] 2,000 UNIT capsule 5,000 unit PO DAILY sucralfate 1 gram tablet 1 g PO HS Qty: 60 12RF Patient Comments: not taking Rx Instructions: 1 g orally bedtime; and can take prn pantoprazole [Protonix] 40 mg tablet,delayed release (DR/EC) 40 mg PO DAILY Qty: 90 4RF methocarbamol 750 mg tablet See Rx Instructions .ROUTE .COMPLEX Qty: 90 3RF Dose Instruction: TAKE ONE TABLET BY MOUTH EVERY 8 HOURS NEEDED FOR MUSCLE SPASM Rx Instructions: TAKE ONE TABLET BY MOUTH EVERY 8 HOURS NEEDED FOR MUSCLE SPASM acetaminophen 500 mg capsule 1,000 mg PO Q8H PRN PRNQty: 30 0RF Medical Marijuana 1 dose PO PRN PRN Discharge Instructions Instructions: Low Back Pain ED Additional Instructions: At this time your signs and symptoms are clinically consistent with a back sprain. This can cause significant pain and take a fair bit of time to heal. I expect 1 to 2 months for potential resolution. In the meantime do not lift anything greater than 5 pounds for the next 2 weeks. Avoid any significant vigorous physical activity. Perform easy gentle regular activities at home without any significant bending or lifting. Please take the steroids as directed. You have been given a prescription for Lidoderm patch. If your insurance does not cover this you can get [id number] Lidoderm patches at 4% which are almost just as effective. Please take your methocarbamol as directed but do not take it when driving or operating any vehicles or heavy machinery, swimming, taking long baths, or operating firearms. Please use a heating pad as often as possible on your back. Perform daily gentle stretches on your back. Please continue to take the Tylenol and Motrin. You can take 1000 mg of Tylenol every 6 hours and 600 mg of ibuprofen every 6 hours. Take one 5 mg Valium tablet when you get home. If you still have pain you can take another 1 tomorrow for breakthrough pain. If you notice any worsening of your symptoms, or any new symptoms such as vomiting, diarrhea, fever, chills, shortness of breath, chest pain, numbness or tingling in your groin or legs, weakness in your legs, loss of control for your bowels or bladder, or fainting , please return immediately to the emergency department for reevaluation. Please follow up with your primary care provider as soon as possible for reassessment and reevaluation. As always, it was a pleasure participating in your medical care today. Referrals: Kiran Lewis NP [Primary Care Provider] - [facility] General Date/Time Provider Initiated Documentation: 02/04/24 15:01. [facility] Narrative: This is a pleasant 58-year-old female with a past medical history of GERD, chronic low back pain, dyshidrotic eczema, high cholesterol, who presents today for evaluation of back pain. Patient has a history of back pain and is managed well by Lance Jolly. She has had an MRI in the past which shows mild bulging discopathy. She states that 3 weeks ago child read to her and jumped in her arms, she leaned forward to catch him and immediately had pain in her left lower back. That is continued for the last 3 weeks and had some gradual improvement until about 4 days ago when she started playing softball and performing other vigorous activities. Over the last 4 days her back has been particularly painful in the left component. She has taken 200 mg of ibuprofen every 6 hours and occasional Tylenol and methocarbamol. She has had only mild improvement with this. Patient denies any saddle anesthesia, numbness or tingling in the groin, change in sensation when wiping. Patient denies any change in sensation during sexual intercourse, bowel or bladder incontinence, leakage, or retention. Patient denies any weakness in the lower extremities, atypical falls or imbalance. She has been using heating pad regularly. She denies any burning sensation with urination. She denies any fever or chills. No other complaints at this time. She states the symptoms feel identical to her previous back spasms however the symptoms are not as severe as they have been in the past. Related Data Home Medications Medication Instructions Recorded Confirmed cholecalciferol (vitamin D3) 50 5,000 unit PO DAILY 07/08/17 02/04/24 mcg (2,000 unit) capsule (Vitamin D3) multivitamin (Daily Multi-Vitamin 1 ea PO DAILY 07/08/17 02/04/24 tablet) Medical Marijuana 1 dose PO PRN PRN 06/28/20 02/04/24 ferrous sulfate 325 mg (65 mg 325 mg PO DAILY 07/04/20 02/04/24 iron) tablet (FeroSul) glucosam 750 mg-chondroi 100 3 tab PO DAILY 11/10/20 02/04/24 mg-hyalur 1.65 mg-CF borate 108 mg tablet ([facility] [employer] [facility]) acetaminophen 500 mg capsule 1,000 mg (2 x 500 mg) PO Q8H PRN 10/27/21 02/04/24 PRN #30 caps triamcinolone acetonide 0.05 % 1 applic topical BID #110 grams 02/09/22 02/04/24 topical ointment sucralfate 1 gram tablet 1 g PO HS #60 tabs 03/20/23 02/04/24 sucralfate 1 gram tablet See Rx Instructions .Route 07/12/23 02/04/24 .COMPLEX #60 tabs pantoprazole 40 mg tablet,delayed 40 mg PO DAILY #90 tabs 11/15/23 02/04/24 release (Protonix) methocarbamol 750 mg tablet See Rx Instructions .Route 12/19/23 02/04/24 .COMPLEX #90 tabs lidocaine 5 % topical patch 1 patch topical Q24H #15 ea 02/04/24 (Lidoderm) prednisone 20 mg tablet 20 mg PO DAILY #42 tabs 02/04/24 Previous Rx's Medication Instructions Recorded acetaminophen 500 mg capsule 1,000 mg (2 x 500 mg) PO Q8H PRN 10/27/21 PRN #30 caps triamcinolone acetonide 0.05 % 1 applic topical BID #110 grams 02/09/22 topical ointment sucralfate 1 gram tablet 1 g PO HS #60 tabs 03/20/23 sucralfate 1 gram tablet See Rx Instructions .Route 07/12/23 .COMPLEX #60 tabs pantoprazole 40 mg tablet,delayed 40 mg PO DAILY #90 tabs 11/15/23 release (Protonix) methocarbamol 750 mg tablet See Rx Instructions .Route 12/19/23 .COMPLEX #90 tabs lidocaine 5 % topical patch 1 patch topical Q24H #15 ea 02/04/24 (Lidoderm) prednisone 20 mg tablet 20 mg PO DAILY #42 tabs 02/04/24 Allergies Allergy/AdvReac Type Severity Reaction Status Date / Time No Known Allergies Allergy Verified 02/04/24 15:02 General Stated Complaint: Nk/Back Pain [place]: 4 Review of Systems All systems reviewed & are unremarkable except as noted in HPI and below Exam Narrative Exam Narrative: 1.Const: Well-nourished, Well-developed, appearing stated age 2.Eyes: PERRL, no conjunctival injection, and symmetrical lids. 3.ENT: Atraumatic external nose and ears. Moist MM. Neck: Symmetric, trachea midline, No thyromegaly. 4.CVS: +S1/S2, No murmurs or gallops. Peripheral pulses 2+ and equal in all extremities. Brisk capillary refill in all extremities. 5.RESP: Unlabored respiratory effort. Clear to auscultation bilaterally. No wheezes rales or rhonchi 6.GI: Soft, Nontender/Nondistended, No hepatosplenomegaly. No guarding or rebound. 7.MSK: Normocephalic/Atraumatic, Extremities w/o deformity or ttp No cyanosis or clubbing, Normal movement of all extremities No midline tenderness to palpation over the CTLS spine. Notable left-sided paraspinal spasm with mild tenderness around L4 on the left paraspinal aspect. Mild pain at the left SI joint. Normal ROM in flexion, extension, side bend, and rotation. Patient has +5 out of 5 strength in the lower extremities in dorsiflexion and plantarflexion, knee flexion and extension, hip flexion and extension. Normal strength for dorsiflexion and plantar flexion of the great toe bilaterally. There is +2 over 2 dorsalis pedis pulses bilaterally. There is normal sensation to the skin with light touch at the foot, knee, and hip. Normal saddle sensation. Good sensation over the deep sural nerve area bilaterally. Rectal exam demonstrates good rectal tone with excellent mikhail-rectal sensation. Reflexes are +2 over 4 in the patellar reflex bilaterally. +5 out of 5 strength in the medial, ulnar, radial nerve distribution bilaterally in the hands as well as intact light touch sensation to these dermatomes on the hands 8.Skin: Warm, Dry. No rashes or lesions. 9.Neuro: photonics technician II-XII grossly intact. Sensation grossly intact, no focal neurologic deficits. 10.Psych: (AAO) x3. Appropriate mood and affect Course Vital Signs Vital signs: Vital Signs Temperature 35.9 C L 02/04/24 14:58 Pulse 98 H 02/04/24 14:58 Respiratory Rate 16 02/04/24 14:58 Blood Pressure 152/114 H 02/04/24 14:58 Pulse Oximetry 99 02/04/24 14:58 Temperature 35.9 C L 02/04/24 14:58 Temperature Source Temporal Artery Scan 02/04/24 14:58 Pulse 98 H 02/04/24 14:58 Respiratory Rate 16 02/04/24 14:58 Respiratory Effort Normal 02/04/24 15:07 Blood Pressure 152/114 H 02/04/24 14:58 Blood Pressure Position Sitting 02/04/24 14:58 Pulse Oximetry 99 02/04/24 14:58 Oxygen Delivery Method Room Air 02/04/24 14:58 Oxygen Flow Rate 0 02/04/24 14:58 Pain Level 7 02/04/24 14:58 Medical Decision Making This is a pleasant 58-year-old female with a past medical history of GERD, chronic low back pain, dyshidrotic eczema, high cholesterol, who presents today for evaluation of back pain. Patient has a history of back pain and is managed well by Lance Jolly. She has had an MRI in the past which shows mild bulging discopathy. She states that 3 weeks ago child read to her and jumped in her arms, she leaned forward to catch him and immediately had pain in her left lower back. That is continued for the last 3 weeks and had some gradual improvement until about 4 days ago when she started playing softball and performing other vigorous activities. Over the last 4 days her back has been particularly painful in the left component. She has taken 200 mg of ibuprofen every 6 hours and occasional Tylenol and methocarbamol. She has had only mild improvement with this. Patient denies any saddle anesthesia, numbness or tingling in the groin, change in sensation when wiping. Patient denies any change in sensation during sexual intercourse, bowel or bladder incontinence, leakage, or retention. Patient denies any weakness in the lower extremities, atypical falls or imbalance. She has been using heating pad regularly. She denies any burning sensation with urination. She denies any fever or chills. No other complaints at this time. She states the symptoms feel identical to her previous back spasms however the symptoms are not as severe as they have been in the past. Exam demonstrates notable left-sided paraspinal spasm, mild achiness over L4 in the left paraspinal aspect, no midline tenderness. Mild SI joint achiness. Good reflexes, normal saddle sensation, normal rectal tone and sensation. Symptoms appear notably clinically inconsistent with cauda equina syndrome. Symptoms inconsistent with paraspinal abscess as she has no fever or chills. Inconsistent with pyelonephritis UTI or kidney stone. Symptoms appear clinically consistent with left-sided paraspinal spasm causing her pain likely secondary to mild discopathy. No indication for emergent imaging at this time. Patient does have methocarbamol at home, we will she continues this as prescribed. Will give Lidoderm patch, steroids with a dosing taper as she has found that the prolonged course has been more effective in the past. Will give a single pill of Valium here to go home with, and then a second to use tomorrow for breakthrough pain if needed. She was instructed not to take this prior to leaving and she was also instructed to not drive operate heavy machinery or firearms while on the medication. We did offer to give the medication and have someone else pick her up now, however she has declined this pathway. Patient otherwise stable for discharge. Discussed red flags for which to return. She will be following up with her physiotherapist in the next week. I have extensively reviewed the treatment plan and discharge instructions with the patient. I have addressed all patient concerns at this time. The patient was made aware of what symptoms to monitor for that would warrant a return to the emergency department. Discussed the plan with the patient, they demonstrate verbal understanding and agreement with our assessment and plan at this time. The documentation in this chart was dictated using [employer] dictation software. Please excuse any dictation errors. Quality:SDOH Health Related Social Needs: No Data to Display PFSH All Active Problems Lumbago (Acute) Palpitations (Acute) Chest wall mass (Acute) right sided posterior Breast pain, right (Acute) Colon polyp (Acute ~03/03/23) hyperplastic x1 Lumbosacral spondylosis without myelopathy (Acute) Carpal tunnel syndrome of left wrist (Acute) s/p ECTR Cubital tunnel syndrome on left (Acute 10/27/21) s/p release 10/27/2021 GERD with esophagitis (Chronic) EGD 09/06/18 with erosive reflux esophagitis Amputation of toe of left foot (Acute 01/29/20) Left third toe Metatarsal fracture (Acute ~03/01/20) Right second metatarsal Anemia (Chronic) Chronic low back pain with sciatica (Acute) 07/2020- Large broad-based disc herniation at L2-3. Mild broad-based disc herniation at L4-5. referred to [facility] Stress fracture of metatarsal bone (Acute) 3rd metatarsal right foot. Spondylosis (Acute) at almost every level by MRI 07/2020 [facility] recommended laminectomy for lumbar stenosis L2-3 & L4-5 Back pain (Acute) Mass of pancreas (Acute) Vitamin D deficiency (Acute) Left hand pain (Acute) Hammer toe of second toe of right foot (Acute) Lumbar strain (Acute) RUQ abdominal pain (Acute) Screening for colon cancer (Acute) Neural foraminal stenosis of cervical spine (Acute) Medical History Acute gastritis History of in vitro fertilization Pelvic pain Dyshidrotic eczema Hyperlipidemia Patient Denies Surgical History History of colonoscopy (~02/2023) History of carpal tunnel release (01/29/20) Left H/O toe surgery Acquired deformity of left toe s/p left third toe amputation 01/29/20 Lateral deviation of the third toe PIP joint 06/13/18 - Plantar plate repair with augmentation using Arthrex InternalBrace for third MTP joint, along with Clotilde osteotomy 11/14/18--Removal of hardware from left third metatarsal with hammertoe correction using a DuVries osteotomy S/P hammer toe correction 04/18/15--Of right 2nd toe 06/13/18--DuVries osteotomy, arthroplasty of the second PIP joint, left foot. Plantar plate repair with augmentation using Arthrex InternalBrace for third MTP joint, along with Clotilde osteotomy 11/14/18--Removal of hardware from left third metatarsal with hammertoe correction using a DuVries osteotomy 11/14/2018 S/P hammertoe fixation - right second and third toes - 05/30/19 S/P colonoscopy (06/10/17) H/O section (~02/2013) 02/2013 and 11/2014 History of esophagogastroduodenoscopy (EGD) (09/06/18) 09/06/18 07/07/20- Stoiber S/P cubital tunnel release (11/14/18) Ulnar nerve decompression with anterior subcutaneous transposition S/P endoscopic carpal tunnel release (01/29/20) Right wrist 11/14/18 Left Wrist 01/29/20 S/P LASIK surgery of both eyes (~2009) Right in 2009 Left in 2010 S/P excision of Guadalupe's neuroma (04/18/15) Right 3rd intermetatarsal space. Repeated on 12/12/2015 S/P bunionectomy (04/18/15) Right hallux Hx of appendectomy (~1981) H/O laparoscopy Ovarian cyst drainage at 17 or 18yrs old Family History Mother No problems noted. Father Dementia Brother No problems noted. Daughter No problems noted. Daughter No problems noted. Maternal Grandfather , at 74 of emphysema COPD (chronic obstructive pulmonary disease) with emphysema Maternal Grandmother , at 96 No problems noted. Paternal Grandfather , at 74 of ND Myocardial infarction Heart disease Paternal Grandmother , at 94 of dementia Dementia Social History Smoking/Tobacco Use Status: Former Tobacco Use Quit Date: 08/15/12 Second Hand Exposure: Yes Smoking risk assessment performed?: Yes Alcohol Intake: current Alcohol Intake frequency: holidays/special occasions only Alcohol type: beer and hard liquor Drug use: Daily Substance use type: marijuana Details: Vapes Caregiver/Support person: No Household members: family, children and other Housing: house Number of Children: 2 Communication Needs: None Do you need help understanding health information?: Never 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 Pets and animals: Yes Pets and animals: dog(s) Do you think of yourself as: lesbian/edward/homosexual Current gender identity: female What is your relationship status?: refused to answer How often do you talk on the phone with friends or family?: decline to answer How often do you get together with friends or relatives?: decline to answer How often do you attend confucianism or church services?: decline to answer Do you belong to any clubs or organized social groups?: decline to answer Panel score (0-1 are the most socially isolated patients): 0 Julee/Religious: Other Seatbelt use: always Helmet use: Yes Helmet use: always Drive intox or ride w/intox delivery truck driver: No Do you feel safe at home: Yes Do you feel safe in your relationship?: Yes PAWSS Have you Been Recently Intoxicated or Drunk Within the Last 30 days?: No Have you Ever Experienced Previous Episodes of Alcohol Withdrawal?: No Have you ever Experienced Withdrawal Seizures?: No Have you ever Experienced Delirium Tremens(DT)s?: No Have you ever undergone Alcohol Rehabilitation Treatment (i.e, inpt ot outpatient treatment programs)?: No Have you ever Experienced Blackouts?: No Have you ever Combined Alcohol with other Downers within the last 90 days?: No Have you ever Combined Alcohol with any other Substance of Abuse during the last 90 days?: No Positive Blood Alcohol level on Presentation? [PCS.BAL]: No Evidence of Increased Autonomic Activity (i.e. HR>120, tremor, sweating, agitation, nausea)?: No Result: 0
[2024-02-04] MEDS: Acetaminophen 500 MG TAB 1000 MG PO (15:41)
[2024-02-04 15:42] VITALS: BP 150/105; PULSE 90; RESP 16; TEMP 35.9; O2SAT 99
[2024-02-04] MEDS: diazePAM 5 MG TAB 10 MG PO (15:42)
[2024-02-04] MEDS: Lidocaine 5% Patch 1 PATCH TP (15:42)
[2024-02-04] MEDS: predniSONE 20 MG TAB 60 MG PO (15:42)
[2024-02-04] MEDS: Ketorolac 30 MG/ML VIAL IM (15:42)
== END 2024-02-04 15:42 | disposition home or self-care (01) ==
PROVIDERS: Emergency Provider Student in an Organized Health Care Education/Training Program; PCP Nurse Practitioner Family
DX: M54.50 Low back pain, unspecified (principal)
CPT/HCPCS: 99283; J1885; J7512

== ENCOUNTER 2024-02-07 18:34 | Emergency (ER) | payer MEDICAID, SELFPAY ==
[2024-02-07 18:37] VITALS: BP 181/129; PULSE 126; RESP 22; TEMP 36.9; O2SAT 98
[2024-02-07] MEDS: fentaNYL 100 MCG/2 ML VIAL (19:09)
--- NOTE | 2024-02-07 19:15 | DI.CT_ITS ---
Exam(s) CT ABDOMEN PELVIS W EXAM: CT ABDOMEN PELVIS W CLINICAL HISTORY: L hip/LLQ pain. TECHNIQUE: Imaging Protocol: Axial computed tomography images with coronal and sagittal reformatted images were created and reviewed CONTRAST MATERIAL: Intravenous: Omnipaque 350 Contrast volume:100 ml Oral: / no COMPARISON: CT CT RENAL COLIC WO from 02/02/2023 FINDINGS: ABDOMEN and PELVIS: Lung Bases: No acute findings. Liver: Normal density. No suspicious mass. Gallbladder and biliary tract: No radiodense calculus. No biliary dilation. Pancreas: Normal density. No abnormal calcifications or inflammatory process. No evidence of mass. Spleen: Normal. Kidneys: Normal size, contour and axis. No radiodense stones. No obstructive uropathy. No suspicious masses seen. Circumaortic left renal vein Adrenal glands: No masses seen. Vasculature: Abdominal aorta non-dilated. Soft tissues: Unremarkable. Bladder: No gross wall thickening. No calculi.No focal mass. Bowel: No obstruction. No bowel wall thickening. Diverticulosis. No evidence of diverticulitis. Peritoneal cavity: No ascites. No focal collection. No mesenteric inflammatory response. Bones: Unremarkable for age. Reproductive organs: Unremarkable. Lymph nodes: No pathologically enlarged lymph nodes. IMPRESSION:: No acute abnormality in the abdomen or pelvis. RADIATION DOSE DELIVERED: 1,188.74mGy.cm Total DLP DATA REPOSITORY: All CT scans at this facility are submitted to the National Radiology Data Registry (NRDR) Dose Index Registry (DIR) with the [employer] (ACR). RADIATION OPTIMIZATION: All CT scans at this facility use at least one of these dose optimization te chniques: automated exposure control; mA and/or kV adjustment per patient size (includes targeted exa ms where dose is matched to clinical indication); or iterative reconstruction.
--- NOTE | 2024-02-07 19:20 | ED.GENADUL_ITS ---
Discharge Plan Disposition Patient Disposition: Home Discharge Details Clinical Impression: Acute pain of left hip Primary Care Provider: Kiran Lewis ED Provider: Desiree Roberts Home Meds and New Rx's Prescriptions: Continued triamcinolone acetonide 0.05 % ointment 1 applic topical BID Qty: 110 0RF Patient Comments: not taking ferrous sulfate [FeroSul] 325 mg (65 mg iron) tablet 325 mg PO DAILY [facility] 750 mg-100 mg- 1.65 mg-108 mg tablet 3 tab PO DAILY sucralfate 1 gram tablet See Rx Instructions .ROUTE .COMPLEX Qty: 60 1RF Dose Instruction: TAKE 1 TABLET BEFORE MEALS AND AT BEDTIME, TAKE ON AN EMPTY STOMACH 1 HOUR PRIOR TO MEALS Patient Comments: not taking Rx Instructions: TAKE 1 TABLET BEFORE MEALS AND AT BEDTIME, TAKE ON AN EMPTY STOMACH 1 HOUR PRIOR TO MEALS multivitamin [Daily Multi-Vitamin] 1 EACH tablet 1 ea PO DAILY cholecalciferol (vitamin D3) [Vitamin D3] 2,000 UNIT capsule 5,000 unit PO DAILY sucralfate 1 gram tablet 1 g PO HS Qty: 60 12RF Patient Comments: not taking Rx Instructions: 1 g orally bedtime; and can take prn pantoprazole [Protonix] 40 mg tablet,delayed release (DR/EC) 40 mg PO DAILY Qty: 90 4RF methocarbamol 750 mg tablet See Rx Instructions .ROUTE .COMPLEX Qty: 90 3RF Dose Instruction: TAKE ONE TABLET BY MOUTH EVERY 8 HOURS NEEDED FOR MUSCLE SPASM Rx Instructions: TAKE ONE TABLET BY MOUTH EVERY 8 HOURS NEEDED FOR MUSCLE SPASM acetaminophen 500 mg capsule 1,000 mg PO Q8H PRN PRNQty: 30 0RF Medical Marijuana 1 dose PO PRN PRN prednisone 20 mg tablet 20 mg PO DAILY Qty: 42 0RF Rx Instructions: Take 3 tablets daily for 7 days, followed by 2 tablets daily for 7 days, followed by 1 tablet daily for 7 days. lidocaine [Lidoderm] 5 % adhesive patch,medicated 1 patch Topical Q24H Qty: 15 0RF Discharge Instructions Instructions: Opioids for Short-Term Treatment of Pain ED, Hip Pain ED Additional Instructions: Please follow-up with your primary care provider and orthopedics within the next week for reassessment and management of your hip pain You may use the oxycodone provided for severe pain as needed only. Continue using Tylenol 1000 mg no more than every 8 hours, as well as as ibuprofen 800 mg every 8 hours. You may continue to take the prednisone as prescribed as well. Apply ice to your left hip for pain control. You may also use lidocaine patches, being sure not to put heat or ice over the patch. Return to emergency care if develop new fevers associated with hip pain, redness/swelling/warmth to the joint, inability to bear weight, new bowel or bladder changes, loss of sensation in your legs or groin area, or if you are very worried and need to be rechecked again immediately Referrals: [facility] [Provider Group] Kiran Lewis NP [Primary Care Provider] - [facility] General Date/Time Provider Initiated Documentation: 02/07/24 18:37 . [facility] Narrative: Cee is a 58-year-old female with history of herniated disks and chronic back pain who presents to the emergency department today for evaluation severe left- sided lower back pain. She reports that she pulled a muscle in her right side approximately 6 weeks ago, has been feeling like she has her left hip slipping out. 1 week ago she developed severe left-sided back pain that radiates around to the left lower quadrant and down front of her leg. She was seen in the emergency department 3 days ago, diagnosed with sciatica and given prednisone. She reports that pain has not changed despite using the prednisone, Tylenol/ibuprofen, and heating pads. Pain is aggravated with any movement, is described as a broomstick being stabbed through her left buttock into her hip. She was evaluated by her costumer today and advised to come to the emergency department because this is different than previous episodes of back pain that she has experienced. She denies associated fever/chills, nausea/vomiting, saddle paresthesias, change in bowel or bladder function, dysuria, leg weakness/numbness, rashes. Denies history of spinal instrumentation or IV drug use. She has had multiple abdominal surgeries, including , appendectomy, and laparotomy. She is up-to-date for colonoscopy. Physical exam remarkable for very uncomfortable patient, pain worsened with any movement. No C-spine/T-spine/L-spine tenderness/step-off/deformity with palpation. 5/5 muscle strength to bilateral lower extremities, sensation grossly intact. Abdomen is soft, nondistended, tender to palpation in the left side. Normoactive bowel sounds. Easy work of breathing, lung sounds clear bilaterally. No CVA tenderness. Normal heart sounds, tachycardia noted consistent with pain. DDx includes but is not limited to: Ovarian cyst, diverticulitis, osteonecrosis, bony tumor, hernia, lumbar radiculopathy, bursitis, labral injury or other soft tissue/cartilage injury. As there is no joint swelling/redness/warmth, difficulty bearing weight, fever, and patient has no history of joint replacement, low suspicion for septic arthritis. I independently interpreted the following tests: CBC, CMP, lactate all reassuring. CT abdomen/pelvis performed, no acute abnormalities noted. No effusion or bony abnormality noted. While in the emergency department Cee received fentanyl for pain control. Overall workup today very reassuring. Unclear etiology of hip pain, possible tendinitis versus nerve impingement. Recommend follow-up with PCP and orthopedics for further evaluation and management. Reviewed red flags indicate need for return to emergency care. Will send home with a limited number of oxycodone. Related Data Home Medications Medication Instructions Recorded Confirmed cholecalciferol (vitamin D3) 50 5,000 unit PO DAILY 07/08/17 02/07/24 mcg (2,000 unit) capsule (Vitamin D3) multivitamin (Daily Multi-Vitamin 1 ea PO DAILY 07/08/17 02/07/24 tablet) Medical Marijuana 1 dose PO PRN PRN 06/28/20 02/07/24 ferrous sulfate 325 mg (65 mg 325 mg PO DAILY 07/04/20 02/07/24 iron) tablet (FeroSul) glucosam 750 mg-chondroi 100 3 tab PO DAILY 11/10/20 02/07/24 mg-hyalur 1.65 mg-CF borate 108 mg tablet ([employer]) acetaminophen 500 mg capsule 1,000 mg (2 x 500 mg) PO Q8H PRN 10/27/21 02/07/24 PRN #30 caps triamcinolone acetonide 0.05 % 1 applic topical BID #110 grams 02/09/22 02/07/24 topical ointment sucralfate 1 gram tablet 1 g PO HS #60 tabs 03/20/23 02/07/24 sucralfate 1 gram tablet See Rx Instructions .Route 07/12/23 02/07/24 .COMPLEX #60 tabs pantoprazole 40 mg tablet,delayed 40 mg PO DAILY #90 tabs 11/15/23 02/07/24 release (Protonix) methocarbamol 750 mg tablet See Rx Instructions .Route 12/19/23 02/07/24 .COMPLEX #90 tabs lidocaine 5 % topical patch 1 patch topical Q24H #15 ea 02/04/24 02/07/24 (Lidoderm) prednisone 20 mg tablet 20 mg PO DAILY #42 tabs 02/04/24 02/07/24 Previous Rx's Medication Instructions Recorded acetaminophen 500 mg capsule 1,000 mg (2 x 500 mg) PO Q8H PRN 10/27/21 PRN #30 caps triamcinolone acetonide 0.05 % 1 applic topical BID #110 grams 02/09/22 topical ointment sucralfate 1 gram tablet 1 g PO HS #60 tabs 03/20/23 sucralfate 1 gram tablet See Rx Instructions .Route 07/12/23 .COMPLEX #60 tabs pantoprazole 40 mg tablet,delayed 40 mg PO DAILY #90 tabs 11/15/23 release (Protonix) methocarbamol 750 mg tablet See Rx Instructions .Route 12/19/23 .COMPLEX #90 tabs lidocaine 5 % topical patch 1 patch topical Q24H #15 ea 02/04/24 (Lidoderm) prednisone 20 mg tablet 20 mg PO DAILY #42 tabs 02/04/24 Allergies Allergy/AdvReac Type Severity Reaction Status Date / Time No Known Allergies Allergy Verified 02/04/24 15:02 General Stated Complaint: Nk/Back Pain [place]: 3 Review of Systems Narrative: see HPI Exam Const General: cooperative, well developed and acute distress (very uncomfortable) Nutritional Appearance: average body habitus Resp Effort & Inspection: normal respiratory effort and able to speak in complete sentences Auscultation: clear to auscultation bilaterally Cardio Rate: regular rate Rhythm: regular rhythm GI Inspection: normal to inspection Palpation: soft, not firm, no guarding, not rigid and tender in the LLQ and in the LUQ Auscultation: normal bowel sounds Back/Spine/Pelvis Back: no CVA tenderness Cervical Spine: No cervical spinal tenderness and No step off deformity Thoracic/Lumbar Spine: thoracic and lumbar spine normal to inspection and No paraspinal tenderness Skin General skin exam: no rashes or lesions noted Neuro General: moves all extremities and no focal motor deficits Speech: speech normal Gait: normal gait Motor: muscle tone normal throughout and strength 5/5 throughout Sensory Exam: no sensory deficits noted Course Vital Signs Vital signs: Vital Signs Temperature 36.9 C 02/07/24 18:37 Pulse 126 H 02/07/24 18:37 Respiratory Rate 22 02/07/24 18:37 Blood Pressure 181/129 H 02/07/24 18:37 Pulse Oximetry 98 02/07/24 18:37 Temperature 36.9 C 02/07/24 18:37 Pulse 126 H 02/07/24 18:37 Respiratory Rate 22 02/07/24 18:37 Respiratory Effort Normal 02/07/24 18:43 Blood Pressure 181/129 H 02/07/24 18:37 Pulse Oximetry 98 02/07/24 18:37 Oxygen Delivery Method Room Air 02/07/24 18:37 Oxygen Flow Rate 0 02/07/24 18:37 Pain Level 10 02/07/24 18:45 Medical Decision Making Quality:SDOH Health Related Social Needs: No Data to Display PFSH All Active Problems (Updated 02/07/24 @ 22:56 by Desiree Baker) Acute pain of left hip (Acute) Lumbago (Acute) Palpitations (Acute) Chest wall mass (Acute) right sided posterior Breast pain, right (Acute) Colon polyp (Acute ~03/03/23) hyperplastic x1 Lumbosacral spondylosis without myelopathy (Acute) Carpal tunnel syndrome of left wrist (Acute) s/p ECTR Cubital tunnel syndrome on left (Acute 10/27/21) s/p release 10/27/2021 GERD with esophagitis (Chronic) EGD 09/06/18 with erosive reflux esophagitis Amputation of toe of left foot (Acute 01/29/20) Left third toe Metatarsal fracture (Acute ~03/01/20) Right second metatarsal Anemia (Chronic) Chronic low back pain with sciatica (Acute) 07/2020- Large broad-based disc herniation at L2-3. Mild broad-based disc herniation at L4-5. referred to [facility] neurosurgery Stress fracture of metatarsal bone (Acute) 3rd metatarsal right foot. Spondylosis (Acute) at almost every level by MRI 07/2020 [facility] recommended laminectomy for lumbar stenosis L2-3 & L4-5 Back pain (Acute) Mass of pancreas (Acute) Vitamin D deficiency (Acute) Left hand pain (Acute) Hammer toe of second toe of right foot (Acute) Lumbar strain (Acute) RUQ abdominal pain (Acute) Screening for colon cancer (Acute) Neural foraminal stenosis of cervical spine (Acute) Medical History Acute gastritis History of in vitro fertilization Pelvic pain Dyshidrotic eczema Hyperlipidemia Patient Denies Surgical History History of colonoscopy (~02/2023) History of carpal tunnel release (01/29/20) Left H/O toe surgery Acquired deformity of left toe s/p left third toe amputation 01/29/20 Lateral deviation of the third toe PIP joint 06/13/18 - Plantar plate repair with augmentation using Arthrex InternalBrace for third MTP joint, along with Clotilde osteotomy 11/14/18--Removal of hardware from left third metatarsal with hammertoe correction using a DuVries osteotomy S/P hammer toe correction 04/18/15--Of right 2nd toe 06/13/18--DuVries osteotomy, arthroplasty of the second PIP joint, left foot. Plantar plate repair with augmentation using Arthrex InternalBrace for third MTP joint, along with Clotilde osteotomy 11/14/18--Removal of hardware from left third metatarsal with hammertoe correction using a DuVries osteotomy 11/14/2018 S/P hammertoe fixation - right second and third toes - 05/30/19 S/P colonoscopy (06/10/17) H/O section (~02/2013) 02/2013 and 11/2014 History of esophagogastroduodenoscopy (EGD) (09/06/18) 09/06/18 07/07/20- Stoiber S/P cubital tunnel release (11/14/18) Ulnar nerve decompression with anterior subcutaneous transposition S/P endoscopic carpal tunnel release (01/29/20) Right wrist 11/14/18 Left Wrist 01/29/20 S/P LASIK surgery of both eyes (~2009) Right in 2009 Left in 2010 S/P excision of Guadalupe's neuroma (04/18/15) Right 3rd intermetatarsal space. Repeated on 12/12/2015 S/P bunionectomy (04/18/15) Right hallux Hx of appendectomy (~1981) H/O laparoscopy Ovarian cyst drainage at 17 or 18yrs old Family History Mother No problems noted. Father Dementia Brother No problems noted. Daughter No problems noted. Daughter No problems noted. Maternal Grandfather , at 74 of emphysema COPD (chronic obstructive pulmonary disease) with emphysema Maternal Grandmother , at 96 No problems noted. Paternal Grandfather , at 74 of DC Myocardial infarction Heart disease Paternal Grandmother , at 94 of dementia Dementia Social History Smoking/Tobacco Use Status: Former Tobacco Use Quit Date: 08/15/12 Second Hand Exposure: Yes Smoking risk assessment performed?: Yes Alcohol Intake: current Alcohol Intake frequency: holidays/special occasions only Alcohol type: beer and hard liquor Drug use: Daily Substance use type: marijuana Details: Vapes Caregiver/Support person: No Household members: family, children and other Housing: house Number of Children: 2 Communication Needs: None Do you need help understanding health information?: Never 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 Pets and animals: Yes Pets and animals: dog(s) Do you think of yourself as: lesbian/edward/homosexual Current gender identity: female What is your relationship status?: refused to answer How often do you talk on the phone with friends or family?: decline to answer How often do you get together with friends or relatives?: decline to answer How often do you attend hoahaoism or congregational services?: decline to answer Do you belong to any clubs or organized social groups?: decline to answer Panel score (0-1 are the most socially isolated patients): 0 Julee/Amish: Other Seatbelt use: always Helmet use: Yes Helmet use: always Drive intox or ride w/intox jinrikisha driver: No Do you feel safe at home: Yes Do you feel safe in your relationship?: Yes
[2024-02-07] MEDS: fentaNYL 100 MCG/2 ML VIAL 50 MCG IVP ×2 (19:24→21:30)
[2024-02-07 19:25] VITALS: BP 164/96; PULSE 80; O2SAT 99
[2024-02-07 19:34] LABS: Abs Immature Grans 0.07 10^3/uL (0.0-0.06); Absolute Basophil Count 0.02 10^3/uL (0.0-0.2); Absolute Lymphocyte Count 1.34 10^3/uL (1.2-3.4); Absolute Monocyte Count 0.43 10^3/uL (0.1-0.8); Absolute Neutrophil Count 6.27 10^3/uL (1.2-6.7); Basophils % 0.2 %; HCT 35.6 % (36.0-46.0); HGB 11.8 g/dL (11.2-15.7); Immature Grans % 0.9 %; Lymphocytes % 16.5 %; MCH 31.2 pg (27.0-33.0); MCHC 33.1 % (32.0-36.0); MCV 94 fL (80-95); MPV 9.6 fL (8.0-11.0); Monocytes % 5.3 %; Neutrophils % 77.1 %; Platelet Count 386 10^3/uL (130-400); RBC 3.78 10^6/uL (3.93-5.22); RDW 13.7 % (11.7-14.6); RDW-SD 47.3 fL; WBC 8.13 10^3/uL (4.4-10.8)
[2024-02-07 19:49] LABS: ALT 18 U/L (14-59); AST 9 U/L (15-37); Albumin 4.3 g/dL (3.4-5.0); Alkaline Phosphatase 108 U/L (46-116); Anion Gap 11.7 mmol/L (3-11); BUN 21 mg/dL (7-18); Bilirubin, Total 0.52 mg/dL (0.2-1.0); CO2 22.3 mmol/L (21.0-32.0); CREATININE 0.9 mg/dL (0.55-1.02); Calcium 8.9 mg/dL (8.5-10.1); Chloride 106 mmol/L (98-107); Estimated GFR 75.03 (mL/min/1.73m2); Glucose 109 mg/dL (74-106); Potassium 4.3 mmol/L (3.5-5.1); Sodium 140 mmol/L (136-145); Total Protein 7.2 g/dL (6.4-8.2)
[2024-02-07] MEDS: Omnipaque 350 MG/ML 100 ML BTL IJ (20:45)
[2024-02-07 20:46] VITALS: BP 128/68; PULSE 68; O2SAT 98
[2024-02-07] MEDS: Normal Saline - Diluent 50 ML VIAL IJ (20:46)
[2024-02-07] MEDS: Normal Saline Flush 10 ML SYR IVP (20:46)
[2024-02-07 21:17] VITALS: O2SAT 98
[2024-02-07 21:18] VITALS: BP 166/82; PULSE 55; O2SAT 98
--- NOTE | 2024-02-07 22:06 | DI.VRAD_ITS ---
PROCEDURE INFORMATION: Exam: CT Abdomen And Pelvis With Contrast Exam date and time: 02/07/2024 8:54 PM Age: 58 years old Clinical indication: Abdominal pain; Localized; Left lower quadrant (llq); Prior surgery; Surgery date: 6+ months; Surgery type: Appendectomy; Patient HX: Llq pain and L hip pain TECHNIQUE: Imaging protocol: Computed tomography of the abdomen and pelvis with contrast. Radiation optimization: All CT scans at this facility use at least one of these dose optimization techniques: automated exposure control; mA and/or kV adjustment per patient size (includes targeted exams where dose is matched to clinical indication); or iterative reconstruction. Contrast material: OMNIPAQUE 350; Contrast volume: 100 ml; Contrast route: INTRAVENOUS (IV); COMPARISON: CT RENAL COLIC WO 02/02/2023 12:15 PM FINDINGS: Liver: Normal. No mass. Gallbladder and biliary ducts: Possible gallbladder distension. No calcified gallstones noted. Pancreas: Normal. No ductal dilation. Spleen: Splenic calcification again seen, consistent with old granulomatous change. Adrenal glands: Normal. No mass. Kidneys and ureters: Normal. No hydronephrosis. Stomach and bowel: Mild diverticulosis. No evidence for acute diverticulitis. Appendix: No evidence of appendicitis. Intraperitoneal space: Unremarkable. No free air. No significant fluid collection. Vasculature: Moderate atherosclerotic change present in the vasculature. Lymph nodes: Unremarkable. No enlarged lymph nodes. Urinary bladder: Bladder not well distended. Reproductive: Unremarkable as visualized. Bones/joints: Unremarkable. No acute fracture. Soft tissues: Unremarkable. IMPRESSION: No acute abnormality seen to account for symptoms. Dictated and Authenticated by: Janice Herzog MD. Ordering:NORMA Ramírez MD
--- NOTE | 2024-02-07 23:52 | NUR.NOTE ---
PCP Follow up in 1 week. back pain Nursing Note:
== END 2024-02-07 23:15 | disposition home or self-care (01) ==
PROVIDERS: Emergency Provider Nurse Practitioner Family; PCP Nurse Practitioner Family
DX: M54.50 Low back pain, unspecified (principal); M25.552 Pain in left hip; I10 Essential (primary) hypertension
CPT/HCPCS: 36415; 80053; 96374; 96376; 99285; 74177; 83605; 85025; 99283; J3010; J3490

== ENCOUNTER → 2024-02-15 14:34 | Outpatient (CLI) | payer MEDICAID, SELFPAY ==
--- NOTE | 2024-02-15 13:30 | DI.RAD_ITS ---
Exam(s) XR HIP PELVIS ADULT BL EXAM: XR HIP PELVIS ADULT BL CLINICAL HISTORY: pain M25.551 PAIN RT HIP M25.552 PAIN LT HIP. TECHNIQUE: 2D digital imaging was performed of the pelvis and bilateral hips. Three images were obt ained. AP pelvis and lateral views of both hips were obtained. COMPARISON: CR XR PELVIS W OBLIQUES 3V from 01/27/2021 FINDINGS: BONES: No acute fracture is present. No bony destructive lesion is seen. JOINTS: No dislocation present. The joint spaces are well maintained. The sacroiliac joints and symp hysis pubis are unremarkable. SOFT TISSUE: Normal. IMPRESSION: Unrmarkable radiographs of bilat hips. Unremarkable radiographs of the pelvis DATA REPOSITORY: RADIATION DOSE DELIVERED:
== END ==
PROVIDERS: PCP Nurse Practitioner Family; Visit Provider Nurse Practitioner Family
DX: M25.551 Pain in right hip (principal); M25.552 Pain in left hip
CPT/HCPCS: 73521

== ENCOUNTER 2024-02-28 14:59 | Emergency (ER) | payer MEDICAID, SELFPAY ==
[2024-02-28 15:03] VITALS: BP 90/66; PULSE 92; RESP 16; TEMP 36.7; O2SAT 97
[2024-02-28] MEDS: HYDROmorphone 2 MG/ML SYR IM ×2 (15:30→16:22)
[2024-02-28] MEDS: Gabapentin 300 MG CAP 900 MG PO (15:30)
[2024-02-28 16:30] VITALS: BP 131/82; PULSE 89; RESP 20; O2SAT 96
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
== END 2024-02-28 16:30 | disposition home or self-care (01) ==
PROVIDERS: Emergency Provider Emergency Medicine; PCP Nurse Practitioner Family
DX: M54.50 Low back pain, unspecified (principal); M54.32 Sciatica, left side
CPT/HCPCS: 96374; 96376; 99284; 99283; J1170

== ENCOUNTER → 2024-03-02 00:24 | Outpatient (CLI) | payer MEDICAID, SELFPAY ==
--- NOTE | 2024-03-02 07:00 | DI.MRI_ITS ---
Exam(s) MR THORACIC SPINE WO EXAM: MR THORACIC SPINE WO CLINICAL HISTORY: PAIN WITH NO IMPROVEMENT,SPONDYLOSIS,M47.9 TECHNIQUE: Multiplanar multisequence MRI of the thoracic spine was performed without intravenous con trast. COMPARISON: MR MR THORACIC SPINE WO from 02/14/2023 MR MR LUMBAR SPINE WO from 03/02/2024 FINDINGS: OSSEOUS: There are no acute appearing thoracic vertebral fractures. There are no ominous osseous les ions in the thoracic vertebrae. THORACIC SPINAL CORD: There is no abnormal signal in the cervical spinal cord and no evidence of foca l cord atrophy nor focal cord swelling. There is no evidence of syringomyelia nor significant spinal cord dysraphism. There is no evidence of mass at the conus medullaris. The position of the conus me dullaris is at normal level. SIGNIFICANT INDIVIDUAL LEVEL FINDINGS: There is posterior annular bulging at T11-T12 level without a prominent disc herniation or central ca nal stenosis at this level. This finding is unchanged from the prior MRI scan of 1 year ago ( 023). PARASPINAL TISSUES: No significant masses nor fluid collections evident. IMPRESSION: No significant new findings in the thoracic spine. No significant change compared to prior MRI scan of 02/14/2023. DATA REPOSITORY:
--- NOTE | 2024-03-02 07:00 | DI.MRI_ITS ---
Exam(s) MR CERVICAL SPINE WO EXAM: MR CERVICAL SPINE WO CLINICAL HISTORY: PAIN WITH NO IMPROVEMENT, NEURAL FORAMINAL STENOSIS,M48.02 TECHNIQUE: Multiplanar multisequence MRI of the cervical spine was performed without intravenous con trast. COMPARISON: MR MR CERVICAL SPINE WO from 02/14/2023 FINDINGS: CERVICOMEDULLARY JUNCTION: Intact with no evidence of cerebellar tonsillar ectopia. No obvious abnor mality of the odontoid process. No evidence of Chiari 1 malformation. CERVICAL SPINAL CORD: There is no abnormal signal in the cervical spinal cord and no evidence of foca l cord atrophy nor focal cord swelling. OSSEOUS:There are no cervical fractures evident. No significant osseous lesions in the cervical vert ebrae. Abnormal straightening of the cervical spine is unchanged from 1 year ago. INDIVIDUAL LEVELS: C2-3: No disc herniation nor central canal stenosis. No foraminal stenosis. No facet arthropathy. C3-4: This level exhibits chronic disc space narrowing with slight further progression from 1 year ag o.No listhesis. There is mild annular bulging without a distinct focal disc herniation nor central c anal stenosis. Central canal dimensions are lower normal at this level. There are advanced degenera tive changes in the right facet joint again noted at this level. Severe right-sided foraminal stenos is is again noted. Milder left-sided foraminal stenosis. C4-5: Relatively preserved disc height. On today's study there is no disc herniation evident at this level. Central canal dimensions are normal. Mild left-sided facet arthropathy and moderate-advance d right-sided foraminal stenosis. Moderate-advanced right-sided foraminal stenosis. Milder left-maxi ed foraminal stenosis. C5-6: This level again exhibits chronic advanced disc space narrowing and small bilateral Luschka angie nt osteophytes. Posteriorly there is symmetrical annular bulging which flattens the anterior thecal sac resulting in an element of central spinal canal stenosis with AP dimension of the canal being 6 m m at this level. Left facet joint appears unremarkable. Mild degenerative changes in the right face t joint. There is moderate foraminal stenosis on the right side due to Luschka joint osteophyte and facet arthropathy. On the left side there is similar findings, resulting in significant bilateral fo raminal stenosis at this level again noted C6-7: This level again exhibits advanced chronic disc space narrowing but no significant disc herniat ion. Central canal dimensions at this level lower normal.. Moderate-severe bilateral foraminal sten osis is again noted which is unchanged from 1 year ago. C7-T1: No disc herniation nor central canal stenosis. No facet arthropathy.No foraminal stenosis. IMPRESSION: 1. Multilevel degenerative disc disease in a similar to the prior MRI scan of 1 year ago (02/14/2023) . 2. No due disc herniations nor significant central spinal canal stenosis. 3. There is again noted advanced foraminal narrowing at C5-6 and C6-7 bilaterally. Normal signal in the cervical spinal cord. DATA REPOSITORY:
--- NOTE | 2024-03-02 07:00 | DI.MRI_ITS ---
Exam(s) MR LUMBAR SPINE WO EXAM: MR LUMBAR SPINE WO CLINICAL HISTORY: BACK PAIN WITH NO IMPROVEMENT, SPONDYLOSIS,M47.9. TECHNIQUE: Multiplanar multisequence MRI of the Lumbar spine was performed. COMPARISON: CR XR LUMBAR SPINE COMPLETE from 01/27/2021 MR MR LUMBAR SPINE WO from 02/04/[address] ABDOMEN PELVIS W from 02/07/2024 FINDINGS: Conus medullaris is at normal level. There is no evidence of conus mass nor subjacent clumping of in trathecal nerve roots to suggest arachnoiditis. The distal thecal sac appears unremarkable.There is no evidence of Tarlov intrasacral cysts nor other significant findings within the sacral canal Bones:There are no fractures nor ominous osseous lesions in the lumbar vertebral bodies and visualize d sacrum. With respect to the individual levels... T12-L1: Unremarkable L1-2: Normal disc height. Mild symmetrical annular bulging is unchanged from previous study. No dom inant disc herniation. Central canal dimensions are normal. There is no foraminal stenosis. No fac et arthropathy. L2-3: Chronic decreased disc height and signal again noted. Broad relatively symmetrical annular bul ging is again noted which flattens the anterior thecal sac. Mild central canal stenosis. There is n o focal disc herniation. Annular bulging extends into the floor of the exiting neural foramina bilat erally, slightly more so on the right side. However, there is no significant foraminal stenosis on e ither side at this level. No significant facet arthropathy. L3-4: This level exhibits unchanged mild disc space narrowing and broad symmetrical annular bulging, similar to previous with flattening of the anterior thecal sac, similar to L2-3 and with similar mild central spinal canal stenosis. Annular bulging extends into the floor of the exiting neural foramin a, slightly more so on the left side, similar to previous. There is no prominent foraminal stenosis. There are mild-moderate degenerative changes in the facet joints bilaterally at this level. L4-5: This level again exhibits asymmetric disc space narrowing on the right side. There is broad an nular bulging again noted with mild-moderate central spinal canal stenosis again noted. However, the re is a superimposed new finding at this level which is a posterolateral disc protrusion which is ext ruded and extending inferiorly behind the left side of the L5 vertebral body. This posterolateral le ft disc protrusion extends posteriorly 8 millimeters, is 1.5 cm wide, and extends inferiorly for dist ance of 1.3 cm behind the left side of L5 vertebral body. It occupies the inferior aspect of the lat eral recess and impresses upon the left side of the thecal sac. The disc herniation does not extend into the exiting neural foramen. The broad annular bulging which is unchanged from the prior study e xtends into the floor of the exiting neural foramina, similar to previous, but is not associated with significant foraminal stenosis on either side. There are mild degenerative changes in both facet okry ints at this level. L5-S1: Relatively preserved disc height and signal. There is annular bulging at this level, slightly more so on the left than the right side and extending into the exiting left neural foramen more so t corea previous. The above described disc protrusion behind the left side of L5 vertebral body actually descends to the level of the left-sided annular bulging at this level and extends to the medial aspe ct of the exiting left neural foramen. Central canal dimensions otherwise normal at this level. Exi ting right neural foramen is nicely patent. Facet joints at this level appear unremarkable. Soft tissues: paraspinal soft tissues appear unremarkable. IMPRESSION: Multilevel findings as described above. However, when compared to the prior MRI scan of 02/04/2023 the main new finding is a prominent disc f ragment located behind the left side of L5 vertebral body approximately echo distant between left-maxi ed annular bulging at L4-5 and L5-S1 levels and measuring 1.3 cm craniocaudal length by 8 mm AP by 1. 5 cm wide, significantly impressing the anterior right side of the thecal sac and occupying lateral r ecess at this level. It is somewhat difficult to determine if this sequestered disc protrusion is co araceli from the L4-5 or L5-S1 disc space, particularly since there is no obvious tear in the annulus at either level. DATA REPOSITORY:
== END ==
PROVIDERS: PCP Nurse Practitioner Family; Visit Provider Nurse Practitioner Family
DX: M47.9 Spondylosis, unspecified (principal); M54.50 Low back pain, unspecified; G89.29 Other chronic pain; M48.02 Spinal stenosis, cervical region; M99.71 Connective tissue and disc stenosis of intervertebral foramina of cervical region
CPT/HCPCS: 72141; 72146; 72148

== ENCOUNTER 2024-04-23 07:02 | Emergency (ER) | payer MEDICAID, SELFPAY ==
[2024-04-23] VITALS (17 sets, daily range): BP systolic 122–163; BP diastolic 78–132; PULSE 70–130; RESP 9–26; TEMP 36.3; O2SAT 95–100
--- NOTE | 2024-04-23 07:15 | RT.EKG_ITS ---
APPROVED REPORT Exam: Resting ECG Reason for Exam: R. rib pain Patient Location: E HR:80 bpm ECG Measurements Heart Rate 80 AXIS ME 156 P 45 QRSd 91 QRS -8 QT 378 T 51 QTc 437 Conclusion Sinus rhythm, rate 80 No interval abnormalities or ectopy No STEMI
--- NOTE | 2024-04-23 07:35 | ED.GENADUL_ITS ---
Discharge Plan Disposition Patient Disposition: Home Condition: Stable Discharge Details Clinical Impression: Rib pain on right side, GERD with esophagitis, Lumbar strain Primary Care Provider: Kiran Lewis ED Provider: Shaista Benavidez Home Meds and New Rx's Prescriptions: New diclofenac sodium 1 % gel 2 g topical QID Qty: 100 0RF Rx Instructions: apply to area of pain, avoid using other NSAIDs No Action triamcinolone acetonide 0.05 % ointment 1 applic topical BID Qty: 110 0RF Patient Comments: not taking ferrous sulfate [FeroSul] 325 mg (65 mg iron) tablet 325 mg PO DAILY Move Free [facility] 750 mg-100 mg- 1.65 mg-108 mg tablet 3 tab PO DAILY sucralfate 1 gram tablet See Rx Instructions .ROUTE .COMPLEX Qty: 60 1RF Dose Instruction: TAKE 1 TABLET BEFORE MEALS AND AT BEDTIME, TAKE ON AN EMPTY STOMACH 1 HOUR PRIOR TO MEALS Patient Comments: not taking Rx Instructions: TAKE 1 TABLET BEFORE MEALS AND AT BEDTIME, TAKE ON AN EMPTY STOMACH 1 HOUR PRIOR TO MEALS multivitamin [Daily Multi-Vitamin] 1 EACH tablet 1 ea PO DAILY cholecalciferol (vitamin D3) [Vitamin D3] 2,000 UNIT capsule 5,000 unit PO DAILY pantoprazole [Protonix] 40 mg tablet,delayed release (DR/EC) 40 mg PO DAILY Qty: 90 4RF cyclobenzaprine 10 mg tablet 10 mg PO TID PRN (Reason: muscle spasm) Qty: 10 0RF Rx Instructions: to be filled today methocarbamol 750 mg tablet See Rx Instructions .ROUTE .COMPLEX Qty: 90 3RF Dose Instruction: TAKE ONE TABLET BY MOUTH EVERY 8 HOURS NEEDED FOR MUSCLE SPASM Rx Instructions: TAKE ONE-two TABLET BY MOUTH EVERY 6 HOURS NEEDED FOR MUSCLE SPASM acetaminophen 500 mg capsule 1,000 mg PO Q8H PRN PRNQty: 30 0RF gabapentin [Neurontin] 300 mg capsule 900 mg PO TID Qty: 90 0RF Medical Marijuana 1 dose PO PRN PRN Discharge Instructions Instructions: Costochondritis Additional Instructions: You were seen in the emergency department today for evaluation of right rib/chest pain. In our department you had a full physical examination performed, had laboratory studies that were reassuring, and had imaging that did not show any evidence of blood clot, lung problems, or vascular abnormalities. You did have a reassuring EKG and normal cardiac enzymes. You are likely experiencing musculoskeletal chest pain, and I did provide you with a prescription for diclofenac gel to be used in the area of pain. Please do not take additional NSAIDs while you are using this medication. You should continue to use Tylenol, heat, or ice, what ever makes you feel better. Please follow- up with primary care provider in the next few days to discuss this visit and any symptoms that change, worsen, or persist. Thank you for allowing us to be part of your care. HPI General Mode of arrival: ambulatory . Date/Time Provider Initiated Documentation: 04/23/24 07:09 . Limitations to Documentation: no limitations . Information obtained by: patient and old records reviewed . HPI Narrative: MDM: In brief, this is a 58-year-old female patient presenting for evaluation of right rib/chest pain for the last 3 days. My differential includes but is not limited to ACS including STEMI, NSTEMI, unstable angina, certainly considered aortic pathology, pulmonary embolism given her tachycardia. I considered underlying pulmonary abnormalities including pneumonia, pneumothorax, pleural effusion, no evidence of physical examination for fluid overload to suggest pulmonary edema. I considered musculoskeletal abnormalities including costochondritis, chest wall contusion, no trauma to suggest rib fracture. The patient has overlying skin changes to suggest herpes zoster, no abdominal tenderness or vomiting to suggest Boerhaave's, esophagitis, PUD/gastritis, certainly considered pancreatitis, hepatitis, cholecystitis. Reassuringly, the patient is hemodynamically appropriate though she is quite tachycardic in triage to 130, resolved at time of EKG, and for this reason we will proceed with laboratory workup to include CBC, CMP, lipase, troponin, D- dimer, and chest x-ray. I will provide the patient with a dose of morphine intravenously for symptomatic management of her pain and she is already utilize Tylenol and ibuprofen within the last 4 hours. ED Course: I reviewed the patient's EKG, which shows a normal sinus rhythm without evidence of ischemia, interval abnormality, or ectopy. I independently interpreted the laboratory studies, which show no significant leukocytosis, anemia, or thrombocytopenia. The chemistry panel is without evidence of electrolyte abnormality, kidney dysfunction, or liver injury. High-sensitivity troponin was 7 then 6 at 1 hour recheck, low risk per hour high-sensitivity troponin protocol and not requiring any further workup or management. D-dimer was modestly elevated to 583, and given the patient's symptoms we did elect to proceed with CT pulmonary embolism study, which was reassuringly negative for pulmonary embolism and any other abnormality to account for her symptoms. Given the reproducibility with palpation I am most concerned at this time for musculoskeletal abnormality as a cause of her pain, recommended diclofenac gel given her inability to tolerate systemic NSAIDs, ongoing Tylenol, heat, ice, and follow-up with her primary care provider in the next few days to discuss this visit and any symptoms that change, worsen, or persist. At this time, the patient has had a full medical evaluation and is safe for discharge to home. They are hemodynamically stable, ambulatory, and tolerating PO. They are understanding of the follow-up plan and return precautions. They left our facility without incident. Shaista Benavidez MD HPI: In brief, this is a 58-year-old female patient with a past medical history significant for lumbar spinal pain, presenting for evaluation of right rib/chest pain. The patient reports that 3 days ago she woke from sleep with this sharp pain located just under her right breast, did not experience any injuries to account for the symptoms. She has noticed that this pain is worse when she touches the area, she feels like she has to move constantly to try to get comfortable. She has not noted any significant worsening with deep breath, has not found any positions that feel better to her such as leaning forward or backwards. She has not had any fevers or chills, denies shortness of breath or cough, has not had nausea or vomiting and is maintaining her p.o. intake. No leg swelling or tenderness, no personal history of cardiac, thromboembolic, or pulmonary disease. In the outpatient environment the patient reports that she has tried Tylenol and ibuprofen, most recently this morning, she did trial a lidocaine patch which was unsuccessful in managing her symptoms. She has never had symptoms like this in the past. Exam: Gen: Awake and alert, in no apparent distress HEENT: Non-icteric sclera Neck: Supple Lungs: No apparent respiratory distress, normal respiratory effort. Lung sounds are clear and equal bilaterally, no pleuritic component to her symptoms, no wheezes, rhonchi, rales CV: Appears well perfused, heart with tachycardic rate but regular rhythm, strong and symmetrical distal pulses, chest wall is tender to palpation underneath the right breast with no overlying skin changes Abdomen: Non-distended, soft MSK: Moves 4 extremities without apparent limitation in ROM Skin: Visualized skin without rashes, cyanosis. Neuro: Normal Gait, no obvious focal deficits or facial asymmetry. Speaks in full, clear sentences. Psych: Appropriate for situation. Related Data Home Medications ?Medication ?Instructions ?Recorded ?Confirmed cholecalciferol (vitamin D3) 50 5,000 unit PO DAILY 07/08/17 04/23/24 mcg (2,000 unit) capsule (Vitamin D3) multivitamin (Daily Multi-Vitamin 1 ea PO DAILY 07/08/17 04/23/24 tablet) Medical Marijuana 1 dose PO PRN PRN 06/28/20 04/23/24 ferrous sulfate 325 mg (65 mg 325 mg PO DAILY 07/04/20 04/23/24 iron) tablet (FeroSul) glucosam 750 mg-chondroi 100 3 tab PO DAILY 11/10/20 04/23/24 mg-hyalur 1.65 mg-CF borate 108 mg tablet (Move Free [employer]) acetaminophen 500 mg capsule 1,000 mg (2 x 500 mg) PO Q8H PRN 10/27/21 04/23/24 PRN #30 caps triamcinolone acetonide 0.05 % 1 applic topical BID #110 grams 02/09/22 04/23/24 topical ointment sucralfate 1 gram tablet See Rx Instructions .Route 07/12/23 04/23/24 .COMPLEX #60 tabs pantoprazole 40 mg tablet,delayed 40 mg PO DAILY #90 tabs 11/15/23 04/23/24 release (Protonix) cyclobenzaprine 10 mg tablet 10 mg PO TID PRN muscle spasm #10 02/27/24 04/23/24 tabs gabapentin 300 mg capsule 900 mg (3 x 300 mg) PO TID #90 caps 02/28/24 04/23/24 (Neurontin) methocarbamol 750 mg tablet See Rx Instructions .Route 03/13/24 04/23/24 .COMPLEX #90 tabs diclofenac sodium 1 % topical gel 2 g topical QID #100 grams 04/23/24 Previous Rx's ?Medication ?Instructions ?Recorded acetaminophen 500 mg capsule 1,000 mg (2 x 500 mg) PO Q8H PRN 10/27/21 PRN #30 caps triamcinolone acetonide 0.05 % 1 applic topical BID #110 grams 02/09/22 topical ointment sucralfate 1 gram tablet See Rx Instructions .Route 07/12/23 .COMPLEX #60 tabs pantoprazole 40 mg tablet,delayed 40 mg PO DAILY #90 tabs 11/15/23 release (Protonix) cyclobenzaprine 10 mg tablet 10 mg PO TID PRN muscle spasm #10 02/27/24 tabs gabapentin 300 mg capsule 900 mg (3 x 300 mg) PO TID #90 caps 02/28/24 (Neurontin) methocarbamol 750 mg tablet See Rx Instructions .Route 03/13/24 .COMPLEX #90 tabs diclofenac sodium 1 % topical gel 2 g topical QID #100 grams 04/23/24 Allergies Allergy/AdvReac Type Severity Reaction Status Date / Time No Known Allergies Allergy Verified 04/23/24 08:26 General Stated Complaint: Chest/Rib [place]: 3 Course Vital Signs Vital signs: Vital Signs Temperature 36.3 C L 04/23/24 07:06 Pulse 130 H 04/23/24 07:06 Respiratory Rate 15 04/23/24 07:06 Blood Pressure 163/132 H 04/23/24 07:06 Pulse Oximetry 99 04/23/24 07:06 Temperature 36.3 C L 04/23/24 07:06 Temperature Source Tympanic 04/23/24 07:06 Pulse 130 H 04/23/24 07:06 Respiratory Rate 15 04/23/24 07:06 Blood Pressure 163/132 H 04/23/24 07:06 Blood Pressure Position Sitting 04/23/24 07:06 Pulse Oximetry 99 04/23/24 07:06 Oxygen Delivery Method Room Air 04/23/24 07:06 Oxygen Flow Rate 0 04/23/24 07:06 Pain Level 10 04/23/24 07:06 Medical Decision Making Quality:SDOH Health Related Social Needs: No Data to Display PFSH All Active Problems (Updated 04/23/24 @ 09:36 by Shaista Benavidez MD) Rib pain on right side (Acute) Bilateral hip pain (Acute) Palpitations (Acute) Chest wall mass (Acute) right sided posterior Breast pain, right (Acute) Colon polyp (Acute ~03/03/23) hyperplastic x1 Lumbosacral spondylosis without myelopathy (Acute) Carpal tunnel syndrome of left wrist (Acute) s/p ECTR Cubital tunnel syndrome on left (Acute 10/27/21) s/p release 10/27/2021 GERD with esophagitis (Chronic) EGD 09/06/18 with erosive reflux esophagitis Amputation of toe of left foot (Acute 01/29/20) Left third toe Metatarsal fracture (Acute ~03/01/20) Right second metatarsal Anemia (Chronic) Chronic low back pain with sciatica (Acute) 07/2020- Large broad-based disc herniation at L2-3. Mild broad-based disc herniation at L4-5. referred to [facility] neurosurgery Stress fracture of metatarsal bone (Acute) 3rd metatarsal right foot. Spondylosis (Acute) at almost every level by MRI 07/2020 [facility] recommended laminectomy for lumbar stenosis L2-3 & L4-5 Back pain (Acute) Mass of pancreas (Acute) Vitamin D deficiency (Acute) Left hand pain (Acute) Hammer toe of second toe of right foot (Acute) Lumbar strain (Acute) RUQ abdominal pain (Acute) Screening for colon cancer (Acute) Neural foraminal stenosis of cervical spine (Acute) Medical History (Updated 04/23/24 @ 09:36 by Shaista Benavidez MD) Acute gastritis History of in vitro fertilization Pelvic pain Dyshidrotic eczema Hyperlipidemia Patient Denies Surgical History History of colonoscopy (~02/2023) History of carpal tunnel release (01/29/20) Left H/O toe surgery Acquired deformity of left toe s/p left third toe amputation 01/29/20 Lateral deviation of the third toe PIP joint 06/13/18 - Plantar plate repair with augmentation using Arthrex InternalBrace for third MTP joint, along with Clotilde osteotomy 11/14/18--Removal of hardware from left third metatarsal with hammertoe correction using a DuVries osteotomy S/P hammer toe correction 04/18/15--Of right 2nd toe 06/13/18--DuVries osteotomy, arthroplasty of the second PIP joint, left foot. Plantar plate repair with augmentation using Arthrex InternalBrace for third MTP joint, along with Clotilde osteotomy 11/14/18--Removal of hardware from left third metatarsal with hammertoe correction using a DuVries osteotomy 11/14/2018 S/P hammertoe fixation - right second and third toes - 05/30/19 S/P colonoscopy (06/10/17) H/O section (~02/2013) 02/2013 and 11/2014 History of esophagogastroduodenoscopy (EGD) (09/06/18) 09/06/18 07/07/20- Stoiber S/P cubital tunnel release (11/14/18) Ulnar nerve decompression with anterior subcutaneous transposition S/P endoscopic carpal tunnel release (01/29/20) Right wrist 11/14/18 Left Wrist 01/29/20 S/P LASIK surgery of both eyes (~2009) Right in 2009 Left in 2010 S/P excision of Guadalupe's neuroma (04/18/15) Right 3rd intermetatarsal space. Repeated on 12/12/2015 S/P bunionectomy (04/18/15) Right hallux Hx of appendectomy (~1981) H/O laparoscopy Ovarian cyst drainage at 17 or 18yrs old Family History Mother No problems noted. Father Dementia Brother No problems noted. Daughter No problems noted. Daughter No problems noted. Maternal Grandfather , at 74 of emphysema COPD (chronic obstructive pulmonary disease) with emphysema Maternal Grandmother , at 96 No problems noted. Paternal Grandfather , at 74 of NC Myocardial infarction Heart disease Paternal Grandmother , at 94 of dementia Dementia Social History Smoking/Tobacco Use Status: Former Tobacco Use Quit Date: 08/15/12 Second Hand Exposure: Yes Smoking risk assessment performed?: Yes Alcohol Intake: current Alcohol Intake frequency: holidays/special occasions only Alcohol type: beer and hard liquor Drug use: Daily Substance use type: marijuana Details: Vapes Caregiver/Support person: No Household members: family, children and other Housing: house Number of Children: 2 Communication Needs: None Do you need help understanding health information?: Never 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 Pets and animals: Yes Pets and animals: dog(s) Do you think of yourself as: lesbian/edward/homosexual Current gender identity: female What is your relationship status?: refused to answer How often do you talk on the phone with friends or family?: decline to answer How often do you get together with friends or relatives?: decline to answer How often do you attend rastafari or caodaism services?: decline to answer Do you belong to any clubs or organized social groups?: decline to answer Panel score (0-1 are the most socially isolated patients): 0 Julee/Taoism: Other Seatbelt use: always Helmet use: Yes Helmet use: always Drive intox or ride w/intox armored car driver: No Do you feel safe at home: Yes Do you feel safe in your relationship?: Yes
[2024-04-23] MEDS: MORPHine 4 MG/ML SYR IVP ×2 (07:38→08:40)
[2024-04-23 07:39] LABS: Abs Immature Grans 0.03 10^3/uL (0.0-0.06); Absolute Basophil Count 0.06 10^3/uL (0.0-0.2); Absolute Eosinophil Count 0.15 10^3/uL (0.0-0.7); Absolute Lymphocyte Count 1.67 10^3/uL (1.2-3.4); Absolute Monocyte Count 0.43 10^3/uL (0.1-0.8); Absolute Neutrophil Count 4.44 10^3/uL (1.2-6.7); Basophils % 0.9 %; Eosinophils % 2.2 %; HCT 37.8 % (36.0-46.0); HGB 12.6 g/dL (11.2-15.7); Immature Grans % 0.4 %; Lymphocytes % 24.6 %; MCH 31.7 pg (27.0-33.0); MCHC 33.3 % (32.0-36.0); MCV 95 fL (80-95); MPV 9.7 fL (8.0-11.0); Monocytes % 6.3 %; Neutrophils % 65.6 %; Platelet Count 305 10^3/uL (130-400); RBC 3.98 10^6/uL (3.93-5.22); RDW 12.3 % (11.7-14.6); RDW-SD 43.5 fL; WBC 6.78 10^3/uL (4.4-10.8)
[2024-04-23 07:57] LABS: ALT 17 U/L (14-59); AST 15 U/L (15-37); Albumin 4.3 g/dL (3.4-5.0); Alkaline Phosphatase 93 U/L (46-116); Anion Gap 10.4 mmol/L (3-11); BUN 9 mg/dL (7-18); Bilirubin, Total 0.88 mg/dL (0.2-1.0); CO2 24.6 mmol/L (21.0-32.0); CREATININE 0.8 mg/dL (0.55-1.02); Calcium 9.4 mg/dL (8.5-10.1); Chloride 102 mmol/L (98-107); Estimated GFR 86.42 (mL/min/1.73m2); Glucose 103 mg/dL (74-106); Lipase 26 U/L (16-77); Potassium 3.7 mmol/L (3.5-5.1); Sodium 137 mmol/L (136-145); Total Protein 7.6 g/dL (6.4-8.2); Troponin I 7 ng/L (4-51)
--- NOTE | 2024-04-23 08:13 | DI.RAD_ITS ---
Exam(s) XR CHEST 2V PA LATERAL EXAM: XR CHEST 2V PA LATERAL CLINICAL HISTORY: R. chest/rib pain TECHNIQUE: 2D digital imaging was performed. Two views. COMPARISON: CT CT CHEST PE CTA from 07/01/2022 FINDINGS: HEART: Normal size. Aorta: Not dilated. PULMONARY VASCULATURE: Normal. MEDIASTINUM: Unremarkable. LUNGS: Clear. PLEURAL SPACE: No pleural effusion or pneumothorax. BONE:Unremarkable for age. SOFT TISSUES: Unremarkable. IMPRESSION: No acute abnormality. DATA REPOSITORY: RADIATION DOSE DELIVERED:
--- NOTE | 2024-04-23 08:30 | DI.CT_ITS ---
Exam(s) CT CHEST PE CTA EXAM: CT CHEST PE CTA CLINICAL HISTORY: R. CP, positive dimer. TECHNIQUE: Imaging Protocol: Axial CT angiography was performed with multi-slice acquisition and mu lti-planar reconstructions as well as axial, coronal and sagittal MIP reconstructions. CONTRAST MATERIAL: Intravenous: Omnipaque 350 Contrast volume:100 ml COMPARISON: CT CT CHEST PE CTA from 07/01/2022 CR XR CHEST 2V PA LATERAL from 04/23/2024 FINDINGS: Pulmonary Arteries: No evidence of filling defect to suggest pulmonary emboli. Tracheobronchial tree: No mucous plugging. Mediastinum and Dot: No dominant adenopathy or fluid collection. Pulmonary parenchyma: Dependent changes. No consolidation or dominant measurable mass. Pleura: No effusion or pneumothorax. Heart: The heart is not dilated. No coronary artery calcifications are seen. Aorta: Thoracic aorta non-dilated. No dissection. Upper abdomen: No acute findings. Bones: Unremarkable for age. Tubes, Catheters, and Lines: None Soft tissues: Unremarkable. IMPRESSION: No evidence of pulmonary embolism or other acute abnormality. RADIATION DOSE DELIVERED: 87.35mGy.cm Total DLP DATA REPOSITORY: All CT scans at this facility are submitted to the National Radiology Data Registry (NRDR) Dose Index Registry (DIR) with the [employer] (ACR). RADIATION OPTIMIZATION: All CT scans at this facility use at least one of these dose optimization te chniques: automated exposure control; mA and/or kV adjustment per patient size (includes targeted exa ms where dose is matched to clinical indication); or iterative reconstruction.
[2024-04-23 08:34] LABS: D-Dimer 583 ng/mlFEU (<500)
[2024-04-23] MEDS: diphenhydrAMINE 50 MG/ML VIAL 25 MG IVP (08:44)
[2024-04-23] MEDS: Normal Saline - Diluent 50 ML VIAL IJ (09:08)
[2024-04-23] MEDS: Omnipaque 350 MG/ML 100 ML BTL IJ (09:09)
[2024-04-23 09:12] LABS: Troponin I 6 ng/L (4-51)
== END 2024-04-23 09:48 | disposition home or self-care (01) ==
PROVIDERS: Emergency Provider Emergency Medicine; PCP Nurse Practitioner Family
DX: R07.81 Pleurodynia (principal); R07.9 Chest pain, unspecified
CPT/HCPCS: 36415; 71275; 80053; 83690; 93005; 96374; 96375; 96376; 99285; 71046; 84484; 85025; 85379; 93010; 99284; J1200; J2270; J3490

== ENCOUNTER 2024-05-21 01:18 | Outpatient (CLI) | payer MEDICAID, SELFPAY ==
--- NOTE | 2024-05-21 | DI.MRI_ITS ---
Exam(s) MR LUMBAR SPINE WO/W EXAM: MR LUMBAR SPINE WO/W CLINICAL HISTORY: S/P LUMBAR DISCECTOMY Z98.890 DISC HERNIATION M51.16. TECHNIQUE: Multiplanar multisequence MRI of the Lumbar spine was performed. Both pre and post contra st infused sequences were performed. Contrast injected was 18 mL Dotarem COMPARISON: MR MR LUMBAR SPINE WO from 03/02/2024 FINDINGS: There has been interval discectomy approximately 9 weeks ago. Conus medullaris is at normal level. There is no evidence of conus mass nor subjacent clumping of in trathecal nerve roots to suggest arachnoiditis. The distal thecal sac appears unremarkable.There is no evidence of Tarlov intrasacral cysts nor other significant findings within the sacral canal Bones:There are no fractures nor ominous osseous lesions in the lumbar vertebral bodies and visualize d sacrum. No evidence of discitis nor osteomyelitis. Surgical tract from interval left micro laminot mckay at L5-S1 level noted with removal the previously evident sequestered disc fragment. With respect to the individual levels... T12-L1: Unremarkable L1-2: Mild annular bulging. No discrete focal disc herniation. Central canal dimensions are within no rmal limits. Annular bulging extends into the floor of the exiting left neural foramen but without si gnificant foraminal stenosis on either side at this level. Facets unremarkable. L2-3: Decreased disc height again noted with broad symmetrical annular bulging and annular bulging se en in the floor of the exiting right neural foramen but without significant foraminal stenosis on eit her side at this level. There is flattening of the anterior thecal sac. Facet joints unremarkable. Mi ld central canal stenosis mostly due to short AP dimensions of the pedicles and the annular bulging. L3-4: Mild-moderate disc height loss with relatively preserved disc hydration signal. There is broad annular bulging with flattening of the anterior thecal sac, similar to L2-3 level. The annular bulgin g extends into the floor of the exiting left neural foramen.. Less so into the floor of the exiting r ight neural foramen. There is no prominent foraminal stenosis on either side at this level. Mild dege nerative changes in the facet joints bilaterally.Mild central canal stenosis similar to L2-3 and rela alvin to annular bulging and short AP dimensions of the pedicles. L4-5: This level again exhibits moderate disc height loss and broad annular bulging and the annular b ulging standing into the floor both exiting neural foramina but without prominent foraminal stenosis on either side. There is moderate central spinal canal stenosis due to the annular bulging and short AP dimensions of the pedicles. There are minimal degenerative changes in the facet joints. L5-S1: This level is the site of prior surgery with left micro laminotomy evident and mild left-sided epidural enhancement most probably related to postoperative granulation tissue. There has been resec tion of the previously present sequestered disc fragment with significant improvement in the caliber of the left lateral recess at this level with only mild residual narrowing evident. There is no promi nent foraminal narrowing on either side.. There is no focal fluid collection/epidural abscess evident . Soft tissues: No evidence of paraspinal abscess. IMPRESSION: 1. Compared to prior MRI scan of 03/02/2024 there has been interval left micro laminotomy at L5-S1 le belkis with removal of the previously present sequestered disc fragment. There is significant improved c aliber of the left lateral recess at this level. There is mild left epidural thickening and enhanceme nt at this level consistent with postoperative inflammatory change/granulation tissue but there is no evidence of epidural abscess. 2. Other levels appear stable and with element of spinal canal stenosis at multiple levels as describ ed above related mostly to short AP dimensions of the pedicles and broad annular bulging, this most e vident at L4-5 level. 3. There does not appear to be an obvious recurrent disc protrusion DATA REPOSITORY:
[2024-05-21] MEDS: Gadoterate meglumine 20 ML SYRINGE 18 ML IVP (08:07)
[2024-05-21] MEDS: Normal Saline Flush 10 ML SYR IVP (08:07)
--- NOTE | 2024-05-21 15:42 | DI.VRAD_ITS ---
PROCEDURE INFORMATION: Exam: MR Lumbar Spine Without and With Contrast Exam date and time: 05/21/2024 7:51 AM Age: 59 years old Clinical indication: Other: Post op; Prior surgery; Surgery date: 1-6 months; Surgery type: S/P discectomy 9 weeks ago TECHNIQUE: Imaging protocol: Magnetic resonance imaging of the lumbar spine without and with contrast. Contrast material: DOTAREM; Contrast volume: 18 ml; Contrast route: INTRAVENOUS (IV); COMPARISON: MR LUMBAR SPINE WO 03/02/2024 1:58 PM FINDINGS: Bones/joints: Five bvd-yxp-[id number] lumbar type vertebral bodies. Anatomic alignment. Mild edema associated with the left pars interarticularis at L5 likely reflects postoperative change. No marrow infiltrative changes are appreciated. Spinal cord: The conus medullaris terminates at L1. The cauda equina is mildly tortuous. No abnormal intrathecal enhancement is identified. T12-L1: Mild disc desiccation and mild disc bulge. No significant spinal canal stenosis or neural foraminal narrowing. L1-L2: Disc desiccation and mild loss of intervertebral disc space height, with generalized disc bulge and left foraminal disc protrusion. Mild endplate osteophyte formation and minimal superior endplate Schmorl's node at L2. Mild narrowing of the subarticular recesses and left neural foramen. L2-L3: Disc desiccation and loss of intervertebral disc space height with irregular disc protrusion greater to the right subarticular space and neural foramen. Endplate irregularity and osteophyte formation with mild Modic type 1 endplate degenerative signal change. Mild spinal canal stenosis and mild narrowing of the subarticular recesses. Mild uwoot-cepwrdo-yypx-left neural foraminal narrowing. L3-L4: Disc desiccation and loss of intervertebral disc space height with irregular posterior disc protrusion and mild endplate osteophyte formation. Mild facet hypertrophy. Mild spinal canal stenosis with lwgq-rc-urvbqgqx narrowing of the subarticular recesses. Mild yywc-lkfgmui-izbo-right neural foraminal narrowing. L4-L5: Disc desiccation and loss of intervertebral disc space height with irregular posterior disc extrusion extending to the bilateral neural foramina. Mild endplate irregularity and endplate osteophyte formation with minimal Modic type 1 endplate degenerative signal change. Moderate spinal canal stenosis with moderate to severe narrowing of the subarticular recesses. Moderate bilateral neural foraminal narrowing. L5-S1: Left micro laminotomy; mild left-sided epidural enhancement is expected for the postoperative state and may represent postoperative inflammatory change or early scar development. Interval resection of the previously seen presumed sequestered disc fragment. Residual irregular disc extrusion and mild endplate osteophyte formation. Significantly improved caliber of the left subarticular recess, with mild residual narrowing. Mild right subarticular recess narrowing is stable. Mild bilateral neural foraminal narrowing. Soft tissues: Edema and enhancement of the left posterior parasagittal soft tissues and musculature is consistent with postoperative change. No focal collection is identified. IMPRESSION: 1. Interval left micro laminotomy at L5-S1 with resection of the previously seen sequestered disc fragment. Mild left epidural thickening and enhancement is consistent with postoperative inflammatory change or early scar development. 2. Significantly improved caliber of the left subarticular recess at L5-S1. 3. Otherwise essentially stable degenerative changes of the lumbar spine as detailed on a level by level basis above. Dictated and Authenticated by: Sudheer Mauricio MD. Ordering:HEDY Rendon MD
== END 2024-05-21 01:38 ==
LOC: DI 01:20
PROVIDERS: PCP Nurse Practitioner Family; Visit Provider Neurological Surgery
DX: M48.07 Spinal stenosis, lumbosacral region (principal)
CPT/HCPCS: 72158

== ENCOUNTER 2024-07-24 02:04 | Outpatient (CLI) | payer MEDICAID, SELFPAY ==
[2024-07-24 12:20] LABS: HCT 36.8 % (36.0-46.0); HGB 11.9 g/dL (11.2-15.7); MCH 30.4 pg (27.0-33.0); MCHC 32.3 % (32.0-36.0); MCV 94 fL (80-95); MPV 9.8 fL (8.0-11.0); Platelet Count 330 10^3/uL (130-400); RBC 3.91 10^6/uL (3.93-5.22); RDW 12.6 % (11.7-14.6); RDW-SD 43.5 fL; WBC 5.13 10^3/uL (4.4-10.8)
[2024-07-24 12:44] LABS: ALT 17 U/L (14-59); AST 17 U/L (15-37); Alkaline Phosphatase 109 U/L (46-116); Anion Gap 10.1 mmol/L (3-11); BUN 13 mg/dL (7-18); Bilirubin, Total 0.42 mg/dL (0.2-1.0); CO2 25.9 mmol/L (21.0-32.0); CREATININE 0.9 mg/dL (0.55-1.02); Calculated LDL 160 mg/dL (<100); Chloride 105 mmol/L (98-107); Cholesterol 251 mg/dL (<200); Estimated GFR 74.57 (mL/min/1.73m2); Glucose 92 mg/dL (74-106); HDL Cholesterol 69 mg/dL (40-60); Potassium 4.4 mmol/L (3.5-5.1); Sodium 141 mmol/L (136-145); Total Protein 7.3 g/dL (6.4-8.2); Triglyceride 114 mg/dL (<150)
[2024-07-24 18:48] LABS: Hepatitis C Ab w Rflx HCV PCR Negative (Negative)
[2024-07-24 18:54] LABS: HIV-1/2 Ag & Ab Screen Negative (Negative)
== END 2024-07-24 02:05 | disposition home or self-care (01) ==
PROVIDERS: PCP Nurse Practitioner Family; Visit Provider Nurse Practitioner Family
DX: Z13.220 Encounter for screening for lipoid disorders (principal); Z53.20 Procedure and treatment not carried out because of patient's decision for unspecified reasons; Z11.4 Encounter for screening for human immunodeficiency virus [HIV]
CPT/HCPCS: 36415; 80053; 80061; 85027; 86803; 87389

== ENCOUNTER 2024-08-03 00:28 | Outpatient (CLI) | payer MEDICAID, SELFPAY ==
--- NOTE | 2024-08-03 08:00 | DI.MAMMO_ITS ---
Exam(s) MAMMO SCREENING EXAM: MAMMO SCREENING CLINICAL HISTORY: screening,Z12.39 TECHNIQUE: Mammograms were interpreted according to the usual protocol including computer analysis w [employer] CAD system, tomosynthesis and C-view imaging. COMPARISON: 2017 through 2022 FINDINGS: The breasts are composed of mainly fatty density , Breast Density category A. No suspicious masses or suspicious microcalcifications are seen. No skin thickening or abnormal axillary lymph nodes are seen. There has been no significant change from prior exams. IMPRESSION: BI-RADS Category 1, Negative mammogram Yearly screening mammography is recommended. Breast Density - Category A, fatty density. A negative radiographic report should not delay biopsy if a dominant or clinically suspicious mass is present. Up to ten percent of cancers are not identified on mammography. A negative report may reinforce clinical impression. Adenosis and dense breasts may obscure an underlying neoplasm. False positive reports average 6 to 10%. Patient will receive a letter notifying them of these results.
== END 2024-08-03 00:48 ==
LOC: DI 00:28
PROVIDERS: PCP Nurse Practitioner Family; Visit Provider Nurse Practitioner Family
DX: Z12.31 Encounter for screening mammogram for malignant neoplasm of breast (principal); R92.313 Mammographic fatty tissue density, bilateral breasts
CPT/HCPCS: 77063; 77067

== ENCOUNTER 2025-05-02 10:39 | Emergency (ER) | payer MEDICAID, SELFPAY ==
--- NOTE | 2025-05-02 10:30 | RT.EKG_ITS ---
APPROVED REPORT Exam: Resting ECG Reason for Exam: Chest pain Patient Location: E HR:70 bpm ECG Measurements Heart Rate 70 AXIS PA 154 P 60 QRSd 95 QRS 5 QT 414 T 40 QTc 446 Conclusion Sinus rhythm...normal P axis, V-rate 60- 99 I have reviewed and interpreted ECG and agree with software generated interpretation.
[2025-05-02 10:42] VITALS: BP 155/88; PULSE 68; RESP 18; TEMP 35.9; O2SAT 96
[2025-05-02 11:16] VITALS: RESP 16
[2025-05-02 11:24] LABS: Abs Immature Grans 0.03 10^3/uL (0.0-0.06); HCT 37.0 % (36.0-46.0); HGB 12.0 g/dL (11.2-15.7); Immature Grans % 0.5 %; MCH 30.0 pg (27.0-33.0); MCHC 32.4 % (32.0-36.0); MCV 93 fL (80-95); MPV 9.5 fL (8.0-11.0); Platelet Count 357 10^3/uL (130-400); RBC 4.00 10^6/uL (3.93-5.22); RDW 13.1 % (11.7-14.6); RDW-SD 44.6 fL; WBC 5.74 10^3/uL (4.4-10.8)
--- NOTE | 2025-05-02 11:37 | DI.RAD_ITS ---
Exam(s) XR CHEST 2V PA LATERAL EXAM: XR CHEST 2V PA LATERAL CLINICAL HISTORY: Chest pain TECHNIQUE: 2D digital imaging was performed of the chest. Two images were obtained. PA and lateral views were obtained. COMPARISON: CR XR CHEST 2V PA LATERAL from 04/23/2024 FINDINGS: MEDIASTINUM: Normal. HEART: Normal. PULMONARY VASCULATURE: Normal. LUNGS: There is atelectasis in the lingula. No focal consolidating infiltrates are present. PLEURAL SPACE: No pleural effusion or pneumothorax. BONE:Within normal limits for the patient's age. OTHER FINDINGS:Normal. IMPRESSION: No acute pulmonary findings. DATA REPOSITORY: RADIATION DOSE DELIVERED:
[2025-05-02 11:46] LABS: ALT 17 U/L (14-59); AST 14 U/L (15-37); Albumin 4.5 g/dL (3.4-5.0); Alkaline Phosphatase 96 U/L (46-116); Anion Gap 10.1 mmol/L (3-11); BUN 15 mg/dL (7-18); Bilirubin, Total 0.9 mg/dL (0.2-1.0); CO2 26.9 mmol/L (21.0-32.0); Calcium 9.3 mg/dL (8.5-10.1); Chloride 106 mmol/L (98-107); Estimated GFR 74.57 (mL/min/1.73m2); Glucose 97 mg/dL (74-106); Lipase 25 U/L (<78); Potassium 3.7 mmol/L (3.5-5.1); Sodium 143 mmol/L (136-145); Total Protein 7.7 g/dL (6.4-8.2); Troponin I 6 ng/L (<or=51)
[2025-05-02 12:49] LABS: Troponin I 7 ng/L (<or=51)
[2025-05-02 12:58] VITALS: BP 159/109; PULSE 63; RESP 18; O2SAT 100
--- NOTE | 2025-05-06 16:08 | ED.GENADUL_ITS ---
Discharge Plan Disposition Patient Disposition: Home Condition: Stable Discharge Details Clinical Impression: Chest pain Primary Care Provider: Kiran Lewis ED Provider: Kayli Chavez Home Meds and New Rx's Prescriptions: Continued triamcinolone acetonide 0.05 % ointment 1 applic topical BID Qty: 110 0RF Patient Comments: not taking ferrous sulfate [FeroSul] 325 mg (65 mg iron) tablet 325 mg PO DAILY [facility] 750 mg-100 mg- 1.65 mg-108 mg tablet 3 tab PO DAILY cyclobenzaprine 10 mg tablet 10 mg PO TID PRN (Reason: muscle spasm) Qty: 10 0RF Rx Instructions: to be filled today multivitamin [Daily Multi-Vitamin] 1 EACH tablet 1 ea PO DAILY cholecalciferol (vitamin D3) [Vitamin D3] 2,000 UNIT capsule 5,000 unit PO DAILY sucralfate 1 gram tablet See Rx Instructions .ROUTE .COMPLEX Qty: 60 12RF Dose Instruction: TAKE ONE TABLET BY MOUTH AT BEDTIME AND TAKE ONE TABLET NEEDED Rx Instructions: TAKE ONE TABLET BY MOUTH AT BEDTIME AND TAKE ONE TABLET NEEDED pantoprazole [Protonix] 40 mg tablet,delayed release (DR/EC) 40 mg PO .Daily to BID Qty: 180 4RF oxycodone 5 mg tablet 5 mg PO BID MDD 10 PRN (Reason: pain) Qty: 14 0RF methylprednisolone 4 mg tablets,dose pack See Rx Instructions PO PER PKG DIR Qty: 21 0RF Rx Instructions: PO PER PKG DIR for 6 days methocarbamol 750 mg tablet See Rx Instructions .ROUTE .COMPLEX Qty: 90 3RF Dose Instruction: TAKE ONE TABLET BY MOUTH EVERY 8 HOURS NEEDED FOR MUSCLE SPASM Rx Instructions: TAKE ONE-two TABLET BY MOUTH EVERY 6 HOURS NEEDED FOR MUSCLE SPASM acetaminophen 500 mg capsule 1,000 mg PO Q8H PRN PRNQty: 30 0RF Medical Marijuana 1 dose PO PRN PRN Discharge Instructions Instructions: Chest Pain (DC) Additional Instructions: Please take Motrin and Tylenol as needed for pain I suspect this is muscular pain your heart enzymes and EKG of your heart are reassuring Please be reevaluated should you have worsening pain, shortness of breath, or recurrence of symptoms. I do recommend you follow-up with your primary care physician in the outpatient setting within the next several days Referrals: Dege Leslee,Kiran, EQUIPMENT MECHANIC SPECIALIST [Primary Care Provider, Medicine] Discharge Data Discharge Date/Time-TO BE ENTERED AT DEPARTURE: 05/02/25 13:01 HPI General Date/Time Provider Initiated Documentation: 05/02/25 10:47 . HPI Narrative: This 59-year-old female presents with chest pain. She reports she was bending over her sink when she felt a charley horse-like pain in her chest. She states that she took 81 mg aspirin drove here to be evaluated. Denies history of hypertension, hyperlipidemia, or tobacco use. Denies any cough Recent flights, surgeries, long drives. States the pain is resolved. Denies any radiation nausea vomiting or diaphoresis. Denies illicit substance use or cocaine use. Related Data Home Medications ?Medication ?Instructions ?Recorded ?Confirmed cholecalciferol (vitamin D3) 50 5,000 unit PO DAILY 05/02/25 mcg (2,000 unit) capsule (Vitamin D3) multivitamin (Daily Multi-Vitamin 1 ea PO DAILY 05/02/25 tablet) Medical Marijuana 1 dose PO PRN PRN 06/28/20 0 05/02/25 ferrous sulfate 325 mg (65 mg 325 mg PO DAILY 07/04/20 05/02/25 iron) tablet (FeroSul) glucosam 750 mg-chondroi 100 3 tab PO DAILY 11/10/20 0 05/02/25 mg-hyalur 1.65 mg-CF borate 108 mg tablet ([facility] [employer]) acetaminophen 500 mg capsule 1,000 mg (2 x 500 mg) PO Q8H PRN 10/27/21 05/02/25 PRN #30 caps triamcinolone acetonide 0.05 % 1 applic topical BID #1 10 grams 02/09/22 05/02/25 topical ointment sucralfate 1 gram tablet See Rx Instructions .Route 0 04/24/24 05/02/25 .COMPLEX #60 tabs pantoprazole 40 mg tablet,delayed 40 mg PO .Daily to B ID #180 tabs 07/11/24 05/02/25 release (Protonix) cyclobenzaprine 10 mg tablet 10 mg PO TID PRN muscle s pasm #10 07/17/24 05/02/25 tabs oxycodone 5 mg tablet 5 mg PO BID PRN pain #14 tab s 09/11/24 05/02/25 methocarbamol 750 mg tablet See Rx Instructions .Route 03/05/25 05/02/25 .COMPLEX #90 tabs methylprednisolone 4 mg tablets in See Rx Instructions PO PER PKG DIR 03/05/25 05/02/25 a dose pack #21 tabs Previous Rx's ?Medication ?Instructions ?Recorded acetaminophen 500 mg capsule 1,000 mg (2 x 500 mg) PO Q8H PRN 10/27/21 PRN #30 caps triamcinolone acetonide 0.05 % 1 applic topical BID #1 10 grams 02/09/22 topical ointment sucralfate 1 gram tablet See Rx Instructions .Route 0 04/24/24 .COMPLEX #60 tabs pantoprazole 40 mg tablet,delayed 40 mg PO .Daily to B ID #180 tabs 07/11/24 release (Protonix) cyclobenzaprine 10 mg tablet 10 mg PO TID PRN muscle s pasm #10 07/17/24 tabs oxycodone 5 mg tablet 5 mg PO BID PRN pain #14 tab s 09/11/24 methocarbamol 750 mg tablet See Rx Instructions .Route 03/05/25 .COMPLEX #90 tabs methylprednisolone 4 mg tablets in See Rx Instructions PO PER PKG DIR 03/05/25 a dose pack #21 tabs Allergies Allergy/AdvReac Type Severity Reaction Status Date / Time morphine Allergy Intermediate Itching Verified 05/02/25 10:50 General Stated Complaint: Chest Pain [place]: 3 Exam Narrative Exam Narrative: 59-year-old female in no acute distress reproducible pain, cardiac rate rhythm regular no murmurs no rubs lungs. Patient no respiratory distress alert oriented x 4 no peripheral edema no calf swelling or tenderness distal pulses intact all 4 extremities Course Vital Signs Vital signs: Vital Signs Temperature 35.9 C L 05/02/25 10:42 Pulse 68 05/02/25 10:42 Respiratory Rate 18 05/02/25 10:42 Blood Pressure 155/88 H 05/02/25 10:42 Pulse Oximetry 96 05/02/25 10:42 Temperature 35.9 C L 05/02/25 10:42 Pulse 63 05/02/25 12:58 Respiratory Rate 18 05/02/25 12:58 Respiratory Effort Normal 05/02/25 11:16 Respiratory Depth Normal 05/02/25 11:16 Respiratory Pattern Normal 05/02/25 11:16 Blood Pressure 159/109 H 05/02/25 12:58 Pulse Oximetry 100 05/02/25 12:58 Lab/Test Results Lab/Test Results: Laboratory Tests Range/Units 05/02/25 05/02/25 05/02/25 11:10 12:18 14:02 WBC (4.4-10.8) 10^3/uL 5.74 RBC (3.93-5.22) 10^6/uL 4.00 Hgb (11.2-15.7) g/dL 12.0 Hct (36.0-46.0) % 37.0 MCV (80-95) fL 93 MCH (27.0-33.0) pg 30.0 MCHC (32.0-36.0) % 32.4 RDW (11.7-14.6) % 13.1 Plt Count (130-400) 10^3/uL 357 MPV (8.0-11.0) fL 9.5 Immature Gran % % 0.5 Neutrophils % % 55.4 Lymphocytes % % 34.3 Monocytes % % 6.6 Eosinophils % % 2.3 Basophils % % 0.9 Nucleated RBC % (0.0-0.3) % 0.0 Absolute Neutrophils (1.2-6.7) 10^3/uL 3.18 Absolute Lymphocytes (1.2-3.4) 10^3/uL 1.97 Absolute Monocytes (0.1-0.8) 10^3/uL 0.38 Absolute Eosinophils (0.0-0.7) 10^3/uL 0.13 Absolute Basophils (0.0-0.2) 10^3/uL 0.05 Sodium (136-145) mmol/L 143 Potassium (3.5-5.1) mmol/L 3.7 Chloride (98-107) mmol/L 106 Carbon Dioxide (21.0-32.0) mmol/L 26.9 Anion Gap (3-11) mmol/L 10.1 BUN (7-18) mg/dL 15 Creatinine (0.55-1.02) mg/dL 0.9 Est GFR (CKD-EPI 2020) (mL/min/1.73m2) 74.57 Glucose (74-106) mg/dL 97 Calcium (8.5-10.1) mg/dL 9.3 Total Bilirubin (0.2-1.0) mg/dL 0.9 AST (15-37) U/L 14 L ALT (14-59) U/L 17 Alkaline Phosphatase (46-116) U/L 96 Troponin I (<or=51) ng/L 6 7 Cancelled Total Protein (6.4-8.2) g/dL 7.7 Albumin (3.4-5.0) g/dL 4.5 Lipase (<78) U/L 25 Medical Decision Making Results: Chest x-ray per radiology interpretation of my review shows no evidence of acute abnormality 2 troponins are negative and the remainder of labs are reassuring. EKG per attending interpretation my review shows no acute ischemia or injury Assessment and plan: Patient presenting with chest pain, it is reproducible in nature with flat troponin levels x 2 no indication for additional testing at this time low suspicion clinically for cardiac etiology of patient's complaints. Aside from age patient is not hypoxic, tachypneic, or tachycardic and has no risk factors of coagulopathy I see no evidence of PE on my assessment so very low clinical suspicion for same. I suspect patient has musculoskeletal chest pain. At this time I think patient stable for discharge home and will give muscle relaxant and encouraged rest and light stretching. Encouraged to follow- up with primary care physician in 24 to 48 hours return earlier with new or worsening complaints PFSH All Active Problems (Updated 05/02/25 @ 12:53 by BARBY Valencia) Chest pain (Acute) Bilateral hip pain (Acute) Palpitations (Acute) Chest wall mass (Acute) right sided posterior Breast pain, right (Acute) Colon polyp (Acute ~03/03/23) hyperplastic x1 Lumbosacral spondylosis without myelopathy (Acute) Carpal tunnel syndrome of left wrist (Acute) s/p ECTR Cubital tunnel syndrome on left (Acute 10/27/21) s/p release 10/27/2021 GERD with esophagitis (Chronic) EGD 09/06/18 with erosive reflux esophagitis Amputation of toe of left foot (Acute 01/29/20) Left third toe Metatarsal fracture (Acute ~03/01/20) Right second metatarsal Anemia (Chronic) Chronic low back pain with sciatica (Acute) 07/2020- Large broad-based disc herniation at L2-3. Mild broad-based disc herniation at L4-5. referred to [facility] neurosurgery Stress fracture of metatarsal bone (Acute) 3rd metatarsal right foot. Spondylosis (Acute) at almost every level by MRI 07/2020 [facility] recommended laminectomy for lumbar stenosis L2-3 & L4-5 Back pain (Acute) Mass of pancreas (Acute) Vitamin D deficiency (Acute) Left hand pain (Acute) Hammer toe of second toe of right foot (Acute) Lumbar strain (Acute) RUQ abdominal pain (Acute) Screening for colon cancer (Acute) Neural foraminal stenosis of cervical spine (Acute) Medical History Acute gastritis History of in vitro fertilization Pelvic pain Dyshidrotic eczema Hyperlipidemia Patient Denies Surgical History History of colonoscopy (~02/2023) History of carpal tunnel release (01/29/20) Left H/O toe surgery Acquired deformity of left toe s/p left third toe amputation 01/29/20 Lateral deviation of the third toe PIP joint 06/13/18 - Plantar plate repair with augmentation using Arthrex InternalBrace for third MTP joint, along with Clotilde osteotomy 11/14/18--Removal of hardware from left third metatarsal with hammertoe correction using a DuVries osteotomy S/P hammer toe correction 04/18/15--Of right 2nd toe 06/13/18--DuVries osteotomy, arthroplasty of the second PIP joint, left foot. Plantar plate repair with augmentation using Arthrex InternalBrace for third MTP joint, along with Clotilde osteotomy 11/14/18--Removal of hardware from left third metatarsal with hammertoe correction using a DuVries osteotomy 11/14/2018 S/P hammertoe fixation - right second and third toes - 05/30/19 S/P colonoscopy (06/10/17) H/O section (~02/2013) 02/2013 and 11/2014 History of esophagogastroduodenoscopy (EGD) (09/06/18) 09/06/18 07/07/20- Stoiber S/P cubital tunnel release (11/14/18) Ulnar nerve decompression with anterior subcutaneous transposition S/P endoscopic carpal tunnel release (01/29/20) Right wrist 11/14/18 Left Wrist 01/29/20 S/P LASIK surgery of both eyes (~2009) Right in 2009 Left in 2010 S/P excision of Guadalupe's neuroma (04/18/15) Right 3rd intermetatarsal space. Repeated on 12/12/2015 S/P bunionectomy (04/18/15) Right hallux Hx of appendectomy (~1981) H/O laparoscopy Ovarian cyst drainage at 17 or 18yrs old Family History (Updated 07/17/24 @ 13:41 by Kiersten Stockton) Mother No problems noted. Father Dementia Brother No problems noted. Daughter No problems noted. Daughter No problems noted. Maternal Grandfather , at 74 of emphysema COPD (chronic obstructive pulmonary disease) with emphysema Maternal Grandmother , at 96 No problems noted. Paternal Grandfather , at 74 of [place] Myocardial infarction Heart disease Paternal Grandmother , at 94 of dementia Dementia Social History (Updated 07/18/24 @ 11:59 by Kiersten Stockton) Smoking/Tobacco Use Status: Former Tobacco Use tobacco type: cigarettes Quit Date: 08/15/12 Tobacco: How many years used: 30 Second Hand Exposure: Yes Smoking risk assessment performed?: Yes Alcohol Intake: current Alcohol Intake frequency: holidays/special occasions only Alcohol type: beer and hard liquor Drug use: Daily Substance use type: marijuana Details: Vapes Caregiver/Support person: No Household members: family, children and other Housing: house Number of Children: 2 Communication Needs: None Do you need help understanding health information?: Never 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 Pets and animals: Yes Pets and animals: dog(s) Do you think of yourself as: lesbian/edward/homosexual Current gender identity: female What is your relationship status?: refused to answer How often do you talk on the phone with friends or family?: decline to answer How often do you get together with friends or relatives?: decline to answer How often do you attend uatsdin or jehovah's witness services?: decline to answer Do you belong to any clubs or organized social groups?: decline to answer Panel score (0-1 are the most socially isolated patients): 0 Julee/Yazdanism: Other Seatbelt use: always Helmet use: Yes Helmet use: always Drive intox or ride w/intox cdl b driver: No Do you feel safe at home: Yes Do you feel safe in your relationship?: Yes
== END 2025-05-02 13:01 | disposition home or self-care (01) ==
PROVIDERS: Emergency Provider Physician Assistant; PCP Nurse Practitioner Family
DX: R07.89 Other chest pain (principal); K21.00 Gastro-esophageal reflux disease with esophagitis, without bleeding; I10 Essential (primary) hypertension
CPT/HCPCS: 99284 ×2; 36415; 80053; 83690; 93005; 71046; 84484; 85025; 93010

== ENCOUNTER → 2025-06-18 00:50 | Outpatient (CLI) | payer MEDICAID, SELFPAY ==
--- NOTE | 2025-06-18 06:30 | DI.MRI_ITS ---
Exam(s) MR LUMBAR SPINE WO EXAM: MR LUMBAR SPINE WO CLINICAL HISTORY: increased pain, muscle spasms,LUMBAR SPONDYLOSIS,M47.817. TECHNIQUE: Multiplanar multisequence MRI of the Lumbar spine was performed. COMPARISON: MR MR LUMBAR SPINE WO from 02/04/2023 MR MR LUMBAR SPINE WO from 03/02/2024 MR MR LUMBAR SPINE WO/W from 05/21/2024 FINDINGS: Bones: The last intervertebral disc space is designated the L5/S1 level for the numbering purpose of this examination. The vertebral body heights are well maintained. Alignment is satisfactory. There are endplate degenerative signal changes present. Cord: It is of normal size and signal intensity. T12-L1: No disc herniations or bulges are present. No central spinal canal or neural foraminal stenosis. L1-2: There is a mild diffuse disc bulge. No central spinal canal or neural foraminal stenosis. L2-3: There is a mild diffuse disc bulge and facet arthropathy. There is mild narrowing of the central spinal canal. There is minimal left neural foraminal stenosis and no significant right neural foraminal stenosis. L3-4: There is a diffuse disc bulge. There are degenerative changes of the facets and hypertrophy of the ligamentum flavum. There is mild narrowing of the central spinal canal. There is no significant right neural foraminal stenosis. There is mild left neural foraminal stenosis. L4-5: There is a diffuse disc bulge with small central disc herniation. There are hypertrophic changes of the facets and ligamentum flavum. These all contribute to cause moderate central spinal canal stenosis. There is mild left neural foraminal stenosis. No significant right neural foraminal stenosis. L5-S1: There is a diffuse disc bulge. There is also a left paracentral disc herniation with extrusion posterior to the L5 vertebral body and causing left lateral recess stenosis. It compresses the exiting left L5 nerve root and the left S1 nerve root. There is moderate left neural foraminal stenosis. There is no significant central spinal canal stenosis. There is mild right neural foraminal stenosis. Facet arthropathy is also present at this level. Soft tissues: The visualized SI joints and sacrum are well maintained. The paraspinal soft tissues are unremarkable. IMPRESSION: 1. Small left paracentral disc herniation with extrusion posterior to the L5 vertebral body causing left lateral recess stenosis. It compresses the exiting left L5 nerve root and the left S1 nerve root. 2. Multilevel degenerative changes in the lumbar spine resulting in central spinal canal or neural foraminal stenosis as described above. DATA REPOSITORY:
== END ==
LOC: DI 00:50
PROVIDERS: PCP Nurse Practitioner Family; Visit Provider Nurse Practitioner Family
DX: M47.817 Spondylosis without myelopathy or radiculopathy, lumbosacral region (principal); M51.27 Other intervertebral disc displacement, lumbosacral region
CPT/HCPCS: 72148

== ENCOUNTER 2025-07-05 06:10 | Day surgery (SDC) | payer MEDICAID, SELFPAY ==
[2025-07-05] VITALS (13 sets, daily range): BP systolic 120–164; BP diastolic 77–95; PULSE 64–87; RESP 11–20; TEMP 36.1–36.6; O2SAT 90–100; BMI 31.8
[2025-07-05] MEDS: Lactated Ringers 1,000 ML 80 ML IV (06:52)
--- NOTE | 2025-07-05 07:05 | W.ANESPRE ---
General Info Date of Service Date Performed: 07/05/25 Height: 5 ft 7 in Weight: 92.1 kg Body Mass Index (BMI): 31.8 Surgical Procedure: Operation Date: 07/05/25 07:40 Proposed Procedure Side Surgeon p Hemorrhoidectomy Alberta Garcia MD Meds Allergies and Home Medications Allergies Allergy/AdvReac Type Severity Reaction Status Date / Time morphine Allergy Intermediate Itching Verified 07/02/25 14:42 Home Medication Medication Instructions Recorded cholecalciferol (vitamin D3) 50 5,000 unit PO DAILY 07/08/17 mcg (2,000 unit) capsule (Vitamin D3) Medical Marijuana 1 dose PO PRN PRN 06/28/20 ferrous sulfate 325 mg (65 mg 325 mg PO DAILY 07/04/20 iron) tablet (FeroSul) acetaminophen 500 mg capsule 1,000 mg (2 x 500 mg) PO Q8H PRN 10/27/21 PRN #30 caps triamcinolone acetonide 0.05 % 1 applic topical BID #110 grams 02/09/22 topical ointment pantoprazole 40 mg tablet,delayed 40 mg PO .Daily to BID #180 tabs 07/11/24 release (Protonix) sucralfate 1 gram tablet See Rx Instructions .Route 06/04/25 .COMPLEX #60 tabs methocarbamol 750 mg tablet See Rx Instructions .Route 06/06/25 .COMPLEX #90 tabs Current Visit Medications: Current Medications Generic Name Dose Route Start Last Admin Trade Name Freq PRN Reason Stop Dose Admin Ringer's Solution 1,000 mls @ 80 mls/hr 07/05/25 06:00 07/05/25 06:52 IV 07/05/25 23:59 80 mls/hr INFUSION KIRSTEN Administration Cefazolin Sodium/Dextrose 2 gm in 50 mls @ 100 mls/hr 07/05/25 06:00 Ancef Duplex IVPB 07/05/25 23:59 PREOP KIRSTEN IV Miscellaneous Supplies 1 each 07/05/25 06:00 Iv Access IV 07/05/25 23:59 DIRECTED KIRSTEN Sodium Chloride 0 ml 07/05/25 06:00 Normal Saline Flush 10 Ml Syr IV 07/05/25 23:59 PRN PRN Sodium Chloride 0 ml 07/05/25 06:00 Normal Saline 10 Ml Vial IJ 07/05/25 23:59 DIRECTED PRN Sterile Water 0 ml 07/05/25 06:00 Water,Injection,Sterile 10 Ml Vial IJ 07/05/25 23:59 DIRECTED PRN PFSH Active Problems Active Problems: Problem Status Onset Code Hemorrhoid Acute K64.9 Bilateral hip pain Acute M25.551, M25.552 Palpitations Acute R00.2 Chest wall mass Acute R22.2 Breast pain, right Acute N64.4 Colon polyp Acute ~03/03/23 K63.5 Lumbosacral spondylosis without myelopathy Acute M47.817 Carpal tunnel syndrome of left wrist Acute G56.02 Cubital tunnel syndrome on left Acute 10/27/21 G56.22 GERD with esophagitis Chronic K21.0 Amputation of toe of left foot Acute 01/29/20 S98.132A Metatarsal fracture Acute ~03/01/20 S92.309A Anemia Chronic D64.9 Chronic low back pain with sciatica Acute M54.40, G89.29 Stress fracture of metatarsal bone Acute M84.376A Spondylosis Acute M47.9 Back pain Acute M54.9 Mass of pancreas Acute K86.89 Vitamin D deficiency Acute E55.9 Left hand pain Acute M79.642 Hammer toe of second toe of right foot Acute M20.41 Lumbar strain Acute S39.012A RUQ abdominal pain Acute R10.11 Screening for colon cancer Acute Z12.11 Neural foraminal stenosis of cervical spine Acute M48.02 Medical History Medical History Acute gastritis History of in vitro fertilization Pelvic pain Dyshidrotic eczema Hyperlipidemia Patient Denies Surgical History Surgical History History of colonoscopy (~02/2023) History of carpal tunnel release (01/29/20) Left H/O toe surgery Acquired deformity of left toe s/p left third toe amputation 01/29/20 Lateral deviation of the third toe PIP joint 06/13/18 - Plantar plate repair with augmentation using Arthrex InternalBrace for third MTP joint, along with Clotilde osteotomy 11/14/18--Removal of hardware from left third metatarsal with hammertoe correction using a DuVries osteotomy S/P hammer toe correction 04/18/15--Of right 2nd toe 06/13/18--DuVries osteotomy, arthroplasty of the second PIP joint, left foot. Plantar plate repair with augmentation using Arthrex InternalBrace for third MTP joint, along with Clotilde osteotomy 11/14/18--Removal of hardware from left third metatarsal with hammertoe correction using a DuVries osteotomy 11/14/2018 S/P hammertoe fixation - right second and third toes - 05/30/19 S/P colonoscopy (06/10/17) H/O section (~02/2013) 02/2013 and 11/2014 History of esophagogastroduodenoscopy (EGD) (09/06/18) 09/06/18 07/07/20- Stoiber S/P cubital tunnel release (11/14/18) Ulnar nerve decompression with anterior subcutaneous transposition S/P endoscopic carpal tunnel release (01/29/20) Right wrist 11/14/18 Left Wrist 01/29/20 S/P LASIK surgery of both eyes (~2009) Right in 2009 Left in 2010 S/P excision of Guadalupe's neuroma (04/18/15) Right 3rd intermetatarsal space. Repeated on 12/12/2015 S/P bunionectomy (04/18/15) Right hallux Hx of appendectomy (~1981) H/O laparoscopy Ovarian cyst drainage at 17 or 18yrs old Tobacco Smoking/Tobacco Use Status: Former Tobacco Use Passive smoking exposure: Yes Second hand exposure: Yes Alcohol Alcohol Intake: current Alcohol intake frequency: holidays/special occasions only Alcohol type: beer and hard liquor Substance Use Substance use: Daily Substance use type: marijuana Details: Vapes Vital Signs and Lab Results Vital Signs Most Recent Vital Signs in EMR: Most Recent Vital Signs Temp Pulse Resp BP Pulse Ox 36.4 C L 87 18 164/92 H 99 07/05/25 06:31 07/05/25 06:31 07/05/25 06:31 07/05/25 06:31 07/05/25 06:31 Imaging and Studies Imaging and Studies Study information below may be from another EMR and interpreted by another provider. Please see original notes in EMR for more complete details. EKG Summary: 05/02/25 Conclusion Sinus rhythm...normal P axis, V-rate 60- 99 I have reviewed and interpreted ECG and agree with software generated interpretation. Stress Test Summary: 07/19/23 STRESS TEST PATIENT NAME: Cee Orozco UNIT #: [id number] ORDERING PROVIDER: Torey Lewis B[employer]K PLANT OPERATOR PRIMARY CARE PROVIDER: Torey Drake DNP DATE/TIME OF SERVICE: 07/19/23 ADMITTING PROVIDER: SAVI ANGEL MD : 1965 APPROVED REPORT Exam: Exercise Treadmill Patient Location: Out-Patient Room/Bed: Stress Nurse: Alvina Ruiz RN Ordering Provider:TOREY GONZALES, Contact Number: [phone] BMI: 28.05 Baseline Rhythm: Sinus Rhythm Indications: Pounding heart in morning with SOB, Palpitations. Medical History Medical History: GERD, HLD, gastritis Cardiac Medications: Vitamin D3, methocarbamol, sucralfate, pantoprazole Allergies: NKA Cardiac Risk Factors: Family hx, former smoker, HLD Previous Cardiac Procedures: None Pretest Chest Pain Characteristics: None Exercise History: Physically active Physical Disabilities: None Lung Sounds: Clear to auscultation Heart Sounds: Regular Stress Test Details Test: Exercise stress testing was performed using a Angus protocol. Rest Stress HR Resting HR Supine: 71 bpmMax Heart Rate (APMHR): 164 bpm Resting HR Standin bpmTarget HR (85% APMHR): 139 bpm Max HR Achieved: 158 bpm % of APMHR: 96 Recovery HR: 80 bpm HR response to stress: Normal HR response to stress BP Resting BP Supine: 160/92 mmHg Resting BP Standin/90 mmHg Max BP: 194/88 mmHg Recovery BP: 148/88 mmHg BP response to stress: Normal blood pressure response to stress. ECG Resting ECG: Sinus Rhythm Ectopy: Occasional PAC, rare PVC Stress ECG: Sinus Tachycardia ST Change: No significant ST segment changes noted Arrhythmia: Occasional PAC's, occasional multifocal PVC's, couplets, bigeminy Recovery ECG: Sinus Rhythm Recovery ST Change: No significant ST segment changes noted Recovery Arrhythmia: Occasional PAC's, occasional PVC's Clinical Reason for Termination: Target HR Achieved, Fatigue Stress Symptoms: General Fatigue Exercise duration: 06 min14 sec Highest Stage Reached: Stage 3: 3.4 mph at 14% grade. Exercise capacity: 7 METs Angina Score: None Tompkins Treadmill Score: 5.4 Rate Pressure Product: [id number] Stress ECG Conclusion 1. Resting electrocardiogram was within normal limits 2. Patient exercised on the Angus protocol and completed a workload of 7 METS limited by fatigue 3. Normal heart rate and blood pressure response to exercise. The patient achieved 96% of predicted heart rate for age 4. There was no electrocardiographic evidence of myocardial ischemia 5. There were no significant dysrhythmias Tompkins Treadmill Score is 5.4 which is Low risk. Stress Test Summary STAGETime (mins)Speed (mph)Grade (%)[id number] Gtqoxxvu19885/90 [id number]/904.5 [id number]/987 [id number] 1 min [id number]/88 3 min [id number]/80 6 min [id number]/88 Dictated by: SAVI ANGEL MD Dictated:: 07/19/23 1000 <Electronically signed by Savi Angel M.D. in OV> Anesthesia Assessment and Plan Anesthesia History Personal History: No History of Anesthesia Complications Family History: No Family History of Anesthesia Complications Exercise Tolerance Exercise Tolerance: Metabolic Equivalents>4 Pertinent Negatives Pertinent Negatives: No Symptoms of GERD, No Major Cardiovascular Symptoms or Complaints and No Major Pulmonary Symptoms or Complaints Cardiac & Pulmonary Exam Cardiac Exam: Normal S1/S2 Heart Sounds Pulmonary Exam: Clear Bilateral Breath Sounds Implantable Cardiac Device Does patient have a Pacemaker or an ICD?: No Airway Exam Known Difficult Airway: No Mallampati Class: 2 Mouth Opening: Normal (> 3cm) Thyromental Distance: Greater than 3 cm Neck Range of Motion: Full ROM Neck Circumference: Normal Teeth Condition: Normal Dentition ASA Classification ASA Score: ASA 2 Emergency Case?: No NPO Status NPO Status: NPO Clears >2 hours, Solids >8 hours Anesthesia Plan Resuscitation Status: Full Code Anesthesia Technique: General Anesthesia Airway Planned: Endotracheal Tube Monitors Used: Standard Monitors
--- NOTE | 2025-07-05 07:19 | W.PM.HP.N ---
Date of service: 07/05/25 Time of Service: 07:20 Assessment and Plan Assessment and plan (1) Hemorrhoid: Status: Acute Assessment and plan: Patient is a 60 yo female who presented to clinic for evaluation of hemorrhoids. She was found to have external hemorrhoids and an excisional hemorrhoidectomy was discussed with her. The risks and benefits of the procedure were discussed with her and consent was obtained prior to the procedure. Will plan for excisional hemorrhoidectomy in OR today. History of Present Illness Narrative: Patient is a 60 yo female who presented to clinic for evaluation of hemorrhoids. She was found to have external hemorrhoids and an excisional hemorrhoidectomy was discussed with her. She presents today for her procedure. She denies any changes in her health since she was seen in clinic. Review of Systems Cardiovascular Cardiovascular: Denies chest pain and Denies dyspnea Respiratory Respiratory: Denies dyspnea Gastrointestinal Gastrointestinal: Denies abdominal pain, Denies nausea and Denies vomiting Genitourinary Genitourinary: Denies dysuria PFSH All Active Problems Hemorrhoid (Acute) Bilateral hip pain (Acute) Palpitations (Acute) Chest wall mass (Acute) right sided posterior Breast pain, right (Acute) Colon polyp (Acute ~03/03/23) hyperplastic x1 Lumbosacral spondylosis without myelopathy (Acute) Carpal tunnel syndrome of left wrist (Acute) s/p ECTR Cubital tunnel syndrome on left (Acute 10/27/21) s/p release 10/27/2021 GERD with esophagitis (Chronic) EGD 09/06/18 with erosive reflux esophagitis Amputation of toe of left foot (Acute 01/29/20) Left third toe Metatarsal fracture (Acute ~03/01/20) Right second metatarsal Anemia (Chronic) Chronic low back pain with sciatica (Acute) 07/2020- Large broad-based disc herniation at L2-3. Mild broad-based disc herniation at L4-5. [facility] Stress fracture of metatarsal bone (Acute) 3rd metatarsal right foot. Spondylosis (Acute) at almost every level by MRI 07/2020 [facility] recommended laminectomy for lumbar stenosis L2-3 & L4-5 Back pain (Acute) Mass of pancreas (Acute) Vitamin D deficiency (Acute) Left hand pain (Acute) Hammer toe of second toe of right foot (Acute) Lumbar strain (Acute) RUQ abdominal pain (Acute) Screening for colon cancer (Acute) Neural foraminal stenosis of cervical spine (Acute) Medical History Acute gastritis History of in vitro fertilization Pelvic pain Dyshidrotic eczema Hyperlipidemia Patient Denies Surgical History History of colonoscopy (~02/2023) History of carpal tunnel release (01/29/20) Left H/O toe surgery Acquired deformity of left toe s/p left third toe amputation 01/29/20 Lateral deviation of the third toe PIP joint 06/13/18 - Plantar plate repair with augmentation using Arthrex InternalBrace for third MTP joint, along with Clotilde osteotomy 11/14/18--Removal of hardware from left third metatarsal with hammertoe correction using a DuVries osteotomy S/P hammer toe correction 04/18/15--Of right 2nd toe 06/13/18--DuVries osteotomy, arthroplasty of the second PIP joint, left foot. Plantar plate repair with augmentation using Arthrex InternalBrace for third MTP joint, along with Clotilde osteotomy 11/14/18--Removal of hardware from left third metatarsal with hammertoe correction using a DuVries osteotomy 11/14/2018 S/P hammertoe fixation - right second and third toes - 05/30/19 S/P colonoscopy (06/10/17) H/O section (~02/2013) 02/2013 and 11/2014 History of esophagogastroduodenoscopy (EGD) (09/06/18) 09/06/18 07/07/20- Stoiber S/P cubital tunnel release (11/14/18) Ulnar nerve decompression with anterior subcutaneous transposition S/P endoscopic carpal tunnel release (01/29/20) Right wrist 11/14/18 Left Wrist 01/29/20 S/P LASIK surgery of both eyes (~2009) Right in 2009 Left in 2010 S/P excision of Guadalupe's neuroma (04/18/15) Right 3rd intermetatarsal space. Repeated on 12/12/2015 S/P bunionectomy (04/18/15) Right hallux Hx of appendectomy (~1981) H/O laparoscopy Ovarian cyst drainage at 17 or 18yrs old Family History (Updated 07/17/24 @ 13:41 by Kiersten Stockton) Mother No problems noted. Father Dementia Brother No problems noted. Daughter No problems noted. Daughter No problems noted. Maternal Grandfather , at 74 of emphysema COPD (chronic obstructive pulmonary disease) with emphysema Maternal Grandmother , at 96 No problems noted. Paternal Grandfather , at 74 of [place] Myocardial infarction Heart disease Paternal Grandmother , at 94 of dementia Dementia Social History (Updated 07/18/24 @ 11:59 by Kiersten Stockton) Smoking/Tobacco Use Status: Former Tobacco Use tobacco type: cigarettes Quit Date: 08/15/12 Tobacco: How many years used: 30 Second Hand Exposure: Yes Smoking risk assessment performed?: Yes Alcohol Intake: current Alcohol Intake frequency: holidays/special occasions only Alcohol type: beer and hard liquor Drug use: Daily Substance use type: marijuana Details: Vapes Caregiver/Support person: No Household members: family, children and other Housing: house Number of Children: 2 Communication Needs: None Do you need help understanding health information?: Never 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[employer] Pets and animals: Yes Pets and animals: dog(s) Do you think of yourself as: lesbian/edward/homosexual Current gender identity: female What is your relationship status?: refused to answer How often do you talk on the phone with friends or family?: decline to answer How often do you get together with friends or relatives?: decline to answer How often do you attend sikh or mu-ism services?: decline to answer Do you belong to any clubs or organized social groups?: decline to answer Panel score (0-1 are the most socially isolated patients): 0 Julee/Orthodoxy: Other Seatbelt use: always Helmet use: Yes Helmet use: always Drive intox or ride w/intox dedicated local truck driver: No Do you feel safe at home: Yes Do you feel safe in your relationship?: Yes Meds Allergies and Home Medications Allergies Allergy/AdvReac Type Severity Reaction Status Date / Time morphine Allergy Intermediate Itching Verified 07/02/25 14:42 Home Medications Medication Instructions Recorded Confirmed Type cholecalciferol (vitamin D3) 50 5,000 unit PO DAILY 07/08/17 07/05/25 History mcg (2,000 unit) capsule (Vitamin D3) Medical Marijuana 1 dose PO PRN PRN 06/28/20 07/02/25 History ferrous sulfate 325 mg (65 mg 325 mg PO DAILY 07/04/20 07/05/25 History iron) tablet (FeroSul) acetaminophen 500 mg capsule 1,000 mg (2 x 500 mg) PO Q8H PRN 10/27/21 07/02/25 Rx PRN #30 caps triamcinolone acetonide 0.05 % 1 applic topical BID #110 grams 02/09/22 07/02/25 Rx topical ointment pantoprazole 40 mg tablet,delayed 40 mg PO .Daily to BID #180 tabs 07/11/24 07/05/25 Rx release (Protonix) sucralfate 1 gram tablet See Rx Instructions .Route 06/04/25 07/05/25 Rx .COMPLEX #60 tabs methocarbamol 750 mg tablet See Rx Instructions .Route 06/06/25 07/05/25 Rx .COMPLEX #90 tabs Exam Narrative Exam Narrative: General: Well appearing, no acute distress. Skin: Good turgor, no visible rashes or lesion HEENT: Normocephalic, atraumatic CV: Regular rate Lungs: Bilateral equal chest rise, non-labored breathing Extremities: Warm, well perfused Neurologic: No focal deficits Psychiatric: Alert and oriented, normal mood and affect Results Last Vital Signs Temp 36.4 C L 07/05/25 06:31 Pulse 87 07/05/25 06:31 Resp 18 07/05/25 06:31 BP 164/92 H 07/05/25 06:31 Pulse Ox 99 07/05/25 06:31 Time Spent Time spent with Patient: <40 minutes Time was spent: preparing to see the patient(eg.review tests), obtaining and/or reviewing separately otained hiistory and counseling the patient
[2025-07-05] MEDS: ceFAZolin 2 GM/50 ML BAG IVPB (07:54)
--- NOTE | 2025-07-05 08:05 | BOWEL_PTH ---
PATIENT: Cee Orozco LOC: [facility] U#:[id number] AGE/SX: 60/F ROOM: RE07/05/[address]: Alberta Garcia : 1965 BED: DIS: 07/05/2025 SPEC #: [id number] RECD: 07/05/25 12:39 STATUS: DAVE RE #: [id number] ROSARIO: 07/05/25 08:[address]: Alberta Garcia DEPT: Surgical Specimen RECD BY: Kayli Stratton ENTERED: 07/05/25 12:41 SP TYPE: Bowel OTHR DR: Kiran Drake DNP Tissues: 1 - BIOPSY BOWEL 2 - BIOPSY BOWEL Procedures: GROSS AND MICRO LEVEL 4 Comments: [id number]
[2025-07-05] MEDS: Bupivacaine 0.5% Pres-Free 30 ML VIAL (08:07)
[2025-07-05] MEDS: Bupivacaine LIPOSOME/PF 133 MG/10 ML VIAL IJ (08:08)
--- NOTE | 2025-07-05 08:21 | PDOC.DSDIS_ITS ---
Date of service: 07/05/25 Discharge Plan Disposition Patient Disposition: Home Condition: Good Discharge Details Reason For Visit: Anal lesion Attending Provider: Alberta Garcia Primary Care Provider: Kiran Lewis Recommendations for Follow Up Recommended tests to be ordered by follow up provider: Follow up pathology Home Meds and New Rx's Prescriptions: Continued triamcinolone acetonide 0.05 % ointment 1 applic topical BID Qty: 110 0RF Patient Comments: not taking ferrous sulfate [FeroSul] 325 mg (65 mg iron) tablet 325 mg PO DAILY cholecalciferol (vitamin D3) [Vitamin D3] 2,000 UNIT capsule 5,000 unit PO DAILY pantoprazole [Protonix] 40 mg tablet,delayed release (DR/EC) 40 mg PO .Daily to BID Qty: 180 4RF sucralfate 1 gram tablet See Rx Instructions .ROUTE .COMPLEX Qty: 60 12RF Dose Instruction: TAKE ONE TABLET BY MOUTH AT BEDTIME AND TAKE ONE TABLET NEEDED Rx Instructions: TAKE ONE TABLET BY MOUTH AT BEDTIME AND TAKE ONE TABLET NEEDED methocarbamol 750 mg tablet See Rx Instructions .ROUTE .COMPLEX Qty: 90 3RF Dose Instruction: TAKE ONE TABLET BY MOUTH EVERY 8 HOURS NEEDED FOR MUSCLE SPASM Rx Instructions: TAKE ONE-two TABLET BY MOUTH EVERY 6 HOURS NEEDED FOR MUSCLE SPASM acetaminophen 500 mg capsule 1,000 mg PO Q8H PRN PRNQty: 30 0RF Medical Marijuana 1 dose PO PRN PRN Discharge Instructions Instructions: Hemorrhoidectomy (DC), How to Do a Sitz Bath Additional Instructions: Your procedure went well today. The lesions will be sent to pathology for evalu ation and we will discuss results at your follow up appointment. For pain control you can use tylenol and ibuprofen (if tolerated) as well as the narcotic pain medication that was sent to your pharmacy. It is also ok to apply ice to your bottom or use sitz baths for comfort. Please take over the counter stool softeners to avoid constipation following the procedure. If you have fevers, chills, inability to urinate or increasing pain please contact the general surgery office. Some bleeding following your procedure is expected but it should not increase over time. Please contact the office if you have any questions or concerns. Stand Alone Forms: Portal Information Activity:: Activity as Tolerated Shower/Bathe:: 24 hours Diet:: As Tolerated Discharge Orders Discharge Orders: Discharge Order (Routine); Ordered 07/05/25 Ordered By: Alberta Garcia DS: Diagnosis Discharge Diagnosis (1) Hemorrhoid: Status: Acute
--- NOTE | 2025-07-05 08:26 | W.PM.OP ---
Operative Note Operative Note PRE-OP DIAGNOSIS: Perianal skin lesion, hemorrhoids POST-OP DIAGNOSIS: same PROCEDURE: Excision of perianal lesions and hemorrhoidectomy SURGEON: Alberta Garcia CARTOGRAPHY TEACHER: Monika Live ANESTHESIA TYPE: Local By Surgeon and General LMA/ETT Refer to Anesthesia Record ESTIMATED BLOOD LOSS: 5 PATHOLOGY: other (perianal lesion right, perianal lesion left ) COMPLICATIONS: None Patient was transported to: PACU Patient's condition: stable Implants: None. Indications: Patient is a 60 yo female who presented to the clinic for evaluation of hemorrhoids with ongoing bleeding and itching. She states that these lesions have increased in size over time. Excision of these likely hemorrhoids was discussed with her in the operating room. The risks and benefits were discussed and consent was obtained prior to the procedure. Findings: Two perianal lesions associated with hemorrhoids were identified one which looked consistent with a hemorrhoid. The other lesion on patient left was larger. Both lesions were excised in entirety. Hemostasis was achieved and incisions closed with running 3-0 Chromic suture. Procedure Description: After induction of anesthesia the patient was positioned prone, then prepped and draped in sterile fashion. Prior to incision, an additional timeout was performed, which again confirmed the patient's name, date of , and the procedure to be performed, and antibiotics were given within an hour of incision. Bilateral pudendal nerve blocks and anterior field blocks were performed with local anesthetic. External exam revealed a mass originating off the left side of the external hemorrhoidal tissues. We grasped the external hemorrhoidal tissue and lesion. We injected local anesthetic above the sphincter. An elliptical incision was made around the base of the hemorrhoidal tissues and perianal lesion and Metzenbaum scissors were used to dissect the tissue off of the sphincter, being careful not to damage it. The hemorrhoid and associated mass were sent to pathology. The wound was then closed with running 3-0 chromic suture. Attention was then turned to the right sided lesion associated with the hemorrhoidal tissue. We grasped the external hemorrhoidal tissue and lesion. We injected local anesthetic above the sphincter. An elliptical incision was made around the base of the hemorrhoidal tissues and perianal lesion and Metzenbaum scissors were used to dissect the tissue off of the sphincter, being careful not to damage it. The hemorrhoid and associated mass were sent to pathology. The wound was then closed with running 3-0 chromic suture. We irrigated. There was no further bleeding. An anoscope was placed and there was no evidence of anal stenosis or additional lesions or hemorrhoids requiring further excision. At this point, the patient was awoken, extubated and transported to the recovery room in stable condition. Sponge and instrument counts were correct. Date of Procedure: 07/05/25
--- NOTE | 2025-07-05 09:15 | W.ANESPOSTOP ---
Postoperative Evaluation Date, Time and Location Date Performed: 07/05/25 Time Performed: 09:01 Patient Location: Day Surgery Unit Vital Signs Most Recent Imported Vital Signs: Most Recent Vital Signs Temp Pulse Resp BP Pulse Ox 36.1 C L 68 20 120/92 H 100 07/05/25 08:59 07/05/25 08:59 07/05/25 08:59 07/05/25 08:59 07/05/25 08:59 Pain Score Most Recent Pain Score: Most Recent Pain Score Pain Level 2 07/05/25 09:08 Assessment Mental Status: Awake (Alert & Oriented to Patient Baseline) Airway and Respiratory Function: Patent airway with normal (patient baseline) respiratory exam Cardiovascular Function: Hemodynamically Stable Hydration Status: Adequately Hydrated Nausea & Vomiting: No Nausea or Vomiting Pain: Pain is tolerable per patient Peripheral Nerve Block: Patient did not receive a nerve block
== END 2025-07-05 09:36 | disposition home or self-care (01) ==
PROVIDERS: PCP Nurse Practitioner Family; Visit Provider Student in an Organized Health Care Education/Training Program
PROC: (CPT 46250; principal; 2025-07-05 07:30)
DX: K64.8 Other hemorrhoids (principal); M47.817 Spondylosis without myelopathy or radiculopathy, lumbosacral region; D64.9 Anemia, unspecified; E55.9 Vitamin D deficiency, unspecified; K21.9 Gastro-esophageal reflux disease without esophagitis; L98.9 Disorder of the skin and subcutaneous tissue, unspecified
CPT/HCPCS: 46250; 88305; J0131; J0665; J0666; J0690; J1100; J1885; J2003; J2405; J2704

== ENCOUNTER 2025-07-19 12:46 | Outpatient (CLI) | payer MEDICAID, SELFPAY ==
[2025-07-19 16:11] LABS: Abs Immature Grans 0.04 10^3/uL (0.0-0.06); HCT 37.0 % (36.0-46.0); HGB 12.1 g/dL (11.2-15.7); Immature Grans % 0.5 %; MCH 30.9 pg (27.0-33.0); MCHC 32.7 % (32.0-36.0); MCV 94 fL (80-95); MPV 10.0 fL (8.0-11.0); Platelet Count 411 10^3/uL (130-400); RBC 3.92 10^6/uL (3.93-5.22); RDW 12.4 % (11.7-14.6); RDW-SD 42.9 fL; WBC 7.53 10^3/uL (4.4-10.8)
[2025-07-19 16:18] LABS: Lipase 27 U/L (<53)
[2025-07-19 16:19] LABS: ALT 10 U/L (10-49); AST 16 U/L (<34); Albumin 4.5 g/dL (3.2-5.0); Alkaline Phosphatase 104 U/L (46-116); Amylase 76 U/L (30-118); Anion Gap 8.9 mmol/L (3-11); BUN 19 mg/dL (9-23); Bilirubin, Total 0.50 mg/dL (0.2-1.2); CO2 26.1 mmol/L (20.0-31.0); Calcium 8.7 mg/dL (8.3-10.6); Chloride 107 mmol/L (98-107); Glucose 91 mg/dL (74-106); Potassium 3.9 mmol/L (3.5-5.1); Sodium 142 mmol/L (136-145); Total Protein 7.2 g/dL (5.7-8.2)
[2025-07-19 16:20] LABS: TSH (W/Ref FT4) 1.10 uIU/mL (0.55-4.78)
== END 2025-07-19 12:47 | disposition home or self-care (01) ==
PROVIDERS: PCP Nurse Practitioner Family; Visit Provider Nurse Practitioner Family
DX: R63.5 Abnormal weight gain (principal); R10.11 Right upper quadrant pain
CPT/HCPCS: 36415; 80053; 83690; 82150; 84443; 85025

== ENCOUNTER → 2025-08-07 00:17 | Outpatient (CLI) | payer MEDICAID, SELFPAY ==
--- NOTE | 2025-08-07 11:36 | DI.MAMMO_ITS ---
Exam(s) MAMMO SCREENING EXAM: MAMMO SCREENING CLINICAL HISTORY: screening Z12.39. TECHNIQUE: Bilateral full field digital CC and MLO mammographic images were obtained with 3D tomosynthesis and utilizing computer aided detection (CAD). COMPARISON: Prior mammograms were reviewed. FINDINGS: There has been no significant change in the appearance and distribution of the fibroglandular tissue. There are no CAD designations. There are no new spiculated masses nor malignant appearing microcalcification groups. There is no significant architectural distortion nor skin thickening-retraction. IMPRESSION: No radiographic evidence of malignancy. BI-RADS Category 1 - Negative Breast Density - Category B - There are scattered areas of fibroglandular density. Breast density Category C or D implies that the patient has dense breast tissue. Dense breast tissue can make it harder to find cancer on a mammogram. Dense breast tissue is also associated with an increased risk of breast cancer. This information about the result of the mammogram report was provided to the patient to raise their awareness. Use this report when you speak with the patient about their risks for breast cancer, which includes their family history. At that time, you may recommend additional screening tests (Ultrasound or MRI) as these tests may add significant information. A negative radiographic report should not delay biopsy if a dominant or clinically suspicious mass is present. Up to ten percent of cancers are not identified on mammography. A negative report may reinforce clinical impression. Adenosis and dense breasts may obscure an underlying neoplasm. False positive reports average 6 to 10%. Patient will receive a letter notifying them of these results.
--- NOTE | 2025-08-07 12:09 | DI.US_ITS ---
Exam(s) US ABDOMEN LIMITED EXAM: US ABDOMEN LIMITED CLINICAL HISTORY: intermittent, ?gallstones vs FLD R10.11 RUQ PAIN TECHNIQUE: Ultrasound abdomen performed using standard protocol. COMPARISON: US US SOFT TISS ABD WALL/LOW BACK from 07/26/[address] ABDOMEN PELVIS W from 02/07/2024 FINDINGS: There is no ascites evident. LIVER: There are no hepatic lesions evident nor dilatation of intrahepatic ducts. GALLBLADDER/BILIARY: There are no gallstones. No gallbladder wall edema nor pericholecystic fluid. The common hepatic duct isnot dilated, measuring 3-4mm at the level of michelle hepatis. PANCREAS: There is no evidence of pancreatic mass nor dilatation of the pancreatic duct. RIGHT KIDNEY:No evidence of solid mass, calculus, nor hydronephrosis. No cortical cysts evident. IMPRESSION: 1. No evidence of cholelithiasis nor dilatation of the biliary tree. 2. No other significant ultrasound findings in the right upper quadrant. 3. There is no ascites. DATA REPOSITORY:
== END ==
LOC: DI 00:17
PROVIDERS: PCP Nurse Practitioner Family; Visit Provider Nurse Practitioner Family
DX: R10.11 Right upper quadrant pain (principal); R92.323 Mammographic fibroglandular density, bilateral breasts
CPT/HCPCS: 77063; 77067; 76705